=== PATIENT | female | born 1930 | race Caucasian/White ===

== ENCOUNTER → 2016-08-16 | Outpatient (CLI) | payer MEDICARE, OTHER ==
[~2016-08-16] MED LIST: Bupivacaine 0.25% 10 ML SDV INJECT STA; Iopamidol 612 MG/ML 30 ML SDV IARTIC STA; Triamcinolone Acetonide 40 MG/ML 1 ML MDV INJECT STA
--- NOTE | 2016-08-16 10:26 | CR ---
EXAMINATION: Bilateral greater trochanteric bursae steroid injections HISTORY: Pain COMPARISON: None TECHNIQUE: The procedure, risks, and benefits were discussed with the patient. Informed consent was obtained. The lateral areas overlying the hips were sterilely prepped and draped bilaterally, irving pope. 1% lidocaine was administered for local anesthesia. Using fluoroscopic guidance 22-gauge spina l needles were advanced. A small amount of Isovue was injected. A total of 40 mg of Kenalog and 2 mL of Marcaine were injected bilaterally. IMPRESSION: Successful fluoroscopic guided bilateral greater trochanteric bursa injections.
== END ==
LOC: MW.DI 08:20
PROVIDERS: ATTEND Student in an Organized Health Care Education/Training Program
DX: M25.551 Pain in right hip (principal)
CPT/HCPCS: J3301; Q9967

== ENCOUNTER → 2016-08-24 | Outpatient (CLI) | payer MEDICARE, OTHER | LOC: MW.CHNEURO 08:00 | PROVIDERS: ATTEND Psychiatry & Neurology Neuromuscular Medicine | DX: F03.90 Unspecified dementia, unspecified severity, without behavioral disturbance, psychotic disturbance, mood disturbance, and anxiety (principal) | CPT/HCPCS: 99214 ==

== ENCOUNTER 2016-12-05 14:39 | Observation (INO) | payer OTHER, MEDICARE ==
[2016-12-05] MEDS ORDERED: Sodium Chloride 0.9% 1,000 ML IV ONE (15:21)
[2016-12-05] MEDS ORDERED: Famotidine 20 MG/2 ML SDV IVPUSH ONE (15:21)
--- NOTE | 2016-12-05 16:45 | EDM.PDOC ---
ED HPI GENERAL MEDICAL PROBLEM - General Chief Complaint: Gastrointestinal Problem Stated Complaint: BOWL MOVEMENT ISSUES Time Seen by Provider: 12/05/16 16:42 Source of Information: Reports: Patient History Limitations: Reports: No Limitations - History of Present Illness INITIAL COMMENTS - FREE TEXT/NARRATIVE: History of present illness: [86-year-old female presenting with complaints of inability to control bowel movements. Patient has a history of constipation and indicates now that she has loose brown stool that she has no control over and has had several accidents and is concerned.] Review of systems: As per history of present illness and below otherwise all systems reviewed and negative. Past medical history: As per history of present illness and as reviewed below otherwise noncontributory. Surgical history: As per history of present illness and as reviewed below otherwise noncontributory. Social history: No reported history of drug or alcohol abuse. Family history: As per history of present illness and as reviewed below otherwise noncontributory. Physical exam: HEENT: Atraumatic, normocephalic, pupils reactive, negative for conjunctival pallor or scleral icterus, mucous membranes moist, throat clear, neck supple, nontender, trachea midline. Lungs: Clear to auscultation, breath sounds equal bilaterally, chest nontender. Heart: S1S2, regular, negative for clicks, rubs, or JVD. Abdomen: Soft, nondistended, nontender. Negative for masses or hepatosplenomegaly. Negative for costovertebral tenderness. Pelvis: Stable nontender. Genitourinary: Deferred. Rectal: Deferred. Extremities: Atraumatic, negative for cords or calf pain. Neurovascular unremarkable. Neuro: Awake, alert, oriented. Cranial nerves II through XII unremarkable. Cerebellum unremarkable. Motor and sensory unremarkable throughout. Exam nonfocal. Patient's Global assessment is benign save the subjective complaint as noted in history of present illness. Patient's H&H noted to be continuously drifting lower with a stool sample obtained with negative guaiac results. Diagnostics: [CBC, CMP, guaiac of stool] Therapeutics: [] Impression: [Low H&H, loose stools] Plan: [Admit to Dr. Hughes observation] Definitive disposition and diagnosis as appropriate pending reevaluation and review of above. - Related Data Allergies Allergy/AdvReac Type Severity Reaction Status Date / Time Penicillins Allergy Mild Rash Verified 12/05/16 14:54 codeine Allergy Nausea Verified 12/05/16 14:54 Lactose Allergy Vomiting Uncoded 12/05/16 14:54 Home Meds: Home Meds Acetaminophen [Tylenol Extra Strength] 500 mg PO Q4H PRN 02/15/14 [History] Fluticasone Propionate [Flonase] 1 - 2 sprays NASBOTH DAILY 02/15/14 [History] Furosemide [Lasix] 20 mg PO DAILY 02/15/14 [History] Insulin Detemir [Levemir Flexpen] 25 units SQ DAILY 02/15/14 [History] Levothyroxine Sodium [Synthroid] 75 mcg PO DAILY 02/15/14 [History] Lutein/Minerals/Vit A,C & E [Ocuvite] 1 tab PO DAILY 02/15/14 [History] Metoprolol Tartrate 25 mg PO BID 02/15/14 [History] atorvaSTATin Calcium [Atorvastatin Calcium] 10 mg PO DAILY 02/15/14 [History] Calcium Carbonate [Calcium] 600 mg PO BID 12/23/15 [History] Losartan [Cozaar] 25 mg PO TID 12/23/15 [History] Pantoprazole [Protonix] 40 mg PO DAILY 12/23/15 [History] Donepezil [Aricept] 1 tab PO DAILY 05/16/16 [History] Aspirin 81 mg PO DAILY 12/05/16 [History] Meclizine HCl 25 mg PO TID PRN 12/05/16 [History] Past Medical History HEENT History: Reports: Impaired Vision Other HEENT History: WEARS GLASSES Cardiovascular History: Reports: High Cholesterol, Hypertension Gastrointestinal History: Reports: GERD Musculoskeletal History: Reports: Back Pain, Chronic Endocrine/Metabolic History: Reports: Diabetes, Type I - Infectious Disease History Infectious Disease History: Reports: Measles - Past Surgical History Female Surgical History: Reports: Hysterectomy Musculoskeletal Surgical History: Reports: Other (See Below) Other Musculoskeletal Surgeries/Procedures:: ankle sx Oncologic Surgical History: Reports: Lumpectomy Social & Family History - Family History Family Medical History: Noncontributory - Tobacco Use Smoking Status *Q: Never Smoker Second Hand Smoke Exposure: No - Caffeine Use Caffeine Use: Reports: Coffee - Alcohol Use Days Per Week of Alcohol Use: 0 Number of Drinks Per Day: 0 Total Drinks Per Week: 0 - Recreational Drug Use Recreational Drug Use: No Drug Use in Last 12 Months: No ED ROS GENERAL - Review of Systems Review Of Systems: See Below (See history of present illness) ED EXAM, GI/ABD - Physical Exam Exam: See Below (See history of present illness) Course - Vital Signs Last Recorded V/S: Last Vital Signs Temp 36.3 C 12/05/16 14:54 Pulse 64 12/05/16 15:43 Resp 16 12/05/16 15:43 BP 160/64 H 12/05/16 15:43 Pulse Ox 95 12/05/16 15:43 - Orders/Labs/Meds Orders: Active Orders 24 hr Category Date Time Status Cardiac Monitoring [RC] . DIRECTED Care 12/05/16 15:21 Active EKG Documentation Completion [RC] STAT Care 12/05/16 15:21 Active TYPE AND SCREEN [BBK] Stat Lab 12/05/16 17:38 Ordered Labs: Laboratory Tests 12/05/16 12/05/16 12/05/16 Range/Units 15:09 15:09 15:09 WBC 6.89 (4.0-11.0) K/uL RBC 2.98 L (4.30-5.90) M/uL Hgb 9.5 L (12.0-16.0) g/dL Hct 29.0 L (36.0-46.0) % MCV 97.3 (80.0-98.0) fL MCH 31.9 (27.0-32.0) pg MCHC 32.8 (31.0-37.0) g/dL RDW Std Deviation 61.0 (28.0-62.0) fl RDW Coeff of Joelle 17 H (11.0-15.0) % Plt Count 215 (150-400) K/uL MPV 9.10 (7.40-12.00) fL Neut % (Auto) 69.6 (48.0-80.0) % Lymph % (Auto) 21.0 (16.0-40.0) % [place] % (Auto) 4.8 (0.0-15.0) % Eos % (Auto) 4.5 (0.0-7.0) % Baso % (Auto) 0.1 (0.0-1.5) % Neut # (Auto) 4.8 (1.4-5.7) K/uL Lymph # (Auto) 1.5 (0.6-2.4) K/uL [place] # (Auto) 0.3 (0.0-0.8) K/uL Eos # (Auto) 0.3 (0.0-0.7) K/uL Baso # (Auto) 0.0 (0.0-0.1) K/uL Nucleated RBC % 0.0 /100WBC Nucleated RBCs # 0 K/uL Sodium 141 (136-146) mmol/L Potassium 3.7 (3.5-5.1) mmol/L Chloride 107 (98-110) mmol/L Carbon Dioxide 26 (21-31) mmol/L BUN 17 (6.0-23.0) mg/dL Creatinine 1.4 (0.6-1.5) mg/dL Est Cr Clr Drug Dosing 23.42 mL/min Estimated GFR (MDRD) 35.6 ml/min Glucose 90 (60-110) mg/dL Calcium 9.1 (8.8-10.8) mg/dL Total Bilirubin 1.5 (0.1-1.5) mg/dL AST 20 (5-40) IU/L ALT 18 (8-54) IU/L Alkaline Phosphatase 67 (40-150) Troponin I < 0.10 (0.0-0.29) NG/ML Total Protein 6.3 (6.0-8.0) g/dL Albumin 3.6 (3.4-4.8) g/dL Globulin 2.7 (2.0-3.5) g/dL Albumin/Globulin Ratio 1.3 (1.3-2.8) Amylase 71 (10-90) U/L Lipase 37 (7-80) U/L Meds: Medications Discontinued Medications Generic Name Dose Route Start Last Admin Trade Name Freq PRN Reason Stop Dose Admin Famotidine 20 mg 12/05/16 15:21 12/05/16 15:40 Pepcid IVPUSH 12/05/16 15:22 20 mg ONETIME ONE Administration Sodium Chloride 1,000 mls @ 999 mls/hr 12/05/16 15:21 12/05/16 15:40 Normal Saline IV 12/05/16 16:21 999 mls/hr .Bolus ONE Administration Departure - Departure Time of Disposition: 18:00 Disposition: Refer to Observation Condition: Good Clinical Impression: Anemia due to blood loss - Discharge Information Forms: ED Department Discharge - My Orders Last 24 Hours: My Active Orders 12/05/16 15:21 Cardiac Monitoring [RC] . DIRECTED EKG Documentation Completion [RC] STAT 12/05/16 17:38 TYPE AND SCREEN [BBK] Stat - Assessment/Plan Last 24 Hours: My Active Orders 12/05/16 15:21 Cardiac Monitoring [RC] . DIRECTED EKG Documentation Completion [RC] STAT 12/05/16 17:38 TYPE AND SCREEN [BBK] Stat
[2016-12-05] MEDS ORDERED: Acetaminophen 325 MG Tab PO PRN (18:13)
[2016-12-05] MEDS ORDERED: Loperamide 2 MG Cap PO STA (18:13)
[2016-12-05] MEDS ORDERED: Ondansetron 4 MG Tab.DIS PO PRN (18:13)
[2016-12-05] MEDS ORDERED: Pantoprazole 40 MG in Sodium Chloride 0.9% 10 ML IVPUSH ONE (18:13)
[2016-12-05] MEDS ORDERED: Loperamide 2 MG Cap PO PRN (18:13)
--- NOTE | 2016-12-05 18:30 | PCM.HP ---
H&P History of Present Illness - General Date of Service: 12/05/16 Admit Problem/Dx: Admission Diagnosis/Problem Admission Diagnosis/Problem Anemia Source of Information: Patient, Provider History Limitations: Reports: No Limitations - History of Present Illness Initial Comments - Free Text/Narative: 86-year-old female with medical history of hypertension, hypercholesterolemia, GERD, chronic back pain, type 1 diabetes requiring insulin and hypothyroidism and is being admitted secondary to one week duration of loose stools and a low hemoglobin of 9.5. Patient states over the past week she's been experiencing loose stools during the day and is unable to control her bowels and has had multiple accidents over the week. This is very different for the patient as she is usually constipated. She has not been around any sick contacts although she does live in a [facility] home but notes that no other residents have had similar symptoms. She cannot correlate the loose stools with any type of food. She denies any bloody stools or black stools. She's never had symptoms like this before. She denies any recent travel. She has had occasional chills but denies any fever. With the frequent stools over the past week, the patient is feeling dizziness at times and much more weak than usual. She has never required a blood transfusion before. She does use a walker for ambulation. Patient denies any other concerns including vision problems, chest pain, palpitations, shortness of breath, wheezing, cough, abdominal pain, nausea, vomiting, change in appetite, numbness/tingling in the upper and lower extreme venous bilaterally, peripheral edema. ER course: Patient was given IV Pepcid while in the emergency room. Hemoccult was done which was negative. Hemoglobin was 9.5. In reviewing past records her hemoglobin is usually between 9.5-11. Her platelet count is normal. CMP is unremarkable. Initial troponins were negative. Amylase and lipase were unremarkable. - Related Data Allergies/Adverse Reactions: Allergies Allergy/AdvReac Type Severity Reaction Status Date / Time Penicillins Allergy Mild Rash Verified 12/05/16 14:54 codeine Allergy Nausea Verified 12/05/16 14:54 Lactose Allergy Vomiting Uncoded 12/05/16 14:54 Home Medications: Home Meds Acetaminophen [Tylenol Extra Strength] 500 mg PO Q4H PRN 02/15/14 [History] Furosemide [Lasix] 20 mg PO DAILY 02/15/14 [History] Insulin Detemir [Levemir Flexpen] 25 units SQ DAILY 02/15/14 [History] Levothyroxine Sodium [Synthroid] 75 mcg PO DAILY 02/15/14 [History] atorvaSTATin Calcium [Atorvastatin Calcium] 10 mg PO DAILY 02/15/14 [History] Calcium Carbonate [Calcium] 600 mg PO BID 12/23/15 [History] Losartan [Cozaar] 25 mg PO TID 12/23/15 [History] Pantoprazole [Protonix] 40 mg PO DAILY 12/23/15 [History] Donepezil [Aricept] 1 tab PO DAILY 05/16/16 [History] Aspirin 81 mg PO DAILY 12/05/16 [History] Meclizine HCl 25 mg PO TID PRN 12/05/16 [History] Past Medical History HEENT History: Reports: Impaired Vision Other HEENT History: WEARS GLASSES Cardiovascular History: Reports: High Cholesterol, Hypertension Gastrointestinal History: Reports: GERD Musculoskeletal History: Reports: Back Pain, Chronic Endocrine/Metabolic History: Reports: Diabetes, Type I - Infectious Disease History Infectious Disease History: Reports: Measles - Past Surgical History Female Surgical History: Reports: Hysterectomy Musculoskeletal Surgical History: Reports: Other (See Below) Other Musculoskeletal Surgeries/Procedures:: ankle sx Oncologic Surgical History: Reports: Lumpectomy Social & Family History - Family History Family Medical History: Noncontributory - Tobacco Use Smoking Status *Q: Never Smoker Second Hand Smoke Exposure: No - Caffeine Use Caffeine Use: Reports: Coffee - Alcohol Use Days Per Week of Alcohol Use: 0 Number of Drinks Per Day: 0 Total Drinks Per Week: 0 - Recreational Drug Use Recreational Drug Use: No Drug Use in Last 12 Months: No H&P Review of Systems - Review of Systems: Review Of Systems: See Below General: Reports: Weakness HEENT: Reports: No Symptoms Pulmonary: Reports: No Symptoms Cardiovascular: Reports: No Symptoms Gastrointestinal: Reports: Diarrhea, Stool Incontinence Genitourinary: Reports: No Symptoms Musculoskeletal: Reports: No Symptoms Skin: Reports: No Symptoms Psychiatric: Reports: No Symptoms Neurological: Reports: Dizziness, Weakness Hematologic/Lymphatic: Reports: No Symptoms Immunologic: Reports: No Symptoms Exam - Exam Exam: See Below - Vital Signs Vital Signs: Last Vital Signs Temp 97.4 F 12/05/16 14:54 Pulse 64 12/05/16 15:43 Resp 16 12/05/16 15:43 BP 160/64 H 12/05/16 15:43 Pulse Ox 95 12/05/16 15:43 Weight: 155 lb - Exam Quality Assessment: DVT Prophylaxis (SCD's) General: Alert, Oriented, Cooperative HEENT: Conjunctiva Clear, Hearing Intact, Mucosa Moist & [place], Posterior Pharynx Clear Neck: Supple, Trachea Midline, 2 Lungs: Clear to Auscultation, Normal Respiratory Effort Cardiovascular: Regular Rate, Regular Rhythm GI/Abdominal Exam: Normal Bowel Sounds, Soft, Non-Tender, No Organomegaly, No Distention, No Abnormal Bruit, No Mass Rectal (Female) Exam: Heme - Stool Extremities: Normal Inspection, Non-Tender, No Pedal Edema, Normal Capillary Refill Peripheral Pulses: 2+: Radial (L), Radial (R), Posterior Tibial (L), Posterior Tibial (R) Skin: Warm, Dry, Intact Neuro Extensive - Mental Status: Alert, Oriented x3, Normal Mood/Affect, Normal Cognition Psychiatric: Alert, Normal Affect, Normal Mood - Patient Data Lab Results Last 24 hrs: Laboratory Results - last 24 hr 12/05/16 12/05/16 12/05/16 Range/Units 15:09 15:09 15:09 WBC 6.89 (4.0-11.0) K/uL RBC 2.98 L (4.30-5.90) M/uL Hgb 9.5 L (12.0-16.0) g/dL Hct 29.0 L (36.0-46.0) % MCV 97.3 (80.0-98.0) fL MCH 31.9 (27.0-32.0) pg MCHC 32.8 (31.0-37.0) g/dL RDW Std Deviation 61.0 (28.0-62.0) fl RDW Coeff of Joelle 17 H (11.0-15.0) % Plt Count 215 (150-400) K/uL MPV 9.10 (7.40-12.00) fL Neut % (Auto) 69.6 (48.0-80.0) % Lymph % (Auto) 21.0 (16.0-40.0) % [place] % (Auto) 4.8 (0.0-15.0) % Eos % (Auto) 4.5 (0.0-7.0) % Baso % (Auto) 0.1 (0.0-1.5) % Neut # (Auto) 4.8 (1.4-5.7) K/uL Lymph # (Auto) 1.5 (0.6-2.4) K/uL [place] # (Auto) 0.3 (0.0-0.8) K/uL Eos # (Auto) 0.3 (0.0-0.7) K/uL Baso # (Auto) 0.0 (0.0-0.1) K/uL Nucleated RBC % 0.0 /100WBC Nucleated RBCs # 0 K/uL Sodium 141 (136-146) mmol/L Potassium 3.7 (3.5-5.1) mmol/L Chloride 107 (98-110) mmol/L Carbon Dioxide 26 (21-31) mmol/L BUN 17 (6.0-23.0) mg/dL Creatinine 1.4 (0.6-1.5) mg/dL Est Cr Clr Drug Dosing 23.42 mL/min Estimated GFR (MDRD) 35.6 ml/min Glucose 90 (60-110) mg/dL Calcium 9.1 (8.8-10.8) mg/dL Total Bilirubin 1.5 (0.1-1.5) mg/dL AST 20 (5-40) IU/L ALT 18 (8-54) IU/L Alkaline Phosphatase 67 (40-150) Troponin I < 0.10 (0.0-0.29) NG/ML Total Protein 6.3 (6.0-8.0) g/dL Albumin 3.6 (3.4-4.8) g/dL Globulin 2.7 (2.0-3.5) g/dL Albumin/Globulin Ratio 1.3 (1.3-2.8) Amylase 71 (10-90) U/L Lipase 37 (7-80) U/L Result Diagrams: 12/05/16 15:09 12/05/16 15:09 *Q Meaningful Use (ADM) - VTE *Q VTE Criteria *Q: VTE Pharmacological Contraindications *Q: Risk of Bleeding - Stroke *Q Stroke Criteria *Q: - AMI *Q AMI Criteria *Q: - Problem List (1) Anemia SNOMED Code(s): 438888319 ICD Code: D64.9 - ANEMIA, UNSPECIFIED Status: Acute Current Visit: Yes Qualifiers: Anemia type: unspecified type Qualified Code(s): D64.9 - Anemia, unspecified (2) Weakness SNOMED Code(s): 62641800 ICD Code: R53.1 - WEAKNESS Status: Acute Current Visit: Yes Problem List Initiated/Reviewed/Updated: Yes Orders Last 24hrs: Active Orders 24 hr Category Date Time Status Patient Status [ADT] Routine ADT 12/05/16 18:13 Ordered Patient Status [ADT] Stat ADT 12/05/16 18:02 Active Antiembolic Devices [RC] PER UNIT ROUTINE Care 12/05/16 18:14 Ordered Blood Glucose Check, Bedside [RC] TIDMEALS Care 12/05/16 18:13 Ordered Cardiac Monitoring [RC] . DIRECTED Care 12/05/16 15:21 Active EKG Documentation Completion [RC] STAT Care 12/05/16 15:21 Active Fecal Occult Blood Collection [RC] ASDIRECTED Care 12/05/16 18:13 Ordered Height and Weight [RC] DAILY Care 12/05/16 18:13 Ordered Intake and Output [RC] QSHIFT Care 12/05/16 18:14 Ordered Notify Provider Vital Signs [RC] ASDIRECTED Care 12/05/16 18:14 Ordered Oxygen Therapy [RC] PRN Care 12/05/16 18:13 Ordered Pulse Oximetry [RC] PRN Care 12/05/16 18:13 Ordered Up With Assistance [RC] ASDIRECTED Care 12/05/16 18:13 Ordered VTE/DVT Education [RC] PER UNIT ROUTINE Care 12/05/16 18:13 Ordered Vital Signs [RC] Q4H Care 12/05/16 18:13 Ordered [place] [employer] Diet [DIET] Diet 12/05/16 Breakfast Ordered BASIC METABOLIC PANEL,BMP [CHEM] AM Lab 12/06/16 05:11 Ordered BASIC METABOLIC PANEL,BMP [CHEM] AM Lab 12/07/16 05:11 Ordered CBC WITH AUTO DIFF [HEME] AM Lab 12/06/16 05:11 Ordered CBC WITH AUTO DIFF [HEME] AM Lab 12/07/16 05:11 Ordered CDIFF TOX A+B [OP] Stat Lab 12/05/16 18:13 Uncollected CULTURE STOOL + CAMPY+SHIGATOX [RM] Stat Lab 12/05/16 18:13 Uncollected TYPE AND SCREEN [BBK] Stat Lab 12/05/16 17:48 Received UA W/MICROSCOPIC [URIN] Routine Lab 12/05/16 18:13 Uncollected Acetaminophen [Tylenol] Med 12/05/16 18:13 Ordered 650 mg PO Q4H PRN Loperamide [Imodium] Med 12/05/16 18:13 Ordered 2 mg PO ASDIRECTED PRN Ondansetron [Zofran ODT] Med 12/05/16 18:13 Ordered 4 mg PO Q4H PRN Pantoprazole [ProTONIX IV] 40 mg Med 12/05/16 21:00 Ordered Sodium Chloride 0.9% [Normal Saline] 10 ml IVPUSH Q12HR Sodium Chloride 0.9% @ 125 MLS/HR (1000ml) Med 12/05/16 18:15 Ordered Sodium Chloride 0.9% [Normal Saline] 1,000 ml IV ASDIRECTED Sequential Compression Device [OM.PC] Per Unit Routine Oth 12/05/16 18:14 Ordered VTE Pharmacological Contraindications [AST] Per Unit Oth 12/05/16 18:13 Ordered Routine Medication Orders Acetaminophen (Tylenol) 650 mg PO Q4H PRN PRN Reason: Pain (Mild 1-3)/fever Sodium Chloride (Normal Saline) 1,000 mls @ 125 mls/hr IV ASDIRECTED ANAMIKA Pantoprazole Sodium 40 mg/ (Sodium Chloride) 10 mls @ 300 mls/hr IVPUSH Q12HR ANAMIKA Loperamide HCl (Imodium) 2 mg PO ASDIRECTED PRN PRN Reason: Diarrhea Ondansetron HCl (Zofran Odt) 4 mg PO Q4H PRN PRN Reason: nausea, able to take PO Assessment/Plan Comment:: 86-year-old female admitted with Anemia and generalized weakness secondary to frequent loose stools over the past week. #1. Diarrhea with resultant weakness: -There is concern from the ER physician that the patient may have a GI bleed. Her hemoglobin is stable at 9.5 and in reviewing past records her hemoglobin is usually between 9.5-11. her Hemoccult was negative. She has no other signs of bleeding. -Patient will be started on Imodium for her diarrhea. -Patient was started on normal saline at 125 cc/hour -Stool cultures will be sent. #2. Concern for GI bleed: -There is concern from the ER physician that the patient may have a GI bleed. Her hemoglobin is stable at 9.5 and in review of past records her hemoglobin is usually between 9.5-11. Her Hemoccult was negative. She has no other signs of bleeding. -Repeat Hemoccult is pending. -Given this concern the patient will be started on Protonix 40 mg IV every 12 hours. -We will check a CBC in the morning to trend her hemoglobin. Discharge: One to 2 days pending improvement.
[2016-12-05] MEDS: Sodium Chloride 0.9% 1,000 ML IV SCH (19:24)
[2016-12-06] MEDS: Sodium Chloride 0.9% 1,000 ML IV SCH (03:33)
[2016-12-06] MEDS: Pantoprazole 40 MG in Sodium Chloride 0.9% 10 ML IVPUSH SCH ×2 (06:08→17:03)
[2016-12-06] MEDS ORDERED: Pantoprazole 40 MG Tab.CR PO SCH (09:00)
[2016-12-06] MEDS ORDERED: Furosemide 20 MG Tab PO SCH (09:00)
[2016-12-06] MEDS ORDERED: Insulin Detemir 100 Units/ML 3 ML Pen SUBCUT SCH (09:00)
[2016-12-06] MEDS: Insulin Detemir 100 Units/ML 3 ML Pen SUBCUT SCH (09:51)
[2016-12-06] MEDS: Calcium Carbonate 500 MG Tab.Chew PO SCH ×2 (09:52→20:20)
[2016-12-06] MEDS: Cyanocobalamin (Vitamin B12) 500 MCG Tab PO SCH (09:52)
[2016-12-06] MEDS: atorvaSTATin 10 MG Tab PO SCH (09:53)
[2016-12-06] MEDS: Donepezil 10 MG Tab PO SCH (09:53)
[2016-12-06] MEDS: Levothyroxine 75 MCG Tab PO SCH (09:53)
[2016-12-06] MEDS: Fish Oil/Omega-3 Fatty Acids 1 Gm Cap PO SCH (09:53)
[2016-12-06] MEDS: Aspirin 81 MG Tab.Chew PO SCH (09:54)
[2016-12-06] MEDS: Lutein/Minerals/Vit A,C & E 1 TAB PO SCH ×2 (09:58→20:20)
--- NOTE | 2016-12-06 11:52 | PCM.PN ---
- General Info Date of Service: 12/06/16 Admission Dx/Problem (Free Text): Admission Diagnosis/Problem Admission Diagnosis/Problem Anemia Subjective Update: Feeling slightly dizzy today and weak at times. No chest pain or SOB. No further diarrhea overnight. Feels too weak to go home especially since she lives alone. Functional Status: Reports: Pain Controlled, Tolerating Diet, Ambulating, Urinating - Review of Systems General: Reports: No Symptoms. Denies: Fever HEENT: Reports: No Symptoms. Denies: Sore Throat Pulmonary: Reports: No Symptoms. Denies: Shortness of Breath Cardiovascular: Reports: No Symptoms. Denies: Chest Pain Gastrointestinal: Reports: No Symptoms. Denies: Abdominal Pain, Nausea, Vomiting Genitourinary: Reports: No Symptoms, Urgency (baseline). Denies: Dysuria, Frequency, Burning Musculoskeletal: Reports: No Symptoms Skin: Reports: No Symptoms Neurological: Reports: No Symptoms Psychiatric: Reports: No Symptoms - Patient Data Vitals - Most Recent: Last Vital Signs Temp 96.8 F 12/06/16 11:44 Pulse 68 12/06/16 11:44 Resp 16 12/06/16 11:44 BP 146/55 H 12/06/16 08:00 Pulse Ox 100 12/06/16 11:44 Orthostatic Blood Pressure [ 134/60 Standing] Orthostatic Blood Pressure [ 137/55 Sitting] Orthostatic Blood Pressure [ 144/56 Supine] Weight - Most Recent: 71.9 kg I&O - Last 24 Hours: Intake & Output 12/05/16 12/06/16 12/06/16 22:59 06:59 14:59 Intake Total 1345 Output Total 675 Balance 670 Lab Results Last 24 Hours: Laboratory Results - last 24 hr 12/05/16 12/06/16 12/06/16 Range/Units 21:10 05:35 05:35 WBC 5.74 (4.0-11.0) K/uL RBC 2.73 L (4.30-5.90) M/uL Hgb 8.7 L (12.0-16.0) g/dL Hct 26.7 L (36.0-46.0) % MCV 97.8 (80.0-98.0) fL MCH 31.9 (27.0-32.0) pg MCHC 32.6 (31.0-37.0) g/dL RDW Std Deviation 61.0 (28.0-62.0) fl RDW Coeff of Joelle 17 H (11.0-15.0) % Plt Count 179 (150-400) K/uL MPV 9.30 (7.40-12.00) fL Neut % (Auto) 64.8 (48.0-80.0) % Lymph % (Auto) 26.0 (16.0-40.0) % Bailey % (Auto) 4.4 (0.0-15.0) % Eos % (Auto) 4.5 (0.0-7.0) % Baso % (Auto) 0.3 (0.0-1.5) % Neut # (Auto) 3.7 (1.4-5.7) K/uL Lymph # (Auto) 1.5 (0.6-2.4) K/uL Bailey # (Auto) 0.3 (0.0-0.8) K/uL Eos # (Auto) 0.3 (0.0-0.7) K/uL Baso # (Auto) 0.0 (0.0-0.1) K/uL Nucleated RBC % 0.5 /100WBC Nucleated RBCs # 0 K/uL Smear Path Review Absolute Retic (20-80) K/uL Percent Retic (0.5-1.5) % Immature Retic Fraction % Sodium 145 (136-146) mmol/L Potassium 3.5 (3.5-5.1) mmol/L Chloride 112 H (98-110) mmol/L Carbon Dioxide 26 (21-31) mmol/L BUN 12 (6.0-23.0) mg/dL Creatinine 1.1 (0.6-1.5) mg/dL Est Cr Clr Drug Dosing 32.42 mL/min Estimated GFR (MDRD) 47.0 ml/min Glucose 61 (60-110) mg/dL POC Glucose (60-110) mg/dL Calcium 8.4 L (8.8-10.8) mg/dL Iron (50-170) ug/dL TIBC (273-456) ug/dL % Saturation (20-55) % Transferrin (200-400) ug/dL Urine Color YELLOW Urine Appearance CLEAR Urine pH 5.5 (5.0-8.0) Ur Specific Clare 1.010 (1.001-1.035) Urine Protein NEGATIVE (NEGATIVE) mg/dL Urine Glucose (UA) NEGATIVE (NEGATIVE) mg/dL Urine Ketones NEGATIVE (NEGATIVE) mg/dL Urine Occult Blood NEGATIVE (NEGATIVE) Urine Nitrite NEGATIVE (NEGATIVE) Urine Bilirubin NEGATIVE (NEGATIVE) Urine Urobilinogen 0.2 (<2.0) EU/dL Ur Leukocyte Esterase NEGATIVE (NEGATIVE) Urine RBC 0-2 (0-2/HPF) Urine WBC 0-2 (0-5/HPF) Ur Epithelial Cells RARE (NONE-FEW) Urine Bacteria RARE (NEGATIVE) 12/06/16 12/06/16 12/06/16 Range/Units 05:35 05:35 06:11 WBC (4.0-11.0) K/uL RBC 2.68 L (4.30-5.90) M/uL Hgb (12.0-16.0) g/dL Hct (36.0-46.0) % MCV (80.0-98.0) fL MCH (27.0-32.0) pg MCHC (31.0-37.0) g/dL RDW Std Deviation (28.0-62.0) fl RDW Coeff of Joelle (11.0-15.0) % Plt Count (150-400) K/uL MPV (7.40-12.00) fL Neut % (Auto) (48.0-80.0) % Lymph % (Auto) (16.0-40.0) % Bailey % (Auto) (0.0-15.0) % Eos % (Auto) (0.0-7.0) % Baso % (Auto) (0.0-1.5) % Neut # (Auto) (1.4-5.7) K/uL Lymph # (Auto) (0.6-2.4) K/uL Bailey # (Auto) (0.0-0.8) K/uL Eos # (Auto) (0.0-0.7) K/uL Baso # (Auto) (0.0-0.1) K/uL Nucleated RBC % /100WBC Nucleated RBCs # K/uL Smear Path Review SENT TO PATHOLOGY Absolute Retic 45.80 (20-80) K/uL Percent Retic 1.7 H (0.5-1.5) % Immature Retic Fraction 18 % Sodium (136-146) mmol/L Potassium (3.5-5.1) mmol/L Chloride (98-110) mmol/L Carbon Dioxide (21-31) mmol/L BUN (6.0-23.0) mg/dL Creatinine (0.6-1.5) mg/dL Est Cr Clr Drug Dosing mL/min Estimated GFR (MDRD) ml/min Glucose (60-110) mg/dL POC Glucose 70 (60-110) mg/dL Calcium (8.8-10.8) mg/dL Iron (50-170) ug/dL TIBC (273-456) ug/dL % Saturation (20-55) % Transferrin (200-400) ug/dL Urine Color Urine Appearance Urine pH (5.0-8.0) Ur Specific Clare (1.001-1.035) Urine Protein (NEGATIVE) mg/dL Urine Glucose (UA) (NEGATIVE) mg/dL Urine Ketones (NEGATIVE) mg/dL Urine Occult Blood (NEGATIVE) Urine Nitrite (NEGATIVE) Urine Bilirubin (NEGATIVE) Urine Urobilinogen (<2.0) EU/dL Ur Leukocyte Esterase (NEGATIVE) Urine RBC (0-2/HPF) Urine WBC (0-5/HPF) Ur Epithelial Cells (NONE-FEW) Urine Bacteria (NEGATIVE) 12/06/16 12/06/16 Range/Units 11:00 11:35 WBC (4.0-11.0) K/uL RBC (4.30-5.90) M/uL Hgb (12.0-16.0) g/dL Hct (36.0-46.0) % MCV (80.0-98.0) fL MCH (27.0-32.0) pg MCHC (31.0-37.0) g/dL RDW Std Deviation (28.0-62.0) fl RDW Coeff of Joelle (11.0-15.0) % Plt Count (150-400) K/uL MPV (7.40-12.00) fL Neut % (Auto) (48.0-80.0) % Lymph % (Auto) (16.0-40.0) % Bailey % (Auto) (0.0-15.0) % Eos % (Auto) (0.0-7.0) % Baso % (Auto) (0.0-1.5) % Neut # (Auto) (1.4-5.7) K/uL Lymph # (Auto) (0.6-2.4) K/uL Bailey # (Auto) (0.0-0.8) K/uL Eos # (Auto) (0.0-0.7) K/uL Baso # (Auto) (0.0-0.1) K/uL Nucleated RBC % /100WBC Nucleated RBCs # K/uL Smear Path Review Absolute Retic (20-80) K/uL Percent Retic (0.5-1.5) % Immature Retic Fraction % Sodium (136-146) mmol/L Potassium (3.5-5.1) mmol/L Chloride (98-110) mmol/L Carbon Dioxide (21-31) mmol/L BUN (6.0-23.0) mg/dL Creatinine (0.6-1.5) mg/dL Est Cr Clr Drug Dosing mL/min Estimated GFR (MDRD) ml/min Glucose (60-110) mg/dL POC Glucose 92 (60-110) mg/dL Calcium (8.8-10.8) mg/dL Iron 72 (50-170) ug/dL TIBC 269 L (273-456) ug/dL % Saturation 26.77 (20-55) % Transferrin 188 L (200-400) ug/dL Urine Color Urine Appearance Urine pH (5.0-8.0) Ur Specific Clare (1.001-1.035) Urine Protein (NEGATIVE) mg/dL Urine Glucose (UA) (NEGATIVE) mg/dL Urine Ketones (NEGATIVE) mg/dL Urine Occult Blood (NEGATIVE) Urine Nitrite (NEGATIVE) Urine Bilirubin (NEGATIVE) Urine Urobilinogen (<2.0) EU/dL Ur Leukocyte Esterase (NEGATIVE) Urine RBC (0-2/HPF) Urine WBC (0-5/HPF) Ur Epithelial Cells (NONE-FEW) Urine Bacteria (NEGATIVE) Med Orders - Current: Current Medications Acetaminophen (Tylenol) 650 mg PO Q4H PRN PRN Reason: Pain (Mild 1-3)/fever Aspirin (Aspirin) 81 mg PO DAILY [facility] Last Admin: 12/06/16 09:54 Dose: 81 mg Atorvastatin Calcium (Lipitor) 10 mg PO DAILY [facility] Last Admin: 12/06/16 09:53 Dose: 10 mg Calcium Carbonate/Glycine (Tums) 500 mg PO BID [facility] Last Admin: 12/06/16 09:52 Dose: 500 mg Cyanocobalamin (Vitamin B12) 1,000 mcg PO DAILY [facility] Last Admin: 12/06/16 09:52 Dose: 1,000 mcg Donepezil HCl (Aricept) 10 mg PO DAILY [facility] Last Admin: 12/06/16 09:53 Dose: 10 mg Fish Oil (Fish Oil) 1 gm PO DAILY [facility] Last Admin: 12/06/16 09:53 Dose: 1 gm Pantoprazole Sodium 40 mg/ (Sodium Chloride) 10 mls @ 300 mls/hr IVPUSH Q12H [facility] Last Admin: 12/06/16 06:08 Dose: 300 mls/hr Insulin Detemir (Levemir) 25 unit SUBCUT DAILY [facility] Last Admin: 12/06/16 09:51 Dose: Not Given Levothyroxine Sodium (Levothyroxine) 75 mcg PO ACBREAKFAST [facility] Last Admin: 12/06/16 09:53 Dose: 75 mcg Loperamide HCl (Imodium) 2 mg PO ASDIRECTED PRN PRN Reason: Diarrhea Losartan Potassium (Cozaar) 25 mg PO BEDTIME [facility] Ondansetron HCl (Zofran Odt) 4 mg PO Q4H PRN PRN Reason: nausea, able to take PO Pantoprazole Sodium (Protonix) 40 mg PO ACBREAKFAST [facility] Last Admin: 12/06/16 09:53 Dose: 40 mg Lutein/Minerals/Vit (A,C & E 1 Tab) 1 each PO BID [facility] Last Admin: 12/06/16 09:58 Dose: Not Given Discontinued Medications Famotidine (Pepcid) 20 mg IVPUSH ONETIME ONE Stop: 12/05/16 15:22 Last Admin: 12/05/16 15:40 Dose: 20 mg Furosemide (Lasix) 20 mg PO DAILY [facility] Last Admin: 12/06/16 10:32 Dose: Not Given Sodium Chloride (Normal Saline) 1,000 mls @ 999 mls/hr IV .Bolus ONE Stop: 12/05/16 16:21 Last Admin: 12/05/16 15:40 Dose: 999 mls/hr Pantoprazole Sodium 40 mg/ (Sodium Chloride) 10 mls @ 300 mls/hr IVPUSH NOW ONE Stop: 12/05/16 18:14 Last Admin: 12/05/16 18:40 Dose: 300 mls/hr Sodium Chloride (Normal Saline) 1,000 mls @ 125 mls/hr IV ASDIRECTED [facility] Last Admin: 12/06/16 03:33 Dose: 125 mls/hr Insulin Detemir (Levemir) 25 unit SUBCUT DAILY [facility] Last Admin: 12/06/16 09:50 Dose: Not Given Loperamide HCl (Imodium) 2 mg PO NOW STA Stop: 12/05/16 18:14 Last Admin: 12/05/16 18:40 Dose: 2 mg Losartan Potassium (Cozaar) 25 mg PO TID [facility] - Exam General: Alert, Oriented, Cooperative, No Acute Distress Neck: Supple, Other (no nystagmus and no increased dizziness with moving head. mainly intermittent with ambulating) Lungs: Clear to Auscultation, Normal Respiratory Effort Cardiovascular: Regular Rate, Regular Rhythm GI/Abdominal Exam: Normal Bowel Sounds, Soft, Non-Tender, No Organomegaly, No Distention, No Abnormal Bruit, No Mass, Pelvis Stable, Other (hemrrhoids to rectum, no bleeding or pain noted per rectal exam.) Extremities: Normal Inspection, Normal Range of Motion, Non-Tender, No Pedal Edema, Normal Capillary Refill Psy/Mental Status: Alert, Normal Affect, Normal Mood - Problem List & Annotations (1) Anemia SNOMED Code(s): 076113041 Code(s): D64.9 - ANEMIA, UNSPECIFIED Status: Acute Current Visit: Yes Qualifiers: Anemia type: unspecified type Qualified Code(s): D64.9 - Anemia, unspecified (2) Weakness SNOMED Code(s): 23701839 Code(s): R53.1 - WEAKNESS Status: Acute Current Visit: Yes (3) Hx of lower gastrointestinal bleeding SNOMED Code(s): 036193430154186 Code(s): Z87.19 - PERSONAL HISTORY OF OTHER DISEASES OF THE DIGESTIVE SYSTEM Status: Acute Current Visit: Yes (4) Orthostatic hypotension SNOMED Code(s): 87085970 Code(s): I95.1 - ORTHOSTATIC HYPOTENSION Status: Chronic Current Visit: Yes (5) Diabetes mellitus type 2 in obese SNOMED Code(s): 42862228 Code(s): E11.9 - TYPE 2 DIABETES MELLITUS WITHOUT COMPLICATIONS; E66.9 - OBESITY, UNSPECIFIED Status: Chronic Priority: Medium Current Visit: No (6) Dizziness, nonspecific SNOMED Code(s): 837024669, 802064650 Code(s): R42 - DIZZINESS AND GIDDINESS Status: Chronic Current Visit: No - Problem List Review Problem List Initiated/Reviewed/Updated: Yes - My Orders Last 24 Hours: My Active Orders 12/06/16 08:30 Levothyroxine 75 mcg PO ACBREAKFAST 12/06/16 09:00 Aspirin 81 mg PO DAILY Calcium Carbonate [Tums] 500 mg PO BID Cyanocobalamin (Vitamin B12) [Vitamin B12] 1,000 mcg PO DAILY Donepezil [Aricept] 10 mg PO DAILY Fish Oil/[place]-3 Fatty Acids [Fish Oil] 1 gm PO DAILY Insulin Detemir [Levemir] 25 unit SUBCUT DAILY Pantoprazole [ProTONIX] 40 mg PO ACBREAKFAST Patient's Own Medication [Ptom] 1 each PO BID atorvaSTATin [Lipitor] 10 mg PO DAILY 12/06/16 09:50 Communication Order [RC] ROUTINE 12/06/16 10:32 PT Evaluation and Treatment [CONS] Routine 12/06/16 11:00 FERRITIN [REF] Routine FOLIC ACID [CHEM] Routine VITAMIN B12 [CHEM] Routine 12/06/16 11:04 Resuscitation Status Routine 12/06/16 11:45 Hemoccult [OCCULT BLOOD DIAGNOSTIC] [OP] Routine 12/06/16 21:00 Losartan [Cozaar] 25 mg PO BEDTIME - Plan Plan:: 86-year-old female admitted with Anemia and generalized weakness secondary to frequent loose stools over the past week. #1. Diarrhea with resultant weakness: NO further diarrhea overnight. Will monitor. regarding weakness and dizziness, she has followed with Dr. Iyer regarding this intermittently dizziness, which orthostatics at that time were positive. Today Orthostatics WNL. Will order PT to evaluate and treat. #2. 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 Is followed by Dr. Blanc. Last colonscopy with cecal polypectomy 2014 with the tubular adenoma dx at that time. Follow up in 3 years or sooner if concerns was recommended. Hemoccult positive. I spoke with Dr. Blanc who recommend placing her on iron and he will see her as outpatient for colonscopy. Continue Protonix and monitor hgb in am. Discharge: Likely discharge in am.
[2016-12-06] MEDS ORDERED: Losartan 50 MG Tab PO SCH ×2 (14:00→21:00)
[2016-12-07] MEDS: Pantoprazole 40 MG in Sodium Chloride 0.9% 10 ML IVPUSH SCH (06:36)
[2016-12-07] MEDS: Levothyroxine 75 MCG Tab PO SCH (06:36)
--- NOTE | 2016-12-07 09:03 | PCM.DCSUM1 ---
Discharge Summary - Hospital Course Brief History: This 86 year old female with PMH of HTN, hypercholesterolemia, GERD, chronic back pain, type 2 diabetes requiring insulin and hypothyroidism and is being admitted secondary to one week duration of loose stools and a low hemoglobin of 9.5. Patient reported over the past week she's been experiencing loose stools during the day and is unable to control her bowels and has had multiple accidents over the week. This is very different for the patient as she is usually constipated. She has not been around any sick contacts although she does live in a [place] [facility] home but notes that no other residents have had similar symptoms. She cannot correlate the loose stools with any type of food. She denies any bloody stools or black stools. She's never had symptoms like this before. She denies any recent travel. She has had occasional chills but denies any fever. With the frequent stools over the past week, the patient is feeling dizziness at times and much more weak than usual. She has never required a blood transfusion before. She does use a walker for ambulation. Patient denies any other concerns including vision problems, chest pain, palpitations, shortness of breath, wheezing, cough, abdominal pain, nausea, vomiting, change in appetite, numbness/tingling in the upper and lower extreme venous bilaterally, peripheral edema. ER course: Patient was given IV Pepcid while in the emergency room. Hemoccult was done which was negative. Hemoglobin was 9.5. In reviewing past records her hemoglobin is usually between 9.5-11. Her platelet count is normal. CMP is unremarkable. Initial troponins were negative. Amylase and lipase were unremarkable. She was admitted due to dehydration and weakness. - Discharge Data Discharge Date: 12/07/16 Discharge Disposition: Home, [facility] Condition: Good - Discharge Diagnosis/Problem(s) (1) Anemia SNOMED Code(s): 646139520 ICD Code: D64.9 - ANEMIA, UNSPECIFIED Status: Acute Current Visit: Yes Qualifiers: Anemia type: unspecified type Qualified Code(s): D64.9 - Anemia, unspecified (2) Weakness SNOMED Code(s): 91935911 ICD Code: R53.1 - WEAKNESS Status: Acute Current Visit: Yes (3) Hx of lower gastrointestinal bleeding SNOMED Code(s): 755706584026506 ICD Code: Z87.19 - PERSONAL HISTORY OF OTHER DISEASES OF THE DIGESTIVE SYSTEM Status: Acute Current Visit: Yes (4) Orthostatic hypotension SNOMED Code(s): 00660925 ICD Code: I95.1 - ORTHOSTATIC HYPOTENSION Status: Chronic Current Visit: Yes (5) Diabetes mellitus type 2 in obese SNOMED Code(s): 29969806 ICD Code: E11.9 - TYPE 2 DIABETES MELLITUS WITHOUT COMPLICATIONS; E66.9 - OBESITY, UNSPECIFIED Status: Chronic Priority: Medium Current Visit: No (6) Dizziness, nonspecific SNOMED Code(s): 450118557, 365964497 ICD Code: R42 - DIZZINESS AND GIDDINESS Status: Chronic Current Visit: No - Patient Summary/Data Consults: Consultations 12/06/16 10:32 PT Evaluation and Treatment [CONS] Routine - Patient Instructions Diet: Diabetic Diet Activity: As Tolerated Showering/Bathing: May Shower Notify Provider of: Fever, Increased Pain, Swelling and Redness, Drainage, Nausea and/or Vomiting - Discharge Plan Prescriptions/Med Rec: Iron Ag,Ps/C/Fa6/B12/Zn/SA/Sto [Niferex Tablet] 1 tab PO DAILY #30 tablet Home Medications: Home Meds Acetaminophen [Tylenol Extra Strength] 500 mg PO Q4H PRN 02/15/14 [History] Furosemide [Lasix] 20 mg PO DAILY 02/15/14 [History] Insulin Detemir [Levemir Flexpen] 25 units SQ DAILY 02/15/14 [History] Levothyroxine Sodium [Synthroid] 75 mcg PO DAILY 02/15/14 [History] atorvaSTATin Calcium [Atorvastatin Calcium] 10 mg PO DAILY 02/15/14 [History] Calcium Carbonate [Calcium] 600 mg PO BID 12/23/15 [History] Losartan [Cozaar] 25 mg PO TID 12/23/15 [History] Pantoprazole [ProTONIX] 40 mg PO DAILY 12/23/15 [History] Donepezil [Aricept] 1 tab PO DAILY 05/16/16 [History] Aspirin 81 mg PO DAILY 12/05/16 [History] Cyanocobalamin (Vitamin B-12) [B-12] 1,000 mcg PO DAILY 12/05/16 [History] Diclofenac Sodium [Voltaren 1% Gel] 1 applic TOP DAILY 12/05/16 [History] Fish Oil/[place]-3 Fatty Acids [Fish Oil 1,000 MG] 1 gm PO DAILY 12/05/16 [History ] Insulin Detemir [Levemir Flextouch] 25 units DAILY 12/05/16 [History] Lutein/Minerals/Vit A,C & E [Ocuvite] 1 tab PO BID 12/05/16 [History] Meclizine HCl 25 mg PO DAILY PRN 12/05/16 [History] Iron Ag,Ps/C/Fa6/B12/Zn/SA/Sto [Niferex Tablet] 1 tab PO DAILY #30 tablet [Rx] Referrals: Bin Blnac MD [Physician] - 12/13/16 9:30 am Marie Lozano DO [Primary Care Provider] - 12/14/16 12:30 pm - Discharge Summary/Plan Comment DC Time >30 min.: No Discharge Summary/Plan Comment: Discharge Diagnoses: Anemia of chronic disease with suspected acute on chronic GI blood loss Hemoccult positive Dizziness HTN Type 2 DM hypothyroidism Grzegorz was admitted and monitored for 2 nights. Hgb did drop day 1 of admission to 8.5. She was given IVFs for suspected dehydration secondary to diarrhea. Due to this drop hemoccult was repeated and returned positive. Reviewing her medical history, she was admitted approximately 3 years ago with GI bleed. Subsequently she underwent endoscopy. In May 2014 she had a colonoscopy and there a cecal polypectomy was completed and pathology return with tubular adenoma. She followed with Dr. Blanc, over the last 2 years she has had no concerns until now. I spoke with Dr. Blanc who suggested outpatient follow up with likelyhood of colonoscopy to further evaluate. Her hgb has remained stable. Iron studies completed which showed component of anemia of chronic disease with possible acute decrease in hgb seconday to GI loss. I will send her home on Niferex. She complaints of intermittent dizziness, which she has been seen by PCP and cardiology for in the past. This may be medication related , consider Aricept, but she would like to speak with Dr. Lozano prior to discontinuing these. She reportedly decreased her Cozaar to 25 mg daily, instead of the [address] Iyer placed her on, because it made her dizziness worse. BP remained well controlled on this during her hospital stay. No orthostatic hypotension noted. PT was consulted and saw no concerns, but encouraged her to continue using her walker at home for ambulation. I will discharge her home today, she is to resume Home Care, with the addition of some PT to evaluate and treat for dizziness and safety within her home. Dr. Lozano , PCP will overlook care plan. She is to follow up with Dr. Lozano in [address] Blanc in 1-2 weeks. She is to return to ED if concerns should arise. - General Info Date of Service: 12/07/16 Admission Dx/Problem (Free Text: Admission Diagnosis/Problem Admission Diagnosis/Problem Anemia Subjective Update: Sitting up in the chair eating breakfast. Reports feeling good today. Some intermittent dizziness. No chest pain or SOB. No further diarrhea, no stools at all during stay. Functional Status: Reports: Pain Controlled, Tolerating Diet, Ambulating, Urinating - Review of Systems General: Reports: No Symptoms. Denies: Fever Pulmonary: Reports: No Symptoms. Denies: Shortness of Breath Cardiovascular: Reports: No Symptoms. Denies: Chest Pain, Palpitations, Edema Gastrointestinal: Denies: Abdominal Pain, Diarrhea, Nausea, Vomiting Genitourinary: Reports: No Symptoms. Denies: Dysuria, Frequency, Burning Skin: Reports: No Symptoms Psychiatric: Reports: No Symptoms - Patient Data Vitals - Most Recent: Last Vital Signs Temp 98.4 F 12/07/16 03:00 Pulse 68 12/07/16 03:00 Resp 16 12/07/16 03:00 BP 150/66 H 12/07/16 03:00 Pulse Ox 96 12/07/16 03:00 Orthostatic Blood Pressure [ 150/79 Standing] Orthostatic Blood Pressure [ 143/64 Sitting] Orthostatic Blood Pressure [ 154/65 Supine] Weight - Most Recent: 71.8 kg I&O - Last 24 hours: Intake & Output 12/06/16 12/07/16 12/07/16 22:59 06:59 14:59 Intake Total 680 250 Output Total 500 800 Balance 180 -550 Lab Results - Last 24 hrs: Laboratory Results - last 24 hr 12/06/16 12/06/16 12/06/16 Range/Units 05:35 05:35 11:00 WBC (4.0-11.0) K/uL RBC 2.68 L (4.30-5.90) M/uL Hgb (12.0-16.0) g/dL Hct (36.0-46.0) % MCV (80.0-98.0) fL MCH (27.0-32.0) pg MCHC (31.0-37.0) g/dL RDW Std Deviation (28.0-62.0) fl RDW Coeff of Joelle (11.0-15.0) % Plt Count (150-400) K/uL MPV (7.40-12.00) fL Neut % (Auto) (48.0-80.0) % Lymph % (Auto) (16.0-40.0) % Mcintosh % (Auto) (0.0-15.0) % Eos % (Auto) (0.0-7.0) % Baso % (Auto) (0.0-1.5) % Neut # (Auto) (1.4-5.7) K/uL Lymph # (Auto) (0.6-2.4) K/uL Mcintosh # (Auto) (0.0-0.8) K/uL Eos # (Auto) (0.0-0.7) K/uL Baso # (Auto) (0.0-0.1) K/uL Nucleated RBC % /100WBC Nucleated RBCs # K/uL Smear Path Review SENT TO PATHOLOGY Absolute Retic 45.80 (20-80) K/uL Percent Retic 1.7 H (0.5-1.5) % Immature Retic Fraction 18 % Sodium (136-146) mmol/L Potassium (3.5-5.1) mmol/L Chloride (98-110) mmol/L Carbon Dioxide (21-31) mmol/L BUN (6.0-23.0) mg/dL Creatinine (0.6-1.5) mg/dL Est Cr Clr Drug Dosing mL/min Estimated GFR (MDRD) ml/min Glucose (60-110) mg/dL POC Glucose (60-110) mg/dL Calcium (8.8-10.8) mg/dL Iron 72 (50-170) ug/dL TIBC 269 L (273-456) ug/dL % Saturation 26.77 (20-55) % Transferrin 188 L (200-400) ug/dL Ferritin (11-307) ng/mL Vitamin B12 (200-1100) PG/ML Folate (7.2-15.4) ng/mL 12/06/16 12/06/16 12/06/16 Range/Units 11:00 11:00 11:35 WBC (4.0-11.0) K/uL RBC (4.30-5.90) M/uL Hgb (12.0-16.0) g/dL Hct (36.0-46.0) % MCV (80.0-98.0) fL MCH (27.0-32.0) pg MCHC (31.0-37.0) g/dL RDW Std Deviation (28.0-62.0) fl RDW Coeff of Joelle (11.0-15.0) % Plt Count (150-400) K/uL MPV (7.40-12.00) fL Neut % (Auto) (48.0-80.0) % Lymph % (Auto) (16.0-40.0) % Mcintosh % (Auto) (0.0-15.0) % Eos % (Auto) (0.0-7.0) % Baso % (Auto) (0.0-1.5) % Neut # (Auto) (1.4-5.7) K/uL Lymph # (Auto) (0.6-2.4) K/uL Mcintosh # (Auto) (0.0-0.8) K/uL Eos # (Auto) (0.0-0.7) K/uL Baso # (Auto) (0.0-0.1) K/uL Nucleated RBC % /100WBC Nucleated RBCs # K/uL Smear Path Review Absolute Retic (20-80) K/uL Percent Retic (0.5-1.5) % Immature Retic Fraction % Sodium (136-146) mmol/L Potassium (3.5-5.1) mmol/L Chloride (98-110) mmol/L Carbon Dioxide (21-31) mmol/L BUN (6.0-23.0) mg/dL Creatinine (0.6-1.5) mg/dL Est Cr Clr Drug Dosing mL/min Estimated GFR (MDRD) ml/min Glucose (60-110) mg/dL POC Glucose 92 (60-110) mg/dL Calcium (8.8-10.8) mg/dL Iron (50-170) ug/dL TIBC (273-456) ug/dL % Saturation (20-55) % Transferrin (200-400) ug/dL Ferritin 86 (11-307) ng/mL Vitamin B12 1101 H (200-1100) PG/ML Folate 7.3 (7.2-15.4) ng/mL 12/06/16 12/06/16 12/07/16 Range/Units 15:30 16:34 05:28 WBC 5.31 (4.0-11.0) K/uL RBC 2.65 L (4.30-5.90) M/uL Hgb 9.1 L 8.5 L (12.0-16.0) g/dL Hct 27.4 L 25.8 L (36.0-46.0) % MCV 97.4 (80.0-98.0) fL MCH 32.1 H (27.0-32.0) pg MCHC 32.9 (31.0-37.0) g/dL RDW Std Deviation 60.6 (28.0-62.0) fl RDW Coeff of Joelle 17 H (11.0-15.0) % Plt Count 175 (150-400) K/uL MPV 8.70 (7.40-12.00) fL Neut % (Auto) 62.1 (48.0-80.0) % Lymph % (Auto) 28.1 (16.0-40.0) % Mcintosh % (Auto) 4.3 (0.0-15.0) % Eos % (Auto) 5.3 (0.0-7.0) % Baso % (Auto) 0.2 (0.0-1.5) % Neut # (Auto) 3.3 (1.4-5.7) K/uL Lymph # (Auto) 1.5 (0.6-2.4) K/uL Mcintosh # (Auto) 0.2 (0.0-0.8) K/uL Eos # (Auto) 0.3 (0.0-0.7) K/uL Baso # (Auto) 0.0 (0.0-0.1) K/uL Nucleated RBC % 0.3 /100WBC Nucleated RBCs # 0 K/uL Smear Path Review Absolute Retic (20-80) K/uL Percent Retic (0.5-1.5) % Immature Retic Fraction % Sodium (136-146) mmol/L Potassium (3.5-5.1) mmol/L Chloride (98-110) mmol/L Carbon Dioxide (21-31) mmol/L BUN (6.0-23.0) mg/dL Creatinine (0.6-1.5) mg/dL Est Cr Clr Drug Dosing mL/min Estimated GFR (MDRD) ml/min Glucose (60-110) mg/dL POC Glucose 103 (60-110) mg/dL Calcium (8.8-10.8) mg/dL Iron (50-170) ug/dL TIBC (273-456) ug/dL % Saturation (20-55) % Transferrin (200-400) ug/dL Ferritin (11-307) ng/mL Vitamin B12 (200-1100) PG/ML Folate (7.2-15.4) ng/mL 12/07/16 Range/Units 05:28 WBC (4.0-11.0) K/uL RBC (4.30-5.90) M/uL Hgb (12.0-16.0) g/dL Hct (36.0-46.0) % MCV (80.0-98.0) fL MCH (27.0-32.0) pg MCHC (31.0-37.0) g/dL RDW Std Deviation (28.0-62.0) fl RDW Coeff of Joelle (11.0-15.0) % Plt Count (150-400) K/uL MPV (7.40-12.00) fL Neut % (Auto) (48.0-80.0) % Lymph % (Auto) (16.0-40.0) % Mcintosh % (Auto) (0.0-15.0) % Eos % (Auto) (0.0-7.0) % Baso % (Auto) (0.0-1.5) % Neut # (Auto) (1.4-5.7) K/uL Lymph # (Auto) (0.6-2.4) K/uL Mcintosh # (Auto) (0.0-0.8) K/uL Eos # (Auto) (0.0-0.7) K/uL Baso # (Auto) (0.0-0.1) K/uL Nucleated RBC % /100WBC Nucleated RBCs # K/uL Smear Path Review Absolute Retic (20-80) K/uL Percent Retic (0.5-1.5) % Immature Retic Fraction % Sodium 142 (136-146) mmol/L Potassium 3.7 (3.5-5.1) mmol/L Chloride 110 (98-110) mmol/L Carbon Dioxide 25 (21-31) mmol/L BUN 14 (6.0-23.0) mg/dL Creatinine 1.0 (0.6-1.5) mg/dL Est Cr Clr Drug Dosing 35.61 mL/min Estimated GFR (MDRD) 52.4 ml/min Glucose 94 (60-110) mg/dL POC Glucose (60-110) mg/dL Calcium 8.6 L (8.8-10.8) mg/dL Iron (50-170) ug/dL TIBC (273-456) ug/dL % Saturation (20-55) % Transferrin (200-400) ug/dL Ferritin (11-307) ng/mL Vitamin B12 (200-1100) PG/ML Folate (7.2-15.4) ng/mL MITCH Results - Last 24 hrs: Microbiology 12/06/16 11:45 Stool Occult Blood (MITCH) - Final Stool / Feces POSITIVE OCCULT BLOOD Med Orders - Current: Current Medications Acetaminophen (Tylenol) 650 mg PO Q4H PRN PRN Reason: Pain (Mild 1-3)/fever Aspirin (Aspirin) 81 mg PO DAILY [facility] Last Admin: 12/06/16 09:54 Dose: 81 mg Atorvastatin Calcium (Lipitor) 10 mg PO DAILY [facility] Last Admin: 12/06/16 09:53 Dose: 10 mg Calcium Carbonate/Glycine (Tums) 500 mg PO BID [facility] Last Admin: 12/06/16 20:20 Dose: 500 mg Cyanocobalamin (Vitamin B12) 1,000 mcg PO DAILY [facility] Last Admin: 12/06/16 09:52 Dose: 1,000 mcg Donepezil HCl (Aricept) 10 mg PO DAILY [facility] Last Admin: 12/06/16 09:53 Dose: 10 mg Fish Oil (Fish Oil) 1 gm PO DAILY [facility] Last Admin: 12/06/16 09:53 Dose: 1 gm Pantoprazole Sodium 40 mg/ (Sodium Chloride) 10 mls @ 300 mls/hr IVPUSH Q12H [facility] Last Admin: 12/07/16 06:36 Dose: 300 mls/hr Insulin Detemir (Levemir) 25 unit SUBCUT DAILY [facility] Last Admin: 12/06/16 09:51 Dose: Not Given Levothyroxine Sodium (Levothyroxine) 75 mcg PO ACBREAKFAST [facility] Last Admin: 12/07/16 06:36 Dose: 75 mcg Loperamide HCl (Imodium) 2 mg PO ASDIRECTED PRN PRN Reason: Diarrhea Losartan Potassium (Cozaar) 25 mg PO BEDTIME [facility] Last Admin: 12/06/16 20:20 Dose: 25 mg Ondansetron HCl (Zofran Odt) 4 mg PO Q4H PRN PRN Reason: nausea, able to take PO Lutein/Minerals/Vit (A,C & E 1 Tab) 1 each PO BID [facility] Last Admin: 12/06/16 20:20 Dose: Not Given Discontinued Medications Famotidine (Pepcid) 20 mg IVPUSH ONETIME ONE Stop: 12/05/16 15:22 Last Admin: 12/05/16 15:40 Dose: 20 mg Furosemide (Lasix) 20 mg PO DAILY [facility] Last Admin: 12/06/16 10:32 Dose: Not Given Sodium Chloride (Normal Saline) 1,000 mls @ 999 mls/hr IV .Bolus ONE Stop: 12/05/16 16:21 Last Admin: 12/05/16 15:40 Dose: 999 mls/hr Pantoprazole Sodium 40 mg/ (Sodium Chloride) 10 mls @ 300 mls/hr IVPUSH NOW ONE Stop: 12/05/16 18:14 Last Admin: 12/05/16 18:40 Dose: 300 mls/hr Sodium Chloride (Normal Saline) 1,000 mls @ 125 mls/hr IV ASDIRECTED [facility] Last Admin: 12/06/16 03:33 Dose: 125 mls/hr Insulin Detemir (Levemir) 25 unit SUBCUT DAILY [facility] Last Admin: 12/06/16 09:50 Dose: Not Given Loperamide HCl (Imodium) 2 mg PO NOW STA Stop: 12/05/16 18:14 Last Admin: 12/05/16 18:40 Dose: 2 mg Losartan Potassium (Cozaar) 25 mg PO TID [facility] Pantoprazole Sodium (Protonix) 40 mg PO ACBREAKFAST [facility] Last Admin: 12/06/16 09:53 Dose: 40 mg - Exam General: Reports: Alert, Oriented, Cooperative, No Acute Distress Neck: Reports: Supple Lungs: Reports: Clear to Auscultation, Normal Respiratory Effort Cardiovascular: Reports: Regular Rate, Regular Rhythm, Murmurs GI/Abdominal Exam: Normal Bowel Sounds, Soft, Non-Tender, No Organomegaly, No Distention, No Abnormal Bruit, No Mass, Pelvis Stable Extremities: Normal Inspection, Normal Range of Motion, Non-Tender, No Pedal Edema, Normal Capillary Refill Neurological: Reports: No New Focal Deficit Psy/Mental Status: Reports: Alert, Normal Affect, Normal Mood *Q Meaningful Use (DIS) - VTE *Q VTE Criteria *Q: VTE Pharmacological Contraindications *Q: Risk of Bleeding - Stroke *Q Stroke Criteria *Q: - AMI *Q AMI Criteria *Q:
[2016-12-07] MEDS: Insulin Detemir 100 Units/ML 3 ML Pen SUBCUT SCH (09:11)
[2016-12-07] MEDS: Fish Oil/Omega-3 Fatty Acids 1 Gm Cap PO SCH (09:12)
[2016-12-07] MEDS: Cyanocobalamin (Vitamin B12) 500 MCG Tab PO SCH (09:12)
[2016-12-07] MEDS: Calcium Carbonate 500 MG Tab.Chew PO SCH (09:12)
[2016-12-07] MEDS: Aspirin 81 MG Tab.Chew PO SCH (09:13)
[2016-12-07] MEDS: Donepezil 10 MG Tab PO SCH (09:13)
[2016-12-07] MEDS: atorvaSTATin 10 MG Tab PO SCH (09:13)
[2016-12-07] MEDS: Lutein/Minerals/Vit A,C & E 1 TAB PO SCH (09:14)
[2016-12-07 09:26] VITALS: BP 159/70
== END 2016-12-07 10:32 | disposition home health service (06) ==
LOC: MW.ED 14:39 → MW.MS 18:13
PROVIDERS: ADMIT Internal Medicine; ATTEND Internal Medicine
DX: D64.9 Anemia, unspecified (principal); R53.1 Weakness; I95.1 Orthostatic hypotension; E10.9 Type 1 diabetes mellitus without complications; R42 Dizziness and giddiness; R19.5 Other fecal abnormalities; E03.9 Hypothyroidism, unspecified; K21.9 Gastro-esophageal reflux disease without esophagitis; E78.00 Pure hypercholesterolemia, unspecified; I10 Essential (primary) hypertension; M54.9 Dorsalgia, unspecified; G89.29 Other chronic pain; R19.7 Diarrhea, unspecified; Z87.19 Personal history of other diseases of the digestive system; Z79.4 Long term (current) use of insulin; Z79.82 Long term (current) use of aspirin; Z79.899 Other long term (current) drug therapy; Z90.710 Acquired absence of both cervix and uterus; Z98.890 Other specified postprocedural states
CPT/HCPCS: 36415; 80048; 80053; 81001; 82150; 82272; 82607; 82728; 82746; 82962; 83550; 83690; 84484; 85014; 85018; 85025; 85045; 86850; 86900; 86901; 88104; 93005; 96361; 96374; 96375; 96376; 97161; 99285; A9270; C9113; G0378; J1815; J7040

== ENCOUNTER 2017-01-05 07:20 | Day surgery (SDC) | payer MEDICARE, OTHER ==
[~2017-01-05 07:20] MED LIST changes: -Bupivacaine 0.25% 10 ML SDV INJECT STA; -Iopamidol 612 MG/ML 30 ML SDV IARTIC STA; +Lactated Ringers 1,000 ML IV SCH; -Triamcinolone Acetonide 40 MG/ML 1 ML MDV INJECT STA
--- NOTE | 2017-01-05 08:34 | PCM.PREANE ---
Preanesthetic Assessment - Anesthesia/Transfusion/Family Hx Anesthesia History: Prior Anesthesia Without Reaction Other Type of Anesthesia Reaction Comment: Denies any known problem in past Family History of Anesthesia Reaction: No Transfusion History: No Prior Transfusion(s) Intubation History: Unknown - Review of Systems General: No Symptoms Pulmonary: No Symptoms Cardiovascular: No Symptoms Gastrointestinal: Hematochezia, Other (h/o gastric ulcer and colon polyps) Neurological: No Symptoms Other: Reports: None - Physical Assessment O2 Sat by Pulse Oximetry: 97 Respiratory Rate: 16 Vital Signs: Last Vital Signs Temp 36 C 01/05/17 07:30 Pulse 68 01/05/17 07:30 Resp 16 01/05/17 07:30 BP 136/53 L 01/05/17 07:30 Pulse Ox 97 01/05/17 07:30 Height: 1.63 m Weight: 72.121 kg ASA Class: 3 Mental Status: Alert & Oriented x3 Airway Class: Mallampati = 2 Thyro-Mental Finger Breadths: 3 Mouth Opening Finger Breadths: 3 ROM/Head Extension: Limited/Partial Lungs: Clear to Auscultation, Normal Respiratory Effort Cardiovascular: Regular Rate, Regular Rhythm - Lab Values: Laboratory Last Values POC Glucose 107 mg/dL (60-110) 01/05/17 07:49 - Allergies Allergies/Adverse Reactions: Allergies Allergy/AdvReac Type Severity Reaction Status Date / Time Penicillins Allergy Mild Hives Verified 12/29/16 17:57 codeine Allergy Hives Verified 12/29/16 17:57 - Blood Blood Available: No - Anesthesia Plan Pre-Op Medication Ordered: None - Acknowledgements Anesthesia Type Planned: MAC Pt an Appropriate Candidate for the Planned Anesthesia: Yes Alternatives and Risks of Anesthesia Discussed w Pt/Guardian: Yes Pt/Guardian Understands and Agrees with Anesthesia Plan: Yes PreAnesthesia Questionnaire HEENT History: Reports: Allergic Rhinitis, Impaired Vision Other HEENT History: WEARS GLASSES Cardiovascular History: Reports: High Cholesterol, Hypertension Gastrointestinal History: Reports: Chronic Constipation, Colon Polyp, GERD, Irritable Bowel Syndrome, Other (See Below) (h/o gastric ulcer) Genitourinary History: Reports: Urinary Incontinence, Other (See Below) ( worsening renal function) 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: Musculoskeletal History: Reports: Arthritis, Back Pain, Chronic Neurological History: Reports: Migraines, Vertigo Other Neuro History: no migranes since hysterectomy Psychiatric History: Reports: Dementia (mild), Depression Endocrine/Metabolic History: Reports: Diabetes, Type II, Hypothyroidism Hematologic History: Reports: Anemia Immunologic History: Reports: None Oncologic (Cancer) History: Reports: None Dermatologic History: Reports: Eczema - Infectious Disease History Infectious Disease History: Reports: Measles - Past Surgical History Head Surgeries/Procedures: Reports: None HEENT Surgical History: Reports: None Cardiovascular Surgical History: Reports: None GI Surgical History: Reports: Appendectomy, Colonoscopy, EGD Female Surgical History: Reports: Breast Biopsy, Section, Hysterectomy, Oophorectomy Musculoskeletal Surgical History: Reports: Other (See Below) Other Musculoskeletal Surgeries/Procedures:: 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, 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 Oncologic Surgical History: Reports: Lumpectomy - SUBSTANCE USE Smoking Status *Q: Never Smoker Second Hand Smoke Exposure: No Days Per Week of Alcohol Use: 0 Number of Drinks Per Day: 0 Total Drinks Per Week: 0 Recreational Drug Use History: No - HOME MEDS Home Medications: Home Meds Levothyroxine Sodium [Synthroid] 75 mcg PO DAILY 02/15/14 [History] atorvaSTATin Calcium [Atorvastatin Calcium] 10 mg PO DAILY 02/15/14 [History] Losartan [Cozaar] 25 mg PO DAILY 12/23/15 [History] Pantoprazole [ProTONIX] 40 mg PO DAILY 12/23/15 [History] Donepezil [Aricept] 1 tab PO BEDTIME 05/16/16 [History] Aspirin 81 mg PO DAILY 12/05/16 [History] Cyanocobalamin (Vitamin B-12) [B-12] 1,000 mcg PO DAILY 12/05/16 [History] Diclofenac Sodium [Voltaren 1% Gel] 1 applic TOP QID PRN 12/05/16 [History] Fish Oil/[place]-3 Fatty Acids [Fish Oil 1,000 MG] 1 gm PO DAILY 12/05/16 [History ] Insulin Detemir [Levemir Flextouch] 25 units SQ QAM 12/05/16 [History] Lutein/Minerals/Vit A,C & E [Ocuvite] 1 tab PO DAILY 12/05/16 [History] Meclizine HCl 25 mg PO DAILY PRN 12/05/16 [History] Cholecalciferol (Vitamin D3) [Vitamin D3] 1,000 unit PO DAILY 12/29/16 [History] - CURRENT (IN HOUSE) MEDS Current Meds: Current Medications Lactated Ringer's (Ringers, Lactated) 1,000 mls @ 125 mls/hr IV ASDIRECTED [facility] Last Admin: 01/05/17 07:39 Dose: 125 mls/hr
[2017-01-05] MEDS ORDERED: Lidocaine 2% 5 ML SDV ONE (09:39)
[2017-01-05] MEDS ORDERED: Midazolam 1 MG/ML 2 ML SDV ONE (09:39)
[2017-01-05] MEDS ORDERED: Propofol 200 MG/20 ML SDV ONE ×2 (09:39→10:17)
[2017-01-05] MEDS ORDERED: fentaNYL 100 MCG/2 ML SDV ONE (09:39)
--- NOTE | 2017-01-05 10:51 | PCM.OPNOTE ---
- General Post-Op/Procedure Note Date of Surgery/Procedure: 01/05/17 Operative Procedure(s): Esophagogastroduodenoscopy with biopsy. Colonoscopy. Pre Op Diagnosis: Anemia. History of gastric ulcer. Rectal bleeding. Post-Op Diagnosis: Mild chronic gastritis. Sigmoid diverticulosis. Anesthesia Technique: MAC (ASA III) Primary Surgeon: Bin Blanc Motorboat Mechanic Inboard: Michelle Grissom Condition: Good Free Text/Narrative:: Dictation [id number] and [id number] CPT CODE 52685/59000
[2017-01-05] MEDS ORDERED: Lactated Ringers 1,000 ML IV SCH (11:00)
[2017-01-05 11:50] VITALS: BP 128/60
--- NOTE | 2017-01-05 16:34 | OR ---
SURGEON: Bin Blanc M.D. DATE OF PROCEDURE: 01/05/2017 OPERATION PERFORMED: Esophagogastroduodenoscopy with biopsy. ANESTHESIA: MAC. ASA CLASSIFICATION: III. PREOPERATIVE DIAGNOSES: 1. Recurrent anemia. 2. History of peptic ulcer disease. POSTOPERATIVE DIAGNOSIS: Mild gastritis. DESCRIPTION OF PROCEDURE: The patient was taken to the endoscopy room, positioned on the endoscopy table in a supine position. Time-out was called for appropriate identification of patient and procedure. Monitored anesthesia care was provided. The bite block was placed between the patient's teeth. The gastroscope was inserted into the mouth and advanced without difficulty through the esophagus and stomach into the duodenum where examination was carried out in a retrograde fashion. No ulcerations were noted in the duodenum. The stomach shows a mild gastritis. Antral biopsies were obtained to look for the presence of Helicobacter pylori. No acute ulcerations were noted. The gastroscope was retroflexed to visualize the proximal stomach. No tumors or polyps were seen and there were no ulcerations noted proximally. The gastroscope was then straightened and slowly withdrawn carefully visualizing both greater and lesser curvatures. Again, no ulcerations were noted. The GE junction was well defined and shows no acute inflammatory changes. It should be noted that antral biopsies were obtained to look for the presence of Helicobacter pylori. The esophagus demonstrated good contractility. No mid or proximal lesions were identified. The vocal cords were visualized as the scope was removed and noted to move symmetrically. The patient tolerated this portion of the procedure well. Following colonoscopy, she was taken to recovery room in stable condition. HARLAN / AFIA /[id number]
--- NOTE | 2017-01-05 16:46 | OR ---
SURGEON: Bin Blanc M.D. DATE OF PROCEDURE: 01/05/2017 OPERATION PERFORMED: Colonoscopy. ANESTHESIA: MAC. ASA CLASSIFICATION: III. PREOPERATIVE DIAGNOSIS: New-onset rectal bleeding with anemia. POSTOPERATIVE DIAGNOSIS: Sigmoid diverticulosis. DESCRIPTION OF PROCEDURE: With the patient having completed esophagogastroduodenoscopy, she was now positioned in the left lateral decubitus position. The colonoscope was inserted into the rectum and advanced with moderate difficulty to the cecum. Cecum was identified by internal landmarks and external pressure. The colonoscope was retroflexed in the cecum to visualize the ascending colon from below, then straightened and slowly withdrawn. The cecum, ascending colon, hepatic flexure, transverse colon, splenic flexure, and descending colon showed no tumors, polyps, diverticula, or angiodysplastic changes. There was no inflammatory change noted. The colonoscope was withdrawn through the sigmoid colon which demonstrated numerous small to medium-sized diverticula. No stricture, spasm, or bleeding was noted. No polyps were encountered in the sigmoid colon. The colonoscope was withdrawn to the rectum and retroflexed to visualize the anal orifice from above. No tumors or polyps were seen and there were no acute hemorrhoidal changes. The colonoscope was then straightened, the rectum aspirated and the colonoscope removed. The patient tolerated the procedure well and was taken to recovery room in stable condition. HARLAN OREILLY /[id number]
== END 2017-01-05 12:20 | disposition home or self-care (01) ==
LOC: MW.SDS 07:20
PROVIDERS: ATTEND Surgery
DX: K29.70 Gastritis, unspecified, without bleeding (principal); K57.30 Diverticulosis of large intestine without perforation or abscess without bleeding; I10 Essential (primary) hypertension; E78.00 Pure hypercholesterolemia, unspecified; K59.09 Other constipation; K21.9 Gastro-esophageal reflux disease without esophagitis; M19.90 Unspecified osteoarthritis, unspecified site; G43.909 Migraine, unspecified, not intractable, without status migrainosus; F03.90 Unspecified dementia, unspecified severity, without behavioral disturbance, psychotic disturbance, mood disturbance, and anxiety; F32.9 Major depressive disorder, single episode, unspecified; E11.9 Type 2 diabetes mellitus without complications; E03.9 Hypothyroidism, unspecified; Z87.11 Personal history of peptic ulcer disease; Z88.0 Allergy status to penicillin; Z88.5 Allergy status to narcotic agent; Z90.49 Acquired absence of other specified parts of digestive tract; Z90.710 Acquired absence of both cervix and uterus; Z98.890 Other specified postprocedural states; Z79.4 Long term (current) use of insulin; Z79.84 Long term (current) use of oral hypoglycemic drugs; Z79.899 Other long term (current) drug therapy
CPT/HCPCS: 43239; 45378; 82962; J3010; J7120; 00740; 88305; 88312; J2250; J2704

== ENCOUNTER 2017-01-21 12:22 | Inpatient (IN) | payer MEDICARE, OTHER ==
[2017-01-21] MEDS ORDERED: Sodium Chloride 0.9% 10 ML Syringe FLUSH PRN (12:39)
[2017-01-21] MEDS ORDERED: Sodium Chloride 0.9% 2.5 ML Syringe FLUSH PRN (12:39)
[2017-01-21] MEDS ORDERED: Sodium Chloride 0.9% 1,000 ML IV ONE (12:45)
--- NOTE | 2017-01-21 12:45 | EDM.PDOC ---
ED HPI GENERAL MEDICAL PROBLEM - General Chief Complaint: Neurological Problem Stated Complaint: DIZYNESS,PAIN IN BOTH HIBS Time Seen by Provider: 01/21/17 12:30 Source of Information: Reports: Patient History Limitations: Reports: No Limitations - History of Present Illness INITIAL COMMENTS - FREE TEXT/NARRATIVE: HISTORY AND PHYSICAL: History of present illness: [Patient comes to the emergency room complaining of dizziness for the past week. Has a history of chronic dizziness but has noticed an increase in severity for the past 1 week. She feels unsteady on her feet. She has had no falls or trauma. Denies the sensation of the room spinning around her. Sensation is improved significantly with lying down and is not as bad with sitting. Dizziness is the worst when she is standing or trying to walk. Admits to loose stools for the past 7 days. This is very unusual for her as she usually has a bowel movement once a week. She denies any blood in her stools. She has not made any medication changes and had her physical with Dr. Lozano about 2 weeks ago. She denies chest pain, shortness of breath and difficulty breathing. No blurred vision or double vision. Her eyes have been feeling dry recently and she has been applying some [id number] eyedrops. No sore throat or earaches. Appetite has been normal. No abdominal pain, nausea or vomiting. Increased urine production over the past week but she denies burning with urination and urinary frequency. She typically experiences urinary incontinence and wears a pad regularly. Admits to being more forgetful over the past several months, which she attributes to her age.] Review of systems: As per history of present illness and below otherwise all systems reviewed and negative. Past medical history: As per history of present illness and as reviewed below otherwise noncontributory. Surgical history: As per history of present illness and as reviewed below otherwise noncontributory. Social history: No reported history of drug or alcohol abuse. Family history: As per history of present illness and as reviewed below otherwise noncontributory. Physical exam: Gen.: Well-developed well-nourished elderly female in no acute distress. HEENT: Atraumatic, normocephalic. PERRLA. EOMI. TMs are pearly keane and without erythema and effusion. Oral mucous membranes are pink and moist. No tonsillar swelling, erythema or exudate. Neck supple, no lymphadenopathy. Lungs: Clear to auscultation, breath sounds equal bilaterally, chest nontender. Heart: S1S2 grade 4/6 systolic murmur heard best over the mitral valve area. Abdomen: Bowel sounds are normoactive throughout. Soft, nondistended, nontender. Negative for masses guarding or rebound. Pelvis: Stable nontender. Genitourinary: Deferred. Rectal: Deferred. Extremities: Atraumatic, negative for cords or calf pain. Extremities are cool, skin is pink and dry. Neurovascular unremarkable. Neuro: Awake, alert, oriented. Motor and sensory unremarkable throughout. Exam nonfocal. Patient answers questions appropriately with examiner. Diagnostics: [Chest x-ray, EKG, head CT without contrast, CBC, CMP, urinalysis, TSH, lactic acid, troponin, orthostatic vital signs] Therapeutics: [250 mL bolus of normal saline, then 75 mL per hour, Levaquin 750 mg IV] Impression: [Dizziness Pneumonia] Plan: [Labs are overall within normal limits. White count 7.6, hemoglobin 10.7. Lactate 1.1. Troponin is negative. CMP is unremarkable other than a glucose of 203. TSH 5.03. Urinalysis is unremarkable. EKG shows no abnormality. Normal saline bolus then 75 mLs per hour. Started Levaquin 750 mg IV in the ER. Patient 's condition is reviewed with Dr. Vicente Lizama who agrees to accept the patient for admission and inpatient treatment. Definitive disposition and diagnosis as appropriate pending reevaluation and review of above. - Related Data Allergies Allergy/AdvReac Type Severity Reaction Status Date / Time Penicillins Allergy Mild Hives Verified 01/21/17 12:27 codeine Allergy Hives Verified 01/21/17 12:27 Home Meds: Home Meds Levothyroxine Sodium [Synthroid] 75 mcg PO DAILY 02/15/14 [History] atorvaSTATin Calcium [Atorvastatin Calcium] 10 mg PO DAILY 02/15/14 [History] Losartan [Cozaar] 50 mg PO DAILY 12/23/15 [History] Pantoprazole [ProTONIX] 40 mg PO DAILY 12/23/15 [History] Donepezil [Aricept] 5 mg PO BEDTIME 05/16/16 [History] Aspirin 81 mg PO DAILY 12/05/16 [History] Cyanocobalamin (Vitamin B-12) [B-12] 1,000 mcg PO DAILY 12/05/16 [History] Fish Oil/[place]-3 Fatty Acids [Fish Oil 1,000 MG] 1 gm PO DAILY 12/05/16 [History ] Insulin Detemir [Levemir Flextouch] 25 units SQ DAILY 12/05/16 [History] Meclizine HCl 25 mg PO TID PRN 12/05/16 [History] Calcium Carbonate/Vitamin D3 [Calcium 600 + Vit D Tablet] 600 mg PO BID [History] Iron Aspgly&PS/B12/C/Ca/FA/Suc [Niferex-150 Forte] 150 mg PO DAILY 01/21/17 [ History] Lutein/Minerals/Vit A,C & E [Ocuvite] 1 tab PO BID 01/21/17 [History] Polyethylene Glycol 3350 [MiraLAX] 17 gm PO DAILY PRN 01/21/17 [History] Triamcinolone Acetonide [Nasacort] INH DAILY 01/21/17 [History] Past Medical History HEENT History: Reports: Allergic Rhinitis, Impaired Vision Other HEENT History: WEARS GLASSES Cardiovascular History: Reports: High Cholesterol, Hypertension Gastrointestinal History: Reports: Chronic Constipation, Colon Polyp, GERD, Irritable Bowel Syndrome, Other (See Below) Genitourinary History: Reports: Urinary Incontinence, Other (See Below) HEALTHCARE REPRESENTATIVE History: Reports: Musculoskeletal History: Reports: Arthritis, Back Pain, Chronic Neurological History: Reports: Migraines, Vertigo Other Neuro History: no migranes since hysterectomy Psychiatric History: Reports: Dementia, Depression Endocrine/Metabolic History: Reports: Diabetes, Type II, Hypothyroidism Hematologic History: Reports: Anemia Immunologic History: Reports: None Oncologic (Cancer) History: Reports: None Dermatologic History: Reports: Eczema - Infectious Disease History Infectious Disease History: Reports: Measles - Past Surgical History Head Surgeries/Procedures: Reports: None HEENT Surgical History: Reports: None Cardiovascular Surgical History: Reports: None GI Surgical History: Reports: Appendectomy, Colonoscopy, EGD Female Surgical History: Reports: Breast Biopsy, Section, Hysterectomy, Oophorectomy Musculoskeletal Surgical History: Reports: Other (See Below) Other Musculoskeletal Surgeries/Procedures:: 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 ED EXAM, NEURO - Physical Exam Exam: See Below Course - Vital Signs Last Recorded V/S: Last Vital Signs Temp 97.5 F 01/21/17 12:27 Pulse 70 01/21/17 12:27 Resp 16 01/21/17 12:27 BP 145/62 H 01/21/17 12:27 Pulse Ox 98 01/21/17 12:27 Orthostatic Blood Pressure [ 129/57 Standing] Orthostatic Blood Pressure [ 123/53 Sitting] Orthostatic Blood Pressure [ 138/62 Supine] - Orders/Labs/Meds Orders: Active Orders 24 hr Category Date Time Status Orthostatic Vital Signs [RC] ASDIRECTED Care 01/21/17 12:41 Active Chest 2V [CR] Stat Exams 01/21/17 12:40 Taken Head wo Cont [CT] Stat Exams 01/21/17 12:40 Taken Levofloxacin/Dextrose 5%-Water [Levaquin in D5W 750 MG/ Med 01/21/17 15:20 Active 150 ML] 750 mg Premix Bag 1 bag IV ONETIME Sodium Chloride 0.9% [Normal Saline] 1,000 ml Med 01/21/17 12:45 Active IV STAT Sodium Chloride 0.9% [Saline Flush] Med 01/21/17 12:39 Active 10 ml FLUSH ASDIRECTED PRN Sodium Chloride 0.9% [Saline Flush] Med 01/21/17 12:39 Active 2.5 ml FLUSH ASDIRECTED PRN Saline Lock Insert [OM.PC] Stat Oth 01/21/17 12:39 Ordered Medication Orders Sodium Chloride (Normal Saline) 1,000 mls @ 250 mls/hr IV STAT ONE Stop: 01/21/17 16:44 Last Admin: 01/21/17 13:59 Dose: 250 mls/hr Levofloxacin/Dextrose 750 mg/ (Premix) 150 mls @ 100 mls/hr IV ONETIME ONE Stop: 01/21/17 16:49 Sodium Chloride (Saline Flush) 10 ml FLUSH ASDIRECTED PRN PRN Reason: Keep Vein Open Sodium Chloride (Saline Flush) 2.5 ml FLUSH ASDIRECTED PRN PRN Reason: Keep Vein Open Labs: Laboratory Tests 01/21/17 01/21/17 01/21/17 Range/Units 12:26 12:26 12:26 WBC 7.60 (4.0-11.0) K/uL RBC 3.28 L (4.30-5.90) M/uL Hgb 10.7 L (12.0-16.0) g/dL Hct 31.9 L (36.0-46.0) % MCV 97.3 (80.0-98.0) fL MCH 32.6 H (27.0-32.0) pg MCHC 33.5 (31.0-37.0) g/dL RDW Std Deviation 63.4 H (28.0-62.0) fl RDW Coeff of Joelle 18 H (11.0-15.0) % Plt Count 228 (150-400) K/uL MPV 9.60 (7.40-12.00) fL Neut % (Auto) 74.1 (48.0-80.0) % Lymph % (Auto) 18.0 (16.0-40.0) % Traverse % (Auto) 4.5 (0.0-15.0) % Eos % (Auto) 3.0 (0.0-7.0) % Baso % (Auto) 0.4 (0.0-1.5) % Neut # (Auto) 5.6 (1.4-5.7) K/uL Lymph # (Auto) 1.4 (0.6-2.4) K/uL Traverse # (Auto) 0.3 (0.0-0.8) K/uL Eos # (Auto) 0.2 (0.0-0.7) K/uL Baso # (Auto) 0.0 (0.0-0.1) K/uL Nucleated RBC % 0.0 /100WBC Nucleated RBCs # 0 K/uL Lactate 1.1 (0.20-2.00) mmol/L Sodium 140 (136-146) mmol/L Potassium 3.9 (3.5-5.1) mmol/L Chloride 106 (98-110) mmol/L Carbon Dioxide 25 (21-31) mmol/L BUN 20 (6.0-23.0) mg/dL Creatinine 1.4 (0.6-1.5) mg/dL Est Cr Clr Drug Dosing 24.45 mL/min Estimated GFR (MDRD) 35.6 ml/min Glucose 203 H (60-110) mg/dL Calcium 9.5 (8.8-10.8) mg/dL Total Bilirubin 1.8 H (0.1-1.5) mg/dL AST 22 (5-40) IU/L ALT 15 (8-54) IU/L Alkaline Phosphatase 64 (40-150) Troponin I (0.0-0.29) NG/ML Total Protein 6.7 (6.0-8.0) g/dL Albumin 3.8 (3.4-4.8) g/dL Globulin 2.9 (2.0-3.5) g/dL Albumin/Globulin Ratio 1.3 (1.3-2.8) TSH 3rd Generation 5.03 H (0.47-5.0) uIU/mL Urine Color Urine Appearance Urine pH (5.0-8.0) Ur Specific Emerson (1.001-1.035) Urine Protein (NEGATIVE) mg/dL Urine Glucose (UA) (NEGATIVE) mg/dL Urine Ketones (NEGATIVE) mg/dL Urine Occult Blood (NEGATIVE) Urine Nitrite (NEGATIVE) Urine Bilirubin (NEGATIVE) Urine Urobilinogen (<2.0) EU/dL Ur Leukocyte Esterase (NEGATIVE) Urine RBC (0-2/HPF) Urine WBC (0-5/HPF) Ur Epithelial Cells (NONE-FEW) Urine Bacteria (NEGATIVE) Urine Mucus (NONE-MOD) 01/21/17 01/21/17 Range/Units 12:26 14:05 WBC (4.0-11.0) K/uL RBC (4.30-5.90) M/uL Hgb (12.0-16.0) g/dL Hct (36.0-46.0) % MCV (80.0-98.0) fL MCH (27.0-32.0) pg MCHC (31.0-37.0) g/dL RDW Std Deviation (28.0-62.0) fl RDW Coeff of Joelle (11.0-15.0) % Plt Count (150-400) K/uL MPV (7.40-12.00) fL Neut % (Auto) (48.0-80.0) % Lymph % (Auto) (16.0-40.0) % Traverse % (Auto) (0.0-15.0) % Eos % (Auto) (0.0-7.0) % Baso % (Auto) (0.0-1.5) % Neut # (Auto) (1.4-5.7) K/uL Lymph # (Auto) (0.6-2.4) K/uL Traverse # (Auto) (0.0-0.8) K/uL Eos # (Auto) (0.0-0.7) K/uL Baso # (Auto) (0.0-0.1) K/uL Nucleated RBC % /100WBC Nucleated RBCs # K/uL Lactate (0.20-2.00) mmol/L Sodium (136-146) mmol/L Potassium (3.5-5.1) mmol/L Chloride (98-110) mmol/L Carbon Dioxide (21-31) mmol/L BUN (6.0-23.0) mg/dL Creatinine (0.6-1.5) mg/dL Est Cr Clr Drug Dosing mL/min Estimated GFR (MDRD) ml/min Glucose (60-110) mg/dL Calcium (8.8-10.8) mg/dL Total Bilirubin (0.1-1.5) mg/dL AST (5-40) IU/L ALT (8-54) IU/L Alkaline Phosphatase (40-150) Troponin I < 0.10 (0.0-0.29) NG/ML Total Protein (6.0-8.0) g/dL Albumin (3.4-4.8) g/dL Globulin (2.0-3.5) g/dL Albumin/Globulin Ratio (1.3-2.8) TSH 3rd Generation (0.47-5.0) uIU/mL Urine Color YELLOW Urine Appearance CLEAR Urine pH 6.0 (5.0-8.0) Ur Specific Emerson 1.020 (1.001-1.035) Urine Protein NEGATIVE (NEGATIVE) mg/dL Urine Glucose (UA) NEGATIVE (NEGATIVE) mg/dL Urine Ketones TRACE H (NEGATIVE) mg/dL Urine Occult Blood NEGATIVE (NEGATIVE) Urine Nitrite NEGATIVE (NEGATIVE) Urine Bilirubin NEGATIVE (NEGATIVE) Urine Urobilinogen 0.2 (<2.0) EU/dL Ur Leukocyte Esterase NEGATIVE (NEGATIVE) Urine RBC 0-2 (0-2/HPF) Urine WBC 2-4 (0-5/HPF) Ur Epithelial Cells FEW (NONE-FEW) Urine Bacteria FEW (NEGATIVE) Urine Mucus LIGHT (NONE-MOD) Meds: Medications Generic Name Dose Route Start Last Admin Trade Name Freq PRN Reason Stop Dose Admin Sodium Chloride 1,000 mls @ 250 mls/hr 01/21/17 12:45 01/21/17 13:59 Normal Saline IV 01/21/17 16:44 250 mls/hr STAT ONE Administration Levofloxacin/Dextrose 750 mg/ 150 mls @ 100 mls/hr 01/21/17 15:20 Premix IV 01/21/17 16:49 ONETIME ONE Sodium Chloride 10 ml 01/21/17 12:39 Saline Flush FLUSH ASDIRECTED PRN Keep Vein Open Sodium Chloride 2.5 ml 01/21/17 12:39 Saline Flush FLUSH ASDIRECTED PRN Keep Vein Open Discontinued Medications Generic Name Dose Route Start Last Admin Trade Name Freq PRN Reason Stop Dose Admin Meclizine HCl 25 mg 01/21/17 12:55 01/21/17 13:59 Antivert PO 01/21/17 12:56 25 mg ONETIME ONE Administration Departure - Departure Time of Disposition: 15:35 Disposition: Admitted As Inpatient 65 Condition: Fair Clinical Impression: Pneumonia, Dizziness - Discharge Information Referrals: Marie Lozano DO [Primary Care Provider] - Forms: ED Department Discharge - My Orders Last 24 Hours: My Active Orders 01/21/17 12:39 Sodium Chloride 0.9% [Saline Flush] 10 ml FLUSH ASDIRECTED PRN Sodium Chloride 0.9% [Saline Flush] 2.5 ml FLUSH ASDIRECTED PRN Saline Lock Insert [OM.PC] Stat 01/21/17 12:40 Chest 2V [CR] Stat Head wo Cont [CT] Stat 01/21/17 12:41 Orthostatic Vital Signs [RC] ASDIRECTED 01/21/17 12:45 Sodium Chloride 0.9% [Normal Saline] 1,000 ml IV STAT 01/21/17 15:20 Levofloxacin/Dextrose 5%-Water [Levaquin in D5W 750 MG/150 ML] 750 mg Premix Bag 1 bag IV ONETIME - Assessment/Plan Last 24 Hours: My Active Orders 01/21/17 12:39 Sodium Chloride 0.9% [Saline Flush] 10 ml FLUSH ASDIRECTED PRN Sodium Chloride 0.9% [Saline Flush] 2.5 ml FLUSH ASDIRECTED PRN Saline Lock Insert [OM.PC] Stat 01/21/17 12:40 Chest 2V [CR] Stat Head wo Cont [CT] Stat 01/21/17 12:41 Orthostatic Vital Signs [RC] ASDIRECTED 01/21/17 12:45 Sodium Chloride 0.9% [Normal Saline] 1,000 ml IV STAT 01/21/17 15:20 Levofloxacin/Dextrose 5%-Water [Levaquin in D5W 750 MG/150 ML] 750 mg Premix Bag 1 bag IV ONETIME
[2017-01-21] MEDS ORDERED: Meclizine 25 MG Tab PO ONE (12:55)
[2017-01-21] MEDS ORDERED: Levofloxacin/Dextrose 5%-Water 750 MG in Premix Bag 1 BAG IV ONE (15:20)
[2017-01-21] MEDS ORDERED: Temazepam 15 MG Cap PO PRN (18:30)
--- NOTE | 2017-01-21 18:30 | PCM.HP ---
H&P History of Present Illness - General Date of Service: 01/21/17 Admit Problem/Dx: Admission Diagnosis/Problem Admission Diagnosis/Problem Pneumonia Source of Information: Patient, Provider - History of Present Illness Initial Comments - Free Text/Narative: She lives in [facility]. She presented to the ED today with recent onset of dizziness, vertigo and chills. She denies cough or dyspnea. She has had no vomiting. She is unaware of any fever. She was seen in the ED and diagnosed with a bilateral basilar pneumonia and admission was recommended. - Related Data Allergies/Adverse Reactions: Allergies Allergy/AdvReac Type Severity Reaction Status Date / Time Penicillins Allergy Mild Hives Verified 01/21/17 12:27 codeine Allergy Hives Verified 01/21/17 12:27 Home Medications: Home Meds Levothyroxine Sodium [Synthroid] 75 mcg PO DAILY 02/15/14 [History] atorvaSTATin Calcium [Atorvastatin Calcium] 10 mg PO DAILY 02/15/14 [History] Losartan [Cozaar] 50 mg PO DAILY 12/23/15 [History] Pantoprazole [ProTONIX] 40 mg PO DAILY 12/23/15 [History] Donepezil [Aricept] 5 mg PO BEDTIME 05/16/16 [History] Aspirin 81 mg PO DAILY 12/05/16 [History] Cyanocobalamin (Vitamin B-12) [B-12] 1,000 mcg PO DAILY 12/05/16 [History] Fish Oil/[place]-3 Fatty Acids [Fish Oil 1,000 MG] 1 gm PO DAILY 12/05/16 [History ] Insulin Detemir [Levemir Flextouch] 25 units SQ DAILY 12/05/16 [History] Meclizine HCl 25 mg PO TID PRN 12/05/16 [History] Calcium Carbonate/Vitamin D3 [Calcium 600 + Vit D Tablet] 600 mg PO BID [History] Iron Aspgly&PS/B12/C/Ca/FA/Suc [Niferex-150 Forte] 150 mg PO DAILY 01/21/17 [ History] Lutein/Minerals/Vit A,C & E [Ocuvite] 1 tab PO BID 01/21/17 [History] Polyethylene Glycol 3350 [MiraLAX] 17 gm PO DAILY PRN 01/21/17 [History] Triamcinolone Acetonide [Nasacort] INH DAILY 01/21/17 [History] Past Medical History HEENT History: Reports: Allergic Rhinitis, Impaired Vision Other HEENT History: WEARS GLASSES Cardiovascular History: Reports: High Cholesterol, Hypertension Respiratory History: Denies: COPD Gastrointestinal History: Reports: Chronic Constipation, Colon Polyp, GERD, Irritable Bowel Syndrome, Other (See Below) Genitourinary History: Reports: Urinary Incontinence, Other (See Below) RELIEF COOK History: Reports: Musculoskeletal History: Reports: Arthritis, Back Pain, Chronic Neurological History: Reports: Migraines, Vertigo Other Neuro History: no migranes since hysterectomy Psychiatric History: Reports: Dementia, Depression Endocrine/Metabolic History: Reports: Diabetes, Type II, Hypothyroidism Hematologic History: Reports: Anemia Immunologic History: Reports: None Oncologic (Cancer) History: Reports: None Dermatologic History: Reports: Eczema - Infectious Disease History Infectious Disease History: Reports: Measles - Past Surgical History Head Surgeries/Procedures: Reports: None HEENT Surgical History: Reports: None Cardiovascular Surgical History: Reports: None GI Surgical History: Reports: Appendectomy, Colonoscopy, EGD Female Surgical History: Reports: Breast Biopsy, Section, Hysterectomy, Oophorectomy Musculoskeletal Surgical History: Reports: Other (See Below) Other Musculoskeletal Surgeries/Procedures:: 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 Denies: Fever Pulmonary: Denies: Shortness of Breath, Wheezing, Cough, Sputum, Hemoptysis Cardiovascular: Denies: Chest Pain Gastrointestinal: Denies: Abdominal Pain, Anorexia, Black Stool, Bloody Stool, Flatus, Hematemesis, Nausea, Stool Incontinence, Vomiting Genitourinary: Denies: Dysuria, Frequency, Hematuria Neurological: Denies: Confusion Exam - Exam Exam: See Below - Vital Signs Vital Signs: Last Vital Signs Temp 97.4 F 01/21/17 16:37 Pulse 64 01/21/17 16:37 Resp 16 01/21/17 16:37 BP 169/68 H 01/21/17 16:37 Pulse Ox 99 01/21/17 16:37 Weight: 72.12 kg - Exam General: Alert, Oriented, Cooperative HEENT: EOMI Neck: Supple Lungs: Other (bibasilar crackles) Cardiovascular: Regular Rate, Regular Rhythm GI/Abdominal Exam: Non-Tender (Female) Exam: Deferred Rectal (Female) Exam: Deferred Extremities: Other (trace ankle edema) - Patient Data Result Diagrams: 01/21/17 12:26 01/21/17 12:26 *Q Meaningful Use (ADM) - VTE *Q VTE Criteria *Q: - Stroke *Q Stroke Criteria *Q: - AMI *Q AMI Criteria *Q: - Problem List (1) Pneumonia SNOMED Code(s): 922569211 ICD Code: J18.9 - PNEUMONIA, UNSPECIFIED ORGANISM Status: Acute Current Visit: Yes (2) Diabetes mellitus type 2 in obese SNOMED Code(s): 93585059 ICD Code: E11.9 - TYPE 2 DIABETES MELLITUS WITHOUT COMPLICATIONS; E66.9 - OBESITY, UNSPECIFIED Status: Chronic Priority: Medium Current Visit: No Problem List Initiated/Reviewed/Updated: Yes Orders Last 24hrs: Active Orders 24 hr Category Date Time Status ADA Diabetic [[place] [employer] Diet] [DIET Diet 01/21/17 Dinner Active ] Medication Orders Sodium Chloride (Saline Flush) 10 ml FLUSH ASDIRECTED PRN PRN Reason: Keep Vein Open Sodium Chloride (Saline Flush) 2.5 ml FLUSH ASDIRECTED PRN PRN Reason: Keep Vein Open Assessment/Plan Comment:: admit see orders
[2017-01-21] MEDS ORDERED: Polyethylene Glycol 3350 Powder 17 GM Packet PO PRN (18:34)
[2017-01-21] MEDS ORDERED: Meclizine 25 MG Tab PO PRN (18:53)
[2017-01-21] MEDS: Insulin Aspart 100 Units/ML 3 ML Pen SUBCUT SCH (19:04)
[2017-01-21] MEDS: Calcium Carbonate/Vitamin D3 1500 MG-400 Units Tab PO SCH (20:44)
[2017-01-21] MEDS: Beta-Carotene (Vitamin A) w/Vitamin C & E plus Minerals Tab PO SCH (20:44)
[2017-01-21] MEDS: Donepezil 10 MG Tab PO SCH (20:44)
[2017-01-22] MEDS: Levothyroxine 75 MCG Tab PO SCH (07:56)
[2017-01-22] MEDS: Pantoprazole 40 MG Tab.CR PO SCH (07:56)
[2017-01-22] MEDS: Beta-Carotene (Vitamin A) w/Vitamin C & E plus Minerals Tab PO SCH ×2 (08:16→20:27)
[2017-01-22] MEDS: Fish Oil/Omega-3 Fatty Acids 1 Gm Cap PO SCH (08:16)
[2017-01-22] MEDS: Iron Polysaccharides Complex 150 MG Cap PO SCH (08:17)
[2017-01-22] MEDS: atorvaSTATin 10 MG Tab PO SCH (08:17)
[2017-01-22] MEDS: Cyanocobalamin (Vitamin B12) 500 MCG Tab PO SCH (08:18)
[2017-01-22] MEDS: Calcium Carbonate/Vitamin D3 1500 MG-400 Units Tab PO SCH ×2 (08:18→20:27)
[2017-01-22] MEDS: Aspirin 81 MG Tab.Chew PO SCH (08:19)
[2017-01-22] MEDS: Losartan 50 MG Tab PO SCH (08:20)
[2017-01-22] MEDS: Enoxaparin 30 MG/0.3 ML Syringe SUBCUT SCH (08:21)
[2017-01-22] MEDS: Insulin Aspart 100 Units/ML 3 ML Pen SUBCUT SCH ×3 (09:53→18:54)
[2017-01-22] MEDS: Insulin Detemir 100 Units/ML 3 ML Pen SUBCUT SCH (10:12)
--- NOTE | 2017-01-22 16:24 | CR ---
EXAM DATE: 01/21/17 PATIENT'S AGE: 86 Patient: STACEY ZIMMER Facility: [place], [place] Site . Site : 1930 Study: XRay Chest [id number]/17/2017 2:01:07 PM Ordering Physician: Doctor Moseley Final Report: Indication: Dizziness Technique: Chest 2 views Comparison: 12/23/2015. Findings/Impression: Cardiovascular and mediastinum: Stable cardiomediastinal silhouette. An ectatic , unfolded and calcified aorta again seen. Lungs and pleural spaces: An ill-defined left basilar opacity suggestive of an evolving infiltrate/pneumonia. A small right basilar opacity could represent subsegmental atelectasis or a small evolving infiltrate. Correlate clinically and followup. No pleural effusions. Bones and soft tissues: No significant change. Dictated by Daniel Urrutia MD @ 01/21/2017 2:51:02 PM Dictated by: Daniel Urrutia MD @ 01/21/2017 14:51:07 (Electronic Signature) Report Signed by Proxy. [facility] CENT[facility]osalina
--- NOTE | 2017-01-22 16:24 | CT ---
EXAM DATE: 01/21/17 PATIENT'S AGE: 86 Patient: STACEY ZIMMER Facility: [place], [place] Site . Site : 1930 Study: CT Head [id number]/17/2017 2:01:45 PM Ordering Physician: Doctor Moseley Final Report: INDICATION: Dizziness TECHNIQUE: CT head without contrast. COMPARISON: 05/16/2016 FINDINGS: The ventricles and sulci are stable. There is no mass effect or midline shift. White matter hypodensities are again seen, suggestive of chronic small vessel ischemic changes. 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 There is no loss of keane-white differentiation. There is no evidence of an acute intracranial hemorrhage. Apparent mild focal ectasia of the right supraclinoid carotid is again noted on image 18. No acute calvarial fracture is seen. There is mild paranasal sinus mucosal disease. The mastoid air cells are clear. The visualized orbits are stable. IMPRESSION: No evidence of an acute intracranial hemorrhage, mass effect or loss of keane- white differentiation. Chronic ischemic changes again seen. 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 Consider followup evaluation with MRA. Dictated by Daniel Urrutia MD @ 01/21/2017 2:58:39 PM Dictated by: Daniel Urrutia MD @ 01/21/2017 14:58:46 (Electronic Signature) Report Signed by Proxy. [facility]ITALRosalina
--- NOTE | 2017-01-22 17:30 | PCM.PN ---
- General Info Date of Service: 01/22/17 Subjective Update: still a little dizzy but improved. - Patient Data Vitals - Most Recent: Last Vital Signs Temp 97.5 F 01/22/17 16:00 Pulse 69 01/22/17 16:00 Resp 22 H 01/22/17 16:00 BP 161/65 H 01/22/17 16:00 Pulse Ox 94 L 01/22/17 16:00 Weight - Most Recent: 72.12 kg Lab Results Last 24 Hours: Laboratory Results - last 24 hr 01/21/17 01/22/17 01/22/17 Range/Units 18:54 05:30 05:30 WBC 5.55 (4.0-11.0) K/uL RBC 2.90 L (4.30-5.90) M/uL Hgb 9.2 L (12.0-16.0) g/dL Hct 28.3 L (36.0-46.0) % MCV 97.6 (80.0-98.0) fL MCH 31.7 (27.0-32.0) pg MCHC 32.5 (31.0-37.0) g/dL RDW Std Deviation 63.8 H (28.0-62.0) fl RDW Coeff of Joelle 18 H (11.0-15.0) % Plt Count 174 (150-400) K/uL MPV 9.00 (7.40-12.00) fL Neut % (Auto) 65.8 (48.0-80.0) % Lymph % (Auto) 24.7 (16.0-40.0) % [place] % (Auto) 4.7 (0.0-15.0) % Eos % (Auto) 4.3 (0.0-7.0) % Baso % (Auto) 0.5 (0.0-1.5) % Neut # (Auto) 3.7 (1.4-5.7) K/uL Lymph # (Auto) 1.4 (0.6-2.4) K/uL [place] # (Auto) 0.3 (0.0-0.8) K/uL Eos # (Auto) 0.2 (0.0-0.7) K/uL Baso # (Auto) 0.0 (0.0-0.1) K/uL Nucleated RBC % 0.0 /100WBC Nucleated RBCs # 0 K/uL Sodium 143 (136-146) mmol/L Potassium 4.2 (3.5-5.1) mmol/L Chloride 109 (98-110) mmol/L Carbon Dioxide 27 (21-31) mmol/L BUN 16 (6.0-23.0) mg/dL Creatinine 1.3 (0.6-1.5) mg/dL Est Cr Clr Drug Dosing 25.22 mL/min Estimated GFR (MDRD) 38.7 ml/min Glucose 88 (60-110) mg/dL POC Glucose 137 H (60-110) mg/dL Calcium 9.3 (8.8-10.8) mg/dL Magnesium 1.5 (1.5-2.3) mEq/L 01/22/17 01/22/17 01/22/17 Range/Units 09:52 12:54 16:54 WBC (4.0-11.0) K/uL RBC (4.30-5.90) M/uL Hgb (12.0-16.0) g/dL Hct (36.0-46.0) % MCV (80.0-98.0) fL MCH (27.0-32.0) pg MCHC (31.0-37.0) g/dL RDW Std Deviation (28.0-62.0) fl RDW Coeff of Joelle (11.0-15.0) % Plt Count (150-400) K/uL MPV (7.40-12.00) fL Neut % (Auto) (48.0-80.0) % Lymph % (Auto) (16.0-40.0) % [place] % (Auto) (0.0-15.0) % Eos % (Auto) (0.0-7.0) % Baso % (Auto) (0.0-1.5) % Neut # (Auto) (1.4-5.7) K/uL Lymph # (Auto) (0.6-2.4) K/uL [place] # (Auto) (0.0-0.8) K/uL Eos # (Auto) (0.0-0.7) K/uL Baso # (Auto) (0.0-0.1) K/uL Nucleated RBC % /100WBC Nucleated RBCs # K/uL Sodium (136-146) mmol/L Potassium (3.5-5.1) mmol/L Chloride (98-110) mmol/L Carbon Dioxide (21-31) mmol/L BUN (6.0-23.0) mg/dL Creatinine (0.6-1.5) mg/dL Est Cr Clr Drug Dosing mL/min Estimated GFR (MDRD) ml/min Glucose (60-110) mg/dL POC Glucose 117 H 125 H 106 (60-110) mg/dL Calcium (8.8-10.8) mg/dL Magnesium (1.5-2.3) mEq/L Med Orders - Current: Current Medications Aspirin (Aspirin) 81 mg PO DAILY [facility] Last Admin: 01/22/17 08:19 Dose: 81 mg Atorvastatin Calcium (Lipitor) 10 mg PO DAILY [facility] Last Admin: 01/22/17 08:17 Dose: 10 mg Calcium Carbonate (Caltrate 600+D 1500 Mg-400 Units) 1 tab PO BID [facility] Last Admin: 01/22/17 08:18 Dose: 1 tab Cyanocobalamin (Vitamin B12) 1,000 mcg PO DAILY [facility] Last Admin: 01/22/17 08:18 Dose: 1,000 mcg Donepezil HCl (Aricept) 5 mg PO BEDTIME [facility] Last Admin: 01/21/17 20:44 Dose: 5 mg Enoxaparin Sodium (Lovenox) 30 mg SUBCUT DAILY [facility] Last Admin: 01/22/17 08:21 Dose: 30 mg Fish Oil (Fish Oil) 1 gm PO DAILY [facility] Last Admin: 01/22/17 08:16 Dose: 1 gm Levofloxacin/Dextrose 750 mg/ (Premix) 150 mls @ 100 mls/hr IV Q48H ONE Stop: 01/23/17 17:29 Insulin Aspart (Novolog) 0 unit SUBCUT ACBED [facility] PRN Reason: Protocol Last Admin: 01/22/17 12:56 Dose: Not Given Insulin Detemir (Levemir) 25 unit SUBCUT DAILY [facility] Last Admin: 01/22/17 10:12 Dose: 25 units Levothyroxine Sodium (Levothyroxine) 75 mcg PO ACBREAKFAST [facility] Last Admin: 01/22/17 07:56 Dose: 75 mcg Losartan Potassium (Cozaar) 50 mg PO DAILY [facility] Last Admin: 01/22/17 08:20 Dose: 50 mg Meclizine HCl (Antivert) 25 mg PO TID PRN PRN Reason: Dizziness Multivitamins/Minerals (Prosight) 1 tab PO BID [facility] Last Admin: 01/22/17 08:16 Dose: 1 tab Pantoprazole Sodium (Protonix) 40 mg PO ACBREAKFAST [facility] Last Admin: 01/22/17 07:56 Dose: 40 mg Polyethylene Glycol (Miralax) 17 gm PO DAILY PRN PRN Reason: Constipation Polysaccharide Iron Complex (Ferrex 150) 150 mg PO DAILY [facility] Last Admin: 01/22/17 08:17 Dose: 150 mg Sodium Chloride (Saline Flush) 10 ml FLUSH ASDIRECTED PRN PRN Reason: Keep Vein Open Sodium Chloride (Saline Flush) 2.5 ml FLUSH ASDIRECTED PRN PRN Reason: Keep Vein Open Temazepam (Restoril) 15 mg PO BEDTIME PRN PRN Reason: Sleep Discontinued Medications Sodium Chloride (Normal Saline) 1,000 mls @ 250 mls/hr IV STAT ONE Stop: 01/21/17 16:44 Last Admin: 01/21/17 13:59 Dose: 250 mls/hr Levofloxacin/Dextrose 750 mg/ (Premix) 150 mls @ 100 mls/hr IV ONETIME ONE Stop: 01/21/17 16:49 Last Admin: 01/21/17 16:12 Dose: 100 mls/hr Meclizine HCl (Antivert) 25 mg PO ONETIME ONE Stop: 01/21/17 12:56 Last Admin: 01/21/17 13:59 Dose: 25 mg - Exam General: Alert, Oriented, Cooperative Neck: Supple, Trachea Midline Lungs: Clear to Auscultation, Normal Respiratory Effort Cardiovascular: Regular Rate, Regular Rhythm - Problem List & Annotations (1) Pneumonia SNOMED Code(s): 706379889 Code(s): J18.9 - PNEUMONIA, UNSPECIFIED ORGANISM Status: Acute Current Visit: Yes (2) Diabetes mellitus type 2 in obese SNOMED Code(s): 58485172 Code(s): E11.9 - TYPE 2 DIABETES MELLITUS WITHOUT COMPLICATIONS; E66.9 - OBESITY, UNSPECIFIED Status: Chronic Priority: Medium Current Visit: No - Problem List Review Problem List Initiated/Reviewed/Updated: Yes - My Orders Last 24 Hours: My Active Orders 01/21/17 18:30 Oxygen Therapy [RC] PRN VTE/DVT Education [RC] PER UNIT ROUTINE Vital Signs [RC] Q4H Temazepam [Restoril] 15 mg PO BEDTIME PRN Resuscitation Status Routine 01/21/17 18:34 Polyethylene Glycol 3350 [MiraLAX] 17 gm PO DAILY PRN 01/21/17 18:36 Blood Glucose Check, Bedside [RC] QIDACANDBED 01/21/17 18:45 Insulin Aspart [NovoLOG] See Protocol SUBCUT ACBED 01/21/17 18:53 Meclizine [Antivert] 25 mg PO TID PRN 01/21/17 21:00 Beta-Carotene(A) w/C & E/Min [Prosight] 1 tab PO BID Calcium Carbonate/Vitamin D3 [Caltrate 600+D 1500 MG-400 Units] 1 tab PO BID Donepezil [Aricept] 5 mg PO BEDTIME 01/22/17 07:30 Levothyroxine 75 mcg PO ACBREAKFAST Pantoprazole [ProTONIX] 40 mg PO ACBREAKFAST 01/22/17 09:00 Aspirin 81 mg PO DAILY Cyanocobalamin (Vitamin B12) [Vitamin B12] 1,000 mcg PO DAILY Enoxaparin [Lovenox] 30 mg SUBCUT DAILY Fish Oil/[place]-3 Fatty Acids [Fish Oil] 1 gm PO DAILY Insulin Detemir [Levemir] 25 unit SUBCUT DAILY Iron Polysaccharides Complex [Ferrex 150] 150 mg PO DAILY Losartan [Cozaar] 50 mg PO DAILY atorvaSTATin [Lipitor] 10 mg PO DAILY 01/23/17 05:11 BASIC METABOLIC PANEL,BMP [CHEM] AM CBC WITH AUTO DIFF [HEME] AM 01/23/17 16:00 Levofloxacin/Dextrose 5%-Water [Levaquin in D5W 750 MG/150 ML] 750 mg Premix Bag 1 bag IV Q48H - Plan Plan:: admit see orders 01/22/2017 improving anticipated discharge tomorrow. Vicente Lizama MD
[2017-01-22] MEDS: Donepezil 10 MG Tab PO SCH (20:26)
[2017-01-23] MEDS: Insulin Aspart 100 Units/ML 3 ML Pen SUBCUT SCH ×4 (07:32→23:08)
[2017-01-23] MEDS: Pantoprazole 40 MG Tab.CR PO SCH (07:33)
[2017-01-23] MEDS: Levothyroxine 75 MCG Tab PO SCH (07:33)
[2017-01-23] MEDS: Cyanocobalamin (Vitamin B12) 500 MCG Tab PO SCH (08:05)
[2017-01-23] MEDS: Beta-Carotene (Vitamin A) w/Vitamin C & E plus Minerals Tab PO SCH ×2 (08:05→20:55)
[2017-01-23] MEDS: Fish Oil/Omega-3 Fatty Acids 1 Gm Cap PO SCH (08:05)
[2017-01-23] MEDS: Iron Polysaccharides Complex 150 MG Cap PO SCH (08:05)
[2017-01-23] MEDS: Aspirin 81 MG Tab.Chew PO SCH (08:06)
[2017-01-23] MEDS: Calcium Carbonate/Vitamin D3 1500 MG-400 Units Tab PO SCH ×2 (08:06→20:55)
[2017-01-23] MEDS: atorvaSTATin 10 MG Tab PO SCH (08:06)
[2017-01-23] MEDS: Losartan 50 MG Tab PO SCH (08:06)
[2017-01-23] MEDS: Insulin Detemir 100 Units/ML 3 ML Pen SUBCUT SCH (08:15)
[2017-01-23] MEDS: Enoxaparin 30 MG/0.3 ML Syringe SUBCUT SCH (08:18)
--- NOTE | 2017-01-23 10:29 | PCM.PN ---
- General Info Date of Service: 01/23/17 Subjective Update: She feels weak and unsteady when she is trying to ambulate - Review of Systems General: Reports: Weakness. Denies: Fever - Patient Data Vitals - Most Recent: Last Vital Signs Temp 98.5 F 01/23/17 08:00 Pulse 66 01/23/17 08:00 Resp 18 01/23/17 08:00 BP 160/70 H 01/23/17 08:06 Pulse Ox 96 01/23/17 08:00 Weight - Most Recent: 69.717 kg I&O - Last 24 Hours: Intake & Output 01/22/17 01/23/17 01/23/17 22:59 06:59 14:59 Intake Total 420 150 Output Total 200 Balance 420 -50 Lab Results Last 24 Hours: Laboratory Results - last 24 hr 01/22/17 01/22/17 01/22/17 Range/Units 09:52 12:54 16:54 WBC (4.0-11.0) K/uL RBC (4.30-5.90) M/uL Hgb (12.0-16.0) g/dL Hct (36.0-46.0) % MCV (80.0-98.0) fL MCH (27.0-32.0) pg MCHC (31.0-37.0) g/dL RDW Std Deviation (28.0-62.0) fl RDW Coeff of Joelle (11.0-15.0) % Plt Count (150-400) K/uL MPV (7.40-12.00) fL Neut % (Auto) (48.0-80.0) % Lymph % (Auto) (16.0-40.0) % [place] % (Auto) (0.0-15.0) % Eos % (Auto) (0.0-7.0) % Baso % (Auto) (0.0-1.5) % Neut # (Auto) (1.4-5.7) K/uL Lymph # (Auto) (0.6-2.4) K/uL [place] # (Auto) (0.0-0.8) K/uL Eos # (Auto) (0.0-0.7) K/uL Baso # (Auto) (0.0-0.1) K/uL Nucleated RBC % /100WBC Nucleated RBCs # K/uL Sodium (136-146) mmol/L Potassium (3.5-5.1) mmol/L Chloride (98-110) mmol/L Carbon Dioxide (21-31) mmol/L BUN (6.0-23.0) mg/dL Creatinine (0.6-1.5) mg/dL Est Cr Clr Drug Dosing mL/min Estimated GFR (MDRD) ml/min Glucose (60-110) mg/dL POC Glucose 117 H 125 H 106 (60-110) mg/dL Calcium (8.8-10.8) mg/dL 01/22/17 01/23/17 01/23/17 Range/Units 21:31 04:48 04:48 WBC 5.63 (4.0-11.0) K/uL RBC 2.85 L (4.30-5.90) M/uL Hgb 9.0 L (12.0-16.0) g/dL Hct 27.4 L (36.0-46.0) % MCV 96.1 (80.0-98.0) fL MCH 31.6 (27.0-32.0) pg MCHC 32.8 (31.0-37.0) g/dL RDW Std Deviation 62.4 H (28.0-62.0) fl RDW Coeff of Joelle 18 H (11.0-15.0) % Plt Count 183 (150-400) K/uL MPV 9.80 (7.40-12.00) fL Neut % (Auto) 59.4 (48.0-80.0) % Lymph % (Auto) 29.0 (16.0-40.0) % [place] % (Auto) 5.9 (0.0-15.0) % Eos % (Auto) 5.2 (0.0-7.0) % Baso % (Auto) 0.5 (0.0-1.5) % Neut # (Auto) 3.4 (1.4-5.7) K/uL Lymph # (Auto) 1.6 (0.6-2.4) K/uL [place] # (Auto) 0.3 (0.0-0.8) K/uL Eos # (Auto) 0.3 (0.0-0.7) K/uL Baso # (Auto) 0.0 (0.0-0.1) K/uL Nucleated RBC % 0.0 /100WBC Nucleated RBCs # 0 K/uL Sodium 143 (136-146) mmol/L Potassium 3.9 (3.5-5.1) mmol/L Chloride 110 (98-110) mmol/L Carbon Dioxide 25 (21-31) mmol/L BUN 19 (6.0-23.0) mg/dL Creatinine 1.3 (0.6-1.5) mg/dL Est Cr Clr Drug Dosing 25.22 mL/min Estimated GFR (MDRD) 38.7 ml/min Glucose 63 (60-110) mg/dL POC Glucose 81 (60-110) mg/dL Calcium 9.0 (8.8-10.8) mg/dL 01/23/17 01/23/17 Range/Units 06:39 08:15 WBC (4.0-11.0) K/uL RBC (4.30-5.90) M/uL Hgb (12.0-16.0) g/dL Hct (36.0-46.0) % MCV (80.0-98.0) fL MCH (27.0-32.0) pg MCHC (31.0-37.0) g/dL RDW Std Deviation (28.0-62.0) fl RDW Coeff of Joelle (11.0-15.0) % Plt Count (150-400) K/uL MPV (7.40-12.00) fL Neut % (Auto) (48.0-80.0) % Lymph % (Auto) (16.0-40.0) % [place] % (Auto) (0.0-15.0) % Eos % (Auto) (0.0-7.0) % Baso % (Auto) (0.0-1.5) % Neut # (Auto) (1.4-5.7) K/uL Lymph # (Auto) (0.6-2.4) K/uL [place] # (Auto) (0.0-0.8) K/uL Eos # (Auto) (0.0-0.7) K/uL Baso # (Auto) (0.0-0.1) K/uL Nucleated RBC % /100WBC Nucleated RBCs # K/uL Sodium (136-146) mmol/L Potassium (3.5-5.1) mmol/L Chloride (98-110) mmol/L Carbon Dioxide (21-31) mmol/L BUN (6.0-23.0) mg/dL Creatinine (0.6-1.5) mg/dL Est Cr Clr Drug Dosing mL/min Estimated GFR (MDRD) ml/min Glucose (60-110) mg/dL POC Glucose 95 156 H (60-110) mg/dL Calcium (8.8-10.8) mg/dL Med Orders - Current: Current Medications Aspirin (Aspirin) 81 mg PO DAILY [facility] Last Admin: 01/23/17 08:06 Dose: 81 mg Atorvastatin Calcium (Lipitor) 10 mg PO DAILY [facility] Last Admin: 01/23/17 08:06 Dose: 10 mg Calcium Carbonate (Caltrate 600+D 1500 Mg-400 Units) 1 tab PO BID [facility] Last Admin: 01/23/17 08:06 Dose: 1 tab Cyanocobalamin (Vitamin B12) 1,000 mcg PO DAILY [facility] Last Admin: 01/23/17 08:05 Dose: 1,000 mcg Donepezil HCl (Aricept) 5 mg PO BEDTIME [facility] Last Admin: 01/22/17 20:26 Dose: 5 mg Enoxaparin Sodium (Lovenox) 30 mg SUBCUT DAILY [facility] Last Admin: 01/23/17 08:18 Dose: 30 mg Fish Oil (Fish Oil) 1 gm PO DAILY [facility] Last Admin: 01/23/17 08:05 Dose: 1 gm Levofloxacin/Dextrose 750 mg/ (Premix) 150 mls @ 100 mls/hr IV Q48H ONE Stop: 01/23/17 17:29 Insulin Aspart (Novolog) 0 unit SUBCUT ACBED [facility] PRN Reason: Protocol Last Admin: 01/23/17 07:32 Dose: Not Given Insulin Detemir (Levemir) 25 unit SUBCUT DAILY [facility] Last Admin: 01/23/17 08:15 Dose: 25 units Levothyroxine Sodium (Levothyroxine) 75 mcg PO ACBREAKFAST [facility] Last Admin: 01/23/17 07:33 Dose: 75 mcg Losartan Potassium (Cozaar) 50 mg PO DAILY [facility] Last Admin: 01/23/17 08:06 Dose: 50 mg Meclizine HCl (Antivert) 25 mg PO TID PRN PRN Reason: Dizziness Multivitamins/Minerals (Prosight) 1 tab PO BID [facility] Last Admin: 01/23/17 08:05 Dose: 1 tab Pantoprazole Sodium (Protonix) 40 mg PO ACBREAKFAST [facility] Last Admin: 01/23/17 07:33 Dose: 40 mg Polyethylene Glycol (Miralax) 17 gm PO DAILY PRN PRN Reason: Constipation Polysaccharide Iron Complex (Ferrex 150) 150 mg PO DAILY [facility] Last Admin: 01/23/17 08:05 Dose: 150 mg Sodium Chloride (Saline Flush) 10 ml FLUSH ASDIRECTED PRN PRN Reason: Keep Vein Open Sodium Chloride (Saline Flush) 2.5 ml FLUSH ASDIRECTED PRN PRN Reason: Keep Vein Open Temazepam (Restoril) 15 mg PO BEDTIME PRN PRN Reason: Sleep Discontinued Medications Sodium Chloride (Normal Saline) 1,000 mls @ 250 mls/hr IV STAT ONE Stop: 01/21/17 16:44 Last Admin: 01/21/17 13:59 Dose: 250 mls/hr Levofloxacin/Dextrose 750 mg/ (Premix) 150 mls @ 100 mls/hr IV ONETIME ONE Stop: 01/21/17 16:49 Last Admin: 01/21/17 16:12 Dose: 100 mls/hr Meclizine HCl (Antivert) 25 mg PO ONETIME ONE Stop: 01/21/17 12:56 Last Admin: 01/21/17 13:59 Dose: 25 mg - Exam General: Alert, Cooperative, No Acute Distress Neck: Supple, Trachea Midline Lungs: Clear to Auscultation, Normal Respiratory Effort Cardiovascular: Regular Rate, Regular Rhythm - Problem List & Annotations (1) Pneumonia SNOMED Code(s): 830213657 Code(s): J18.9 - PNEUMONIA, UNSPECIFIED ORGANISM Status: Acute Current Visit: Yes (2) Diabetes mellitus type 2 in obese SNOMED Code(s): 39893554 Code(s): E11.9 - TYPE 2 DIABETES MELLITUS WITHOUT COMPLICATIONS; E66.9 - OBESITY, UNSPECIFIED Status: Chronic Priority: Medium Current Visit: No (3) Physical deconditioning SNOMED Code(s): 90491467605456 Code(s): R53.81 - OTHER MALAISE Status: Acute Current Visit: Yes (4) Hypertension SNOMED Code(s): 21489263 Code(s): I10 - ESSENTIAL (PRIMARY) HYPERTENSION Status: Acute Current Visit: Yes (5) Anemia SNOMED Code(s): 491886770 Code(s): D64.9 - ANEMIA, UNSPECIFIED Status: Acute Current Visit: No Qualifiers: Anemia type: unspecified type Qualified Code(s): D64.9 - Anemia, unspecified - Problem List Review Problem List Initiated/Reviewed/Updated: Yes - My Orders Last 24 Hours: My Active Orders 01/23/17 16:00 Levofloxacin/Dextrose 5%-Water [Levaquin in D5W 750 MG/150 ML] 750 mg Premix Bag 1 bag IV Q48H - Plan Plan:: admit see orders 01/22/2017 improving anticipated discharge tomorrow. Vicente Lizama MD 01/23/2017 unable to discharge today as she is less ambulatory. She may have experienced further deconditioning. PT consult for gait assessment and strengthening. Anticipate discharge in 24 to 48 hours I notice her anemia . Will evaluate. See orders Check free T4 as TSH is borderline Vicente Lizama MD
[2017-01-23] MEDS ORDERED: Levofloxacin/Dextrose 5%-Water 750 MG in Premix Bag 1 BAG IV ONE (16:00)
[2017-01-23] MEDS: Donepezil 10 MG Tab PO SCH (20:55)
[2017-01-24] MEDS: Levothyroxine 75 MCG Tab PO SCH (07:15)
[2017-01-24] MEDS: Pantoprazole 40 MG Tab.CR PO SCH (07:15)
[2017-01-24] MEDS: Insulin Aspart 100 Units/ML 3 ML Pen SUBCUT SCH ×2 (07:57→12:14)
[2017-01-24] MEDS: Calcium Carbonate/Vitamin D3 1500 MG-400 Units Tab PO SCH (08:23)
[2017-01-24] MEDS: Fish Oil/Omega-3 Fatty Acids 1 Gm Cap PO SCH (08:23)
[2017-01-24] MEDS: Cyanocobalamin (Vitamin B12) 500 MCG Tab PO SCH (08:24)
[2017-01-24] MEDS: Aspirin 81 MG Tab.Chew PO SCH (08:24)
[2017-01-24] MEDS: Iron Polysaccharides Complex 150 MG Cap PO SCH (08:24)
[2017-01-24] MEDS: atorvaSTATin 10 MG Tab PO SCH (08:24)
[2017-01-24] MEDS: Beta-Carotene (Vitamin A) w/Vitamin C & E plus Minerals Tab PO SCH (08:24)
[2017-01-24] MEDS: Losartan 50 MG Tab PO SCH (08:24)
[2017-01-24] MEDS: Enoxaparin 30 MG/0.3 ML Syringe SUBCUT SCH (08:27)
[2017-01-24] MEDS: Insulin Detemir 100 Units/ML 3 ML Pen SUBCUT SCH (09:14)
--- NOTE | 2017-01-24 11:24 | PCM.SN ---
- Free Text/Narrative Note: she has community acquired pneumonia. Vicente Lizama MD
--- NOTE | 2017-01-24 12:31 | PCM.DCSUM1 ---
Discharge Summary - Hospital Course Brief History: she was admitted with a bibasilar pneumonia on CXR. Symptoms were mainly weakness and "dizziness". - Discharge Data Discharge Date: 01/24/17 Discharge Disposition: Home, Self-Care 01 Condition: Good - Discharge Diagnosis/Problem(s) (1) Pneumonia SNOMED Code(s): 900690722 ICD Code: J18.9 - PNEUMONIA, UNSPECIFIED ORGANISM Status: Acute Current Visit: Yes (2) Diabetes mellitus type 2 in obese SNOMED Code(s): 59042571 ICD Code: E11.9 - TYPE 2 DIABETES MELLITUS WITHOUT COMPLICATIONS; E66.9 - OBESITY, UNSPECIFIED Status: Chronic Priority: Medium Current Visit: No (3) Physical deconditioning SNOMED Code(s): 56438455389284 ICD Code: R53.81 - OTHER MALAISE Status: Acute Current Visit: Yes (4) Hypertension SNOMED Code(s): 68686252 ICD Code: I10 - ESSENTIAL (PRIMARY) HYPERTENSION Status: Acute Current Visit: Yes (5) Anemia SNOMED Code(s): 952955003 ICD Code: D64.9 - ANEMIA, UNSPECIFIED Status: Acute Current Visit: No Qualifiers: Anemia type: unspecified type Qualified Code(s): D64.9 - Anemia, unspecified - Patient Summary/Data Consults: Consultations 01/23/17 14:20 Consult to Home Care [Consult to Home Health] [CONS] Routine Hospital Course: She was treated with levaquin. She gradually improved and is walking well with a walker at discharge. She had an initial Hg of 10.7 . Her Hg dropped to as low as 9.0 and is 9.4 at discharge. Fecal hemocult blood was negative. B12 and folate levels were normal. Her blood sugars were monitored. Impression: bibasilar pneumonia DM discharge to [facility] levaquin 750 mg daily x 4 doses. Vicente Lizama MD - Discharge Plan Home Medications: Home Meds Levothyroxine Sodium [Synthroid] 75 mcg PO DAILY 02/15/14 [History] atorvaSTATin Calcium [Atorvastatin Calcium] 10 mg PO DAILY 02/15/14 [History] Losartan [Cozaar] 50 mg PO DAILY 12/23/15 [History] Pantoprazole [ProTONIX] 40 mg PO DAILY 12/23/15 [History] Donepezil [Aricept] 5 mg PO BEDTIME 05/16/16 [History] Aspirin 81 mg PO DAILY 12/05/16 [History] Cyanocobalamin (Vitamin B-12) [B-12] 1,000 mcg PO DAILY 12/05/16 [History] Fish Oil/[place]-3 Fatty Acids [Fish Oil 1,000 MG] 1 gm PO DAILY 12/05/16 [History ] Insulin Detemir [Levemir Flextouch] 25 units SQ DAILY 12/05/16 [History] Meclizine HCl 25 mg PO TID PRN 12/05/16 [History] Calcium Carbonate/Vitamin D3 [Calcium 600 + Vit D Tablet] 600 mg PO BID [History] Iron Aspgly&PS/B12/C/Ca/FA/Suc [Niferex-150 Forte] 150 mg PO DAILY 01/21/17 [ History] Lutein/Minerals/Vit A,C & E [Ocuvite] 1 tab PO BID 01/21/17 [History] Polyethylene Glycol 3350 [MiraLAX] 17 gm PO DAILY PRN 01/21/17 [History] Triamcinolone Acetonide [Nasacort] INH DAILY 01/21/17 [History] Referrals: Marie Lozano DO [Primary Care Provider] - - Patient Data Vitals - Most Recent: Last Vital Signs Temp 97.8 F 01/24/17 10:00 Pulse 75 01/24/17 08:00 Resp 18 01/24/17 08:00 BP 138/64 01/24/17 08:24 Pulse Ox 95 01/24/17 08:00 Orthostatic Blood Pressure [ 140/68 Standing] Orthostatic Blood Pressure [ 159/72 Sitting] Orthostatic Blood Pressure [ 162/68 Supine] Weight - Most Recent: 69.5 kg I&O - Last 24 hours: Intake & Output 01/23/17 01/24/17 01/24/17 22:59 06:59 14:59 Intake Total 850 420 Output Total 1050 1400 Balance -200 -980 Lab Results - Last 24 hrs: Laboratory Results - last 24 hr 01/23/17 01/23/17 01/23/17 Range/Units 04:42 16:26 20:25 WBC (4.0-11.0) K/uL RBC (4.30-5.90) M/uL Hgb (12.0-16.0) g/dL Hct (36.0-46.0) % MCV (80.0-98.0) fL MCH (27.0-32.0) pg MCHC (31.0-37.0) g/dL RDW Std Deviation (28.0-62.0) fl RDW Coeff of Joelle (11.0-15.0) % Plt Count (150-400) K/uL MPV (7.40-12.00) fL Neut % (Auto) (48.0-80.0) % Lymph % (Auto) (16.0-40.0) % Coffey % (Auto) (0.0-15.0) % Eos % (Auto) (0.0-7.0) % Baso % (Auto) (0.0-1.5) % Neut # (Auto) (1.4-5.7) K/uL Lymph # (Auto) (0.6-2.4) K/uL Coffey # (Auto) (0.0-0.8) K/uL Eos # (Auto) (0.0-0.7) K/uL Baso # (Auto) (0.0-0.1) K/uL Nucleated RBC % /100WBC Nucleated RBCs # K/uL Sodium (136-146) mmol/L Potassium (3.5-5.1) mmol/L Chloride (98-110) mmol/L Carbon Dioxide (21-31) mmol/L BUN (6.0-23.0) mg/dL Creatinine (0.6-1.5) mg/dL Est Cr Clr Drug Dosing mL/min Estimated GFR (MDRD) ml/min Glucose (60-110) mg/dL POC Glucose 133 H 108 (60-110) mg/dL Calcium (8.8-10.8) mg/dL Magnesium (1.5-2.3) mEq/L Ferritin 70 (11-307) ng/mL 01/24/17 01/24/17 01/24/17 Range/Units 04:32 04:32 06:27 WBC 4.88 (4.0-11.0) K/uL RBC 2.94 L (4.30-5.90) M/uL Hgb 9.4 L (12.0-16.0) g/dL Hct 28.3 L (36.0-46.0) % MCV 96.3 (80.0-98.0) fL MCH 32.0 (27.0-32.0) pg MCHC 33.2 (31.0-37.0) g/dL RDW Std Deviation 62.2 H (28.0-62.0) fl RDW Coeff of Joelle 18 H (11.0-15.0) % Plt Count 185 (150-400) K/uL MPV 9.10 (7.40-12.00) fL Neut % (Auto) 59.1 (48.0-80.0) % Lymph % (Auto) 29.9 (16.0-40.0) % Coffey % (Auto) 4.9 (0.0-15.0) % Eos % (Auto) 5.7 (0.0-7.0) % Baso % (Auto) 0.4 (0.0-1.5) % Neut # (Auto) 2.9 (1.4-5.7) K/uL Lymph # (Auto) 1.5 (0.6-2.4) K/uL Coffey # (Auto) 0.2 (0.0-0.8) K/uL Eos # (Auto) 0.3 (0.0-0.7) K/uL Baso # (Auto) 0.0 (0.0-0.1) K/uL Nucleated RBC % 0.0 /100WBC Nucleated RBCs # 0 K/uL Sodium 142 (136-146) mmol/L Potassium 3.8 (3.5-5.1) mmol/L Chloride 108 (98-110) mmol/L Carbon Dioxide 26 (21-31) mmol/L BUN 21 (6.0-23.0) mg/dL Creatinine 1.2 (0.6-1.5) mg/dL Est Cr Clr Drug Dosing 27.32 mL/min Estimated GFR (MDRD) 42.5 ml/min Glucose 77 (60-110) mg/dL POC Glucose 91 (60-110) mg/dL Calcium 8.7 L (8.8-10.8) mg/dL Magnesium 1.5 (1.5-2.3) mEq/L Ferritin (11-307) ng/mL 09/20/17 Range/Units 09:13 WBC (4.0-11.0) K/uL RBC (4.30-5.90) M/uL Hgb (12.0-16.0) g/dL Hct (36.0-46.0) % MCV (80.0-98.0) fL MCH (27.0-32.0) pg MCHC (31.0-37.0) g/dL RDW Std Deviation (28.0-62.0) fl RDW Coeff of Joelle (11.0-15.0) % Plt Count (150-400) K/uL MPV (7.40-12.00) fL Neut % (Auto) (48.0-80.0) % Lymph % (Auto) (16.0-40.0) % Coffey % (Auto) (0.0-15.0) % Eos % (Auto) (0.0-7.0) % Baso % (Auto) (0.0-1.5) % Neut # (Auto) (1.4-5.7) K/uL Lymph # (Auto) (0.6-2.4) K/uL Coffey # (Auto) (0.0-0.8) K/uL Eos # (Auto) (0.0-0.7) K/uL Baso # (Auto) (0.0-0.1) K/uL Nucleated RBC % /100WBC Nucleated RBCs # K/uL Sodium (136-146) mmol/L Potassium (3.5-5.1) mmol/L Chloride (98-110) mmol/L Carbon Dioxide (21-31) mmol/L BUN (6.0-23.0) mg/dL Creatinine (0.6-1.5) mg/dL Est Cr Clr Drug Dosing mL/min Estimated GFR (MDRD) ml/min Glucose (60-110) mg/dL POC Glucose 168 H (60-110) mg/dL Calcium (8.8-10.8) mg/dL Magnesium (1.5-2.3) mEq/L Ferritin (11-307) ng/mL MITCH Results - Last 24 hrs: Microbiology 01/23/17 14:21 Stool Occult Blood (MITCH) - Final Stool / Feces NEGATIVE OCCULT BLOOD Med Orders - Current: Current Medications Aspirin (Aspirin) 81 mg PO DAILY [facility] Last Admin: 01/24/17 08:24 Dose: 81 mg Atorvastatin Calcium (Lipitor) 10 mg PO DAILY [facility] Last Admin: 01/24/17 08:24 Dose: 10 mg Calcium Carbonate (Caltrate 600+D 1500 Mg-400 Units) 1 tab PO BID [facility] Last Admin: 01/24/17 08:23 Dose: 1 tab Cyanocobalamin (Vitamin B12) 1,000 mcg PO DAILY [facility] Last Admin: 01/24/17 08:24 Dose: 1,000 mcg Donepezil HCl (Aricept) 5 mg PO BEDTIME [facility] Last Admin: 01/23/17 20:55 Dose: 5 mg Enoxaparin Sodium (Lovenox) 30 mg SUBCUT DAILY [facility] Last Admin: 01/24/17 08:27 Dose: 30 mg Fish Oil (Fish Oil) 1 gm PO DAILY [facility] Last Admin: 01/24/17 08:23 Dose: 1 gm Insulin Aspart (Novolog) 0 unit SUBCUT ACBED [facility] PRN Reason: Protocol Last Admin: 01/24/17 12:14 Dose: Not Given Insulin Detemir (Levemir) 25 unit SUBCUT DAILY [facility] Last Admin: 01/24/17 09:14 Dose: 25 units Levothyroxine Sodium (Levothyroxine) 75 mcg PO ACBREAKFAST [facility] Last Admin: 01/24/17 07:15 Dose: 75 mcg Losartan Potassium (Cozaar) 50 mg PO DAILY [facility] Last Admin: 01/24/17 08:24 Dose: 50 mg Meclizine HCl (Antivert) 25 mg PO TID PRN PRN Reason: Dizziness Last Admin: 01/24/17 07:53 Dose: 25 mg Multivitamins/Minerals (Prosight) 1 tab PO BID [facility] Last Admin: 01/24/17 08:24 Dose: 1 tab Pantoprazole Sodium (Protonix) 40 mg PO ACBREAKFAST [facility] Last Admin: 01/24/17 07:15 Dose: 40 mg Polyethylene Glycol (Miralax) 17 gm PO DAILY PRN PRN Reason: Constipation Polysaccharide Iron Complex (Ferrex 150) 150 mg PO DAILY [facility] Last Admin: 01/24/17 08:24 Dose: 150 mg Sodium Chloride (Saline Flush) 10 ml FLUSH ASDIRECTED PRN PRN Reason: Keep Vein Open Sodium Chloride (Saline Flush) 2.5 ml FLUSH ASDIRECTED PRN PRN Reason: Keep Vein Open Temazepam (Restoril) 15 mg PO BEDTIME PRN PRN Reason: Sleep Discontinued Medications Sodium Chloride (Normal Saline) 1,000 mls @ 250 mls/hr IV STAT ONE Stop: 01/21/17 16:44 Last Admin: 01/21/17 13:59 Dose: 250 mls/hr Levofloxacin/Dextrose 750 mg/ (Premix) 150 mls @ 100 mls/hr IV ONETIME ONE Stop: 01/21/17 16:49 Last Admin: 01/21/17 16:12 Dose: 100 mls/hr Levofloxacin/Dextrose 750 mg/ (Premix) 150 mls @ 100 mls/hr IV Q48H ONE Stop: 01/23/17 17:29 Last Admin: 01/23/17 15:17 Dose: 100 mls/hr Meclizine HCl (Antivert) 25 mg PO ONETIME ONE Stop: 01/21/17 12:56 Last Admin: 01/21/17 13:59 Dose: 25 mg *Q Meaningful Use (DIS) - VTE *Q VTE Criteria *Q: - Stroke *Q Stroke Criteria *Q: - AMI *Q AMI Criteria *Q:
[2017-01-24 13:06] VITALS: BP 162/72
== END 2017-01-24 14:15 | disposition home or self-care (01) | DRG 195 ==
LOC: MW.ED 12:22 → MW.MS 15:32
PROVIDERS: ADMIT Family Medicine; ATTEND Family Medicine
DX: J18.9 Pneumonia, unspecified organism (principal); R42 Dizziness and giddiness; E11.9 Type 2 diabetes mellitus without complications; R53.81 Other malaise; I10 Essential (primary) hypertension; D64.9 Anemia, unspecified; E78.00 Pure hypercholesterolemia, unspecified; F32.9 Major depressive disorder, single episode, unspecified; F03.90 Unspecified dementia, unspecified severity, without behavioral disturbance, psychotic disturbance, mood disturbance, and anxiety; E03.9 Hypothyroidism, unspecified; Z79.899 Other long term (current) drug therapy; Z88.0 Allergy status to penicillin; Z88.8 Allergy status to other drugs, medicaments and biological substances
CPT/HCPCS: 36415; 70450; 71020; 80053; 81001; 83605; 84443; 84484; 85025; 93005; 96361; 99285; A9270; J7040; 80048; 82272; 82607; 82728; 82746; 82962; 83540; 83735; 84439; 85045; 96360; 96365; 99283; J1650; J1815-GY; J1956

== ENCOUNTER 2017-09-11 20:04 | Observation (INO) | payer MEDICARE, OTHER ==
[2017-09-11] MEDS ORDERED: Sodium Chloride 0.9% 2.5 ML Syringe FLUSH PRN (20:07)
[2017-09-11] MEDS ORDERED: Sodium Chloride 0.9% 10 ML Syringe FLUSH PRN (20:07)
[2017-09-11] MEDS ORDERED: Aspirin 81 MG Tab.Chew PO ONE (20:07)
--- NOTE | 2017-09-11 20:11 | EDM.PDOC ---
ED HPI GENERAL MEDICAL PROBLEM - General Chief Complaint: Chest Pain Stated Complaint: PT HAS CHEST PAINS Time Seen by Provider: 09/11/17 20:05 - History of Present Illness INITIAL COMMENTS - FREE TEXT/NARRATIVE: HISTORY AND PHYSICAL: History of present illness: The patient is an 87-year-old female who has a history of diabetes hypercholesterolemia hypertension hypothyroidism and intermittent dizziness and presents with complaints of left-sided chest pain that started about 5 PM, 3 hours ago. The patient says she had a completely normal day doing normal activities with no strenuous activities or trauma and no upper respiratory symptoms chest pain or shortness of breath. She ate all her meals today and was just doing normal activities around her house when the chest pain started on a gradual basis. She points to her left upper chest wall area as the location and says it does not radiate but is associated with shortness of breath with activity some sweatiness and some nausea. She had no vomiting or abdominal pain no back pain and no extremity complaints. She currently rates the pain as a 6-7/ 10 and took no medication prior to coming here. She says she also felt like her heart was beating irregularly going fast and then slowing down but that was not painful. She has never had chest pain before nor has she had a recent stress test or cardiac evaluation. She denies any pulmonary symptomatology and has had no cough runny nose sore throat fevers or chills. She says that if she gets up and moves around she'll feel more short of breath and does not feel short of breath just laying in the bed. She has no leg pain or swelling. She says that she took a diuretic in the past but that was stopped. She does not know if she has ever had congestive heart failure in the past. The patient follows both at our clinic and at [facility] for her healthcare. She states compliance to her medications. The patient states that she has a long-standing history of intermittent dizziness and has noticed over the last several days but that is not new or different and she has not passed out or blacked out. She currently is not dizzy. Review of systems: As per history of present illness and below otherwise all systems reviewed and negative. Past medical history: As per history of present illness and as reviewed below otherwise noncontributory. Surgical history: As per history of present illness and as reviewed below otherwise noncontributory. Social history: No reported history of drug or alcohol abuse. Family history: As per history of present illness and as reviewed below otherwise noncontributory. Physical exam: General: Well-developed well-nourished female who is nontoxic and vital signs have been reviewed by me. She moves easily in the ED without distress or breathlessness HEENT: Atraumatic, normocephalic, pupils reactive, negative for conjunctival pallor or scleral icterus, mucous membranes moist, throat clear, neck supple, nontender, trachea midline. Lungs: Clear to auscultation on the right side but on the left base there is some crackles appreciated without work of breathing, and there is no breathlessness, chest wall has some mild tenderness on palpation to the left of the sternum in the upper chest wall area without any erythema crepitus defects or deformities area Heart: S1S2, regular, negative for clicks, rubs, or JVD. Abdomen: Soft, nondistended, nontender. Negative for masses or hepatosplenomegaly. Negative for costovertebral tenderness. Pelvis: Stable nontender. Genitourinary: Deferred. Rectal: Deferred. Extremities: Atraumatic, negative for cords or calf pain. Neurovascular unremarkable. No pedal edema or leg asymmetry Neuro: Awake, alert, oriented. Cranial nerves II through XII unremarkable. Cerebellum unremarkable. Motor and sensory unremarkable throughout. Exam nonfocal. Diagnostics: EKG chest x-ray CBC CMP INR troponin lactic acid Therapeutics: IV O2 monitor aspirin nitroglycerin sublingual, nitroglycerin paste Patient states the chest pain is gone after one sublingual nitroglycerin. Nitroglycerin paste will be applied and we'll continue to monitor her workup. Nursing tells me that when she went up with the Nitropaste on the patient says that she was having discomfort again but only when she takes a deep breath. A second nitroglycerin was given and Nitropaste was applied. The patient now states that at rest with normal breathing she has no chest pain but when she takes a deep breath she does feel some discomfort. 2052: Case was discussed with our hospitalist Dr. Lizama who accepts the patient for admission observation. I discussed all testing results with the patient as well and she is agreeable Impression: Chest pain rule out ACS; persistent left lower lobe density with pulmonary fibrosis etiology unclear Definitive disposition and diagnosis as appropriate pending reevaluation and review of above. chest pain Pain Score (Numeric/FACES): 5 - Related Data Allergies Allergy/AdvReac Type Severity Reaction Status Date / Time Penicillins Allergy Mild Hives Verified 09/11/17 20:05 codeine Allergy Hives Verified 09/11/17 20:05 Home Meds: Home Meds Levothyroxine Sodium [Synthroid] 75 mcg PO DAILY 02/15/14 [History] atorvaSTATin Calcium [Atorvastatin Calcium] 10 mg PO DAILY 02/15/14 [History] Losartan [Cozaar] 50 mg PO DAILY 12/23/15 [History] Pantoprazole [ProTONIX] 40 mg PO DAILY 12/23/15 [History] Donepezil [Aricept] 5 mg PO BEDTIME 05/16/16 [History] Aspirin 81 mg PO DAILY 12/05/16 [History] Cyanocobalamin (Vitamin B-12) [B-12] 1,000 mcg PO DAILY 12/05/16 [History] Fish Oil/[place]-3 Fatty Acids [Fish Oil 1,000 MG] 1 gm PO DAILY 12/05/16 [History ] Insulin Detemir [Levemir Flextouch] 25 units SQ DAILY 12/05/16 [History] Meclizine HCl 25 mg PO TID PRN 12/05/16 [History] Calcium Carbonate/Vitamin D3 [Calcium 600 + Vit D Tablet] 600 mg PO BID [History] Iron Aspgly&PS/B12/C/Ca/FA/Suc [Niferex-150 Forte] 150 mg PO DAILY 01/21/17 [ History] Lutein/Minerals/Vit A,C & E [Ocuvite] 1 tab PO BID 01/21/17 [History] Polyethylene Glycol 3350 [MiraLAX] 17 gm PO DAILY PRN 01/21/17 [History] Triamcinolone Acetonide [Nasacort] INH DAILY 01/21/17 [History] Diclofenac Sodium [Voltaren] 1 tab PO DAILY 09/11/17 [History] FLUoxetine HCl [Fluoxetine] 20 mg PO DAILY 09/11/17 [History] Ferrous Sulfate [Iron] 1 tab PO DAILY 09/11/17 [History] Meloxicam [Mobic] 15 mg PO DAILY 09/11/17 [History] Multivit-Min/FA/Lycopene/Lut [Sentry Senior Tablet] 1 each PO DAILY 09/11/17 [ History] Past Medical History HEENT History: Reports: Allergic Rhinitis, Impaired Vision Other HEENT History: WEARS GLASSES Cardiovascular History: Reports: High Cholesterol, Hypertension Gastrointestinal History: Reports: Chronic Constipation, Colon Polyp, GERD, Irritable Bowel Syndrome, Other (See Below) Genitourinary History: Reports: Urinary Incontinence, Other (See Below) 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: Musculoskeletal History: Reports: Arthritis, Back Pain, Chronic Neurological History: Reports: Migraines, Vertigo Other Neuro History: no migranes since hysterectomy Psychiatric History: Reports: Dementia, Depression Endocrine/Metabolic History: Reports: Diabetes, Type II, Hypothyroidism Hematologic History: Reports: Anemia Immunologic History: Reports: None Oncologic (Cancer) History: Reports: None Dermatologic History: Reports: Eczema - Infectious Disease History Infectious Disease History: Reports: Measles - Past Surgical History Head Surgeries/Procedures: Reports: None HEENT Surgical History: Reports: None Cardiovascular Surgical History: Reports: None GI Surgical History: Reports: Appendectomy, Colonoscopy, EGD Female Surgical History: Reports: Breast Biopsy, Section, Hysterectomy, Oophorectomy Musculoskeletal Surgical History: Reports: Other (See Below) Other Musculoskeletal Surgeries/Procedures:: 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 ED EXAM, GENERAL - Physical Exam Exam: See Below (See dictation) Course - Vital Signs Last Recorded V/S: Last Vital Signs Temp 36 C 09/11/17 20:05 Pulse 69 09/11/17 20:49 Resp 15 09/11/17 20:49 BP 141/74 H 09/11/17 20:49 Pulse Ox 99 09/11/17 20:49 - Orders/Labs/Meds Orders: Active Orders 24 hr Category Date Time Status Patient Status [ADT] Stat ADT 09/11/17 20:47 Active Cardiac Monitoring [RC] . DIRECTED Care 09/11/17 20:06 Active EKG Documentation Completion [RC] STAT Care 09/11/17 20:06 Active Oxygen Therapy, ED [RC] ASDIRECTED Care 09/11/17 20:06 Active Pulse Oximetry [RC] ASDIRECTED Care 09/11/17 20:06 Active Chest 1V Frontal [CR] Stat Exams 09/11/17 20:07 Taken Nitroglycerin [Nitrostat] Med 09/11/17 20:07 Active 0.4 mg SL Q5M PRN Sodium Chloride 0.9% [Saline Flush] Med 09/11/17 20:07 Active 10 ml FLUSH ASDIRECTED PRN Sodium Chloride 0.9% [Saline Flush] Med 09/11/17 20:07 Active 2.5 ml FLUSH ASDIRECTED PRN Saline Lock Insert [OM.PC] Stat Oth 09/11/17 20:06 Ordered Medication Orders Nitroglycerin (Nitrostat) 0.4 mg SL Q5M PRN PRN Reason: Chest Pain Last Admin: 09/11/17 20:26 Dose: 0.4 mg Admin: 09/11/17 20:18 Dose: 0.4 mg Sodium Chloride (Saline Flush) 10 ml FLUSH ASDIRECTED PRN PRN Reason: Keep Vein Open Last Admin: 09/11/17 20:15 Dose: 10 ml Sodium Chloride (Saline Flush) 2.5 ml FLUSH ASDIRECTED PRN PRN Reason: Keep Vein Open Last Admin: 09/11/17 20:15 Dose: 2.5 ml Labs: Laboratory Tests 09/11/17 09/11/17 09/11/17 Range/Units 19:54 19:54 19:54 WBC 6.97 (4.0-11.0) K/uL RBC 3.11 L (4.30-5.90) M/uL Hgb 10.1 L (12.0-16.0) g/dL Hct 30.5 L (36.0-46.0) % MCV 98.1 H (80.0-98.0) fL MCH 32.5 H (27.0-32.0) pg MCHC 33.1 (31.0-37.0) g/dL RDW Std Deviation 64.2 H (28.0-62.0) fl RDW Coeff of Joelle 18 H (11.0-15.0) % Plt Count 236 (150-400) K/uL MPV 9.70 (7.40-12.00) fL Neut % (Auto) 61.7 (48.0-80.0) % Lymph % (Auto) 29.6 (16.0-40.0) % [place] % (Auto) 5.0 (0.0-15.0) % Eos % (Auto) 3.3 (0.0-7.0) % Baso % (Auto) 0.4 (0.0-1.5) % Neut # (Auto) 4.3 (1.4-5.7) K/uL Lymph # (Auto) 2.1 (0.6-2.4) K/uL [place] # (Auto) 0.4 (0.0-0.8) K/uL Eos # (Auto) 0.2 (0.0-0.7) K/uL Baso # (Auto) 0.0 (0.0-0.1) K/uL Nucleated RBC % 0.0 /100WBC Nucleated RBCs # 0 K/uL INR 1.06 Lactate (0.20-2.00) mmol/L Sodium 141 (136-145) mmol/L Potassium 4.1 (3.5-5.1) mmol/L Chloride 106 (98-107) mmol/L Carbon Dioxide 27.1 (21.0-32.0) mmol/L BUN 22 H (7.0-18.0) mg/dL Creatinine 1.5 H (0.6-1.0) mg/dL Est Cr Clr Drug Dosing 22.39 mL/min Estimated GFR (MDRD) 32.8 ml/min Glucose 112 H (74-106) mg/dL Calcium 8.9 (8.5-10.1) mg/dL Total Bilirubin 1.3 H (0.2-1.0) mg/dL AST 19 (15-37) IU/L ALT 20 (14-63) IU/L Alkaline Phosphatase 63 (46-116) U/L Troponin I < 0.050 (0.000-0.056) ng/mL Total Protein 6.9 (6.4-8.2) g/dL Albumin 3.8 (3.4-5.0) g/dL Globulin 3.1 (2.0-3.5) g/dL Albumin/Globulin Ratio 1.2 L (1.3-2.8) 09/11/17 Range/Units 19:54 WBC (4.0-11.0) K/uL RBC (4.30-5.90) M/uL Hgb (12.0-16.0) g/dL Hct (36.0-46.0) % MCV (80.0-98.0) fL MCH (27.0-32.0) pg MCHC (31.0-37.0) g/dL RDW Std Deviation (28.0-62.0) fl RDW Coeff of Joelle (11.0-15.0) % Plt Count (150-400) K/uL MPV (7.40-12.00) fL Neut % (Auto) (48.0-80.0) % Lymph % (Auto) (16.0-40.0) % [place] % (Auto) (0.0-15.0) % Eos % (Auto) (0.0-7.0) % Baso % (Auto) (0.0-1.5) % Neut # (Auto) (1.4-5.7) K/uL Lymph # (Auto) (0.6-2.4) K/uL [place] # (Auto) (0.0-0.8) K/uL Eos # (Auto) (0.0-0.7) K/uL Baso # (Auto) (0.0-0.1) K/uL Nucleated RBC % /100WBC Nucleated RBCs # K/uL INR Lactate 0.9 (0.20-2.00) mmol/L Sodium (136-145) mmol/L Potassium (3.5-5.1) mmol/L Chloride (98-107) mmol/L Carbon Dioxide (21.0-32.0) mmol/L BUN (7.0-18.0) mg/dL Creatinine (0.6-1.0) mg/dL Est Cr Clr Drug Dosing mL/min Estimated GFR (MDRD) ml/min Glucose (74-106) mg/dL Calcium (8.5-10.1) mg/dL Total Bilirubin (0.2-1.0) mg/dL AST (15-37) IU/L ALT (14-63) IU/L Alkaline Phosphatase (46-116) U/L Troponin I (0.000-0.056) ng/mL Total Protein (6.4-8.2) g/dL Albumin (3.4-5.0) g/dL Globulin (2.0-3.5) g/dL Albumin/Globulin Ratio (1.3-2.8) Meds: Medications Generic Name Dose Route Start Last Admin Trade Name Freq PRN Reason Stop Dose Admin Nitroglycerin 0.4 mg 09/11/17 20:07 09/11/17 20:26 Nitrostat SL 0.4 mg Q5M PRN Administration Chest Pain Sodium Chloride 10 ml 09/11/17 20:07 09/11/17 20:15 Saline Flush FLUSH 10 ml ASDIRECTED PRN Administration Keep Vein Open Sodium Chloride 2.5 ml 09/11/17 20:07 09/11/17 20:15 Saline Flush FLUSH 2.5 ml ASDIRECTED PRN Administration Keep Vein Open Discontinued Medications Generic Name Dose Route Start Last Admin Trade Name Nareshq PRN Reason Stop Dose Admin Aspirin 324 mg 09/11/17 20:07 09/11/17 20:15 Aspirin PO 09/11/17 20:08 324 mg ONETIME ONE Administration Nitroglycerin 0.5 gm 09/11/17 20:24 09/11/17 20:32 Nitro-Bid 2% TOP 09/11/17 20:25 0.5 gm ONETIME ONE Administration Departure - Departure Time of Disposition: 20:54 Disposition: Refer to Observation Condition: Good Clinical Impression: Chest pain Qualifiers: Chest pain type: unspecified Qualified Code(s): R07.9 - Chest pain, unspecified - Discharge Information Referrals: PCP,None [Primary Care Provider] - Forms: ED Department Discharge - My Orders Last 24 Hours: My Active Orders 09/11/17 20:06 Cardiac Monitoring [RC] . DIRECTED EKG Documentation Completion [RC] STAT Oxygen Therapy, ED [RC] ASDIRECTED Pulse Oximetry [RC] ASDIRECTED Saline Lock Insert [OM.PC] Stat 09/11/17 20:07 Chest 1V Frontal [CR] Stat Nitroglycerin [Nitrostat] 0.4 mg SL Q5M PRN Sodium Chloride 0.9% [Saline Flush] 10 ml FLUSH ASDIRECTED PRN Sodium Chloride 0.9% [Saline Flush] 2.5 ml FLUSH ASDIRECTED PRN 09/11/17 20:47 Patient Status [ADT] Stat - Assessment/Plan Last 24 Hours: My Active Orders 09/11/17 20:06 Cardiac Monitoring [RC] . DIRECTED EKG Documentation Completion [RC] STAT Oxygen Therapy, ED [RC] ASDIRECTED Pulse Oximetry [RC] ASDIRECTED Saline Lock Insert [OM.PC] Stat 09/11/17 20:07 Chest 1V Frontal [CR] Stat Nitroglycerin [Nitrostat] 0.4 mg SL Q5M PRN Sodium Chloride 0.9% [Saline Flush] 10 ml FLUSH ASDIRECTED PRN Sodium Chloride 0.9% [Saline Flush] 2.5 ml FLUSH ASDIRECTED PRN 09/11/17 20:47 Patient Status [ADT] Stat
[2017-09-11] MEDS: Nitroglycerin 0.4 MG Tab.SL SL PRN ×2 (20:18→20:26)
[2017-09-11] MEDS ORDERED: Nitroglycerin 2% Oint 1 GM UD Packet TOP ONE (20:24)
[2017-09-11 20:42] LABS: CHLORIDE,CL 106 mmol/L (98-107); SODIUM,NA 141 mmol/L (136-145)
[2017-09-11] MEDS ORDERED: Acetaminophen 325 MG Tab PO PRN (21:21)
[2017-09-11] MEDS ORDERED: Nitroglycerin 0.4 MG Tab.SL SL PRN (21:27)
[2017-09-11] MEDS ORDERED: Ondansetron 4 MG/2 ML SDV IVPUSH PRN (21:28)
[2017-09-11] MEDS ORDERED: Sodium Chloride 0.9% 1,000 ML IV SCH (21:30)
--- NOTE | 2017-09-12 07:20 | PCM.HP ---
H&P History of Present Illness - General Date of Service: 09/12/17 Admit Problem/Dx: Admission Diagnosis/Problem Admission Diagnosis/Problem Chest pain Source of Information: Patient, Old Records (reviewed [facility] Dr Romano and Dr Alicia 's last notes from Mar 2017.) History Limitations: Reports: No Limitations - History of Present Illness Initial Comments - Free Text/Narative: This 87 year old female with pmh of HTN, DM type 2, dyslipidemia, dizziness, dementia, arthritis and anemia presented to the ED last evening with complaints of left sided chest pain. She reports she was just sitting in her chair and started having L sided sharp shooting chest pain. She reports this pain was sharp and noted with deep breathing only. Taking deep breaths would worsen the pain, and she reported she didn't try anything to lessen the pain. She denies radiation of the pain to jaw or arms. No shortness of breath, nausea or diaphoresis with this pain. She reports she did fall a few days ago landing flat on her abdomen and chest, arms braced the fall slightly. She did not hit her head. She reports her dizziness has been about the same. She denies any recent URI, fever, cough or abdominal pain. No urinary symptoms or black or bloody BMs. Her sister is in the room and they are unsure of who the PCP provider is. They report they stopped seeing Dr Iyer, but had started seeing Dr Alicia for dizziness. After further investigation, Dr Lozano fills all prescriptions as noted by pharmacy med tags in patient's purse. Med list provided by patient does not have all medications listed as what was provided on med tags from [facility]. Nursing is obtaining [employer]'s med list they provide patient. Patient obtains all meds individually wrapped for daily administration due to dementia. She no longer drives. In the ED labwork near baseline for patient. No leukocytosisi. Hgb 10.1, which is baseline. BUN 22, Cr 1.2 Bili 1.3 LFTs normal. Troponin negative. BPs noted to be 140-150s/50s. CXR negative for acute cardiopulmonary process but did note "persistent mild increased interstitial markings suggesting pulmonary fibrosis and persistent density in the lateral lung base. This may reflect some atelectatic lung, scarring or recurrent minimal infiltrate." EKG SR 60s wit hno acute ischemic changes. She was admitted for chest pain rule out ACS. PCP, Dr Lozano chest pain Pain Score (Numeric/FACES): 7 - Related Data Allergies/Adverse Reactions: Allergies Allergy/AdvReac Type Severity Reaction Status Date / Time Penicillins Allergy Mild Hives Verified 09/11/17 20:05 codeine Allergy Hives Verified 09/11/17 20:05 Home Medications: Home Meds Levothyroxine Sodium [Synthroid] 75 mcg PO ACBREAKFAST 02/15/14 [History] atorvaSTATin Calcium [Atorvastatin Calcium] 10 mg PO BEDTIME 02/15/14 [History] Losartan [Cozaar] 50 mg PO DAILY 12/23/15 [History] Pantoprazole [ProTONIX] 40 mg PO DAILY 12/23/15 [History] Aspirin 81 mg PO DAILY 12/05/16 [History] Cyanocobalamin (Vitamin B-12) [B-12] 1,000 mcg PO DAILY 12/05/16 [History] Insulin Detemir [Levemir Flextouch] 25 units SQ DAILY 12/05/16 [History] Meclizine HCl 25 mg PO TID PRN 12/05/16 [History] Lutein/Minerals/Vit A,C & E [Ocuvite] 1 tab PO BID 01/21/17 [History] Diclofenac Sodium [Voltaren] 1 tab PO DAILY 09/11/17 [History] FLUoxetine HCl [Fluoxetine] 20 mg PO DAILY 09/11/17 [History] Ferrous Sulfate [Iron] 1 tab PO DAILY 09/11/17 [History] Meloxicam [Mobic] 15 mg PO DAILY 09/11/17 [History] Multivit-Min/FA/Lycopene/Lut [Sentry Senior Tablet] 1 each PO DAILY 09/11/17 [ History] Ferrous Sulfate [Slow Fe] 140 mg PO DAILY 09/12/17 [History] Past Medical History HEENT History: Reports: Allergic Rhinitis, Impaired Vision Other HEENT History: WEARS GLASSES Cardiovascular History: Reports: High Cholesterol, Hypertension. Denies: Afib, Blood Clots/VTE/DVT, Heart Failure Respiratory History: Reports: Pulmonary Fibrosis Gastrointestinal History: Reports: Chronic Constipation, Colon Polyp, GERD, Irritable Bowel Syndrome, Other (See Below) Genitourinary History: Reports: Urinary Incontinence, Other (See Below) [employer] History: Reports: Musculoskeletal History: Reports: Arthritis, Back Pain, Chronic Neurological History: Reports: Migraines, Vertigo, Other (See Below) (Dementia) Psychiatric History: Reports: Dementia, Depression Endocrine/Metabolic History: Reports: Diabetes, Type II, Hypothyroidism Hematologic History: Reports: Anemia Immunologic History: Reports: None Oncologic (Cancer) History: Reports: None Dermatologic History: Reports: Eczema - Infectious Disease History Infectious Disease History: Reports: Chicken Pox, Measles - Past Surgical History Head Surgeries/Procedures: Reports: None HEENT Surgical History: Reports: None Cardiovascular Surgical History: Reports: None Respiratory Surgical History: Reports: None GI Surgical History: Reports: Appendectomy, Colonoscopy, EGD Female Surgical History: Reports: Breast Biopsy, Section, Hysterectomy, Oophorectomy, Salpingo-Oophorectomy Musculoskeletal Surgical History: Reports: Other (See Below) Other Musculoskeletal Surgeries/Procedures:: 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 Denies: Fever, Chills, Malaise, Weakness, Fatigue HEENT: Reports: Vertigo (baseline, no changes. ). Denies: Headaches, Sinus Congestion, Sore Throat Pulmonary: Reports: No Symptoms. Denies: Shortness of Breath, Wheezing, Cough, Sputum Cardiovascular: Reports: Chest Pain (no longer having, but had yesterday with deep breathing. ). Denies: Edema Gastrointestinal: Reports: No Symptoms. Denies: Abdominal Pain, Black Stool, Bloody Stool, Decreased Appetite, Nausea, Vomiting Genitourinary: Reports: No Symptoms. Denies: Dysuria, Frequency, Burning Musculoskeletal: Reports: No Symptoms Skin: Reports: No Symptoms Psychiatric: Reports: No Symptoms Neurological: Reports: No Symptoms Hematologic/Lymphatic: Reports: No Symptoms Immunologic: Reports: No Symptoms Exam - Exam Exam: See Below - Vital Signs Vital Signs: Last Vital Signs Temp 97.4 F 09/12/17 04:00 Pulse 60 09/12/17 04:00 Resp 16 09/12/17 04:00 BP 157/64 H 09/12/17 04:00 Pulse Ox 96 09/12/17 04:00 Weight: 68.266 kg - Exam Quality Assessment: No: Supplemental Oxygen General: Alert, Oriented, Cooperative HEENT: Conjunctiva Clear, Mucosa Moist & [place], Nares Patent, Posterior Pharynx Clear, Pupils Reactive Neck: Supple, Trachea Midline, 2 Lungs: Clear to Auscultation, Normal Respiratory Effort Cardiovascular: Regular Rate, Regular Rhythm, Systolic Murmur GI/Abdominal Exam: Normal Bowel Sounds, Soft, Non-Tender, No Organomegaly, No Distention, No Abnormal Bruit, No Mass, Pelvis Stable Back Exam: Normal Inspection, Full Range of Motion, NT Extremities: Normal Inspection, Normal Range of Motion, Non-Tender, No Pedal Edema, Normal Capillary Refill Neuro Extensive - Mental Status: Alert, Oriented x3, Normal Mood/Affect, Memory Loss-Remote Events. No: Memory Intact Neuro Extensive - Motor, Sensory, Reflexes: CN II-XII Intact, Normal Gait, Normal Reflexes Psychiatric: Alert, Normal Affect, Normal Mood - Patient Data Lab Results Last 24 hrs: Laboratory Results - last 24 hr 09/11/17 09/11/17 09/11/17 Range/Units 19:54 19:54 19:54 WBC 6.97 (4.0-11.0) K/uL RBC 3.11 L (4.30-5.90) M/uL Hgb 10.1 L (12.0-16.0) g/dL Hct 30.5 L (36.0-46.0) % MCV 98.1 H (80.0-98.0) fL MCH 32.5 H (27.0-32.0) pg MCHC 33.1 (31.0-37.0) g/dL RDW Std Deviation 64.2 H (28.0-62.0) fl RDW Coeff of Joelle 18 H (11.0-15.0) % Plt Count 236 (150-400) K/uL MPV 9.70 (7.40-12.00) fL Neut % (Auto) 61.7 (48.0-80.0) % Lymph % (Auto) 29.6 (16.0-40.0) % [place]ascade % (Auto) 5.0 (0.0-15.0) % Eos % (Auto) 3.3 (0.0-7.0) % Baso % (Auto) 0.4 (0.0-1.5) % Neut # (Auto) 4.3 (1.4-5.7) K/uL Lymph # (Auto) 2.1 (0.6-2.4) K/uL Cascade # (Auto) 0.4 (0.0-0.8) K/uL Eos # (Auto) 0.2 (0.0-0.7) K/uL Baso # (Auto) 0.0 (0.0-0.1) K/uL Nucleated RBC % 0.0 /100WBC Nucleated RBCs # 0 K/uL INR 1.06 Lactate (0.20-2.00) mmol/L Sodium 141 (136-145) mmol/L Potassium 4.1 (3.5-5.1) mmol/L Chloride 106 (98-107) mmol/L Carbon Dioxide 27.1 (21.0-32.0) mmol/L BUN 22 H (7.0-18.0) mg/dL Creatinine 1.5 H (0.6-1.0) mg/dL Est Cr Clr Drug Dosing 22.39 mL/min Estimated GFR (MDRD) 32.8 ml/min Glucose 112 H (74-106) mg/dL POC Glucose (60-110) mg/dL Calcium 8.9 (8.5-10.1) mg/dL Total Bilirubin 1.3 H (0.2-1.0) mg/dL AST 19 (15-37) IU/L ALT 20 (14-63) IU/L Alkaline Phosphatase 63 (46-116) U/L Troponin I < 0.050 (0.000-0.056) ng/mL Total Protein 6.9 (6.4-8.2) g/dL Albumin 3.8 (3.4-5.0) g/dL Globulin 3.1 (2.0-3.5) g/dL Albumin/Globulin Ratio 1.2 L (1.3-2.8) 09/11/17 09/12/17 09/12/17 Range/Units 19:54 02:00 06:52 WBC (4.0-11.0) K/uL RBC (4.30-5.90) M/uL Hgb (12.0-16.0) g/dL Hct (36.0-46.0) % MCV (80.0-98.0) fL MCH (27.0-32.0) pg MCHC (31.0-37.0) g/dL RDW Std Deviation (28.0-62.0) fl RDW Coeff of Joelle (11.0-15.0) % Plt Count (150-400) K/uL MPV (7.40-12.00) fL Neut % (Auto) (48.0-80.0) % Lymph % (Auto) (16.0-40.0) % Cascade % (Auto) (0.0-15.0) % Eos % (Auto) (0.0-7.0) % Baso % (Auto) (0.0-1.5) % Neut # (Auto) (1.4-5.7) K/uL Lymph # (Auto) (0.6-2.4) K/uL Cascade # (Auto) (0.0-0.8) K/uL Eos # (Auto) (0.0-0.7) K/uL Baso # (Auto) (0.0-0.1) K/uL Nucleated RBC % /100WBC Nucleated RBCs # K/uL INR Lactate 0.9 (0.20-2.00) mmol/L Sodium (136-145) mmol/L Potassium (3.5-5.1) mmol/L Chloride (98-107) mmol/L Carbon Dioxide (21.0-32.0) mmol/L BUN (7.0-18.0) mg/dL Creatinine (0.6-1.0) mg/dL Est Cr Clr Drug Dosing mL/min Estimated GFR (MDRD) ml/min Glucose (74-106) mg/dL POC Glucose 85 (60-110) mg/dL Calcium (8.5-10.1) mg/dL Total Bilirubin (0.2-1.0) mg/dL AST (15-37) IU/L ALT (14-63) IU/L Alkaline Phosphatase (46-116) U/L Troponin I < 0.050 (0.000-0.056) ng/mL Total Protein (6.4-8.2) g/dL Albumin (3.4-5.0) g/dL Globulin (2.0-3.5) g/dL Albumin/Globulin Ratio (1.3-2.8) Result Diagrams: 09/11/17 19:54 09/11/17 19:54 EKG INTERPRETATION EKG Date: 09/11/17 Rhythm: NSR Rate (Beats/Min): 63 Arab: Normal QRS: Normal ST-T: Normal QT: Normal *Q Meaningful Use (ADM) - VTE Risk Assess *Q Each Risk Factor Represents 1 Point: None Total Score 1 Point Risk Factors: 0 Each Risk Factor Represents 2 Points: None Total Score 2 Point Risk Factors: 0 Each Risk Factor Represents 3 Points: Age 75 Years or Greater Total Score 3 Point Risk Factors: 3 Each Risk Factor Represents 5 Points: None Total Score 5 Point Risk Factors: 0 Venous Thromboembolism Risk Factor Score *Q: 3 - Problem List (1) Chest pain SNOMED Code(s): 07100384 ICD Code: R07.9 - CHEST PAIN, UNSPECIFIED Status: Acute Current Visit: Yes Qualifiers: Chest pain type: chest pain on breathing Qualified Code(s): R07.1 - Chest pain on breathing; R07.81 - Pleurodynia (2) Dementia SNOMED Code(s): 34221023 ICD Code: F03.90 - UNSPECIFIED DEMENTIA WITHOUT BEHAVIORAL DISTURBANCE Status: Chronic Current Visit: Yes (3) Dyslipidemia SNOMED Code(s): 865706765 ICD Code: E78.5 - HYPERLIPIDEMIA, UNSPECIFIED Status: Chronic Current Visit: Yes (4) Anemia SNOMED Code(s): 085166610 ICD Code: D64.9 - ANEMIA, UNSPECIFIED Status: Chronic Current Visit: No Qualifiers: Anemia type: iron deficiency (5) Hypertension SNOMED Code(s): 05043198 ICD Code: I10 - ESSENTIAL (PRIMARY) HYPERTENSION Status: Chronic Current Visit: No Qualifiers: Hypertension type: essential hypertension Qualified Code(s): I10 - Essential (primary) hypertension (6) Diabetes mellitus type 2 in obese SNOMED Code(s): 55969340 ICD Code: E11.9 - TYPE 2 DIABETES MELLITUS WITHOUT COMPLICATIONS; E66.9 - OBESITY, UNSPECIFIED Status: Chronic Priority: Medium Current Visit: No (7) Dizziness, nonspecific SNOMED Code(s): 282455465, 402927679 ICD Code: R42 - DIZZINESS AND GIDDINESS Status: Chronic Current Visit: No (8) Orthostatic hypotension SNOMED Code(s): 62523388 ICD Code: I95.1 - ORTHOSTATIC HYPOTENSION Status: Chronic Current Visit: No Problem List Initiated/Reviewed/Updated: Yes Orders Last 24hrs: Active Orders 24 hr Category Date Time Status Patient Status [ADT] Stat ADT 09/11/17 20:47 Active Activity as Tolerated [RC] .Routine Care 09/11/17 21:20 Active Blood Glucose Check, Bedside [RC] TIDAC Care 09/12/17 06:00 Active EKG 12 Lead [EKG Documentation Completion] [RC] ROUTINE Care 09/12/17 02:00 Active EKG 12 Lead [EKG Documentation Completion] [RC] ROUTINE Care 09/12/17 08:00 Active EKG Documentation Completion [RC] STAT Care 09/11/17 20:06 Active Intake and Output [RC] Q12H Care 09/11/17 21:28 Active Oxygen Therapy, ED [RC] ASDIRECTED Care 09/11/17 20:06 Active Pulse Oximetry [RC] ASDIRECTED Care 09/11/17 20:06 Active Telemetry Monitoring [Cardiac Monitoring] [RC] Q8H Care 09/11/17 21:25 Active Vital Signs [RC] Q4H Care 09/11/17 21:19 Active Chest 1V Frontal [CR] Stat Exams 09/11/17 20:07 Taken LIPID PANEL [CHEM] Routine Lab 09/12/17 08:00 Ordered TROPONIN I [CHEM] Routine Lab 09/12/17 08:00 Ordered Acetaminophen [Tylenol] Med 09/11/17 21:21 Active 650 mg PO Q4H PRN Aspirin Med 09/12/17 09:00 Active 325 mg PO DAILY Nitroglycerin [Nitrostat] Med 09/11/17 20:07 Active 0.4 mg SL Q5M PRN Nitroglycerin [Nitrostat] Med 09/11/17 21:27 Active 0.4 mg SL Q5M PRN Ondansetron [Zofran] Med 09/11/17 21:28 Active 4 mg IVPUSH Q4H PRN Sodium Chloride 0.9% [Normal Saline] 1,000 ml Med 09/11/17 21:30 Active IV ASDIRECTED Sodium Chloride 0.9% [Saline Flush] Med 09/11/17 20:07 Active 10 ml FLUSH ASDIRECTED PRN Sodium Chloride 0.9% [Saline Flush] Med 09/11/17 20:07 Active 2.5 ml FLUSH ASDIRECTED PRN Saline Lock Insert [OM.PC] Stat Oth 09/11/17 20:06 Ordered Medication Orders Acetaminophen (Tylenol) 650 mg PO Q4H PRN PRN Reason: Pain Last Admin: 09/11/17 22:20 Dose: 650 mg Aspirin (Aspirin) 325 mg PO DAILY ANAMIKA Sodium Chloride (Normal Saline) 1,000 mls @ 75 mls/hr IV ASDIRECTED ANAMIKA Last Admin: 09/11/17 22:39 Dose: 75 mls/hr Nitroglycerin (Nitrostat) 0.4 mg SL Q5M PRN PRN Reason: Chest Pain Last Admin: 09/11/17 20:26 Dose: 0.4 mg Admin: 09/11/17 20:18 Dose: 0.4 mg Nitroglycerin (Nitrostat) 0.4 mg SL Q5M PRN PRN Reason: Chest Pain Ondansetron HCl (Zofran) 4 mg IVPUSH Q4H PRN PRN Reason: Nausea/Vomiting Sodium Chloride (Saline Flush) 10 ml FLUSH ASDIRECTED PRN PRN Reason: Keep Vein Open Last Admin: 09/11/17 20:15 Dose: 10 ml Sodium Chloride (Saline Flush) 2.5 ml FLUSH ASDIRECTED PRN PRN Reason: Keep Vein Open Last Admin: 09/11/17 20:15 Dose: 2.5 ml Assessment/Plan Comment:: This 87 jayne old female admitted with chest pain rule out ACS 1. Chest pain: Troponins so far have been negative x 2. Telemetry and EKGs x3 remain SR with no acute ischemic changes. Lipid panel pending. Pain is no longer there, maybe some slight tenderness to palpation and reproducible to L upper anterior chest wall. Deep breathing caused worsening of the pain yesterday. 2. HTN: BP 140-150/50s, will continue Losartan 50 mg PO daily 3. DM Type 2: Stable, Will continue Levemir 25 units subcut daily 4. Dyslipidemia: Lipid panel pending, Continue Atorvastatin 10 mg daily VTE prophylaxis: SCDs due to likely discharging home this afternoon. Dispo: later today if last troponin negative. Discharge Plan: Discharge Diagnoses: Chest pain- likely musculoskeletal, arthritic pain. HTN Dyslipidemia DM type 2 Dementia Dizziness Arthritis Grzegorz was admitted and monitored overnight. No further chest pain was noted. She does have reproducible musculoskeletal pain to her L anterior upper chest wall, which is better today and the pain she felt yesterday. Troponins negative and EKG remains SR with no ischemic changes. No medication changes to be made. She was encouraged to return to ED or PCP clinic if concerns should arise. She has appointment scheduled with PCP in 1 week.
[2017-09-12 08:23] VITALS: BP 177/67
[2017-09-12] MEDS ORDERED: Insulin Detemir 100 Units/ML 3 ML Pen SUBCUT SCH (09:00)
[2017-09-12] MEDS ORDERED: Losartan 50 MG Tab PO SCH (09:00)
[2017-09-12] MEDS ORDERED: Aspirin 325 MG Tab PO SCH (09:00)
[2017-09-12] MEDS ORDERED: Meclizine 25 MG Tab PO PRN (11:19)
[2017-09-12] MEDS ORDERED: FLUoxetine 20 MG Cap PO SCH (11:30)
[2017-09-12] MEDS ORDERED: Diclofenac Sodium 50 MG Tab.EC PO SCH (11:30)
[2017-09-12] MEDS ORDERED: Aspirin 81 MG Tab.Chew PO SCH (11:30)
--- NOTE | 2017-09-12 15:56 | CR ---
EXAM DATE: 09/11/17 PATIENT'S AGE: 87 Patient: STACEY ZIMMER Facility: [place], [place] Site . Site : 1930 Study: XRay Chest [id number]/8/2018 8:30:32 PM Ordering Physician: Doctor Moseley Final Report: HISTORY: Chest pain. FINDINGS: AP portable chest radiograph is compared with 21 January 2017. EKG leads overlie the thorax. The cardiac silhouette is acceptable size. No cephalization. There is increased interstitial markings. There is persistent density in the left lateral base. No pleural effusion. IMPRESSION: 1. Persistent mild increase interstitial markings suggesting pulmonary fibrosis. 2. Persistent density in the lateral lung base. This may reflect some atelectatic lung, scarring or recurrent minimal infiltrate. Dictated by Rema Bethea MD @ 09/11/2017 8:33:42 PM Dictated by: Rema Bethea MD @ 09/11/2017 20:33:52 (Electronic Signature) MTDD
[2017-09-12] MEDS ORDERED: atorvaSTATin 10 MG Tab PO SCH (21:00)
[2017-09-13] MEDS ORDERED: Levothyroxine 75 MCG Tab PO SCH (07:30)
[2017-09-13] MEDS ORDERED: Pantoprazole 40 MG Tab.CR PO SCH (09:00)
[2017-09-13] MEDS ORDERED: Ferrous Sulfate 140 MG Tab PO SCH (09:00)
[2017-09-13] MEDS ORDERED: Ferrous Sulfate 325 MG Tab PO SCH (09:00)
[2017-09-13] MEDS ORDERED: Cyanocobalamin (Vitamin B12) 500 MCG Tab PO SCH (09:00)
== END 2017-09-12 12:50 | disposition home health service (06) ==
LOC: MW.ED 20:04 → MW.MS 20:47
PROVIDERS: ADMIT Family Medicine; ATTEND Family Medicine
DX: R07.1 Chest pain on breathing (principal); I10 Essential (primary) hypertension; D50.9 Iron deficiency anemia, unspecified; I95.1 Orthostatic hypotension; R42 Dizziness and giddiness; E11.9 Type 2 diabetes mellitus without complications; E78.5 Hyperlipidemia, unspecified; F03.90 Unspecified dementia, unspecified severity, without behavioral disturbance, psychotic disturbance, mood disturbance, and anxiety; M19.90 Unspecified osteoarthritis, unspecified site; J30.9 Allergic rhinitis, unspecified; E78.00 Pure hypercholesterolemia, unspecified; G43.909 Migraine, unspecified, not intractable, without status migrainosus; F32.9 Major depressive disorder, single episode, unspecified; E03.9 Hypothyroidism, unspecified; Z90.49 Acquired absence of other specified parts of digestive tract; Z88.0 Allergy status to penicillin; Z88.5 Allergy status to narcotic agent; Z79.899 Other long term (current) drug therapy; Z79.82 Long term (current) use of aspirin; Z79.4 Long term (current) use of insulin
CPT/HCPCS: 36415; 71045; 80053; 80061; 82962; 83605; 84484; 85025; 85610; 93005; 96360; 96361; 99285; A9270; G0378; J1815; J7040; 99284

== ENCOUNTER 2017-10-12 17:18 | Observation (INO) | payer MEDICARE, OTHER ==
[2017-10-12] MEDS ORDERED: Sodium Chloride 0.9% 10 ML Syringe FLUSH PRN (17:42)
[2017-10-12] MEDS ORDERED: Sodium Chloride 0.9% 2.5 ML Syringe FLUSH PRN (17:42)
[2017-10-12] MEDS ORDERED: Sodium Chloride 0.9% 1,000 ML IV SCH (17:45)
--- NOTE | 2017-10-12 17:49 | EDM.PDOC ---
ED HPI GENERAL MEDICAL PROBLEM - General Chief Complaint: General Stated Complaint: AMB Time Seen by Provider: 10/12/17 17:34 - History of Present Illness INITIAL COMMENTS - FREE TEXT/NARRATIVE: HISTORY AND PHYSICAL: History of present illness: Patient is an 87-year-old white female who presents with recent frequent falls who presents at the request of private medical doctor with concerns of confusion with these falls for further evaluation. Patient denies chest pain shortness of breath her main complaint relates to generalized body aches and bilateral hip pain. Review of systems: As per history of present illness and below otherwise all systems reviewed and negative. Past medical history: As per history of present illness and as reviewed below otherwise noncontributory. Surgical history: As per history of present illness and as reviewed below otherwise noncontributory. Social history: No reported history of drug or alcohol abuse. Family history: As per history of present illness and as reviewed below otherwise noncontributory. Physical exam: HEENT: Atraumatic, normocephalic, pupils reactive, negative for conjunctival pallor or scleral icterus, mucous membranes moist, throat clear, neck supple, nontender, trachea midline. Lungs: Clear to auscultation, breath sounds equal bilaterally, chest nontender. Heart: S1S2, regular, negative for clicks, rubs, or JVD. Abdomen: Soft, nondistended, nontender. Negative for masses or hepatosplenomegaly. Negative for costovertebral tenderness. Pelvis: Stable nontender. Genitourinary: Deferred. Rectal: Deferred. Extremities: Atraumatic, negative for cords or calf pain. Neurovascular unremarkable. Neuro: Awake, alert, cooperative polite follows commands and moves all extremities limited but grossly nonfocal exam Diagnostics: CBC CMP PT/INR troponin ammonia UA urine culture chest x-ray EKG CT brain Therapeutics: IV O2 monitor Impression: #1 frequent falls etiology to be determined #2 altered mental status Definitive disposition and diagnosis as appropriate pending reevaluation and review of above. Bilateral Hip Pain Score (Numeric/FACES): 8 - Related Data Allergies Allergy/AdvReac Type Severity Reaction Status Date / Time Penicillins Allergy Mild Hives Verified 09/11/17 20:05 codeine Allergy Hives Verified 09/11/17 20:05 Home Meds: Home Meds Levothyroxine Sodium [Synthroid] 75 mcg PO ACBREAKFAST 02/15/14 [History] atorvaSTATin Calcium [Atorvastatin Calcium] 10 mg PO BEDTIME 02/15/14 [History] Losartan [Cozaar] 50 mg PO DAILY 12/23/15 [History] Pantoprazole [ProTONIX] 40 mg PO DAILY 12/23/15 [History] Aspirin 81 mg PO DAILY 12/05/16 [History] Cyanocobalamin (Vitamin B-12) [B-12] 1,000 mcg PO DAILY 12/05/16 [History] Insulin Detemir [Levemir Flextouch] 25 units SQ DAILY 12/05/16 [History] Meclizine HCl 25 mg PO TID PRN 12/05/16 [History] Lutein/Minerals/Vit A,C & E [Ocuvite] 1 tab PO BID 01/21/17 [History] Diclofenac Sodium [Voltaren] 1 tab PO DAILY 09/11/17 [History] FLUoxetine HCl [Fluoxetine] 20 mg PO DAILY 09/11/17 [History] Ferrous Sulfate [Iron] 1 tab PO DAILY 09/11/17 [History] Meloxicam [Mobic] 15 mg PO DAILY 09/11/17 [History] Multivit-Min/FA/Lycopene/Lut [Sentry Senior Tablet] 1 each PO DAILY 09/11/17 [ History] Ferrous Sulfate [Slow Fe] 140 mg PO DAILY 09/12/17 [History] Past Medical History HEENT History: Reports: Allergic Rhinitis, Impaired Vision Other HEENT History: WEARS GLASSES Cardiovascular History: Reports: High Cholesterol, Hypertension. 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: Musculoskeletal History: Reports: Arthritis, Back Pain, Chronic Neurological History: Reports: Migraines, Vertigo, Other (See Below) (Dementia) Other Neuro History: no migranes since hysterectomy Psychiatric History: Reports: Dementia, Depression Endocrine/Metabolic History: Reports: Diabetes, Type II, Hypothyroidism Hematologic History: Reports: Anemia Immunologic History: Reports: None Oncologic (Cancer) History: Reports: None Dermatologic History: Reports: Eczema - Infectious Disease History Infectious Disease History: Reports: Chicken Pox, Measles - Past Surgical History Head Surgeries/Procedures: Reports: None HEENT Surgical History: Reports: None Cardiovascular Surgical History: Reports: None Respiratory Surgical History: Reports: None GI Surgical History: Reports: Appendectomy, Colonoscopy, EGD Female Surgical History: Reports: Breast Biopsy, Section, Hysterectomy, Oophorectomy, Salpingo-Oophorectomy Musculoskeletal Surgical History: Reports: Other (See Below) Other Musculoskeletal Surgeries/Procedures:: 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 ED EXAM, GENERAL - Physical Exam Exam: See Below (See dictation) Course - Vital Signs Last Recorded V/S: Last Vital Signs Temp 37.2 C 10/12/17 17:29 Pulse 94 10/12/17 17:29 Resp 18 10/12/17 17:29 BP 171/75 H 10/12/17 17:29 Pulse Ox - Orders/Labs/Meds Orders: Active Orders 24 hr Category Date Time Status EKG Documentation Completion [RC] STAT Care 10/12/17 17:37 Active Chest 1V Frontal [CR] Stat Exams 10/12/17 17:41 Taken Head wo Cont [CT] Stat Exams 10/12/17 17:40 Taken Pelvis 1V or 2V [CR] Stat Exams 10/12/17 17:42 Taken CULTURE URINE [RM] Stat Lab 10/12/17 18:46 Received UA W/MICROSCOPIC [URIN] Stat Lab 10/12/17 18:46 Received Sodium Chloride 0.9% [Normal Saline] 1,000 ml Med 10/12/17 17:45 Active IV STAT Sodium Chloride 0.9% [Saline Flush] Med 10/12/17 17:42 Active 10 ml FLUSH ASDIRECTED PRN Sodium Chloride 0.9% [Saline Flush] Med 10/12/17 17:42 Active 2.5 ml FLUSH ASDIRECTED PRN Saline Lock Insert [OM.PC] Stat Oth 10/12/17 17:37 Ordered Medication Orders Sodium Chloride (Normal Saline) 1,000 mls @ 125 mls/hr IV STAT ANAMIKA Last Admin: 10/12/17 18:42 Dose: 125 mls/hr Sodium Chloride (Saline Flush) 10 ml FLUSH ASDIRECTED PRN PRN Reason: Keep Vein Open Sodium Chloride (Saline Flush) 2.5 ml FLUSH ASDIRECTED PRN PRN Reason: Keep Vein Open Labs: Laboratory Tests 10/12/17 10/12/17 10/12/17 Range/Units 17:59 17:59 17:59 WBC 7.01 (4.0-11.0) K/uL RBC 2.90 L (4.30-5.90) M/uL Hgb 9.5 L (12.0-16.0) g/dL Hct 28.3 L (36.0-46.0) % MCV 97.6 (80.0-98.0) fL MCH 32.8 H (27.0-32.0) pg MCHC 33.6 (31.0-37.0) g/dL RDW Std Deviation 64.4 H (28.0-62.0) fl RDW Coeff of Joelle 18 H (11.0-15.0) % Plt Count 202 (150-400) K/uL MPV 9.80 (7.40-12.00) fL Neut % (Auto) 66.3 (48.0-80.0) % Lymph % (Auto) 25.8 (16.0-40.0) % [place] % (Auto) 4.1 (0.0-15.0) % Eos % (Auto) 3.4 (0.0-7.0) % Baso % (Auto) 0.4 (0.0-1.5) % Neut # (Auto) 4.6 (1.4-5.7) K/uL Lymph # (Auto) 1.8 (0.6-2.4) K/uL [place] # (Auto) 0.3 (0.0-0.8) K/uL Eos # (Auto) 0.2 (0.0-0.7) K/uL Baso # (Auto) 0.0 (0.0-0.1) K/uL Nucleated RBC % 0.0 /100WBC Nucleated RBCs # 0 K/uL INR 1.07 Sodium 139 (136-145) mmol/L Potassium 4.3 (3.5-5.1) mmol/L Chloride 104 (98-107) mmol/L Carbon Dioxide 25.6 (21.0-32.0) mmol/L BUN 33 H (7.0-18.0) mg/dL Creatinine 1.5 H (0.6-1.0) mg/dL Est Cr Clr Drug Dosing 23.33 mL/min Estimated GFR (MDRD) 32.8 ml/min Glucose 83 (74-106) mg/dL Calcium 9.1 (8.5-10.1) mg/dL Total Bilirubin 1.1 H (0.2-1.0) mg/dL AST 17 (15-37) IU/L ALT 15 (14-63) IU/L Alkaline Phosphatase 56 (46-116) U/L Ammonia (19-54) ug/dL Troponin I < 0.050 (0.000-0.056) ng/mL Total Protein 6.7 (6.4-8.2) g/dL Albumin 3.2 L (3.4-5.0) g/dL Globulin 3.5 (2.0-3.5) g/dL Albumin/Globulin Ratio 0.9 L (1.3-2.8) 10/12/17 Range/Units 17:59 WBC (4.0-11.0) K/uL RBC (4.30-5.90) M/uL Hgb (12.0-16.0) g/dL Hct (36.0-46.0) % MCV (80.0-98.0) fL MCH (27.0-32.0) pg MCHC (31.0-37.0) g/dL RDW Std Deviation (28.0-62.0) fl RDW Coeff of Joelle (11.0-15.0) % Plt Count (150-400) K/uL MPV (7.40-12.00) fL Neut % (Auto) (48.0-80.0) % Lymph % (Auto) (16.0-40.0) % [place] % (Auto) (0.0-15.0) % Eos % (Auto) (0.0-7.0) % Baso % (Auto) (0.0-1.5) % Neut # (Auto) (1.4-5.7) K/uL Lymph # (Auto) (0.6-2.4) K/uL [place] # (Auto) (0.0-0.8) K/uL Eos # (Auto) (0.0-0.7) K/uL Baso # (Auto) (0.0-0.1) K/uL Nucleated RBC % /100WBC Nucleated RBCs # K/uL INR Sodium (136-145) mmol/L Potassium (3.5-5.1) mmol/L Chloride (98-107) mmol/L Carbon Dioxide (21.0-32.0) mmol/L BUN (7.0-18.0) mg/dL Creatinine (0.6-1.0) mg/dL Est Cr Clr Drug Dosing mL/min Estimated GFR (MDRD) ml/min Glucose (74-106) mg/dL Calcium (8.5-10.1) mg/dL Total Bilirubin (0.2-1.0) mg/dL AST (15-37) IU/L ALT (14-63) IU/L Alkaline Phosphatase (46-116) U/L Ammonia 12 L (19-54) ug/dL Troponin I (0.000-0.056) ng/mL Total Protein (6.4-8.2) g/dL Albumin (3.4-5.0) g/dL Globulin (2.0-3.5) g/dL Albumin/Globulin Ratio (1.3-2.8) Meds: Medications Generic Name Dose Route Start Last Admin Trade Name Freq PRN Reason Stop Dose Admin Sodium Chloride 1,000 mls @ 125 mls/hr 10/12/17 17:45 10/12/17 18:42 Normal Saline IV 125 mls/hr STAT ANAMIKA Administration Sodium Chloride 10 ml 10/12/17 17:42 Saline Flush FLUSH ASDIRECTED PRN Keep Vein Open Sodium Chloride 2.5 ml 10/12/17 17:42 Saline Flush FLUSH ASDIRECTED PRN Keep Vein Open Departure - Departure Time of Disposition: 18:57 Disposition: Refer to Observation Condition: Good Clinical Impression: Falls, Altered mental status - Discharge Information Forms: ED Department Discharge - My Orders Last 24 Hours: My Active Orders 10/12/17 17:37 EKG Documentation Completion [RC] STAT Saline Lock Insert [OM.PC] Stat 10/12/17 17:40 Head wo Cont [CT] Stat 10/12/17 17:41 Chest 1V Frontal [CR] Stat 10/12/17 17:42 Pelvis 1V or 2V [CR] Stat Sodium Chloride 0.9% [Saline Flush] 10 ml FLUSH ASDIRECTED PRN Sodium Chloride 0.9% [Saline Flush] 2.5 ml FLUSH ASDIRECTED PRN 10/12/17 17:45 Sodium Chloride 0.9% [Normal Saline] 1,000 ml IV STAT 10/12/17 18:46 CULTURE URINE [RM] Stat UA W/MICROSCOPIC [URIN] Stat - Assessment/Plan Last 24 Hours: My Active Orders 10/12/17 17:37 EKG Documentation Completion [RC] STAT Saline Lock Insert [OM.PC] Stat 10/12/17 17:40 Head wo Cont [CT] Stat 10/12/17 17:41 Chest 1V Frontal [CR] Stat 10/12/17 17:42 Pelvis 1V or 2V [CR] Stat Sodium Chloride 0.9% [Saline Flush] 10 ml FLUSH ASDIRECTED PRN Sodium Chloride 0.9% [Saline Flush] 2.5 ml FLUSH ASDIRECTED PRN 10/12/17 17:45 Sodium Chloride 0.9% [Normal Saline] 1,000 ml IV STAT 10/12/17 18:46 CULTURE URINE [RM] Stat UA W/MICROSCOPIC [URIN] Stat
[2017-10-12 18:46] LABS: CHLORIDE,CL 104 mmol/L (98-107); SODIUM,NA 139 mmol/L (136-145)
--- NOTE | 2017-10-12 20:26 | PCM.HP ---
H&P History of Present Illness - General Admit Problem/Dx: Admission Diagnosis/Problem Admission Diagnosis/Problem Falls - History of Present Illness Initial Comments - Free Text/Narative: 87 yo female who presents with complaints of multiple falls at home and problems with her memory. She reports falling at home as she will get dizzy and feel likely the room is spinning. When this happens she will sit down but sometimes she falls. She does get up from her fall. She also reports difficulty remembering thins such as paying bills. Bilateral Hip Pain Score (Numeric/FACES): 8 Lower Back Pain Score (Numeric/FACES): 10 - Related Data Allergies/Adverse Reactions: Allergies Allergy/AdvReac Type Severity Reaction Status Date / Time Penicillins Allergy Mild Hives Verified 09/11/17 20:05 codeine Allergy Hives Verified 09/11/17 20:05 Home Medications: Home Meds Levothyroxine Sodium [Synthroid] 75 mcg PO ACBREAKFAST 02/15/14 [History] atorvaSTATin Calcium [Atorvastatin Calcium] 10 mg PO BEDTIME 02/15/14 [History] Losartan [Cozaar] 50 mg PO DAILY 12/23/15 [History] Pantoprazole [ProTONIX] 40 mg PO DAILY 12/23/15 [History] Aspirin 81 mg PO DAILY 12/05/16 [History] Cyanocobalamin (Vitamin B-12) [B-12] 1,000 mcg PO DAILY 12/05/16 [History] Insulin Detemir [Levemir Flextouch] 25 units SQ DAILY 12/05/16 [History] Meclizine HCl 25 mg PO TID PRN 12/05/16 [History] Lutein/Minerals/Vit A,C & E [Ocuvite] 1 tab PO BID 01/21/17 [History] Diclofenac Sodium [Voltaren] 1 tab PO DAILY 09/11/17 [History] FLUoxetine HCl [Fluoxetine] 20 mg PO DAILY 09/11/17 [History] Ferrous Sulfate [Iron] 1 tab PO DAILY 09/11/17 [History] Meloxicam [Mobic] 15 mg PO DAILY 09/11/17 [History] Multivit-Min/FA/Lycopene/Lut [Sentry Senior Tablet] 1 each PO DAILY 09/11/17 [ History] Ferrous Sulfate [Slow Fe] 140 mg PO DAILY 09/12/17 [History] Calcium Carbonate/Vitamin D3 [Calcium 600 + Vit D 200] 1 tab PO BID 10/12/17 [ History] Donepezil HCl 5 mg PO 10/12/17 [History] Meloxicam [Mobic] 15 mg PO DAILY 10/12/17 [History] Past Medical History HEENT History: Reports: Allergic Rhinitis, Impaired Vision Other HEENT History: WEARS GLASSES Cardiovascular History: Reports: High Cholesterol, Hypertension. 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: Musculoskeletal History: Reports: Arthritis, Back Pain, Chronic Neurological History: Reports: Migraines, Vertigo, Other (See Below) (Dementia) Other Neuro History: no migranes since hysterectomy Psychiatric History: Reports: Dementia, Depression Endocrine/Metabolic History: Reports: Diabetes, Type II, Hypothyroidism Hematologic History: Reports: Anemia Immunologic History: Reports: None Oncologic (Cancer) History: Reports: None Dermatologic History: Reports: Eczema - Infectious Disease History Infectious Disease History: Reports: Chicken Pox, Measles - Past Surgical History Head Surgeries/Procedures: Reports: None HEENT Surgical History: Reports: None Cardiovascular Surgical History: Reports: None Respiratory Surgical History: Reports: None GI Surgical History: Reports: Appendectomy, Colonoscopy, EGD Female Surgical History: Reports: Breast Biopsy, Section, Hysterectomy, Oophorectomy, Salpingo-Oophorectomy Musculoskeletal Surgical History: Reports: Other (See Below) Other Musculoskeletal Surgeries/Procedures:: 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 Exam - Exam Exam: See Below - Vital Signs Vital Signs: Last Vital Signs Temp 36.7 C 10/12/17 19:36 Pulse 68 10/12/17 19:36 Resp 18 10/12/17 19:36 BP 179/76 H 10/12/17 19:36 Pulse Ox 97 10/12/17 19:36 Weight: 79.379 kg - Exam General: Alert, Cooperative HEENT: Mucosa Moist & [place] Lungs: Clear to Auscultation, Normal Respiratory Effort Cardiovascular: Regular Rate, Regular Rhythm GI/Abdominal Exam: Soft, Non-Tender Extremities: Non-Tender, No Pedal Edema Skin: Warm, Dry, Intact Neurological: Cranial Nerves Intact, Strength Equal Bilateral, Normal Speech, Normal Tone, Sensation Intact, Abnormal Gait (unsteady gate) - Patient Data Lab Results Last 24 hrs: Laboratory Results - last 24 hr 10/12/17 10/12/17 10/12/17 Range/Units 17:59 17:59 17:59 WBC 7.01 (4.0-11.0) K/uL RBC 2.90 L (4.30-5.90) M/uL Hgb 9.5 L (12.0-16.0) g/dL Hct 28.3 L (36.0-46.0) % MCV 97.6 (80.0-98.0) fL MCH 32.8 H (27.0-32.0) pg MCHC 33.6 (31.0-37.0) g/dL RDW Std Deviation 64.4 H (28.0-62.0) fl RDW Coeff of [place] 18 H (11.0-15.0) % Plt Count 202 (150-400) K/uL MPV 9.80 (7.40-12.00) fL Neut % (Auto) 66.3 (48.0-80.0) % Lymph % (Auto) 25.8 (16.0-40.0) % [place] % (Auto) 4.1 (0.0-15.0) % Eos % (Auto) 3.4 (0.0-7.0) % Baso % (Auto) 0.4 (0.0-1.5) % Neut # (Auto) 4.6 (1.4-5.7) K/uL Lymph # (Auto) 1.8 (0.6-2.4) K/uL [place] # (Auto) 0.3 (0.0-0.8) K/uL Eos # (Auto) 0.2 (0.0-0.7) K/uL Baso # (Auto) 0.0 (0.0-0.1) K/uL Nucleated RBC % 0.0 /100WBC Nucleated RBCs # 0 K/uL INR 1.07 Sodium 139 (136-145) mmol/L Potassium 4.3 (3.5-5.1) mmol/L Chloride 104 (98-107) mmol/L Carbon Dioxide 25.6 (21.0-32.0) mmol/L BUN 33 H (7.0-18.0) mg/dL Creatinine 1.5 H (0.6-1.0) mg/dL Est Cr Clr Drug Dosing 23.33 mL/min Estimated GFR (MDRD) 32.8 ml/min Glucose 83 (74-106) mg/dL Calcium 9.1 (8.5-10.1) mg/dL Total Bilirubin 1.1 H (0.2-1.0) mg/dL AST 17 (15-37) IU/L ALT 15 (14-63) IU/L Alkaline Phosphatase 56 (46-116) U/L Ammonia (19-54) ug/dL Troponin I < 0.050 (0.000-0.056) ng/mL Total Protein 6.7 (6.4-8.2) g/dL Albumin 3.2 L (3.4-5.0) g/dL Globulin 3.5 (2.0-3.5) g/dL Albumin/Globulin Ratio 0.9 L (1.3-2.8) Urine Color Urine Appearance Urine pH (5.0-8.0) Ur Specific [place] (1.001-1.035) Urine Protein (NEGATIVE) mg/dL Urine Glucose (UA) (NEGATIVE) mg/dL Urine Ketones (NEGATIVE) mg/dL Urine Occult Blood (NEGATIVE) Urine Nitrite (NEGATIVE) Urine Bilirubin (NEGATIVE) Urine Urobilinogen (<2.0) EU/dL Ur Leukocyte Esterase (NEGATIVE) Urine RBC (0-2/HPF) Urine WBC (0-5/HPF) Ur Epithelial Cells (NONE-FEW) Urine Bacteria (NEGATIVE) 10/12/17 10/12/17 Range/Units 17:59 18:46 WBC (4.0-11.0) K/uL RBC (4.30-5.90) M/uL Hgb (12.0-16.0) g/dL Hct (36.0-46.0) % MCV (80.0-98.0) fL MCH (27.0-32.0) pg MCHC (31.0-37.0) g/dL RDW Std Deviation (28.0-62.0) fl RDW Coeff of Joelle (11.0-15.0) % Plt Count (150-400) K/uL MPV (7.40-12.00) fL Neut % (Auto) (48.0-80.0) % Lymph % (Auto) (16.0-40.0) % [place] % (Auto) (0.0-15.0) % Eos % (Auto) (0.0-7.0) % Baso % (Auto) (0.0-1.5) % Neut # (Auto) (1.4-5.7) K/uL Lymph # (Auto) (0.6-2.4) K/uL [place] # (Auto) (0.0-0.8) K/uL Eos # (Auto) (0.0-0.7) K/uL Baso # (Auto) (0.0-0.1) K/uL Nucleated RBC % /100WBC Nucleated RBCs # K/uL INR Sodium (136-145) mmol/L Potassium (3.5-5.1) mmol/L Chloride (98-107) mmol/L Carbon Dioxide (21.0-32.0) mmol/L BUN (7.0-18.0) mg/dL Creatinine (0.6-1.0) mg/dL Est Cr Clr Drug Dosing mL/min Estimated GFR (MDRD) ml/min Glucose (74-106) mg/dL Calcium (8.5-10.1) mg/dL Total Bilirubin (0.2-1.0) mg/dL AST (15-37) IU/L ALT (14-63) IU/L Alkaline Phosphatase (46-116) U/L Ammonia 12 L (19-54) ug/dL Troponin I (0.000-0.056) ng/mL Total Protein (6.4-8.2) g/dL Albumin (3.4-5.0) g/dL Globulin (2.0-3.5) g/dL Albumin/Globulin Ratio (1.3-2.8) Urine Color YELLOW Urine Appearance CLEAR Urine pH 5.5 (5.0-8.0) Ur Specific [place] 1.015 (1.001-1.035) Urine Protein NEGATIVE (NEGATIVE) mg/dL Urine Glucose (UA) NEGATIVE (NEGATIVE) mg/dL Urine Ketones NEGATIVE (NEGATIVE) mg/dL Urine Occult Blood NEGATIVE (NEGATIVE) Urine Nitrite NEGATIVE (NEGATIVE) Urine Bilirubin NEGATIVE (NEGATIVE) Urine Urobilinogen 1.0 (<2.0) EU/dL Ur Leukocyte Esterase NEGATIVE (NEGATIVE) Urine RBC 0-1 (0-2/HPF) Urine WBC 0-1 (0-5/HPF) Ur Epithelial Cells FEW (NONE-FEW) Urine Bacteria FEW (NEGATIVE) Result Diagrams: 10/13/17 05:49 10/13/17 05:49 Problem List Initiated/Reviewed/Updated: Yes Orders Last 24hrs: Active Orders 24 hr Category Date Time Status Patient Status [ADT] Stat ADT 10/12/17 18:59 Active EKG Documentation Completion [RC] STAT Care 10/12/17 17:37 Active Oxygen Therapy [RC] PRN Care 10/12/17 20:20 Ordered VTE/DVT Education [RC] PER UNIT ROUTINE Care 10/12/17 20:20 Ordered Vital Signs [RC] Q4H Care 10/12/17 20:20 Ordered PT Evaluation and Treatment [CONS] Routine Cons 10/12/17 20:23 Ordered Regular Diet [DIET] Diet 10/12/17 Breakfast Ordered Chest 1V Frontal [CR] Stat Exams 10/12/17 17:41 Taken Head wo Cont [CT] Stat Exams 10/12/17 17:40 Taken Pelvis 1V or 2V [CR] Stat Exams 10/12/17 17:42 Taken BASIC METABOLIC PANEL,BMP [CHEM] AM Lab 10/13/17 05:11 Ordered CBC W/O DIFF,HEMOGRAM [HEME] AM Lab 10/13/17 05:11 Ordered CULTURE URINE [RM] Stat Lab 10/12/17 18:46 Received UA W/MICROSCOPIC [URIN] Stat Lab 10/12/17 18:46 Ordered Sodium Chloride 0.9% [Normal Saline] 1,000 ml Med 10/12/17 17:45 Active IV STAT Sodium Chloride 0.9% [Saline Flush] Med 10/12/17 17:42 Active 10 ml FLUSH ASDIRECTED PRN Sodium Chloride 0.9% [Saline Flush] Med 10/12/17 17:42 Active 2.5 ml FLUSH ASDIRECTED PRN Saline Lock Insert [OM.PC] Stat Oth 10/12/17 17:37 Ordered Sequential Compression Device [OM.PC] Per Unit Routine Oth 10/12/17 20:23 Ordered Resuscitation Status Routine Resus Stat 10/12/17 20:19 Ordered Medication Orders Sodium Chloride (Normal Saline) 1,000 mls @ 125 mls/hr IV STAT ANAMIKA Last Admin: 10/12/17 18:42 Dose: 125 mls/hr Sodium Chloride (Saline Flush) 10 ml FLUSH ASDIRECTED PRN PRN Reason: Keep Vein Open Sodium Chloride (Saline Flush) 2.5 ml FLUSH ASDIRECTED PRN PRN Reason: Keep Vein Open Assessment/Plan Comment:: 87 yo female presenting with dizziness and problems with memory. She was monitored overnight on telemetry with no events. This morning her dizziness has improved. Physical therapy was consulted and already know the patient and felt her gait and balance have been the same since February. She is living at [facility] where they prepare two meals a day for her. Patient was offered [facility] placement but refused. Patient was discharged home with her sister to have follow up with [facility].
[2017-10-13] MEDS: Insulin Aspart 100 Units/ML 3 ML Pen SUBCUT SCH ×2 (06:32→11:08)
[2017-10-13 08:27] VITALS: BP 137/65
[2017-10-13] MEDS ORDERED: Insulin Detemir 100 Units/ML 3 ML Pen SUBCUT SCH ×2 (09:00)
--- NOTE | 2017-10-15 10:48 | CT ---
EXAM DATE: 10/12/17 PATIENT'S AGE: 87 Patient: STACEY ZIMMER Facility: [place], [place] Site . Site : 1930 Study: CT Head [id number] 6:40:31 PM Ordering Physician: Ashley Contreras Final Report: INDICATION: Head pain. 87-year-old female. TECHNIQUE: CT Head without i.v. contrast. COMPARISON: None FINDINGS: CSF spaces: Within normal limits for age. Brain parenchyma: Mild diffuse cortical atrophy is noted. There are low attenuation white matter changes, likely due to chronic microvascular disease. The brain parenchyma is normal in appearance with preservation of the keane- white matter junction. No sign of mass, hemorrhage, or midline shift seen. Skull base and calvarium: The visualized paranasal sinuses are well aerated. The mastoid air cells are clear. The visualized orbits are grossly unremarkable. No skull fractures are seen. Extensive calcified plaque involving the distal vertebral arteries and intracranial internal carotid arteries. No dense MCA sign. IMPRESSION: 1. Mild degree of age-related atrophy and chronic microvascular disease. No acute intracranial hemorrhage or mass effect. Dictated by Vicente Alas MD @ 10/12/2017 6:59:45 PM Please note that all CT scans at this facility use dose modulation, iterative reconstruction, and/or weight-based dosing when appropriate to reduce radiation dose to as low as reasonably achievable. Dictated by: Vicente Alas MD @ 10/12/2017 18:59:53 (Electronic Signature) Report Signed by Proxy. [facility]
--- NOTE | 2017-10-15 10:49 | CR ---
EXAM DATE: 10/12/17 PATIENT'S AGE: 87 Patient: STACEY ZIMMER Facility: [place], [place] Site . Site : [id number] Study: XRay Chest [id number]/8/2018 6:49:05 PM Ordering Physician: Ashley Contreras Final Report: INDICATION: Pain, shortness of breath TECHNIQUE: Chest 1 view. COMPARISON: 09/11/2017 FINDINGS: Cardiovascular and mediastinum: Heart size and vasculature are normal in caliber and appearance. Mediastinum is within normal limits. Lungs and pleural space: Stable bilateral interstitial fibrosis. No sign of infiltrate or mass. No sign of pleural effusion. No pneumothorax. Bones and soft tissues: No significant findings. IMPRESSION: No acute pulmonary or cardiac abnormalities. Stable bilateral interstitial fibrosis. Dictated by Deshawn Cash MD @ 10/12/2017 7:02:31 PM Dictated by: Deshawn Cash MD @ 10/12/2017 19:02:37 (Electronic Signature) Report Signed by Proxy. BARB
--- NOTE | 2017-10-15 10:50 | CR ---
EXAM DATE: 10/12/17 PATIENT'S AGE: 87 Patient: STACEY ZIMMER Facility: [place], [place] Site . Site : 1930 Study: XRay Pelvis [id number] 6:49:40 PM Ordering Physician: Ashley Contreras Final Report: INDICATION: Pain hips and tailbone, no history trauma TECHNIQUE: AP pelvis COMPARISON: None FINDINGS: Bones: Alignment is normal. No fractures or bone lesions. Joint spaces: Of degenerative changes involving both hip joints. Soft tissues: Unremarkable. IMPRESSION: Mild degenerative changes involving both hip joints. Dictated by Deshawn Cash MD @ 10/12/2017 7:01:06 PM Dictated by: Deshawn Cash MD @ 10/12/2017 19:01:11 (Electronic Signature) Report Signed by Proxy. [email or web address]
== END 2017-10-13 12:30 | disposition home or self-care (01) ==
LOC: MW.ED 17:18 → MW.MS 18:59 → UNDODISOB 10-13 12:30
PROVIDERS: ADMIT Internal Medicine; ATTEND Internal Medicine
DX: M16.0 Bilateral primary osteoarthritis of hip (principal); E78.00 Pure hypercholesterolemia, unspecified; I10 Essential (primary) hypertension; J30.9 Allergic rhinitis, unspecified; K59.00 Constipation, unspecified; K58.9 Irritable bowel syndrome, unspecified; K21.9 Gastro-esophageal reflux disease without esophagitis; M19.90 Unspecified osteoarthritis, unspecified site; G89.29 Other chronic pain; M54.9 Dorsalgia, unspecified; E11.9 Type 2 diabetes mellitus without complications; E03.9 Hypothyroidism, unspecified; F32.9 Major depressive disorder, single episode, unspecified; F03.90 Unspecified dementia, unspecified severity, without behavioral disturbance, psychotic disturbance, mood disturbance, and anxiety; D64.9 Anemia, unspecified; Z79.1 Long term (current) use of non-steroidal anti-inflammatories (NSAID); Z79.82 Long term (current) use of aspirin; Z79.899 Other long term (current) drug therapy; Z91.81 History of falling; Z88.0 Allergy status to penicillin; Z88.5 Allergy status to narcotic agent
CPT/HCPCS: 36415; 70450; 71045; 72170; 80048; 80053; 81001; 82140; 82962; 84484; 85025; 85027; 85610; 87086; 93005; 96360; 96361; 97162; 99285; G0378; J1815; J7040; 99283

== ENCOUNTER 2018-06-03 11:13 | Emergency (ER) | payer MEDICARE, OTHER ==
--- NOTE | 2018-06-03 11:19 | EDM.PDOC ---
ED HPI GENERAL MEDICAL PROBLEM - General Stated Complaint: FELL AND HIT HEAD Time Seen by Provider: 06/03/18 11:19 Source of Information: Reports: Patient - History of Present Illness INITIAL COMMENTS - FREE TEXT/NARRATIVE: HISTORY AND PHYSICAL: History of present illness: [Patient presents from [facility] Apparently she had fallen earlier and struck her head, she has dementia baseline therefore of [facility] and noted some increased confusion from baseline No fever nausea vomiting chills sweats ] Review of systems: As per history of present illness and below otherwise all systems reviewed and negative. Past medical history: As per history of present illness and as reviewed below otherwise noncontributory. Surgical history: As per history of present illness and as reviewed below otherwise noncontributory. Social history: No reported history of drug or alcohol abuse. Family history: As per history of present illness and as reviewed below otherwise noncontributory. Physical exam: HEENT: Atraumatic, normocephalic, pupils reactive, negative for conjunctival pallor or scleral icterus, mucous membranes moist, throat clear, neck supple, nontender, trachea midline. Lungs: Clear to auscultation, breath sounds equal bilaterally, chest nontender. Heart: S1S2, regular, negative for clicks, rubs, or JVD. Abdomen: Soft, nondistended, nontender. Negative for masses or hepatosplenomegaly. Negative for costovertebral tenderness. Pelvis: Stable nontender. Genitourinary: Deferred. Rectal: Deferred. Extremities: Atraumatic, negative for cords or calf pain. Neurovascular unremarkable. Neuro: Awake, alert, oriented. Cranial nerves II through XII unremarkable. Cerebellum unremarkable. Motor and sensory unremarkable throughout. Exam nonfocal. Diagnostics: [CBC CMP UA EKG chest [address] no contrast ] Therapeutics: []On Impression: [] medical screening exam Definitive disposition and diagnosis as appropriate pending reevaluation and review of above. posterior head. Pain Score (Numeric/FACES): 5 - Related Data Allergies Allergy/AdvReac Type Severity Reaction Status Date / Time Penicillins Allergy Mild Hives Verified 12/03/17 17:22 codeine Allergy Hives Verified 12/03/17 17:22 Home Meds: Home Meds Levothyroxine Sodium [Synthroid] 75 mcg PO ACBREAKFAST 10/12/14 [History] Losartan [Cozaar] 25 mg PO DAILY 12/23/15 [History] Aspirin 81 mg PO DAILY 12/05/16 [History] Cyanocobalamin (Vitamin B-12) [B-12] 1,000 mcg PO DAILY 12/05/16 [History] Insulin Detemir [Levemir Flextouch] 21 units SQ DAILY 12/05/16 [History] Meclizine HCl 25 mg PO BID PRN 12/05/16 [History] Lutein/Minerals/Vit A,C & E [Ocuvite] 1 tab PO BID 01/21/17 [History] Multivit-Min/FA/Lycopene/Lut [Sentry Senior Tablet] 1 each PO DAILY 09/11/17 [ History] Calcium Carbonate [Calcium] 600 mg PO DAILY 12/03/17 [History] Cholecalciferol (Vitamin D3) [D-2000] 2,000 unit PO DAILY 12/03/17 [History] Diclofenac Sodium 1 appful TP Q6H PRN 12/03/17 [History] Fish Oil/[place]-3 Fatty Acids [Fish Oil 1,000 MG] 1 gm PO DAILY 12/03/17 [History ] Ibuprofen [Advil] 400 mg PO Q6H PRN 12/03/17 [History] Polyethylene Glycol 3350 [MiraLAX] 17 gm PO DAILY PRN 12/03/17 [History] Dextromethorphan HBr [Delsym 30 MG/5 ML Susp] 60 mg PO Q12H PRN 06/03/18 [ History] Famotidine 40 mg PO BEDTIME 06/03/18 [History] Past Medical History HEENT History: Reports: Allergic Rhinitis, Impaired Vision Other HEENT History: WEARS GLASSES Cardiovascular History: Reports: High Cholesterol, Hypertension. Denies: Afib, Blood Clots/VTE/DVT, Heart Failure Respiratory History: Reports: Pulmonary Fibrosis Gastrointestinal History: Reports: Chronic Constipation, Colon Polyp, GERD, Irritable Bowel Syndrome, Other (See Below) Genitourinary History: Reports: Urinary Incontinence, Other (See Below) [employer] History: Reports: Musculoskeletal History: Reports: Arthritis, Back Pain, Chronic Neurological History: Reports: Migraines, Vertigo, Other (See Below) (Dementia) Other Neuro History: no migranes since hysterectomy Psychiatric History: Reports: Dementia, Depression Endocrine/Metabolic History: Reports: Diabetes, Type II, Hypothyroidism Hematologic History: Reports: Anemia Immunologic History: Reports: None Oncologic (Cancer) History: Reports: None Dermatologic History: Reports: Eczema - Infectious Disease History Infectious Disease History: Reports: Chicken Pox, Measles - Past Surgical History Head Surgeries/Procedures: Reports: None HEENT Surgical History: Reports: None Cardiovascular Surgical History: Reports: None Respiratory Surgical History: Reports: None GI Surgical History: Reports: Appendectomy, Colonoscopy, EGD Female Surgical History: Reports: Breast Biopsy, Section, Hysterectomy, Oophorectomy, Salpingo-Oophorectomy Musculoskeletal Surgical History: Reports: Other (See Below) Other Musculoskeletal Surgeries/Procedures:: 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, 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 Oncologic Surgical History: Reports: Lumpectomy Social & Family History - Family History Family Medical History: Noncontributory - Caffeine Use Caffeine Use: Reports: Coffee - Living Situation & Occupation Living situation: Reports: Alone, Other (Sister is nearby in town) Occupation: Retired ED ROS GENERAL - Review of Systems Review Of Systems: See Below ED EXAM, GENERAL - Physical Exam Exam: See Below Course - Vital Signs Last Recorded V/S: Last Vital Signs Temp 97.8 F 06/03/18 11:15 Pulse 73 06/03/18 11:15 Resp 18 06/03/18 11:15 BP 181/85 H 06/03/18 11:15 Pulse Ox 93 L 06/03/18 11:15 - Orders/Labs/Meds Orders: Active Orders 24 hr Category Date Time Status EKG Documentation Completion [RC] STAT Care 06/03/18 11:18 Active Labs: Laboratory Tests 06/03/18 06/03/18 06/03/18 Range/Units 12:03 12:03 12:03 WBC 5.40 (4.0-11.0) K/uL RBC 3.05 L (4.30-5.90) M/uL Hgb 9.4 L (12.0-16.0) g/dL Hct 29.1 L (36.0-46.0) % MCV 95.4 (80.0-98.0) fL MCH 30.8 (27.0-32.0) pg MCHC 32.3 (31.0-37.0) g/dL RDW Std Deviation 60.7 (28.0-62.0) fl RDW Coeff of Joelle 18 H (11.0-15.0) % Plt Count 199 (150-400) K/uL MPV 9.20 (7.40-12.00) fL Neut % (Auto) 73.9 (48.0-80.0) % Lymph % (Auto) 20.7 (16.0-40.0) % Andrews % (Auto) 1.1 (0.0-15.0) % Eos % (Auto) 4.1 (0.0-7.0) % Baso % (Auto) 0.2 (0.0-1.5) % Neut # (Auto) 4.0 (1.4-5.7) K/uL Lymph # (Auto) 1.1 (0.6-2.4) K/uL Andrews # (Auto) 0.1 (0.0-0.8) K/uL Eos # (Auto) 0.2 (0.0-0.7) K/uL Baso # (Auto) 0.0 (0.0-0.1) K/uL Nucleated RBC % 0.0 /100WBC Nucleated RBCs # 0 K/uL INR 1.08 Sodium 143 (136-145) mmol/L Potassium 4.2 (3.5-5.1) mmol/L Chloride 107 (98-107) mmol/L Carbon Dioxide 29.4 (21.0-32.0) mmol/L BUN 32 H (7.0-18.0) mg/dL Creatinine 1.2 H (0.6-1.0) mg/dL Est Cr Clr Drug Dosing TNP Estimated GFR (MDRD) 42.4 ml/min Glucose 73 L (74-106) mg/dL Calcium 9.6 (8.5-10.1) mg/dL Total Bilirubin 0.6 (0.2-1.0) mg/dL AST 15 (15-37) IU/L ALT 13 L (14-63) IU/L Alkaline Phosphatase 65 (46-116) U/L Total Protein 6.6 (6.4-8.2) g/dL Albumin 2.7 L (3.4-5.0) g/dL Globulin 3.9 (2.6-4.0) g/dL Albumin/Globulin Ratio 0.7 L (0.9-1.6) Urine Color Urine Appearance Urine pH (5.0-8.0) Ur Specific [place] (1.001-1.035) Urine Protein (NEGATIVE) mg/dL Urine Glucose (UA) (NEGATIVE) mg/dL Urine Ketones (NEGATIVE) mg/dL Urine Occult Blood (NEGATIVE) Urine Nitrite (NEGATIVE) Urine Bilirubin (NEGATIVE) Urine Urobilinogen (<2.0) EU/dL Ur Leukocyte Esterase (NEGATIVE) 06/03/18 Range/Units 12:23 WBC (4.0-11.0) K/uL RBC (4.30-5.90) M/uL Hgb (12.0-16.0) g/dL Hct (36.0-46.0) % MCV (80.0-98.0) fL MCH (27.0-32.0) pg MCHC (31.0-37.0) g/dL RDW Std Deviation (28.0-62.0) fl RDW Coeff of Joelle (11.0-15.0) % Plt Count (150-400) K/uL MPV (7.40-12.00) fL Neut % (Auto) (48.0-80.0) % Lymph % (Auto) (16.0-40.0) % Andrews % (Auto) (0.0-15.0) % Eos % (Auto) (0.0-7.0) % Baso % (Auto) (0.0-1.5) % Neut # (Auto) (1.4-5.7) K/uL Lymph # (Auto) (0.6-2.4) K/uL Andrews # (Auto) (0.0-0.8) K/uL Eos # (Auto) (0.0-0.7) K/uL Baso # (Auto) (0.0-0.1) K/uL Nucleated RBC % /100WBC Nucleated RBCs # K/uL INR Sodium (136-145) mmol/L Potassium (3.5-5.1) mmol/L Chloride (98-107) mmol/L Carbon Dioxide (21.0-32.0) mmol/L BUN (7.0-18.0) mg/dL Creatinine (0.6-1.0) mg/dL Est Cr Clr Drug Dosing Estimated GFR (MDRD) ml/min Glucose (74-106) mg/dL Calcium (8.5-10.1) mg/dL Total Bilirubin (0.2-1.0) mg/dL AST (15-37) IU/L ALT (14-63) IU/L Alkaline Phosphatase (46-116) U/L Total Protein (6.4-8.2) g/dL Albumin (3.4-5.0) g/dL Globulin (2.6-4.0) g/dL Albumin/Globulin Ratio (0.9-1.6) Urine Color YELLOW Urine Appearance CLEAR Urine pH 7.0 (5.0-8.0) Ur Specific [place] 1.010 (1.001-1.035) Urine Protein NEGATIVE (NEGATIVE) mg/dL Urine Glucose (UA) NEGATIVE (NEGATIVE) mg/dL Urine Ketones NEGATIVE (NEGATIVE) mg/dL Urine Occult Blood NEGATIVE (NEGATIVE) Urine Nitrite NEGATIVE (NEGATIVE) Urine Bilirubin NEGATIVE (NEGATIVE) Urine Urobilinogen 1.0 (<2.0) EU/dL Ur Leukocyte Esterase NEGATIVE (NEGATIVE) Departure - Departure Time of Disposition: 13:11 Disposition: Home, Self-Care 01 Condition: Good Clinical Impression: Encounter for medical screening examination - Discharge Information Additional Instructions: The following information is given to patients seen in the emergency department who are being discharged to home. This information is to outline your options for follow-up care. We provide all patients seen in our emergency department with a follow-up referral. The need for follow-up, as well as the timing and circumstances, are variable depending upon the specifics of your emergency department visit. If you don't have a primary care physician on staff, we will provide you with a referral. We always advise you to contact your personal physician following an emergency department visit to inform them of the circumstance of the visit and for follow-up with them and/or the need for any referrals to a consulting specialist. The emergency department will also refer you to a specialist when appropriate. This referral assures that you have the opportunity for follow-up care with a specialist. All of these measure are taken in an effort to provide you with optimal care, which includes your follow-up. Under all circumstances we always encourage you to contact your private physician who remains a resource for coordinating your care. When calling for follow-up care, please make the office aware that this follow-up is from your recent emergency room visit. If for any reason you are refused follow-up, please contact the [facility] emergency department at and asked to speak to the emergency department charge nurse. - My Orders Last 24 Hours: My Active Orders 06/03/18 11:18 EKG Documentation Completion [RC] STAT - Assessment/Plan Last 24 Hours: My Active Orders 06/03/18 11:18 EKG Documentation Completion [RC] STAT
[2018-06-03 11:36] VITALS: BP 181/85
--- NOTE | 2018-06-03 12:03 | CR ---
EXAMINATION: Portable chest radiograph. HISTORY: Pain. Comparison: 12/03/2017. FINDINGS: The trachea is midline. The cardiomediastinal silhouette is within normal limits. Chronic increased interstitial prominence again noted most prominent within the left lung base. No definite new consolidation, pleural effusion, or pneumothorax. Aortic calcifications noted. Osseous structures appear unremarkable. IMPRESSION: Chronic interstitial prominence and likely scarring without definite acute cardiopulmonary finding.
--- NOTE | 2018-06-03 12:05 | CT ---
EXAMINATION: Non contrast CT head. Coronal and sagittal reformats. HISTORY: Pain FINDINGS: No evidence of intra or extra axial hemorrhage, mass, midline shift, hydrocephalus or edema. Moderate periventricular and subcortical white matter hypodensities are noted. No hypoattenuation changes in the major vascular territories to suggest acute infarct. No abnormal intracranial calcifications are detected. Mild vascular calcifications. Minimal mucosal thickening noted within the maxillary sinuses and ethmoid air cells. Mastoid air cells and middle ears are clear. Pituitary fossa appears unremarkable. Calvarium is intact. No evidence of skull fracture. IMPRESSION: 1. No acute intracranial findings. 2. Moderate small vessel ischemic changes.
--- NOTE | 2018-06-03 12:16 | CT ---
EXAMINATION: CT cervical spine HISTORY: Pain COMPARISON: None TECHNIQUE: Axial CT imaging obtained through the cervical spine without contrast. Coronal and sagittal reconstructions obtained. FINDINGS: There is minimal anterolisthesis of C4 on C5 and of C7 on T1. There is no fracture or acute osseous abnormality. Bone mineralization is normal. Marginal osteophytes are noted. Disc space narrowing noted C5-C6 and C6-C7. Interstitial prominence noted within the lung apices. Paravertebral soft tissues otherwise appear normal. Moderate coronary artery calcifications. IMPRESSION: 1. Degenerative changes without acute findings.
[2018-06-03 12:44] LABS: CHLORIDE,CL 107 mmol/L (98-107); SODIUM,NA 143 mmol/L (136-145)
== END 2018-06-03 13:31 | disposition home or self-care (01) ==
LOC: MW.ED 11:13
DX: R51 Headache (principal); Z13.9 Encounter for screening, unspecified; M79.602 Pain in left arm; M79.601 Pain in right arm; M54.5 Low back pain; I10 Essential (primary) hypertension; E78.00 Pure hypercholesterolemia, unspecified; K21.9 Gastro-esophageal reflux disease without esophagitis; E11.9 Type 2 diabetes mellitus without complications; E03.9 Hypothyroidism, unspecified; Z79.4 Long term (current) use of insulin; Z88.0 Allergy status to penicillin; Z88.5 Allergy status to narcotic agent; Z79.82 Long term (current) use of aspirin; Z79.899 Other long term (current) drug therapy; W19.XXXA Unspecified fall, initial encounter; W22.8XXA Striking against or struck by other objects, initial encounter
CPT/HCPCS: 36415; 70450; 70450-26; 71045; 71045-26; 72125; 72125-26; 80053; 81003; 85025; 85610; 93005; 99283; 99285-25

== ENCOUNTER 2018-09-23 08:44 | Inpatient (IN) | payer MEDICARE, OTHER, MEDICAID ==
--- NOTE | 2018-09-23 09:04 | EDM.PDOC ---
ED HPI GENERAL MEDICAL PROBLEM - General Chief Complaint: General Stated Complaint: BETHAL PT. Time Seen by Provider: 09/23/18 09:00 - History of Present Illness INITIAL COMMENTS - FREE TEXT/NARRATIVE: HISTORY AND PHYSICAL: History of present illness: Patient is an 88-year-old female presents from group home with an extensive past medical history who presents status post fall last night in which she struck her head is reported to have altered mental status compared to baseline today there was no other reported injury or concern with the exception of the superficial laceration in abrasion/contusion to her right forehead patient denies headache or neck pain on arrival here denies chest pain shortness of breath abdominal pain or other concern. Review of systems: As per history of present illness and below otherwise all systems reviewed and negative. Past medical history: As per history of present illness and as reviewed below otherwise noncontributory. Surgical history: As per history of present illness and as reviewed below otherwise noncontributory. Social history: No reported history of drug or alcohol abuse. Family history: As per history of present illness and as reviewed below otherwise noncontributory. Physical exam: HEENT: Abrasion contusion with superficial laceration noted it has been Steri- Stripped to her right forehead no step-off no depression, normocephalic, pupils reactive, negative for conjunctival pallor or scleral icterus, mucous membranes moist, throat clear, neck supple, nontender, trachea midline. Lungs: Clear to auscultation, breath sounds equal bilaterally, chest nontender. Heart: S1S2, regular, negative for clicks, rubs, or JVD. Abdomen: Soft, nondistended, nontender. Negative for masses or hepatosplenomegaly. Negative for costovertebral tenderness. Pelvis: Stable nontender. Genitourinary: Deferred. Rectal: Deferred. Extremities: Atraumatic, negative for cords or calf pain. Neurovascular unremarkable. Neuro: Awake, oriented to person moves all extremities follows commands limited but grossly nonfocal exam Diagnostics: CBC CMP troponin PT/INR chest x-ray UA CT brain Therapeutics: IV O2 monitor Impression: #1 observation 24-hour status post fall #2 head injury #3 altered mental status Definitive disposition and diagnosis as appropriate pending reevaluation and review of above. - Related Data Allergies Allergy/AdvReac Type Severity Reaction Status Date / Time Penicillins Allergy Mild Hives Verified 12/03/17 17:22 codeine Allergy Hives Verified 12/03/17 17:22 Home Meds: Home Meds Levothyroxine Sodium [Synthroid] 75 mcg PO ACBREAKFAST 02/15/14 [History] Losartan [Cozaar] 25 mg PO DAILY 12/23/15 [History] Aspirin 81 mg PO DAILY 12/05/16 [History] Cyanocobalamin (Vitamin B-12) [B-12] 1,000 mcg PO DAILY 12/05/16 [History] Insulin Detemir [Levemir Flextouch] 21 units SQ DAILY 12/05/16 [History] Meclizine HCl 25 mg PO BID PRN 12/05/16 [History] Lutein/Minerals/Vit A,C & E [Ocuvite] 1 tab PO BID 01/21/17 [History] Multivit-Min/FA/Lycopene/Lut [Sentry Senior Tablet] 1 each PO DAILY 09/11/17 [ History] Calcium Carbonate [Calcium] 600 mg PO DAILY 12/03/17 [History] Cholecalciferol (Vitamin D3) [D-2000] 2,000 unit PO DAILY 12/03/17 [History] Diclofenac Sodium 1 appful TP Q6H PRN 12/03/17 [History] Fish Oil/[place]-3 Fatty Acids [Fish Oil 1,000 MG] 1 gm PO DAILY 12/03/17 [History ] Ibuprofen [Advil] 400 mg PO Q6H PRN 12/03/17 [History] Polyethylene Glycol 3350 [MiraLAX] 17 gm PO DAILY PRN 12/03/17 [History] Dextromethorphan HBr [Delsym 30 MG/5 ML Susp] 60 mg PO Q12H PRN 06/03/18 [ History] Famotidine 40 mg PO BEDTIME 06/03/18 [History] Past Medical History HEENT History: Reports: Allergic Rhinitis, Impaired Vision Other HEENT History: WEARS GLASSES Cardiovascular History: Reports: High Cholesterol, Hypertension. Denies: Afib, Blood Clots/VTE/DVT, Heart Failure Respiratory History: Reports: Pulmonary Fibrosis Gastrointestinal History: Reports: Chronic Constipation, Colon Polyp, GERD, Irritable Bowel Syndrome, Other (See Below) Genitourinary History: Reports: Urinary Incontinence, Other (See Below) [employer]IAN [employer]PER History: Reports: Musculoskeletal History: Reports: Arthritis, Back Pain, Chronic Neurological History: Reports: Migraines, Vertigo, Other (See Below) (Dementia) Other Neuro History: no migranes since hysterectomy Psychiatric History: Reports: Dementia, Depression Endocrine/Metabolic History: Reports: Diabetes, Type II, Hypothyroidism Hematologic History: Reports: Anemia Immunologic History: Reports: None Oncologic (Cancer) History: Reports: None Dermatologic History: Reports: Eczema - Infectious Disease History Infectious Disease History: Reports: Chicken Pox, Measles - Past Surgical History Head Surgeries/Procedures: Reports: None HEENT Surgical History: Reports: None Cardiovascular Surgical History: Reports: None Respiratory Surgical History: Reports: None GI Surgical History: Reports: Appendectomy, Colonoscopy, EGD Female Surgical History: Reports: Breast Biopsy, Section, Hysterectomy, Oophorectomy, Salpingo-Oophorectomy Musculoskeletal Surgical History: Reports: Other (See Below) Other Musculoskeletal Surgeries/Procedures:: 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 ED EXAM, GENERAL - Physical Exam Exam: See Below (See dictation) Course - Vital Signs Last Recorded V/S: Last Vital Signs Temp 36.0 C 09/23/18 08:54 Pulse 84 09/23/18 09:48 Resp 18 09/23/18 09:48 BP 155/65 H 09/23/18 09:48 Pulse Ox 98 09/23/18 09:48 - Orders/Labs/Meds Orders: Active Orders 24 hr Category Date Time Status EKG Documentation Completion [RC] STAT Care 09/23/18 08:54 Active Head wo Cont [CT] Stat Exams 09/23/18 08:54 Taken CULTURE BLOOD [BC] Stat Lab 09/23/18 09:17 Results CULTURE BLOOD [BC] Stat Lab 09/23/18 09:23 Results UA RFX MITCH AND CULT IF INDIC [URIN] Stat Lab 09/23/18 10:23 Received Sodium Chloride 0.9% [Normal Saline] 1,000 ml Med 09/23/18 09:15 Active IV STAT Blood Culture x2 Reflex Set [OM.PC] Stat Oth 09/23/18 09:04 Ordered Medication Orders Sodium Chloride (Normal Saline) 1,000 mls @ 125 mls/hr IV STAT ANAMIKA Last Admin: 09/23/18 09:47 Dose: 125 mls/hr Labs: Laboratory Tests 09/23/18 09/23/18 09/23/18 Range/Units 09:06 09:06 09:06 WBC 15.45 H (4.0-11.0) K/uL RBC 2.81 L (4.30-5.90) M/uL Hgb 8.8 L (12.0-16.0) g/dL Hct 26.7 L (36.0-46.0) % MCV 95.0 (80.0-98.0) fL MCH 31.3 (27.0-32.0) pg MCHC 33.0 (31.0-37.0) g/dL RDW Std Deviation 62.9 H (28.0-62.0) fl RDW Coeff of Joelle 18 H (11.0-15.0) % Plt Count 165 (150-400) K/uL MPV 9.60 (7.40-12.00) fL Add Manual Diff YES Neutrophils % (Manual) 84 H (48.0-80.0) % Band Neutrophils % 6 % Lymphocytes % (Manual) 8 L (16.0-40.0) % Monocytes % (Manual) 1 (0.0-15.0) % Eosinophils % (Manual) 1 (0.0-7.0) % Nucleated RBC % 0.0 /100WBC Absolute Seg Neuts 13.0 H (1.4-5.7) Band Neutrophils # 0.9 Lymphocytes # (Manual) 1.2 (0.6-2.4) Monocytes # (Manual) 0.2 (0.0-0.8) Eosinophils # (Manual) 0.2 (0.0-0.7) Nucleated RBCs # 0 K/uL INR 1.17 Lactate (0.20-2.00) mmol/L Sodium 139 (136-145) mmol/L Potassium 3.7 (3.5-5.1) mmol/L Chloride 105 (98-107) mmol/L Carbon Dioxide 25.2 (21.0-32.0) mmol/L BUN 35 H (7.0-18.0) mg/dL Creatinine 1.3 H (0.6-1.0) mg/dL Est Cr Clr Drug Dosing TNP Estimated GFR (MDRD) 38.6 ml/min Glucose 102 (74-106) mg/dL Calcium 8.7 (8.5-10.1) mg/dL Total Bilirubin 1.1 H (0.2-1.0) mg/dL AST 16 (15-37) IU/L ALT 12 L (14-63) IU/L Alkaline Phosphatase 57 (46-116) U/L Ammonia (19-54) ug/dL Troponin I < 0.050 (0.000-0.056) ng/mL Total Protein 6.2 L (6.4-8.2) g/dL Albumin 2.6 L (3.4-5.0) g/dL Globulin 3.6 (2.6-4.0) g/dL Albumin/Globulin Ratio 0.7 L (0.9-1.6) 09/23/18 09/23/18 Range/Units 09:06 09:06 WBC (4.0-11.0) K/uL RBC (4.30-5.90) M/uL Hgb (12.0-16.0) g/dL Hct (36.0-46.0) % MCV (80.0-98.0) fL MCH (27.0-32.0) pg MCHC (31.0-37.0) g/dL RDW Std Deviation (28.0-62.0) fl RDW Coeff of Joelle (11.0-15.0) % Plt Count (150-400) K/uL MPV (7.40-12.00) fL Add Manual Diff Neutrophils % (Manual) (48.0-80.0) % Band Neutrophils % % Lymphocytes % (Manual) (16.0-40.0) % Monocytes % (Manual) (0.0-15.0) % Eosinophils % (Manual) (0.0-7.0) % Nucleated RBC % /100WBC Absolute Seg Neuts (1.4-5.7) Band Neutrophils # Lymphocytes # (Manual) (0.6-2.4) Monocytes # (Manual) (0.0-0.8) Eosinophils # (Manual) (0.0-0.7) Nucleated RBCs # K/uL INR Lactate 0.6 (0.20-2.00) mmol/L Sodium (136-145) mmol/L Potassium (3.5-5.1) mmol/L Chloride (98-107) mmol/L Carbon Dioxide (21.0-32.0) mmol/L BUN (7.0-18.0) mg/dL Creatinine (0.6-1.0) mg/dL Est Cr Clr Drug Dosing Estimated GFR (MDRD) ml/min Glucose (74-106) mg/dL Calcium (8.5-10.1) mg/dL Total Bilirubin (0.2-1.0) mg/dL AST (15-37) IU/L ALT (14-63) IU/L Alkaline Phosphatase (46-116) U/L Ammonia <17 L (19-54) ug/dL Troponin I (0.000-0.056) ng/mL Total Protein (6.4-8.2) g/dL Albumin (3.4-5.0) g/dL Globulin (2.6-4.0) g/dL Albumin/Globulin Ratio (0.9-1.6) Meds: Medications Generic Name Dose Route Start Last Admin Trade Name Freq PRN Reason Stop Dose Admin Sodium Chloride 1,000 mls @ 125 mls/hr 09/23/18 09:15 09/23/18 09:47 Normal Saline IV 125 mls/hr STAT ANAMIKA Administration Departure - Departure Time of Disposition: 10:29 Disposition: Refer to Observation Condition: Good Clinical Impression: Fall, Head injury, Chronic anemia, History of decubitus ulcer, Altered mental status - Discharge Information Referrals: PCP,Unknown [Primary Care Provider] - Forms: ED Department Discharge - My Orders Last 24 Hours: My Active Orders 09/23/18 08:54 EKG Documentation Completion [RC] STAT Head wo Cont [CT] Stat 09/23/18 09:04 Blood Culture x2 Reflex Set [OM.PC] Stat 09/23/18 09:15 Sodium Chloride 0.9% [Normal Saline] 1,000 ml IV STAT 09/23/18 09:17 CULTURE BLOOD [BC] Stat 09/23/18 09:23 CULTURE BLOOD [BC] Stat 09/23/18 10:23 UA RFX MITCH AND CULT IF INDIC [URIN] Stat - Assessment/Plan Last 24 Hours: My Active Orders 09/23/18 08:54 EKG Documentation Completion [RC] STAT Head wo Cont [CT] Stat 09/23/18 09:04 Blood Culture x2 Reflex Set [OM.PC] Stat 09/23/18 09:15 Sodium Chloride 0.9% [Normal Saline] 1,000 ml IV STAT 09/23/18 09:17 CULTURE BLOOD [BC] Stat 09/23/18 09:23 CULTURE BLOOD [BC] Stat 09/23/18 10:23 UA RFX MITCH AND CULT IF INDIC [URIN] Stat
[2018-09-23] MEDS ORDERED: Sodium Chloride 0.9% 1,000 ML IV SCH (09:15)
[2018-09-23 09:40] LABS: CHLORIDE,CL 105 mmol/L (98-107); SODIUM,NA 139 mmol/L (136-145)
--- NOTE | 2018-09-23 10:03 | CR ---
EXAMINATION: Portable chest radiograph. HISTORY: Shortness of breath. Comparison: 05/26/2018. FINDINGS: The trachea is midline. The cardiomediastinal silhouette is within normal limits. Chronic interstitial prominence. No pleural effusion or pneumothorax. Osseous structures appear unremarkable. IMPRESSION: Chronic interstitial prominence and scarring without a definite acute cardiopulmonary finding.
--- NOTE | 2018-09-23 10:31 | CT ---
EXAMINATION: Non contrast CT head. Coronal and sagittal reformats. HISTORY: Fall FINDINGS: No evidence of intra or extra axial hemorrhage, mass, midline shift, hydrocephalus or edema. Mild to moderate generalized atrophy and moderate periventricular and subcortical white matter hypodensities. No hypoattenuation changes in the major vascular territories to suggest acute infarct. No abnormal intracranial calcifications are detected. No evidence of substantial vascular calcifications. Mild mucosal thickening within the maxillary sinuses and ethmoid air cells. Mastoid air cells and middle ears are clear. Pituitary fossa appears unremarkable. Calvarium is intact. No evidence of skull fracture. IMPRESSION: 1. No acute intracranial findings. 2. Generalized atrophy and small vessel ischemic changes.
--- NOTE | 2018-09-23 11:38 | PCM.HP ---
<Gwendolyn Whitfield M - Last Filed: 09/23/18 16:23> H&P History of Present Illness - General Date of Service: 09/23/18 Admit Problem/Dx: Admission Diagnosis/Problem Admission Diagnosis/Problem Fall and altered mental status Source of Information: Jail Records, Old Records History Limitations: Reports: Altered Mental Status - History of Present Illness Initial Comments - Free Text/Narative: This 88 year old female with pmh of HTN, DM Type 2, dyslipidemia, chronic dizziness, dementia and anemia presented to the ED from [facility] today after a fall last evening where she hit her head and has since had AMS. Dr Cochran requested she be evaluated this morning. Grzegorz is unable to provide answers as to what happened. She has bruising her to R forehead and small laceration, with bruising and swelling to R eye lid. She denies any pain currently, but reports pain with palpation of her sacral wound. No family at bedside currently. In the ED Leukocytosis noted at 15,450, hgb 8.8, baseline mid 9s, BUN 35, Cr 1.3 , bilirubin 1.1, which is near baseline. Troponin negative. CXR was negative. Head CT negative as well. UA revealed pyuria, 3-5, positive leukocyte esterase, negative nitrite, and rare bacteria. EKG SR with no ST changes. All VS stable in ED. - Related Data Allergies/Adverse Reactions: Allergies Allergy/AdvReac Type Severity Reaction Status Date / Time Penicillins Allergy Mild Hives Verified 12/03/17 17:22 codeine Allergy Hives Verified 12/03/17 17:22 Home Medications: Home Meds Levothyroxine Sodium [Synthroid] 75 mcg PO ACBREAKFAST 02/15/14 [History] Losartan [Cozaar] 25 mg PO DAILY 12/23/15 [History] Aspirin 81 mg PO DAILY 12/05/16 [History] Cyanocobalamin (Vitamin B-12) [B-12] 1,000 mcg PO DAILY 12/05/16 [History] Insulin Detemir [Levemir Flextouch] 21 units SQ DAILY 12/05/16 [History] Meclizine HCl 25 mg PO BID 12/05/16 [History] Lutein/Minerals/Vit A,C & E [Ocuvite] 1 tab PO BID 01/21/17 [History] Multivit-Min/FA/Lycopene/Lut [Sentry Senior Tablet] 1 each PO DAILY 09/11/17 [ History] Calcium Carbonate [Calcium] 600 mg PO DAILY 12/03/17 [History] Cholecalciferol (Vitamin D3) [D-2000] 2,000 unit PO DAILY 12/03/17 [History] Diclofenac Sodium 1 appful TP .EVERY SHIFT 12/03/17 [History] Ibuprofen [Advil] 400 mg PO BID 12/03/17 [History] Polyethylene Glycol 3350 [MiraLAX] 17 gm PO BID 12/03/17 [History] Famotidine 40 mg PO BEDTIME 06/03/18 [History] Bisacodyl 10 mg RC DAILY PRN 09/23/18 [History] Docusate Sodium 100 mg PO BID 09/23/18 [History] Ibuprofen [Advil] 400 mg PO Q6H PRN 09/23/18 [History] Magnesium Hydroxide [Milk of Magnesia] 30 ml PO Q24H PRN 09/23/18 [History] Nystatin 1 applic TOP Q8H 09/23/18 [History] Past Medical History HEENT History: Reports: Allergic Rhinitis, Impaired Vision Other HEENT History: WEARS GLASSES Cardiovascular History: Reports: High Cholesterol, Hypertension. Denies: Afib, Blood Clots/VTE/DVT, Heart Failure Respiratory History: Reports: Pulmonary Fibrosis Gastrointestinal History: Reports: Chronic Constipation, Colon Polyp, GERD, Irritable Bowel Syndrome, Other (See Below) Genitourinary History: Reports: Urinary Incontinence, Other (See Below) [employer] ASSISTANT History: Reports: Musculoskeletal History: Reports: Arthritis, Back Pain, Chronic Neurological History: Reports: Migraines, Vertigo, Other (See Below) (Dementia) Other Neuro History: no migranes since hysterectomy Psychiatric History: Reports: Dementia, Depression Endocrine/Metabolic History: Reports: Diabetes, Type II, Hypothyroidism Hematologic History: Reports: Anemia Immunologic History: Reports: None Oncologic (Cancer) History: Reports: None Dermatologic History: Reports: Eczema - Infectious Disease History Infectious Disease History: Reports: Chicken Pox, Measles - Past Surgical History Head Surgeries/Procedures: Reports: None HEENT Surgical History: Reports: None Cardiovascular Surgical History: Reports: None Respiratory Surgical History: Reports: None GI Surgical History: Reports: Appendectomy, Colonoscopy, EGD Female Surgical History: Reports: Breast Biopsy, Section, Hysterectomy, Oophorectomy, Salpingo-Oophorectomy Musculoskeletal Surgical History: Reports: Other (See Below) Other Musculoskeletal Surgeries/Procedures:: 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, 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 Oncologic Surgical History: Reports: Lumpectomy Social & Family History - Family History Family Medical History: Noncontributory - Tobacco Use Smoking Status *Q: Never Smoker - Caffeine Use Caffeine Use: Reports: Coffee - Recreational Drug Use Recreational Drug Use: No - Living Situation & Occupation Living situation: Reports: Extended Care Facility, Other (Sister is nearby in town) Occupation: Retired H&P Review of Systems - Review of Systems: Review Of Systems: Unable To Obtain Exam - Exam Exam: See Below - Vital Signs Vital Signs: Last Vital Signs Temp 96.8 F 09/23/18 08:54 Pulse 84 09/23/18 11:20 Resp 18 09/23/18 11:20 BP 147/48 H 09/23/18 11:20 Pulse Ox 98 09/23/18 11:20 - Exam Quality Assessment: No: Supplemental Oxygen General: Alert, Cooperative. No: Oriented HEENT: Conjunctiva Clear, Mucosa Moist & [place], Posterior Pharynx Clear Neck: Supple Lungs: Clear to Auscultation, Normal Respiratory Effort Cardiovascular: Regular Rate, Regular Rhythm, Normal S1, Normal S2. No: Systolic Murmur GI/Abdominal Exam: Normal Bowel Sounds, Soft, Non-Tender, No Distention (Female) Exam: Other (R labia majora swollen, no erythema, no lesions, soft and non tender.) Back Exam: Normal Inspection, Full Range of Motion Extremities: Normal Inspection, Normal Range of Motion, Non-Tender, No Pedal Edema Skin: Ecchymosis (bruising to bilatearl knees. Bruising to R forehead with small laceration ans one steri strip in place, bruising to R eye lid.), Decubitis (stage 2 ulcer to sacrum, small purulence noted on palpation along with pain. Erythema surrounding this region as well.) Neuro Extensive - Mental Status: Normal Mood/Affect. No: Alert, Disorientation to Place, Disorientation to Time Neuro Extensive - Motor, Sensory, Reflexes: No: CN II-XII Intact (will not follow commangs appropriately.) Psychiatric: Alert - Patient Data Lab Results Last 24 hrs: Laboratory Results - last 24 hr 09/23/18 09/23/18 09/23/18 Range/Units 09:06 09:06 09:06 WBC 15.45 H (4.0-11.0) K/uL RBC 2.81 L (4.30-5.90) M/uL Hgb 8.8 L (12.0-16.0) g/dL Hct 26.7 L (36.0-46.0) % MCV 95.0 (80.0-98.0) fL MCH 31.3 (27.0-32.0) pg MCHC 33.0 (31.0-37.0) g/dL RDW Std Deviation 62.9 H (28.0-62.0) fl RDW Coeff of Joelle 18 H (11.0-15.0) % Plt Count 165 (150-400) K/uL MPV 9.60 (7.40-12.00) fL Add Manual Diff YES Neutrophils % (Manual) 84 H (48.0-80.0) % Band Neutrophils % 6 % Lymphocytes % (Manual) 8 L (16.0-40.0) % Monocytes % (Manual) 1 (0.0-15.0) % Eosinophils % (Manual) 1 (0.0-7.0) % Nucleated RBC % 0.0 /100WBC Absolute Seg Neuts 13.0 H (1.4-5.7) Band Neutrophils # 0.9 Lymphocytes # (Manual) 1.2 (0.6-2.4) Monocytes # (Manual) 0.2 (0.0-0.8) Eosinophils # (Manual) 0.2 (0.0-0.7) Nucleated RBCs # 0 K/uL INR 1.17 Lactate (0.20-2.00) mmol/L Sodium 139 (136-145) mmol/L Potassium 3.7 (3.5-5.1) mmol/L Chloride 105 (98-107) mmol/L Carbon Dioxide 25.2 (21.0-32.0) mmol/L BUN 35 H (7.0-18.0) mg/dL Creatinine 1.3 H (0.6-1.0) mg/dL Est Cr Clr Drug Dosing TNP Estimated GFR (MDRD) 38.6 ml/min Glucose 102 (74-106) mg/dL Calcium 8.7 (8.5-10.1) mg/dL Total Bilirubin 1.1 H (0.2-1.0) mg/dL AST 16 (15-37) IU/L ALT 12 L (14-63) IU/L Alkaline Phosphatase 57 (46-116) U/L Ammonia (19-54) ug/dL Troponin I < 0.050 (0.000-0.056) ng/mL Total Protein 6.2 L (6.4-8.2) g/dL Albumin 2.6 L (3.4-5.0) g/dL Globulin 3.6 (2.6-4.0) g/dL Albumin/Globulin Ratio 0.7 L (0.9-1.6) Urine Color Urine Appearance Urine pH (5.0-8.0) Ur Specific [place] (1.001-1.035) Urine Protein (NEGATIVE) mg/dL Urine Glucose (UA) (NEGATIVE) mg/dL Urine Ketones (NEGATIVE) mg/dL Urine Occult Blood (NEGATIVE) Urine Nitrite (NEGATIVE) Urine Bilirubin (NEGATIVE) Urine Urobilinogen (<2.0) EU/dL Ur Leukocyte Esterase (NEGATIVE) Urine RBC (0-2/HPF) Urine WBC (0-5/HPF) Ur Epithelial Cells (NONE-FEW) Urine Bacteria (NEGATIVE) 09/23/18 09/23/18 09/23/18 Range/Units 09:06 09:06 10:23 WBC (4.0-11.0) K/uL RBC (4.30-5.90) M/uL Hgb (12.0-16.0) g/dL Hct (36.0-46.0) % MCV (80.0-98.0) fL MCH (27.0-32.0) pg MCHC (31.0-37.0) g/dL RDW Std Deviation (28.0-62.0) fl RDW Coeff of Joelle (11.0-15.0) % Plt Count (150-400) K/uL MPV (7.40-12.00) fL Add Manual Diff Neutrophils % (Manual) (48.0-80.0) % Band Neutrophils % % Lymphocytes % (Manual) (16.0-40.0) % Monocytes % (Manual) (0.0-15.0) % Eosinophils % (Manual) (0.0-7.0) % Nucleated RBC % /100WBC Absolute Seg Neuts (1.4-5.7) Band Neutrophils # Lymphocytes # (Manual) (0.6-2.4) Monocytes # (Manual) (0.0-0.8) Eosinophils # (Manual) (0.0-0.7) Nucleated RBCs # K/uL INR Lactate 0.6 (0.20-2.00) mmol/L Sodium (136-145) mmol/L Potassium (3.5-5.1) mmol/L Chloride (98-107) mmol/L Carbon Dioxide (21.0-32.0) mmol/L BUN (7.0-18.0) mg/dL Creatinine (0.6-1.0) mg/dL Est Cr Clr Drug Dosing Estimated GFR (MDRD) ml/min Glucose (74-106) mg/dL Calcium (8.5-10.1) mg/dL Total Bilirubin (0.2-1.0) mg/dL AST (15-37) IU/L ALT (14-63) IU/L Alkaline Phosphatase (46-116) U/L Ammonia <17 L (19-54) ug/dL Troponin I (0.000-0.056) ng/mL Total Protein (6.4-8.2) g/dL Albumin (3.4-5.0) g/dL Globulin (2.6-4.0) g/dL Albumin/Globulin Ratio (0.9-1.6) Urine Color YELLOW Urine Appearance SLT CLOUDY Urine pH 6.0 (5.0-8.0) Ur Specific [place] 1.020 (1.001-1.035) Urine Protein NEGATIVE (NEGATIVE) mg/dL Urine Glucose (UA) NEGATIVE (NEGATIVE) mg/dL Urine Ketones NEGATIVE (NEGATIVE) mg/dL Urine Occult Blood NEGATIVE (NEGATIVE) Urine Nitrite NEGATIVE (NEGATIVE) Urine Bilirubin NEGATIVE (NEGATIVE) Urine Urobilinogen 0.2 (<2.0) EU/dL Ur Leukocyte Esterase TRACE H (NEGATIVE) Urine RBC NONE SEEN (0-2/HPF) Urine WBC 2-5 (0-5/HPF) Ur Epithelial Cells OCCASIONAL (NONE-FEW) Urine Bacteria RARE (NEGATIVE) Result Diagrams: 09/23/18 09:06 09/23/18 09:06 [place]ton Results Last 24 hrs: Microbiology 09/23/18 09:23 Anaerobic Blood Culture - Final Blood - Venous - Lab Draw 09/23/18 09:17 Anaerobic Blood Culture - Final Blood - Venous EKG INTERPRETATION EKG Date: 09/23/18 Rhythm: NSR Rate (Beats/Min): 80 [place]: Normal QRS: Normal ST-T: Normal QT: Normal - Problem List (1) Altered mental status SNOMED Code(s): 555422411 ICD Code: R41.82 - ALTERED MENTAL STATUS, UNSPECIFIED Status: Acute Current Visit: Yes (2) Cellulitis SNOMED Code(s): 635880875 ICD Code: L03.90 - CELLULITIS, UNSPECIFIED Status: Acute Current Visit: Yes (3) UTI (urinary tract infection) SNOMED Code(s): 16097113 ICD Code: N39.0 - URINARY TRACT INFECTION, SITE NOT SPECIFIED Status: Acute Current Visit: Yes Qualifiers: Urinary tract infection type: acute cystitis (4) Head injury SNOMED Code(s): 87725983 ICD Code: S09.90XA - UNSPECIFIED INJURY OF HEAD, INITIAL ENCOUNTER Status: Acute Current Visit: Yes (5) Falls SNOMED Code(s): 4667183, 318111291 ICD Code: W19.XXXA - UNSPECIFIED FALL, INITIAL ENCOUNTER Status: Acute Current Visit: Yes Qualifiers: Encounter type: initial encounter Qualified Code(s): W19.XXXA - Unspecified fall, initial encounter (6) Decubital ulcer SNOMED Code(s): 981257003 ICD Code: L89.90 - PRESSURE ULCER OF UNSPECIFIED SITE, UNSPECIFIED STAGE Status: Chronic Current Visit: Yes Qualifiers: Pressure injury location: sacral region Pressure injury stage: stage 2 Qualified Code(s): L89.152 - Pressure ulcer of sacral region, stage 2 (7) Chronic anemia SNOMED Code(s): 790385062 ICD Code: D64.9 - ANEMIA, UNSPECIFIED Status: Chronic Current Visit: Yes (8) Dementia SNOMED Code(s): 90709202 ICD Code: F03.90 - UNSPECIFIED DEMENTIA WITHOUT BEHAVIORAL DISTURBANCE Status: Chronic Current Visit: No (9) Diabetes mellitus type 2 in obese SNOMED Code(s): 22952381 ICD Code: E11.9 - TYPE 2 DIABETES MELLITUS WITHOUT COMPLICATIONS; E66.9 - OBESITY, UNSPECIFIED Status: Chronic Priority: Medium Current Visit: No (10) Dizziness, nonspecific SNOMED Code(s): 046896452, 142357159 ICD Code: R42 - DIZZINESS AND GIDDINESS Status: Chronic Current Visit: No (11) Dyslipidemia SNOMED Code(s): 239770633 ICD Code: E78.5 - HYPERLIPIDEMIA, UNSPECIFIED Status: Chronic Current Visit: No (12) Hypertension SNOMED Code(s): 75575043 ICD Code: I10 - ESSENTIAL (PRIMARY) HYPERTENSION Status: Chronic Current Visit: No Qualifiers: Hypertension type: essential hypertension Qualified Code(s): I10 - Essential (primary) hypertension Problem List Initiated/Reviewed/Updated: Yes Orders Last 24hrs: Active Orders 24 hr Category Date Time Status Patient Status [ADT] Stat ADT 09/23/18 10:30 Active EKG Documentation Completion [RC] STAT Care 09/23/18 08:54 Active CULTURE BLOOD [BC] Stat Lab 09/23/18 09:17 Results CULTURE BLOOD [BC] Stat Lab 09/23/18 09:23 Results CULTURE URINE [RM] Stat Lab 09/23/18 10:23 Received Sodium Chloride 0.9% [Normal Saline] 1,000 ml Med 09/23/18 09:15 Active IV STAT Blood Culture x2 Reflex Set [OM.PC] Stat Oth 09/23/18 09:04 Ordered Medication Orders Sodium Chloride (Normal Saline) 1,000 mls @ 125 mls/hr IV STAT [facility] Last Admin: 09/23/18 09:47 Dose: 125 mls/hr Assessment/Plan Comment:: This 88 year old female admitted with AMS s/p fall at [place] along with cellulitis of sacral region and mild UTI 1. AMS: leukocytosis noted, may be due to acute illness. Head CT negative. Will monitor closely. Avoid narcotics and benzodiazepines. 2. Cellulitis to sacrum: Has stage 2 ulcer, with scant purulent drainage on old dressing and increased pain to this region. Start Vancomycin, pharmacy to dose. Consult wound care. obtain wound culture. BC pending 3. UTI: Mild, UC pending. Start Rocephin. Monitor. 4. DM Type 2: Stable.Continue SSI and Levemir at bedtime, but half dose. TID AC BS checks. 5. HTN: Stable. Continue Losartan. BUN/Cr at baseline. will monitor. VTE prophylaxis: Heparin Dispo: 1-3 days pending improvement <Holden Sena - Last Filed: 09/23/18 17:49> H&P History of Present Illness - General Admit Problem/Dx: Admission Diagnosis/Problem Admission Diagnosis/Problem Head injury consultation I have seen and examined to patient independently of Gwendolyn Whitfield CNP. I have discussed the case for care of this patient with her. I have reviewed and approve of the plan of care as outlined by CUT OFF WORKER. Please see orders. Exam - Vital Signs Vital Signs: Last Vital Signs Temp 37.2 C 09/23/18 16:00 Pulse 118 H 09/23/18 16:00 Resp 18 09/23/18 16:00 BP 165/92 H 09/23/18 16:00 Pulse Ox 95 09/23/18 16:00 - Patient Data Lab Results Last 24 hrs: Laboratory Results - last 24 hr 09/23/18 09/23/18 09/23/18 Range/Units 09:06 09:06 09:06 WBC 15.45 H (4.0-11.0) K/uL RBC 2.81 L (4.30-5.90) M/uL Hgb 8.8 L (12.0-16.0) g/dL Hct 26.7 L (36.0-46.0) % MCV 95.0 (80.0-98.0) fL MCH 31.3 (27.0-32.0) pg MCHC 33.0 (31.0-37.0) g/dL RDW Std Deviation 62.9 H (28.0-62.0) fl RDW Coeff of Joelle 18 H (11.0-15.0) % Plt Count 165 (150-400) K/uL MPV 9.60 (7.40-12.00) fL Add Manual Diff YES Neutrophils % (Manual) 84 H (48.0-80.0) % Band Neutrophils % 6 % Lymphocytes % (Manual) 8 L (16.0-40.0) % Monocytes % (Manual) 1 (0.0-15.0) % Eosinophils % (Manual) 1 (0.0-7.0) % Nucleated RBC % 0.0 /100WBC Absolute Seg Neuts 13.0 H (1.4-5.7) Band Neutrophils # 0.9 Lymphocytes # (Manual) 1.2 (0.6-2.4) Monocytes # (Manual) 0.2 (0.0-0.8) Eosinophils # (Manual) 0.2 (0.0-0.7) Nucleated RBCs # 0 K/uL INR 1.17 Lactate (0.20-2.00) mmol/L Sodium 139 (136-145) mmol/L Potassium 3.7 (3.5-5.1) mmol/L Chloride 105 (98-107) mmol/L Carbon Dioxide 25.2 (21.0-32.0) mmol/L BUN 35 H (7.0-18.0) mg/dL Creatinine 1.3 H (0.6-1.0) mg/dL Est Cr Clr Drug Dosing TNP Estimated GFR (MDRD) 38.6 ml/min Glucose 102 (74-106) mg/dL Calcium 8.7 (8.5-10.1) mg/dL Total Bilirubin 1.1 H (0.2-1.0) mg/dL AST 16 (15-37) IU/L ALT 12 L (14-63) IU/L Alkaline Phosphatase 57 (46-116) U/L Ammonia (19-54) ug/dL Troponin I < 0.050 (0.000-0.056) ng/mL Total Protein 6.2 L (6.4-8.2) g/dL Albumin 2.6 L (3.4-5.0) g/dL Globulin 3.6 (2.6-4.0) g/dL Albumin/Globulin Ratio 0.7 L (0.9-1.6) Urine Color Urine Appearance Urine pH (5.0-8.0) Ur Specific [place] (1.001-1.035) Urine Protein (NEGATIVE) mg/dL Urine Glucose (UA) (NEGATIVE) mg/dL Urine Ketones (NEGATIVE) mg/dL Urine Occult Blood (NEGATIVE) Urine Nitrite (NEGATIVE) Urine Bilirubin (NEGATIVE) Urine Urobilinogen (<2.0) EU/dL Ur Leukocyte Esterase (NEGATIVE) Urine RBC (0-2/HPF) Urine WBC (0-5/HPF) Ur Epithelial Cells (NONE-FEW) Urine Bacteria (NEGATIVE) 09/23/18 09/23/18 09/23/18 Range/Units 09:06 09:06 10:23 WBC (4.0-11.0) K/uL RBC (4.30-5.90) M/uL Hgb (12.0-16.0) g/dL Hct (36.0-46.0) % MCV (80.0-98.0) fL MCH (27.0-32.0) pg MCHC (31.0-37.0) g/dL RDW Std Deviation (28.0-62.0) fl RDW Coeff of Joelle (11.0-15.0) % Plt Count (150-400) K/uL MPV (7.40-12.00) fL Add Manual Diff Neutrophils % (Manual) (48.0-80.0) % Band Neutrophils % % Lymphocytes % (Manual) (16.0-40.0) % Monocytes % (Manual) (0.0-15.0) % Eosinophils % (Manual) (0.0-7.0) % Nucleated RBC % /100WBC Absolute Seg Neuts (1.4-5.7) Band Neutrophils # Lymphocytes # (Manual) (0.6-2.4) Monocytes # (Manual) (0.0-0.8) Eosinophils # (Manual) (0.0-0.7) Nucleated RBCs # K/uL INR Lactate 0.6 (0.20-2.00) mmol/L Sodium (136-145) mmol/L Potassium (3.5-5.1) mmol/L Chloride (98-107) mmol/L Carbon Dioxide (21.0-32.0) mmol/L BUN (7.0-18.0) mg/dL Creatinine (0.6-1.0) mg/dL Est Cr Clr Drug Dosing Estimated GFR (MDRD) ml/min Glucose (74-106) mg/dL Calcium (8.5-10.1) mg/dL Total Bilirubin (0.2-1.0) mg/dL AST (15-37) IU/L ALT (14-63) IU/L Alkaline Phosphatase (46-116) U/L Ammonia <17 L (19-54) ug/dL Troponin I (0.000-0.056) ng/mL Total Protein (6.4-8.2) g/dL Albumin (3.4-5.0) g/dL Globulin (2.6-4.0) g/dL Albumin/Globulin Ratio (0.9-1.6) Urine Color YELLOW Urine Appearance SLT CLOUDY Urine pH 6.0 (5.0-8.0) Ur Specific [place] 1.020 (1.001-1.035) Urine Protein NEGATIVE (NEGATIVE) mg/dL Urine Glucose (UA) NEGATIVE (NEGATIVE) mg/dL Urine Ketones NEGATIVE (NEGATIVE) mg/dL Urine Occult Blood NEGATIVE (NEGATIVE) Urine Nitrite NEGATIVE (NEGATIVE) Urine Bilirubin NEGATIVE (NEGATIVE) Urine Urobilinogen 0.2 (<2.0) EU/dL Ur Leukocyte Esterase TRACE H (NEGATIVE) Urine RBC NONE SEEN (0-2/HPF) Urine WBC 2-5 (0-5/HPF) Ur Epithelial Cells OCCASIONAL (NONE-FEW) Urine Bacteria RARE (NEGATIVE) Result Diagrams: 09/23/18 09:06 09/23/18 09:06 [place] Results Last 24 hrs: Microbiology 09/23/18 09:23 Anaerobic Blood Culture - Final Blood - Venous - Lab Draw 09/23/18 09:17 Anaerobic Blood Culture - Final Blood - Venous Orders Last 24hrs: Active Orders 24 hr Category Date Time Status Patient Status [ADT] Stat ADT 09/23/18 10:30 Active Blood Glucose Check, Bedside [RC] TIDAC Care 09/23/18 12:39 Active EKG Documentation Completion [RC] STAT Care 09/23/18 08:54 Active Intake and Output [RC] Q12H Care 09/23/18 11:43 Active Oxygen Therapy [RC] PRN Care 09/23/18 11:43 Active Telemetry Monitoring [Cardiac Monitoring] [RC] . Care 09/23/18 12:21 Active DIRECTED Up With Assistance [RC] ASDIRECTED Care 09/23/18 11:43 Active VTE/DVT Education [RC] PER UNIT ROUTINE Care 09/23/18 11:43 Active Vital Signs [RC] Q4H Care 09/23/18 11:43 Active Consult to Physical Therapy [PT Evaluation and Cons 09/23/18 12:37 Active Treatment] [CONS] Stat Consult to Wound Care Services [CONS] Routine Cons 09/23/18 12:51 Active PT Evaluation and Treatment [CONS] Routine Cons 09/23/18 11:43 Active Citizen Of [place] [employer]abetic [employer] Diet [DIET] Diet 09/23/18 Lunch Active BASIC METABOLIC PANEL,BMP [CHEM] AM Lab 09/24/18 05:11 Ordered CBC WITH AUTO DIFF [HEME] AM Lab 09/24/18 05:11 Ordered CULTURE BLOOD [BC] Stat Lab 09/23/18 09:17 Results CULTURE BLOOD [BC] Stat Lab 09/23/18 09:23 Results CULTURE URINE [RM] Stat Lab 09/23/18 10:23 Received CULTURE WOUND [RM] Routine Lab 09/23/18 17:10 Received VANCOMYCIN TROUGH [CHEM] Routine Lab 09/26/18 11:30 Ordered Acetaminophen [Tylenol] Med 09/23/18 11:43 Active 650 mg PO Q4H PRN Aspirin Med 09/24/18 09:00 Active 81 mg PO DAILY Bisacodyl [Dulcolax] Med 09/23/18 15:57 Active 10 mg RECTAL DAILY PRN Docusate Sodium [Colace] Med 09/23/18 21:00 Active 100 mg PO BID Famotidine [Pepcid] Med 09/23/18 21:00 Active 40 mg PO BEDTIME Heparin Sodium Med 09/23/18 16:30 Active 5,000 units SUBCUT Q8H Insulin Aspart [NovoLOG] Med 09/23/18 17:00 Active See Protocol SUBCUT TIDAC Insulin Detemir [Levemir] Med 09/23/18 21:00 Active 10 unit SUBCUT BEDTIME Levothyroxine Med 09/24/18 07:30 Active 75 mcg PO ACBREAKFAST Losartan [Cozaar] Med 09/24/18 09:00 Active 25 mg PO DAILY Meclizine [Antivert] Med 09/23/18 21:00 Active 25 mg PO BID Nystatin [Nystop] Med 09/23/18 16:00 Active 15 gm TOP Q8H Ondansetron [Zofran] Med 09/23/18 11:43 Active 4 mg IVPUSH Q4H PRN Patient's Own Medication [Ptom] Med 09/23/18 19:00 Active 1 each TOP 0700,1900 Pharmacy to Dose - Vancomycin Med 09/23/18 12:30 Active 1 dose .XX ASDIRECTED Polyethylene Glycol 3350 [MiraLAX] Med 09/23/18 21:00 Active 17 gm PO BID Sodium Chloride 0.9% [Normal Saline] 1,000 ml Med 09/23/18 12:30 Active IV ASDIRECTED Vancomycin [Vancocin] 1 gm Med 09/23/18 12:30 Active Sodium Chloride 0.9% [Normal Saline] 250 ml IV Q24H cefTRIAXone [Rocephin in Dextrose,Iso-Osm 1 GM/50 ML] 1 Med 09/23/18 11:45 Active gm Premix Bag 1 bag IV Q24H Blood Culture x2 Reflex Set [OM.PC] Stat Oth 09/23/18 09:04 Ordered Resuscitation Status Routine Resus Stat 09/23/18 12:37 Ordered Medication Orders Acetaminophen (Tylenol) 650 mg PO Q4H PRN PRN Reason: Pain (mild 1-3) Aspirin (Aspirin) 81 mg PO DAILY [facility] Bisacodyl (Dulcolax) 10 mg RECTAL DAILY PRN PRN Reason: Constipation Docusate Sodium (Colace) 100 mg PO BID [facility] Famotidine (Pepcid) 40 mg PO BEDTIME [facility] Heparin Sodium (Porcine) (Heparin Sodium) 5,000 units SUBCUT Q8H [facility] Last Admin: 09/23/18 16:54 Dose: 5,000 units Ceftriaxone Sodium/Dextrose 1 (gm/ Premix) 50 mls @ 100 mls/hr IV Q24H [facility] Last Admin: 09/23/18 12:30 Dose: 100 mls/hr Sodium Chloride (Normal Saline) 1,000 mls @ 75 mls/hr IV ASDIRECTED ANAMIKA Vancomycin HCl 1 gm/ Sodium (Chloride) 250 mls @ 166.667 mls/hr IV Q24H [facility] Last Admin: 09/23/18 13:14 Dose: 166.667 mls/hr Insulin Aspart (Novolog) 0 unit SUBCUT TIDAC [facility]; Protocol Last Admin: 09/23/18 16:50 Dose: Not Given Insulin Detemir (Levemir) 10 unit SUBCUT BEDTIME [facility] Levothyroxine Sodium (Levothyroxine) 75 mcg PO ACBREAKFAST [facility] Losartan Potassium (Cozaar) 25 mg PO DAILY [facility] Meclizine HCl (Antivert) 25 mg PO BID [facility] Nystatin (Nystop) 15 gm TOP Q8H [facility] Last Admin: 09/23/18 16:57 Dose: 15 gm Ondansetron HCl (Zofran) 4 mg IVPUSH Q4H PRN PRN Reason: Nausea [Diclofenac Sodium] (1 Appful) 1 each TOP 0700,1900 [facility] Polyethylene Glycol (Miralax) 17 gm PO BID [facility] Vancomycin HCl (Pharmacy To Dose - Vancomycin) 1 dose .XX ASDIRECTED ANAMIKA
[2018-09-23] MEDS ORDERED: Ondansetron 4 MG/2 ML SDV IVPUSH PRN (11:43)
[2018-09-23] MEDS ORDERED: cefTRIAXone 1 GM in Premix Bag 1 BAG IV SCH (11:45)
[2018-09-23] MEDS ORDERED: Bisacodyl 10 MG Supp RECTAL PRN (15:57)
[2018-09-23] MEDS: Insulin Aspart 100 Units/ML 3 ML Pen SUBCUT SCH (16:50)
[2018-09-23] MEDS: Heparin Sodium 5,000 Units/ML Vial SUBCUT SCH (16:54)
[2018-09-23] MEDS: Nystatin Topical Powder 15 GM Bottle TOP SCH ×2 (16:57→23:00)
[2018-09-23] MEDS: Acetaminophen 325 MG Tab PO PRN (18:27)
[2018-09-23] MEDS: [UNRECOGNIZED DRUG - OTHER] TOP SCH (20:00)
[2018-09-23] MEDS: Docusate Sodium 100 MG Cap PO SCH (20:56)
[2018-09-23] MEDS: Meclizine 25 MG Tab PO SCH (20:56)
[2018-09-23] MEDS: Polyethylene Glycol 3350 Powder 17 GM Packet PO SCH (20:56)
[2018-09-23] MEDS: Famotidine 20 MG Tab PO SCH (20:56)
[2018-09-23] MEDS: Insulin Detemir 100 Units/ML 3 ML Pen SUBCUT SCH (21:30)
[2018-09-23] MEDS: Sodium Chloride 0.9% 1,000 ML IV SCH (22:58)
[2018-09-24] MEDS: Heparin Sodium 5,000 Units/ML Vial SUBCUT SCH ×2 (01:29→09:07)
[2018-09-24] MEDS: [UNRECOGNIZED DRUG - OTHER] TOP SCH ×2 (06:09→20:14)
[2018-09-24 06:20] LABS: CHLORIDE,CL 107 mmol/L (98-107); SODIUM,NA 141 mmol/L (136-145)
[2018-09-24] MEDS: Insulin Aspart 100 Units/ML 3 ML Pen SUBCUT SCH ×3 (06:46→16:59)
[2018-09-24] MEDS: Levothyroxine 75 MCG Tab PO SCH (06:46)
--- NOTE | 2018-09-24 08:02 | PCM.PN ---
<Gwendolyn Whitfield M - Last Filed: 09/24/18 09:24> - General Info Date of Service: 09/24/18 Admission Dx/Problem (Free Text): Admission Diagnosis/Problem Admission Diagnosis/Problem Cellulitis of sacral pressure ulcer, AMS Subjective Update: Continues to be confused this morning. Very sleepy. Was up earlier eating breakfast and went to CT. Denies pain, but when moved to assess sacrum, she reports pain to her bottom. No chest pain or SOB. Functional Status: Reports: Pain Controlled, Tolerating Diet, Ambulating, Urinating - Review of Systems General: Reports: Weakness (generalized), Fatigue. Denies: Fever Pulmonary: Reports: No Symptoms. Denies: Shortness of Breath Cardiovascular: Reports: No Symptoms. Denies: Chest Pain Gastrointestinal: Reports: No Symptoms. Denies: Abdominal Pain, Nausea, Vomiting Genitourinary: Reports: No Symptoms. Denies: Dysuria, Frequency, Burning Musculoskeletal: Reports: Other (sacral pain) Skin: Reports: No Symptoms Neurological: Reports: No Symptoms Psychiatric: Reports: No Symptoms - Patient Data Vitals - Most Recent: Last Vital Signs Temp 98.5 F 09/24/18 03:56 Pulse 92 09/24/18 03:56 Resp 16 09/24/18 03:56 BP 138/72 09/24/18 03:56 Pulse Ox 97 09/24/18 03:56 Weight - Most Recent: 67 kg I&O - Last 24 Hours: Intake & Output 09/23/18 09/24/18 09/24/18 22:59 06:59 14:59 Intake Total 277 1400 Output Total 0 Balance 277 1400 Lab Results Last 24 Hours: Laboratory Results - last 24 hr 09/23/18 09/23/18 09/23/18 Range/Units 09:06 09:06 09:06 WBC 15.45 H (4.0-11.0) K/uL RBC 2.81 L (4.30-5.90) M/uL Hgb 8.8 L (12.0-16.0) g/dL Hct 26.7 L (36.0-46.0) % MCV 95.0 (80.0-98.0) fL MCH 31.3 (27.0-32.0) pg MCHC 33.0 (31.0-37.0) g/dL RDW Std Deviation 62.9 H (28.0-62.0) fl RDW Coeff of Joelle 18 H (11.0-15.0) % Plt Count 165 (150-400) K/uL MPV 9.60 (7.40-12.00) fL Neut % (Auto) (48.0-80.0) % Lymph % (Auto) (16.0-40.0) % [place] % (Auto) (0.0-15.0) % Eos % (Auto) (0.0-7.0) % Baso % (Auto) (0.0-1.5) % Neut # (Auto) (1.4-5.7) K/uL Lymph # (Auto) (0.6-2.4) K/uL [place] # (Auto) (0.0-0.8) K/uL Eos # (Auto) (0.0-0.7) K/uL Baso # (Auto) (0.0-0.1) K/uL Add Manual Diff YES Neutrophils % (Manual) 84 H (48.0-80.0) % Band Neutrophils % 6 % Lymphocytes % (Manual) 8 L (16.0-40.0) % Monocytes % (Manual) 1 (0.0-15.0) % Eosinophils % (Manual) 1 (0.0-7.0) % Nucleated RBC % 0.0 /100WBC Absolute Seg Neuts 13.0 H (1.4-5.7) Band Neutrophils # 0.9 Lymphocytes # (Manual) 1.2 (0.6-2.4) Monocytes # (Manual) 0.2 (0.0-0.8) Eosinophils # (Manual) 0.2 (0.0-0.7) Nucleated RBCs # 0 K/uL INR 1.17 Lactate (0.20-2.00) mmol/L Sodium 139 (136-145) mmol/L Potassium 3.7 (3.5-5.1) mmol/L Chloride 105 (98-107) mmol/L Carbon Dioxide 25.2 (21.0-32.0) mmol/L BUN 35 H (7.0-18.0) mg/dL Creatinine 1.3 H (0.6-1.0) mg/dL Est Cr Clr Drug Dosing TNP Estimated GFR (MDRD) 38.6 ml/min Glucose 102 (74-106) mg/dL POC Glucose (60-110) mg/dL Calcium 8.7 (8.5-10.1) mg/dL Total Bilirubin 1.1 H (0.2-1.0) mg/dL AST 16 (15-37) IU/L ALT 12 L (14-63) IU/L Alkaline Phosphatase 57 (46-116) U/L Ammonia (19-54) ug/dL Troponin I < 0.050 (0.000-0.056) ng/mL Total Protein 6.2 L (6.4-8.2) g/dL Albumin 2.6 L (3.4-5.0) g/dL Globulin 3.6 (2.6-4.0) g/dL Albumin/Globulin Ratio 0.7 L (0.9-1.6) Urine Color Urine Appearance Urine pH (5.0-8.0) Ur Specific [place] (1.001-1.035) Urine Protein (NEGATIVE) mg/dL Urine Glucose (UA) (NEGATIVE) mg/dL Urine Ketones (NEGATIVE) mg/dL Urine Occult Blood (NEGATIVE) Urine Nitrite (NEGATIVE) Urine Bilirubin (NEGATIVE) Urine Urobilinogen (<2.0) EU/dL Ur Leukocyte Esterase (NEGATIVE) Urine RBC (0-2/HPF) Urine WBC (0-5/HPF) Ur Epithelial Cells (NONE-FEW) Urine Bacteria (NEGATIVE) 09/23/18 09/23/18 09/23/18 Range/Units 09:06 09:06 10:23 WBC (4.0-11.0) K/uL RBC (4.30-5.90) M/uL Hgb (12.0-16.0) g/dL Hct (36.0-46.0) % MCV (80.0-98.0) fL MCH (27.0-32.0) pg MCHC (31.0-37.0) g/dL RDW Std Deviation (28.0-62.0) fl RDW Coeff of Joelle (11.0-15.0) % Plt Count (150-400) K/uL MPV (7.40-12.00) fL Neut % (Auto) (48.0-80.0) % Lymph % (Auto) (16.0-40.0) % [place] % (Auto) (0.0-15.0) % Eos % (Auto) (0.0-7.0) % Baso % (Auto) (0.0-1.5) % Neut # (Auto) (1.4-5.7) K/uL Lymph # (Auto) (0.6-2.4) K/uL [place] # (Auto) (0.0-0.8) K/uL Eos # (Auto) (0.0-0.7) K/uL Baso # (Auto) (0.0-0.1) K/uL Add Manual Diff Neutrophils % (Manual) (48.0-80.0) % Band Neutrophils % % Lymphocytes % (Manual) (16.0-40.0) % Monocytes % (Manual) (0.0-15.0) % Eosinophils % (Manual) (0.0-7.0) % Nucleated RBC % /100WBC Absolute Seg Neuts (1.4-5.7) Band Neutrophils # Lymphocytes # (Manual) (0.6-2.4) Monocytes # (Manual) (0.0-0.8) Eosinophils # (Manual) (0.0-0.7) Nucleated RBCs # K/uL INR Lactate 0.6 (0.20-2.00) mmol/L Sodium (136-145) mmol/L Potassium (3.5-5.1) mmol/L Chloride (98-107) mmol/L Carbon Dioxide (21.0-32.0) mmol/L BUN (7.0-18.0) mg/dL Creatinine (0.6-1.0) mg/dL Est Cr Clr Drug Dosing Estimated GFR (MDRD) ml/min Glucose (74-106) mg/dL POC Glucose (60-110) mg/dL Calcium (8.5-10.1) mg/dL Total Bilirubin (0.2-1.0) mg/dL AST (15-37) IU/L ALT (14-63) IU/L Alkaline Phosphatase (46-116) U/L Ammonia <17 L (19-54) ug/dL Troponin I (0.000-0.056) ng/mL Total Protein (6.4-8.2) g/dL Albumin (3.4-5.0) g/dL Globulin (2.6-4.0) g/dL Albumin/Globulin Ratio (0.9-1.6) Urine Color YELLOW Urine Appearance SLT CLOUDY Urine pH 6.0 (5.0-8.0) Ur Specific [place] 1.020 (1.001-1.035) Urine Protein NEGATIVE (NEGATIVE) mg/dL Urine Glucose (UA) NEGATIVE (NEGATIVE) mg/dL Urine Ketones NEGATIVE (NEGATIVE) mg/dL Urine Occult Blood NEGATIVE (NEGATIVE) Urine Nitrite NEGATIVE (NEGATIVE) Urine Bilirubin NEGATIVE (NEGATIVE) Urine Urobilinogen 0.2 (<2.0) EU/dL Ur Leukocyte Esterase TRACE H (NEGATIVE) Urine RBC NONE SEEN (0-2/HPF) Urine WBC 2-5 (0-5/HPF) Ur Epithelial Cells OCCASIONAL (NONE-FEW) Urine Bacteria RARE (NEGATIVE) 09/23/18 09/23/18 09/24/18 Range/Units 16:49 21:05 05:20 WBC 18.64 H (4.0-11.0) K/uL RBC 2.46 L (4.30-5.90) M/uL Hgb 7.6 L (12.0-16.0) g/dL Hct 23.1 L (36.0-46.0) % MCV 93.9 (80.0-98.0) fL MCH 30.9 (27.0-32.0) pg MCHC 32.9 (31.0-37.0) g/dL RDW Std Deviation 63.6 H (28.0-62.0) fl RDW Coeff of Joelle 18 H (11.0-15.0) % Plt Count 160 (150-400) K/uL MPV 9.30 (7.40-12.00) fL Neut % (Auto) 94.2 H (48.0-80.0) % Lymph % (Auto) 3.4 L (16.0-40.0) % [place] % (Auto) 2.2 (0.0-15.0) % Eos % (Auto) 0.1 (0.0-7.0) % Baso % (Auto) 0.1 (0.0-1.5) % Neut # (Auto) 17.6 H (1.4-5.7) K/uL Lymph # (Auto) 0.6 (0.6-2.4) K/uL [place] # (Auto) 0.4 (0.0-0.8) K/uL Eos # (Auto) 0.0 (0.0-0.7) K/uL Baso # (Auto) 0.0 (0.0-0.1) K/uL Add Manual Diff Neutrophils % (Manual) (48.0-80.0) % Band Neutrophils % % Lymphocytes % (Manual) (16.0-40.0) % Monocytes % (Manual) (0.0-15.0) % Eosinophils % (Manual) (0.0-7.0) % Nucleated RBC % 0.0 /100WBC Absolute Seg Neuts (1.4-5.7) Band Neutrophils # Lymphocytes # (Manual) (0.6-2.4) Monocytes # (Manual) (0.0-0.8) Eosinophils # (Manual) (0.0-0.7) Nucleated RBCs # 0 K/uL INR Lactate (0.20-2.00) mmol/L Sodium (136-145) mmol/L Potassium (3.5-5.1) mmol/L Chloride (98-107) mmol/L Carbon Dioxide (21.0-32.0) mmol/L BUN (7.0-18.0) mg/dL Creatinine (0.6-1.0) mg/dL Est Cr Clr Drug Dosing Estimated GFR (MDRD) ml/min Glucose (74-106) mg/dL POC Glucose 106 199 H (60-110) mg/dL Calcium (8.5-10.1) mg/dL Total Bilirubin (0.2-1.0) mg/dL AST (15-37) IU/L ALT (14-63) IU/L Alkaline Phosphatase (46-116) U/L Ammonia (19-54) ug/dL Troponin I (0.000-0.056) ng/mL Total Protein (6.4-8.2) g/dL Albumin (3.4-5.0) g/dL Globulin (2.6-4.0) g/dL Albumin/Globulin Ratio (0.9-1.6) Urine Color Urine Appearance Urine pH (5.0-8.0) Ur Specific [place] (1.001-1.035) Urine Protein (NEGATIVE) mg/dL Urine Glucose (UA) (NEGATIVE) mg/dL Urine Ketones (NEGATIVE) mg/dL Urine Occult Blood (NEGATIVE) Urine Nitrite (NEGATIVE) Urine Bilirubin (NEGATIVE) Urine Urobilinogen (<2.0) EU/dL Ur Leukocyte Esterase (NEGATIVE) Urine RBC (0-2/HPF) Urine WBC (0-5/HPF) Ur Epithelial Cells (NONE-FEW) Urine Bacteria (NEGATIVE) 09/24/18 09/24/18 Range/Units 05:20 06:27 WBC (4.0-11.0) K/uL RBC (4.30-5.90) M/uL Hgb (12.0-16.0) g/dL Hct (36.0-46.0) % MCV (80.0-98.0) fL MCH (27.0-32.0) pg MCHC (31.0-37.0) g/dL RDW Std Deviation (28.0-62.0) fl RDW Coeff of Joelle (11.0-15.0) % Plt Count (150-400) K/uL MPV (7.40-12.00) fL Neut % (Auto) (48.0-80.0) % Lymph % (Auto) (16.0-40.0) % [place] % (Auto) (0.0-15.0) % Eos % (Auto) (0.0-7.0) % Baso % (Auto) (0.0-1.5) % Neut # (Auto) (1.4-5.7) K/uL Lymph # (Auto) (0.6-2.4) K/uL [place] # (Auto) (0.0-0.8) K/uL Eos # (Auto) (0.0-0.7) K/uL Baso # (Auto) (0.0-0.1) K/uL Add Manual Diff Neutrophils % (Manual) (48.0-80.0) % Band Neutrophils % % Lymphocytes % (Manual) (16.0-40.0) % Monocytes % (Manual) (0.0-15.0) % Eosinophils % (Manual) (0.0-7.0) % Nucleated RBC % /100WBC Absolute Seg Neuts (1.4-5.7) Band Neutrophils # Lymphocytes # (Manual) (0.6-2.4) Monocytes # (Manual) (0.0-0.8) Eosinophils # (Manual) (0.0-0.7) Nucleated RBCs # K/uL INR Lactate (0.20-2.00) mmol/L Sodium 141 (136-145) mmol/L Potassium 3.5 (3.5-5.1) mmol/L Chloride 107 (98-107) mmol/L Carbon Dioxide 22.9 (21.0-32.0) mmol/L BUN 39 H (7.0-18.0) mg/dL Creatinine 1.7 H (0.6-1.0) mg/dL Est Cr Clr Drug Dosing TNP Estimated GFR (MDRD) 28.3 ml/min Glucose 113 H (74-106) mg/dL POC Glucose 117 H (60-110) mg/dL Calcium 8.2 L (8.5-10.1) mg/dL Total Bilirubin (0.2-1.0) mg/dL AST (15-37) IU/L ALT (14-63) IU/L Alkaline Phosphatase (46-116) U/L Ammonia (19-54) ug/dL Troponin I (0.000-0.056) ng/mL Total Protein (6.4-8.2) g/dL Albumin (3.4-5.0) g/dL Globulin (2.6-4.0) g/dL Albumin/Globulin Ratio (0.9-1.6) Urine Color Urine Appearance Urine pH (5.0-8.0) Ur Specific [place] (1.001-1.035) Urine Protein (NEGATIVE) mg/dL Urine Glucose (UA) (NEGATIVE) mg/dL Urine Ketones (NEGATIVE) mg/dL Urine Occult Blood (NEGATIVE) Urine Nitrite (NEGATIVE) Urine Bilirubin (NEGATIVE) Urine Urobilinogen (<2.0) EU/dL Ur Leukocyte Esterase (NEGATIVE) Urine RBC (0-2/HPF) Urine WBC (0-5/HPF) Ur Epithelial Cells (NONE-FEW) Urine Bacteria (NEGATIVE) [place] Results Last 24 Hours: Microbiology 09/23/18 09:23 Anaerobic Blood Culture - Final Blood - Venous - Lab Draw 09/23/18 09:17 Anaerobic Blood Culture - Final Blood - Venous Med Orders - Current: Current Medications Acetaminophen (Tylenol) 650 mg PO Q4H PRN PRN Reason: Pain (mild 1-3) Last Admin: 09/23/18 18:27 Dose: 650 mg Aspirin (Aspirin) 81 mg PO DAILY [facility] Bisacodyl (Dulcolax) 10 mg RECTAL DAILY PRN PRN Reason: Constipation Docusate Sodium (Colace) 100 mg PO BID [facility] Last Admin: 09/23/18 20:56 Dose: 100 mg Famotidine (Pepcid) 40 mg PO BEDTIME [facility] Last Admin: 09/23/18 20:56 Dose: 40 mg Heparin Sodium (Porcine) (Heparin Sodium) 5,000 units SUBCUT Q8H [facility] Last Admin: 09/24/18 01:29 Dose: 5,000 units Ceftriaxone Sodium/Dextrose 1 (gm/ Premix) 50 mls @ 100 mls/hr IV Q24H [facility] Last Admin: 09/23/18 12:30 Dose: 100 mls/hr Sodium Chloride (Normal Saline) 1,000 mls @ 75 mls/hr IV ASDIRECTED [facility] Last Admin: 09/23/18 22:58 Dose: 75 mls/hr Vancomycin HCl 1 gm/ Sodium (Chloride) 250 mls @ 166.667 mls/hr IV Q24H [facility] Last Admin: 09/23/18 13:14 Dose: 166.667 mls/hr Insulin Aspart (Novolog) 0 unit SUBCUT TIDAC [facility]; Protocol Last Admin: 09/24/18 06:46 Dose: Not Given Insulin Detemir (Levemir) 10 unit SUBCUT BEDTIME [facility] Last Admin: 09/23/18 21:30 Dose: 10 units Levothyroxine Sodium (Levothyroxine) 75 mcg PO ACBREAKFAST [facility] Last Admin: 09/24/18 06:46 Dose: 75 mcg Meclizine HCl (Antivert) 25 mg PO BID [facility] Last Admin: 09/23/18 20:56 Dose: 25 mg Nystatin (Nystop) 15 gm TOP Q8H [facility] Last Admin: 09/23/18 23:00 Dose: 15 gm Ondansetron HCl (Zofran) 4 mg IVPUSH Q4H PRN PRN Reason: Nausea [Diclofenac Sodium] (1 Appful) 1 each TOP 0700,1900 [facility] Last Admin: 09/24/18 06:09 Dose: Not Given Polyethylene Glycol (Miralax) 17 gm PO BID [facility] Last Admin: 09/23/18 20:56 Dose: 17 gm Vancomycin HCl (Pharmacy To Dose - Vancomycin) 1 dose .XX ASDIRECTED [facility] Discontinued Medications Sodium Chloride (Normal Saline) 1,000 mls @ 125 mls/hr IV STAT [facility] Last Admin: 09/23/18 09:47 Dose: 125 mls/hr Losartan Potassium (Cozaar) 25 mg PO DAILY [facility] - Exam General: Alert, Cooperative, No Acute Distress, Other (pallor). No: Oriented Neck: Supple Lungs: Clear to Auscultation, Normal Respiratory Effort Cardiovascular: Regular Rate, Regular Rhythm, No Murmurs GI/Abdominal Exam: Normal Bowel Sounds, Soft, Non-Tender Extremities: Normal Inspection, Normal Range of Motion, Non-Tender, No Pedal Edema Wound/Incisions: Decubitis (sacral, unable to assess, dressing displaced and wound covered in stool.) Neurological: No New Focal Deficit Psy/Mental Status: Alert, Normal Affect, Normal Mood - Problem List & Annotations (1) Altered mental status SNOMED Code(s): 025452963 Code(s): R41.82 - ALTERED MENTAL STATUS, UNSPECIFIED Status: Acute Current Visit: Yes (2) Cellulitis SNOMED Code(s): 305577526 Code(s): L03.90 - CELLULITIS, UNSPECIFIED Status: Acute Current Visit: Yes (3) UTI (urinary tract infection) SNOMED Code(s): 46448902 Code(s): N39.0 - URINARY TRACT INFECTION, SITE NOT SPECIFIED Status: Acute Current Visit: Yes Qualifiers: Urinary tract infection type: acute cystitis (4) Head injury SNOMED Code(s): 32243570 Code(s): S09.90XA - UNSPECIFIED INJURY OF HEAD, INITIAL ENCOUNTER Status: Acute Current Visit: Yes (5) Falls SNOMED Code(s): 1750001, 040373245 Code(s): W19.XXXA - UNSPECIFIED FALL, INITIAL ENCOUNTER Status: Acute Current Visit: Yes Qualifiers: Encounter type: initial encounter Qualified Code(s): W19.XXXA - Unspecified fall, initial encounter (6) Decubital ulcer SNOMED Code(s): 644468616 Code(s): L89.90 - PRESSURE ULCER OF UNSPECIFIED SITE, UNSPECIFIED STAGE Status: Chronic Current Visit: Yes Qualifiers: Pressure injury location: sacral region Pressure injury stage: stage 2 Qualified Code(s): L89.152 - Pressure ulcer of sacral region, stage 2 (7) Chronic anemia SNOMED Code(s): 181855031 Code(s): D64.9 - ANEMIA, UNSPECIFIED Status: Chronic Current Visit: Yes (8) Dementia SNOMED Code(s): 73083201 Code(s): F03.90 - UNSPECIFIED DEMENTIA WITHOUT BEHAVIORAL DISTURBANCE Status: Chronic Current Visit: No (9) Diabetes mellitus type 2 in obese SNOMED Code(s): 69811241 Code(s): E11.9 - TYPE 2 DIABETES MELLITUS WITHOUT COMPLICATIONS; E66.9 - OBESITY, UNSPECIFIED Status: Chronic Priority: Medium Current Visit: No (10) Dizziness, nonspecific SNOMED Code(s): 528040529, 921592054 Code(s): R42 - DIZZINESS AND GIDDINESS Status: Chronic Current Visit: No (11) Dyslipidemia SNOMED Code(s): 129250971 Code(s): E78.5 - HYPERLIPIDEMIA, UNSPECIFIED Status: Chronic Current Visit: No (12) Hypertension SNOMED Code(s): 93367590 Code(s): I10 - ESSENTIAL (PRIMARY) HYPERTENSION Status: Chronic Current Visit: No Qualifiers: Hypertension type: essential hypertension Qualified Code(s): I10 - Essential (primary) hypertension - Problem List Review Problem List Initiated/Reviewed/Updated: Yes - My Orders Last 24 Hours: My Active Orders 09/23/18 11:43 Intake and Output [RC] Q12H Oxygen Therapy [RC] PRN Up With Assistance [RC] ASDIRECTED VTE/DVT Education [RC] PER UNIT ROUTINE Vital Signs [RC] Q4H PT Evaluation and Treatment [CONS] Routine Acetaminophen [Tylenol] 650 mg PO Q4H PRN Ondansetron [Zofran] 4 mg IVPUSH Q4H PRN 09/23/18 11:45 cefTRIAXone [Rocephin in Dextrose,Iso-Osm 1 GM/50 ML] 1 gm Premix Bag 1 bag IV Q24H 09/23/18 12:21 Telemetry Monitoring [Cardiac Monitoring] [RC] Q8H 09/23/18 12:30 Pharmacy to Dose - Vancomycin 1 dose .XX ASDIRECTED Sodium Chloride 0.9% [Normal Saline] 1,000 ml IV ASDIRECTED Vancomycin [Vancocin] 1 gm Sodium Chloride 0.9% [Normal Saline] 250 ml IV Q24H 09/23/18 12:37 Consult to Physical Therapy [PT Evaluation and Treatment] [CONS] Stat Resuscitation Status Routine 09/23/18 12:39 Blood Glucose Check, Bedside [RC] TIDAC 09/23/18 12:51 Consult to Wound Care Services [CONS] Routine 09/23/18 15:57 Bisacodyl [Dulcolax] 10 mg RECTAL DAILY PRN 09/23/18 16:00 Nystatin [Nystop] 15 gm TOP Q8H 09/23/18 16:30 Heparin Sodium 5,000 units SUBCUT Q8H 09/23/18 17:00 Insulin Aspart [NovoLOG] See Protocol SUBCUT TIDAC 09/23/18 17:10 CULTURE WOUND [RM] Routine 09/23/18 19:00 Patient's Own Medication [Ptom] 1 each TOP 0700,1900 09/23/18 21:00 Docusate Sodium [Colace] 100 mg PO BID Famotidine [Pepcid] 40 mg PO BEDTIME Insulin Detemir [Levemir] 10 unit SUBCUT BEDTIME Meclizine [Antivert] 25 mg PO BID Polyethylene Glycol 3350 [MiraLAX] 17 gm PO BID 09/23/18 Lunch [employer] Diet [DIET] 09/24/18 07:30 Levothyroxine 75 mcg PO ACBREAKFAST 09/24/18 07:58 Pelvis wo Cont [CT] Urgent 09/24/18 08:00 Patient Status [ADT] Stat 09/24/18 09:00 Aspirin 81 mg PO DAILY 09/26/18 11:30 VANCOMYCIN TROUGH [CHEM] Routine - Plan Plan:: This 88 year old female admitted with AMS s/p fall at [facility] along with cellulitis of sacral region and mild UTI 1. AMS: Continues this morning. Head CT negative. Will monitor closely. Avoid narcotics and benzodiazepines. Neuro checks WNL, besides confusion. 2. Cellulitis to sacrum: stable. Has stage 2 ulcer, wound culture obtained yesterday. Continue Vancomycin. Consult wound care. BC negative x 1 day. Will order Pelvis CT today to evaluate ulcer further. 3. UTI: UC no growth after 1 day. Monitor. 4. Symptomatic Anemia: Hgb decreased today, 7.6, very pale and fatigued. Will transfuse 1 unit this morning and consider another pending improvement in hgb after one. 5. DM Type 2: Stable.Continue SSI and Levemir at bedtime, but half dose. TID AC BS checks. 6. HTN: Stable. Hold Losartan due to increase in BUN/Cr Will monitor. VTE prophylaxis: Discontinue Heparin due to anemia. Hemoccult ordered. SCDs. Dispo: 2-3 days, will make inpatient today due to continue confusion and need for further investigation into leukocytosis and sacral ulcer. Called daughter, Cintia Escobedo, . She lives in [place]. She was updated on condition and treatment plan for today. She is agreeable to administration Blood today. <Holden Sena - Last Filed: 09/24/18 10:47> - General Info Admission Dx/Problem (Free Text): I have seen and examined to patient independently of Gwendolyn Whitfield CNP. I have discussed the case for care of this patient with her. I have reviewed and approve of the plan of care as outlined by [facility] [employer] TECHNICIAN. Please see orders. - Patient Data Vitals - Most Recent: Last Vital Signs Temp 36.9 C 09/24/18 08:00 Pulse 88 09/24/18 08:00 Resp 16 09/24/18 08:00 BP 135/63 09/24/18 08:00 Pulse Ox 94 L 09/24/18 08:00 I&O - Last 24 Hours: Intake & Output 09/23/18 09/24/18 09/24/18 22:59 06:59 14:59 Intake Total 277 1400 Output Total 0 Balance 277 1400 Lab Results Last 24 Hours: Laboratory Results - last 24 hr 09/23/18 09/23/18 09/23/18 Range/Units 10:23 16:49 21:05 WBC (4.0-11.0) K/uL RBC (4.30-5.90) M/uL Hgb (12.0-16.0) g/dL Hct (36.0-46.0) % MCV (80.0-98.0) fL MCH (27.0-32.0) pg MCHC (31.0-37.0) g/dL RDW Std Deviation (28.0-62.0) fl RDW Coeff of Joelle (11.0-15.0) % Plt Count (150-400) K/uL MPV (7.40-12.00) fL Neut % (Auto) (48.0-80.0) % Lymph % (Auto) (16.0-40.0) % [place] % (Auto) (0.0-15.0) % Eos % (Auto) (0.0-7.0) % Baso % (Auto) (0.0-1.5) % Neut # (Auto) (1.4-5.7) K/uL Lymph # (Auto) (0.6-2.4) K/uL [place] # (Auto) (0.0-0.8) K/uL Eos # (Auto) (0.0-0.7) K/uL Baso # (Auto) (0.0-0.1) K/uL Nucleated RBC % /100WBC Nucleated RBCs # K/uL Sodium (136-145) mmol/L Potassium (3.5-5.1) mmol/L Chloride (98-107) mmol/L Carbon Dioxide (21.0-32.0) mmol/L BUN (7.0-18.0) mg/dL Creatinine (0.6-1.0) mg/dL Est Cr Clr Drug Dosing Estimated GFR (MDRD) ml/min Glucose (74-106) mg/dL POC Glucose 106 199 H (60-110) mg/dL Calcium (8.5-10.1) mg/dL Urine RBC NONE SEEN (0-2/HPF) Urine WBC 2-5 (0-5/HPF) Ur Epithelial Cells OCCASIONAL (NONE-FEW) Urine Bacteria RARE (NEGATIVE) 09/24/18 09/24/18 09/24/18 Range/Units 05:20 05:20 06:27 WBC 18.64 H (4.0-11.0) K/uL RBC 2.46 L (4.30-5.90) M/uL Hgb 7.6 L (12.0-16.0) g/dL Hct 23.1 L (36.0-46.0) % MCV 93.9 (80.0-98.0) fL MCH 30.9 (27.0-32.0) pg MCHC 32.9 (31.0-37.0) g/dL RDW Std Deviation 63.6 H (28.0-62.0) fl RDW Coeff of Joelle 18 H (11.0-15.0) % Plt Count 160 (150-400) K/uL MPV 9.30 (7.40-12.00) fL Neut % (Auto) 94.2 H (48.0-80.0) % Lymph % (Auto) 3.4 L (16.0-40.0) % [place] % (Auto) 2.2 (0.0-15.0) % Eos % (Auto) 0.1 (0.0-7.0) % Baso % (Auto) 0.1 (0.0-1.5) % Neut # (Auto) 17.6 H (1.4-5.7) K/uL Lymph # (Auto) 0.6 (0.6-2.4) K/uL [place] # (Auto) 0.4 (0.0-0.8) K/uL Eos # (Auto) 0.0 (0.0-0.7) K/uL Baso # (Auto) 0.0 (0.0-0.1) K/uL Nucleated RBC % 0.0 /100WBC Nucleated RBCs # 0 K/uL Sodium 141 (136-145) mmol/L Potassium 3.5 (3.5-5.1) mmol/L Chloride 107 (98-107) mmol/L Carbon Dioxide 22.9 (21.0-32.0) mmol/L BUN 39 H (7.0-18.0) mg/dL Creatinine 1.7 H (0.6-1.0) mg/dL Est Cr Clr Drug Dosing TNP Estimated GFR (MDRD) 28.3 ml/min Glucose 113 H (74-106) mg/dL POC Glucose 117 H (60-110) mg/dL Calcium 8.2 L (8.5-10.1) mg/dL Urine RBC (0-2/HPF) Urine WBC (0-5/HPF) Ur Epithelial Cells (NONE-FEW) Urine Bacteria (NEGATIVE) [place] Results Last 24 Hours: Microbiology 09/24/18 09:06 Stool Occult Blood ([facility]) - Final Stool / Feces NEGATIVE OCCULT BLOOD REFERENCE RANGE: NEGATIVE 09/23/18 09:23 Aerobic Blood Culture - Preliminary Blood - Venous - Lab Draw NO GROWTH AFTER 1 DAY Anaerobic Blood Culture - Final 09/23/18 09:17 Aerobic Blood Culture - Preliminary Blood - Venous NO GROWTH AFTER 1 DAY Anaerobic Blood Culture - Final 09/23/18 10:23 Urine Culture - Preliminary Urine, Quick Cath (In-Out) NO GROWTH AFTER 1 DAY Med Orders - Current: Current Medications Acetaminophen (Tylenol) 650 mg PO Q4H PRN PRN Reason: Pain (mild 1-3) Last Admin: 09/23/18 18:27 Dose: 650 mg Aspirin (Aspirin) 81 mg PO DAILY [facility] Last Admin: 09/24/18 09:06 Dose: 81 mg Bisacodyl (Dulcolax) 10 mg RECTAL DAILY PRN PRN Reason: Constipation Docusate Sodium (Colace) 100 mg PO BID [facility] Last Admin: 09/24/18 09:06 Dose: 100 mg Famotidine (Pepcid) 40 mg PO BEDTIME [facility] Last Admin: 09/23/18 20:56 Dose: 40 mg Ceftriaxone Sodium/Dextrose 1 (gm/ Premix) 50 mls @ 100 mls/hr IV Q24H [facility] Last Admin: 09/23/18 12:30 Dose: 100 mls/hr Sodium Chloride (Normal Saline) 1,000 mls @ 75 mls/hr IV ASDIRECTED [facility] Last Admin: 09/23/18 22:58 Dose: 75 mls/hr Vancomycin HCl 1 gm/ Sodium (Chloride) 250 mls @ 166.667 mls/hr IV Q24H [facility] Last Admin: 09/23/18 13:14 Dose: 166.667 mls/hr Insulin Aspart (Novolog) 0 unit SUBCUT TIDAC [facility]; Protocol Last Admin: 09/24/18 06:46 Dose: Not Given Insulin Detemir (Levemir) 10 unit SUBCUT BEDTIME [facility] Last Admin: 09/23/18 21:30 Dose: 10 units Levothyroxine Sodium (Levothyroxine) 75 mcg PO ACBREAKFAST [facility] Last Admin: 09/24/18 06:46 Dose: 75 mcg Meclizine HCl (Antivert) 25 mg PO BID [facility] Last Admin: 09/24/18 09:06 Dose: 25 mg Nystatin (Nystop) 15 gm TOP Q8H [facility] Last Admin: 09/24/18 09:07 Dose: 1 applic Ondansetron HCl (Zofran) 4 mg IVPUSH Q4H PRN PRN Reason: Nausea [Diclofenac Sodium] (1 Appful) 1 each TOP 0700,1900 [facility] Last Admin: 09/24/18 06:09 Dose: Not Given Polyethylene Glycol (Miralax) 17 gm PO BID [facility] Last Admin: 09/24/18 09:06 Dose: 17 gm Vancomycin HCl (Pharmacy To Dose - Vancomycin) 1 dose .XX ASDIRECTED [facility] Discontinued Medications Heparin Sodium (Porcine) (Heparin Sodium) 5,000 units SUBCUT Q8H [facility] Last Admin: 09/24/18 09:07 Dose: Not Given Sodium Chloride (Normal Saline) 1,000 mls @ 125 mls/hr IV STAT [facility] Last Admin: 09/23/18 09:47 Dose: 125 mls/hr Losartan Potassium (Cozaar) 25 mg PO DAILY [facility]
[2018-09-24] MEDS ORDERED: Losartan 50 MG Tab PO SCH (09:00)
[2018-09-24] MEDS: Meclizine 25 MG Tab PO SCH ×2 (09:06→21:01)
[2018-09-24] MEDS: Aspirin 81 MG Tab.Chew PO SCH (09:06)
[2018-09-24] MEDS: Docusate Sodium 100 MG Cap PO SCH ×2 (09:06→21:01)
[2018-09-24] MEDS: Polyethylene Glycol 3350 Powder 17 GM Packet PO SCH ×2 (09:06→21:02)
[2018-09-24] MEDS: Nystatin Topical Powder 15 GM Bottle TOP SCH ×3 (09:07→23:59)
--- NOTE | 2018-09-24 09:24 | CT ---
EXAMINATION: CT pelvis without contrast HISTORY: Sacral ulcer COMPARISON: None TECHNIQUE: Axial CT imaging obtained through the pelvis without contrast. Coronal and sagittal reconstructions obtained. FINDINGS: There is cutaneous thickening and underlying edema overlying the coccyx. Soft tissue induration extends to the tip of the coccyx without a definitive underlying fluid collection. No bony erosion are definitive evidence of osteomyelitis. The urinary bladder appears normal. Visualized large and small bowel are normal in caliber without evidence of obstruction. Moderate vascular calcifications. No pelvic lymphadenopathy. No free pelvic fluid. Degenerative changes noted within the lower lumbar spine. IMPRESSION: 1. Soft tissue thickening and induration within the sacral and coccygeal soft tissues extending to near the osseous structures without definitive evidence of osteomyelitis.
[2018-09-24] MEDS: Meropenem 1 GM in Sodium Chloride 0.9% 100 ML IV SCH ×2 (12:37→23:57)
--- NOTE | 2018-09-24 18:33 | PCM.SN ---
- Free Text/Narrative Note: I was asked to consult on this 88-year-old female for a wound check. She presented with an elevated white count of 18,000 and increased confusion with a fall at her fpc. CT the pelvis was performed which showed soft tissue thickening and induration along the sacral and coccygeal soft tissues extending towards the bone. She has a stage II ulcer overlying this area. There is no area of fluctuance or drainage. The wound does appear slightly macerated. I recommend wet-to-dry dressing changes twice a day to try and debride the wound superficially. I do not feel she would tolerate a surgical debridement at this time. Continue broad-spectrum antibiotics per the medicine team. I will reassess the wound tomorrow and determine if any further treatment is needed.
[2018-09-24] MEDS: Famotidine 20 MG Tab PO SCH (21:01)
[2018-09-24] MEDS: Insulin Detemir 100 Units/ML 3 ML Pen SUBCUT SCH (21:09)
[2018-09-24] MEDS: Acetaminophen 325 MG Tab PO PRN (21:24)
[2018-09-25] MEDS: Sodium Chloride 0.9% 1,000 ML IV SCH (04:58)
[2018-09-25 06:13] LABS: CHLORIDE,CL 111 mmol/L (98-107); SODIUM,NA 143 mmol/L (136-145)
[2018-09-25] MEDS: [UNRECOGNIZED DRUG - OTHER] TOP SCH ×2 (06:31→21:52)
[2018-09-25] MEDS: Insulin Aspart 100 Units/ML 3 ML Pen SUBCUT SCH ×3 (06:31→18:21)
[2018-09-25] MEDS: Levothyroxine 75 MCG Tab PO SCH (06:33)
[2018-09-25] MEDS: Acetaminophen 325 MG Tab PO PRN (06:44)
[2018-09-25] MEDS ORDERED: Potassium Chloride 20 MEQ Tab.ER PO ONE (08:04)
--- NOTE | 2018-09-25 08:06 | PCM.PN ---
<Gwendolyn Whitfield M - Last Filed: 09/25/18 08:57> - General Info Date of Service: 09/25/18 Admission Dx/Problem (Free Text): Cellulitis to Sacral decubitus, AMS Subjective Update: More alert today, still confused and disoriented x 2, knows self. Reports significant bottom pain when lying or sitting and gets sharp pain intermittently. No chest pain or abdominal pain. No shortness of breath. Functional Status: Reports: Pain Controlled, Tolerating Diet, Ambulating, Urinating - Review of Systems General: Reports: Weakness, Malaise. Denies: Fever HEENT: Reports: No Symptoms. Denies: Headaches, Sore Throat Pulmonary: Reports: No Symptoms. Denies: Shortness of Breath Cardiovascular: Reports: No Symptoms. Denies: Chest Pain Gastrointestinal: Reports: No Symptoms. Denies: Abdominal Pain, Nausea, Vomiting Genitourinary: Reports: No Symptoms. Denies: Dysuria, Frequency, Burning Musculoskeletal: Reports: Other (sacral pain) Skin: Reports: Other (wound to bottom hurts) Neurological: Reports: No Symptoms Psychiatric: Reports: No Symptoms - Patient Data Vitals - Most Recent: Last Vital Signs Temp 97.6 F 09/25/18 07:56 Pulse 79 09/25/18 07:56 Resp 18 09/25/18 07:56 BP 128/58 L 09/25/18 07:56 Pulse Ox 93 L 09/25/18 07:56 Weight - Most Recent: 67 kg I&O - Last 24 Hours: Intake & Output 09/24/18 09/25/18 09/25/18 22:59 06:59 14:59 Intake Total 1438 1499 Balance 1438 1499 Lab Results Last 24 Hours: Laboratory Results - last 24 hr 09/24/18 09/24/18 09/24/18 Range/Units 09:40 11:49 15:20 WBC (4.0-11.0) K/uL RBC (4.30-5.90) M/uL Hgb 9.3 L (12.0-16.0) g/dL Hct 27.8 L (36.0-46.0) % MCV (80.0-98.0) fL MCH (27.0-32.0) pg MCHC (31.0-37.0) g/dL RDW Std Deviation (28.0-62.0) fl RDW Coeff of Joelle (11.0-15.0) % Plt Count (150-400) K/uL MPV (7.40-12.00) fL Neut % (Auto) (48.0-80.0) % Lymph % (Auto) (16.0-40.0) % Mayes % (Auto) (0.0-15.0) % Eos % (Auto) (0.0-7.0) % Baso % (Auto) (0.0-1.5) % Neut # (Auto) (1.4-5.7) K/uL Lymph # (Auto) (0.6-2.4) K/uL Mayes # (Auto) (0.0-0.8) K/uL Eos # (Auto) (0.0-0.7) K/uL Baso # (Auto) (0.0-0.1) K/uL Nucleated RBC % /100WBC Nucleated RBCs # K/uL Sodium (136-145) mmol/L Potassium (3.5-5.1) mmol/L Chloride (98-107) mmol/L Carbon Dioxide (21.0-32.0) mmol/L BUN (7.0-18.0) mg/dL Creatinine (0.6-1.0) mg/dL Est Cr Clr Drug Dosing Estimated GFR (MDRD) ml/min Glucose (74-106) mg/dL POC Glucose 129 H (60-110) mg/dL Calcium (8.5-10.1) mg/dL Blood Type A NEGATIVE Antibody Screen NEGATIVE Crossmatch See Detail 09/24/18 09/24/18 09/25/18 Range/Units 16:29 21:07 05:20 WBC 16.35 H (4.0-11.0) K/uL RBC 2.72 L (4.30-5.90) M/uL Hgb 8.4 L (12.0-16.0) g/dL Hct 25.1 L (36.0-46.0) % MCV 92.3 (80.0-98.0) fL MCH 30.9 (27.0-32.0) pg MCHC 33.5 (31.0-37.0) g/dL RDW Std Deviation 62.3 H (28.0-62.0) fl RDW Coeff of Joelle 19 H (11.0-15.0) % Plt Count 198 (150-400) K/uL MPV 9.60 (7.40-12.00) fL Neut % (Auto) 92.6 H (48.0-80.0) % Lymph % (Auto) 5.8 L (16.0-40.0) % Mayes % (Auto) 1.3 (0.0-15.0) % Eos % (Auto) 0.2 (0.0-7.0) % Baso % (Auto) 0.1 (0.0-1.5) % Neut # (Auto) 15.2 H (1.4-5.7) K/uL Lymph # (Auto) 1.0 (0.6-2.4) K/uL Mayes # (Auto) 0.2 (0.0-0.8) K/uL Eos # (Auto) 0.0 (0.0-0.7) K/uL Baso # (Auto) 0.0 (0.0-0.1) K/uL Nucleated RBC % 0.0 /100WBC Nucleated RBCs # 0 K/uL Sodium (136-145) mmol/L Potassium (3.5-5.1) mmol/L Chloride (98-107) mmol/L Carbon Dioxide (21.0-32.0) mmol/L BUN (7.0-18.0) mg/dL Creatinine (0.6-1.0) mg/dL Est Cr Clr Drug Dosing Estimated GFR (MDRD) ml/min Glucose (74-106) mg/dL POC Glucose 200 H 146 H (60-110) mg/dL Calcium (8.5-10.1) mg/dL Blood Type Antibody Screen Crossmatch 09/25/18 09/25/18 09/25/18 Range/Units 05:20 06:08 06:25 WBC (4.0-11.0) K/uL RBC (4.30-5.90) M/uL Hgb (12.0-16.0) g/dL Hct (36.0-46.0) % MCV (80.0-98.0) fL MCH (27.0-32.0) pg MCHC (31.0-37.0) g/dL RDW Std Deviation (28.0-62.0) fl RDW Coeff of Joelle (11.0-15.0) % Plt Count (150-400) K/uL MPV (7.40-12.00) fL Neut % (Auto) (48.0-80.0) % Lymph % (Auto) (16.0-40.0) % Mayes % (Auto) (0.0-15.0) % Eos % (Auto) (0.0-7.0) % Baso % (Auto) (0.0-1.5) % Neut # (Auto) (1.4-5.7) K/uL Lymph # (Auto) (0.6-2.4) K/uL Mayes # (Auto) (0.0-0.8) K/uL Eos # (Auto) (0.0-0.7) K/uL Baso # (Auto) (0.0-0.1) K/uL Nucleated RBC % /100WBC Nucleated RBCs # K/uL Sodium 143 (136-145) mmol/L Potassium 3.1 L (3.5-5.1) mmol/L Chloride 111 H (98-107) mmol/L Carbon Dioxide 20.9 L (21.0-32.0) mmol/L BUN 44 H (7.0-18.0) mg/dL Creatinine 1.5 H (0.6-1.0) mg/dL Est Cr Clr Drug Dosing TNP Estimated GFR (MDRD) 32.7 ml/min Glucose 50 L (74-106) mg/dL POC Glucose 49 L 65 (60-110) mg/dL Calcium 8.2 L (8.5-10.1) mg/dL Blood Type Antibody Screen Crossmatch 09/25/18 Range/Units 06:51 WBC (4.0-11.0) K/uL RBC (4.30-5.90) M/uL Hgb (12.0-16.0) g/dL Hct (36.0-46.0) % MCV (80.0-98.0) fL MCH (27.0-32.0) pg MCHC (31.0-37.0) g/dL RDW Std Deviation (28.0-62.0) fl RDW Coeff of Joelle (11.0-15.0) % Plt Count (150-400) K/uL MPV (7.40-12.00) fL Neut % (Auto) (48.0-80.0) % Lymph % (Auto) (16.0-40.0) % Mayes % (Auto) (0.0-15.0) % Eos % (Auto) (0.0-7.0) % Baso % (Auto) (0.0-1.5) % Neut # (Auto) (1.4-5.7) K/uL Lymph # (Auto) (0.6-2.4) K/uL Mayes # (Auto) (0.0-0.8) K/uL Eos # (Auto) (0.0-0.7) K/uL Baso # (Auto) (0.0-0.1) K/uL Nucleated RBC % /100WBC Nucleated RBCs # K/uL Sodium (136-145) mmol/L Potassium (3.5-5.1) mmol/L Chloride (98-107) mmol/L Carbon Dioxide (21.0-32.0) mmol/L BUN (7.0-18.0) mg/dL Creatinine (0.6-1.0) mg/dL Est Cr Clr Drug Dosing Estimated GFR (MDRD) ml/min Glucose (74-106) mg/dL POC Glucose 87 (60-110) mg/dL Calcium (8.5-10.1) mg/dL Blood Type Antibody Screen Crossmatch [place] Results Last 24 Hours: Microbiology 09/24/18 09:06 Stool Occult Blood ([facility]) - Final Stool / Feces NEGATIVE OCCULT BLOOD REFERENCE RANGE: NEGATIVE 09/23/18 09:23 Aerobic Blood Culture - Preliminary Blood - Venous - Lab Draw NO GROWTH AFTER 1 DAY Anaerobic Blood Culture - Final 09/23/18 09:17 Aerobic Blood Culture - Preliminary Blood - Venous NO GROWTH AFTER 1 DAY Anaerobic Blood Culture - Final 09/23/18 10:23 Urine Culture - Preliminary Urine, Quick Cath (In-Out) NO GROWTH AFTER 1 DAY Med Orders - Current: Current Medications Acetaminophen (Tylenol) 650 mg PO Q4H PRN PRN Reason: Pain (mild 1-3) Last Admin: 05/22/19 06:44 Dose: 650 mg Aspirin (Aspirin) 81 mg PO DAILY [facility] Last Admin: 09/24/18 09:06 Dose: 81 mg Bisacodyl (Dulcolax) 10 mg RECTAL DAILY PRN PRN Reason: Constipation Docusate Sodium (Colace) 100 mg PO BID [facility] Last Admin: 09/24/18 21:01 Dose: 100 mg Famotidine (Pepcid) 40 mg PO BEDTIME [facility] Last Admin: 09/24/18 21:01 Dose: 40 mg Vancomycin HCl 1 gm/ Sodium (Chloride) 250 mls @ 166.667 mls/hr IV Q24H [facility] Last Admin: 09/24/18 13:54 Dose: 166.667 mls/hr Meropenem 1 gm/ Sodium (Chloride) 100 mls @ 200 mls/hr IV Q12H [facility] Last Admin: 09/24/18 23:57 Dose: 200 mls/hr Insulin Aspart (Novolog) 0 unit SUBCUT TIDAC [facility]; Protocol Last Admin: 09/25/18 06:31 Dose: Not Given Levothyroxine Sodium (Levothyroxine) 75 mcg PO ACBREAKFAST [facility] Last Admin: 09/25/18 06:33 Dose: 75 mcg Meclizine HCl (Antivert) 25 mg PO BID [facility] Last Admin: 09/24/18 21:01 Dose: 25 mg Nystatin (Nystop) 15 gm TOP Q8H [facility] Last Admin: 09/24/18 23:59 Dose: 15 applic Ondansetron HCl (Zofran) 4 mg IVPUSH Q4H PRN PRN Reason: Nausea [Diclofenac Sodium] (1 Appful) 1 each TOP 0700,1900 [facility] Last Admin: 09/25/18 06:31 Dose: Not Given Polyethylene Glycol (Miralax) 17 gm PO BID [facility] Last Admin: 09/24/18 21:02 Dose: 17 gm Potassium Chloride (Klor-Con 10) 40 meq PO ONETIME ONE Stop: 09/25/18 08:05 Vancomycin HCl (Pharmacy To Dose - Vancomycin) 1 dose .XX ASDIRECTED [facility] Discontinued Medications Heparin Sodium (Porcine) (Heparin Sodium) 5,000 units SUBCUT Q8H [facility] Last Admin: 09/24/18 09:07 Dose: Not Given Sodium Chloride (Normal Saline) 1,000 mls @ 125 mls/hr IV STAT [facility] Last Admin: 09/23/18 09:47 Dose: 125 mls/hr Ceftriaxone Sodium/Dextrose 1 (gm/ Premix) 50 mls @ 100 mls/hr IV Q24H [facility] Last Admin: 09/23/18 12:30 Dose: 100 mls/hr Sodium Chloride (Normal Saline) 1,000 mls @ 75 mls/hr IV ASDIRECTED [facility] Last Admin: 09/25/18 04:58 Dose: 75 mls/hr Insulin Detemir (Levemir) 10 unit SUBCUT BEDTIME [facility] Last Admin: 09/24/18 21:09 Dose: 10 units Losartan Potassium (Cozaar) 25 mg PO DAILY [facility] - Exam General: Alert, Cooperative, No Acute Distress. No: Oriented Neck: Thyromegaly Lungs: Normal Respiratory Effort, Crackles (fine crackles to R base). No: Decreased Breath Sounds, Wheezing Cardiovascular: Regular Rate, Regular Rhythm GI/Abdominal Exam: Normal Bowel Sounds, Soft, Non-Tender Back Exam: Normal Inspection, Full Range of Motion Extremities: Normal Inspection, Normal Range of Motion, Non-Tender, No Pedal Edema, Normal Capillary Refill Neurological: No New Focal Deficit Psy/Mental Status: Alert - Problem List & Annotations (1) Altered mental status SNOMED Code(s): 513949275 Code(s): R41.82 - ALTERED MENTAL STATUS, UNSPECIFIED Status: Acute Current Visit: Yes (2) Cellulitis SNOMED Code(s): 813976246 Code(s): L03.90 - CELLULITIS, UNSPECIFIED Status: Acute Current Visit: Yes (3) UTI (urinary tract infection) SNOMED Code(s): 85161512 Code(s): N39.0 - URINARY TRACT INFECTION, SITE NOT SPECIFIED Status: Acute Current Visit: Yes Qualifiers: Urinary tract infection type: acute cystitis (4) Head injury SNOMED Code(s): 34835415 Code(s): S09.90XA - UNSPECIFIED INJURY OF HEAD, INITIAL ENCOUNTER Status: Acute Current Visit: Yes (5) Falls SNOMED Code(s): 2308591, 616922508 Code(s): W19.XXXA - UNSPECIFIED FALL, INITIAL ENCOUNTER Status: Acute Current Visit: Yes Qualifiers: Encounter type: initial encounter Qualified Code(s): W19.XXXA - Unspecified fall, initial encounter (6) Decubital ulcer SNOMED Code(s): 577714259 Code(s): L89.90 - PRESSURE ULCER OF UNSPECIFIED SITE, UNSPECIFIED STAGE Status: Chronic Current Visit: Yes Qualifiers: Pressure injury location: sacral region Pressure injury stage: stage 2 Qualified Code(s): L89.152 - Pressure ulcer of sacral region, stage 2 (7) Chronic anemia SNOMED Code(s): 635849354 Code(s): D64.9 - ANEMIA, UNSPECIFIED Status: Chronic Current Visit: Yes (8) Dementia SNOMED Code(s): 00179652 Code(s): F03.90 - UNSPECIFIED DEMENTIA WITHOUT BEHAVIORAL DISTURBANCE Status: Chronic Current Visit: No (9) Diabetes mellitus type 2 in obese SNOMED Code(s): 29853063 Code(s): E11.9 - TYPE 2 DIABETES MELLITUS WITHOUT COMPLICATIONS; E66.9 - OBESITY, UNSPECIFIED Status: Chronic Priority: Medium Current Visit: No (10) Dizziness, nonspecific SNOMED Code(s): 518348939, 812314913 Code(s): R42 - DIZZINESS AND GIDDINESS Status: Chronic Current Visit: No (11) Dyslipidemia SNOMED Code(s): 799200041 Code(s): E78.5 - HYPERLIPIDEMIA, UNSPECIFIED Status: Chronic Current Visit: No (12) Hypertension SNOMED Code(s): 03420229 Code(s): I10 - ESSENTIAL (PRIMARY) HYPERTENSION Status: Chronic Current Visit: No Qualifiers: Hypertension type: essential hypertension Qualified Code(s): I10 - Essential (primary) hypertension - Problem List Review Problem List Initiated/Reviewed/Updated: Yes - My Orders Last 24 Hours: My Active Orders 09/24/18 07:30 Levothyroxine 75 mcg PO ACBREAKFAST 09/24/18 08:00 Patient Status [ADT] Stat 09/24/18 09:00 Aspirin 81 mg PO DAILY 09/24/18 09:22 Verify Patient Consent Obtain [RC] ASDIRECTED Transfuse Red Blood Cells [COMM] Routine 09/24/18 09:33 Positioning, Patient [RC] ASDIRECTED 09/24/18 09:34 Neuro Check [RC] Q4HR 09/24/18 09:40 RED BLOOD CELLS LP [BBK] Routine TYPE AND SCREEN [BBK] Routine 09/24/18 10:29 Consult to Physician [CONS] Routine 09/24/18 10:30 Notify Provider Consults [RC] ASDIRECTED 09/24/18 11:30 Meropenem [Merrem] 1 gm Sodium Chloride 0.9% [Normal Saline] 100 ml IV Q12H 09/24/18 11:35 Dressing Change [Wound Care] [RC] Q12H 09/25/18 08:04 MAGNESIUM [CHEM] Routine Potassium Chloride [Klor-Con 10] 40 meq PO ONETIME ONE 09/26/18 05:11 BMP [BASIC METABOLIC PANEL,BMP] [CHEM] AM CBC WITH AUTO DIFF [HEME] AM 09/26/18 11:30 VANCOMYCIN TROUGH [CHEM] Routine 09/27/18 05:11 BMP [BASIC METABOLIC PANEL,BMP] [CHEM] AM CBC WITH AUTO DIFF [HEME] AM - Plan Plan:: This 88 year old female admitted with AMS s/p fall at [place] along with cellulitis of sacral region and mild UTI 1. AMS: Slow improvement. Head CT negative. Will monitor closely. Avoid narcotics and benzodiazepines. Neuro checks Q4h 2. Cellulitis to sacrum:. Has stage 2 ulcer, wound culture reveals MSSA. Continue Vancomycin and Meropenem for now, leukocytosis continues at 16,000. Pelvis CT revealed soft tissue thickening and induration within the sacral and coccygeal soft tissues extending to near the osseous structures without definitive evidence of ostemyelitis. Dr Looney was consulted to evaluate for possible surgical debridement, recommended wet to dry dressing BID and will re- evaluate today. Nursing staff to reposition every 2 hours and frequently check briefs for soiling to keep semaj region clean and dry as much as possible. 3. Chronic Anemia: Hgb 8.4, likely somewhat dilutional. More alert and awake today. Recheck hgb this afternoon. No signs of active bleeding. Discontinue IVFs. 4. DM Type 2: Stable.Continue SSI. BS 50 this morning, will DC Levemir and monitor. TID AC BS checks. 5. HTN: Stable. Hold Losartan due to increase in BUN/Cr Will monitor. VTE prophylaxis: Discontinue Heparin due to anemia. Hemoccult ordered. SCDs. Dispo: 2-3 days, will make inpatient today due to continue confusion and need for further investigation into leukocytosis and sacral ulcer. Cintia Escobedo, daughter [phone] <Holden Sena - Last Filed: 09/25/18 09:34> - General Info Admission Dx/Problem (Free Text): I have seen and examined to patient independently of Gwendolyn Whitfield CNP. I have discussed the case for care of this patient with her. I have reviewed and approve of the plan of care as outlined by DIRECT SUPPORT SPECIALIST. Please see orders. - Patient Data Vitals - Most Recent: Last Vital Signs Temp 36.4 C 09/25/18 07:56 Pulse 79 09/25/18 07:56 Resp 18 09/25/18 07:56 BP 128/58 L 09/25/18 07:56 Pulse Ox 93 L 09/25/18 07:56 I&O - Last 24 Hours: Intake & Output 09/24/18 09/25/18 09/25/18 22:59 06:59 14:59 Intake Total 1438 1499 Balance 1438 1499 Lab Results Last 24 Hours: Laboratory Results - last 24 hr 09/24/18 09/24/18 09/24/18 Range/Units 09:40 11:49 15:20 WBC (4.0-11.0) K/uL RBC (4.30-5.90) M/uL Hgb 9.3 L (12.0-16.0) g/dL Hct 27.8 L (36.0-46.0) % MCV (80.0-98.0) fL MCH (27.0-32.0) pg MCHC (31.0-37.0) g/dL RDW Std Deviation (28.0-62.0) fl RDW Coeff of Joelle (11.0-15.0) % Plt Count (150-400) K/uL MPV (7.40-12.00) fL Neut % (Auto) (48.0-80.0) % Lymph % (Auto) (16.0-40.0) % Mayes % (Auto) (0.0-15.0) % Eos % (Auto) (0.0-7.0) % Baso % (Auto) (0.0-1.5) % Neut # (Auto) (1.4-5.7) K/uL Lymph # (Auto) (0.6-2.4) K/uL Mayes # (Auto) (0.0-0.8) K/uL Eos # (Auto) (0.0-0.7) K/uL Baso # (Auto) (0.0-0.1) K/uL Nucleated RBC % /100WBC Nucleated RBCs # K/uL Sodium (136-145) mmol/L Potassium (3.5-5.1) mmol/L Chloride (98-107) mmol/L Carbon Dioxide (21.0-32.0) mmol/L BUN (7.0-18.0) mg/dL Creatinine (0.6-1.0) mg/dL Est Cr Clr Drug Dosing Estimated GFR (MDRD) ml/min Glucose (74-106) mg/dL POC Glucose 129 H (60-110) mg/dL Calcium (8.5-10.1) mg/dL Magnesium (1.8-2.4) mg/dL Blood Type A NEGATIVE Antibody Screen NEGATIVE Crossmatch See Detail 09/24/18 09/24/18 09/25/18 Range/Units 16:29 21:07 05:20 WBC 16.35 H (4.0-11.0) K/uL RBC 2.72 L (4.30-5.90) M/uL Hgb 8.4 L (12.0-16.0) g/dL Hct 25.1 L (36.0-46.0) % MCV 92.3 (80.0-98.0) fL MCH 30.9 (27.0-32.0) pg MCHC 33.5 (31.0-37.0) g/dL RDW Std Deviation 62.3 H (28.0-62.0) fl RDW Coeff of Joelle 19 H (11.0-15.0) % Plt Count 198 (150-400) K/uL MPV 9.60 (7.40-12.00) fL Neut % (Auto) 92.6 H (48.0-80.0) % Lymph % (Auto) 5.8 L (16.0-40.0) % Mayes % (Auto) 1.3 (0.0-15.0) % Eos % (Auto) 0.2 (0.0-7.0) % Baso % (Auto) 0.1 (0.0-1.5) % Neut # (Auto) 15.2 H (1.4-5.7) K/uL Lymph # (Auto) 1.0 (0.6-2.4) K/uL Mayes # (Auto) 0.2 (0.0-0.8) K/uL Eos # (Auto) 0.0 (0.0-0.7) K/uL Baso # (Auto) 0.0 (0.0-0.1) K/uL Nucleated RBC % 0.0 /100WBC Nucleated RBCs # 0 K/uL Sodium (136-145) mmol/L Potassium (3.5-5.1) mmol/L Chloride (98-107) mmol/L Carbon Dioxide (21.0-32.0) mmol/L BUN (7.0-18.0) mg/dL Creatinine (0.6-1.0) mg/dL Est Cr Clr Drug Dosing Estimated GFR (MDRD) ml/min Glucose (74-106) mg/dL POC Glucose 200 H 146 H (60-110) mg/dL Calcium (8.5-10.1) mg/dL Magnesium (1.8-2.4) mg/dL Blood Type Antibody Screen Crossmatch 09/25/18 09/25/18 09/25/18 Range/Units 05:20 05:20 06:08 WBC (4.0-11.0) K/uL RBC (4.30-5.90) M/uL Hgb (12.0-16.0) g/dL Hct (36.0-46.0) % MCV (80.0-98.0) fL MCH (27.0-32.0) pg MCHC (31.0-37.0) g/dL RDW Std Deviation (28.0-62.0) fl RDW Coeff of Joelle (11.0-15.0) % Plt Count (150-400) K/uL MPV (7.40-12.00) fL Neut % (Auto) (48.0-80.0) % Lymph % (Auto) (16.0-40.0) % Mayes % (Auto) (0.0-15.0) % Eos % (Auto) (0.0-7.0) % Baso % (Auto) (0.0-1.5) % Neut # (Auto) (1.4-5.7) K/uL Lymph # (Auto) (0.6-2.4) K/uL Mayes # (Auto) (0.0-0.8) K/uL Eos # (Auto) (0.0-0.7) K/uL Baso # (Auto) (0.0-0.1) K/uL Nucleated RBC % /100WBC Nucleated RBCs # K/uL Sodium 143 (136-145) mmol/L Potassium 3.1 L (3.5-5.1) mmol/L Chloride 111 H (98-107) mmol/L Carbon Dioxide 20.9 L (21.0-32.0) mmol/L BUN 44 H (7.0-18.0) mg/dL Creatinine 1.5 H (0.6-1.0) mg/dL Est Cr Clr Drug Dosing TNP Estimated GFR (MDRD) 32.7 ml/min Glucose 50 L (74-106) mg/dL POC Glucose 49 L (60-110) mg/dL Calcium 8.2 L (8.5-10.1) mg/dL Magnesium 2.0 (1.8-2.4) mg/dL Blood Type Antibody Screen Crossmatch 09/25/18 09/25/18 Range/Units 06:25 06:51 WBC (4.0-11.0) K/uL RBC (4.30-5.90) M/uL Hgb (12.0-16.0) g/dL Hct (36.0-46.0) % MCV (80.0-98.0) fL MCH (27.0-32.0) pg MCHC (31.0-37.0) g/dL RDW Std Deviation (28.0-62.0) fl RDW Coeff of Joelle (11.0-15.0) % Plt Count (150-400) K/uL MPV (7.40-12.00) fL Neut % (Auto) (48.0-80.0) % Lymph % (Auto) (16.0-40.0) % Mayes % (Auto) (0.0-15.0) % Eos % (Auto) (0.0-7.0) % Baso % (Auto) (0.0-1.5) % Neut # (Auto) (1.4-5.7) K/uL Lymph # (Auto) (0.6-2.4) K/uL Mayes # (Auto) (0.0-0.8) K/uL Eos # (Auto) (0.0-0.7) K/uL Baso # (Auto) (0.0-0.1) K/uL Nucleated RBC % /100WBC Nucleated RBCs # K/uL Sodium (136-145) mmol/L Potassium (3.5-5.1) mmol/L Chloride (98-107) mmol/L Carbon Dioxide (21.0-32.0) mmol/L BUN (7.0-18.0) mg/dL Creatinine (0.6-1.0) mg/dL Est Cr Clr Drug Dosing Estimated GFR (MDRD) ml/min Glucose (74-106) mg/dL POC Glucose 65 87 (60-110) mg/dL Calcium (8.5-10.1) mg/dL Magnesium (1.8-2.4) mg/dL Blood Type Antibody Screen Crossmatch [place] Results Last 24 Hours: Microbiology 09/23/18 09:23 Aerobic Blood Culture - Preliminary Blood - Venous - Lab Draw NO GROWTH AFTER 2 DAYS Anaerobic Blood Culture - Final 09/23/18 09:17 Aerobic Blood Culture - Preliminary Blood - Venous NO GROWTH AFTER 2 DAYS Anaerobic Blood Culture - Final 09/23/18 17:10 Wound Culture - Preliminary Sacrum Staphylococcus Aureus 09/24/18 09:06 Stool Occult Blood ([facility]) - Final Stool / Feces NEGATIVE OCCULT BLOOD REFERENCE RANGE: NEGATIVE 09/23/18 10:23 Urine Culture - Preliminary Urine, Quick Cath (In-Out) NO GROWTH AFTER 1 DAY Med Orders - Current: Current Medications Acetaminophen (Tylenol) 650 mg PO Q4H PRN PRN Reason: Pain (mild 1-3) Last Admin: 09/25/18 06:44 Dose: 650 mg Aspirin (Aspirin) 81 mg PO DAILY [facility] Last Admin: 09/25/18 08:28 Dose: 81 mg Bisacodyl (Dulcolax) 10 mg RECTAL DAILY PRN PRN Reason: Constipation Docusate Sodium (Colace) 100 mg PO BID [facility] Last Admin: 09/25/18 08:28 Dose: 100 mg Famotidine (Pepcid) 40 mg PO BEDTIME [facility] Last Admin: 09/24/18 21:01 Dose: 40 mg Vancomycin HCl 1 gm/ Sodium (Chloride) 250 mls @ 166.667 mls/hr IV Q24H [facility] Last Admin: 09/24/18 13:54 Dose: 166.667 mls/hr Meropenem 1 gm/ Sodium (Chloride) 100 mls @ 200 mls/hr IV Q12H [facility] Last Admin: 09/24/18 23:57 Dose: 200 mls/hr Insulin Aspart (Novolog) 0 unit SUBCUT TIDAC [facility]; Protocol Last Admin: 09/25/18 06:31 Dose: Not Given Levothyroxine Sodium (Levothyroxine) 75 mcg PO ACBREAKFAST [facility] Last Admin: 09/25/18 06:33 Dose: 75 mcg Meclizine HCl (Antivert) 25 mg PO BID [facility] Last Admin: 09/25/18 08:28 Dose: 25 mg Nystatin (Nystop) 15 gm TOP Q8H [facility] Last Admin: 09/25/18 08:29 Dose: 1 applic Ondansetron HCl (Zofran) 4 mg IVPUSH Q4H PRN PRN Reason: Nausea [Diclofenac Sodium] (1 Appful) 1 each TOP 0700,1900 [facility] Last Admin: 09/25/18 06:31 Dose: Not Given Polyethylene Glycol (Miralax) 17 gm PO BID [facility] Last Admin: 09/25/18 08:28 Dose: 17 gm Vancomycin HCl (Pharmacy To Dose - Vancomycin) 1 dose .XX ASDIRECTED [facility] Discontinued Medications Heparin Sodium (Porcine) (Heparin Sodium) 5,000 units SUBCUT Q8H [facility] Last Admin: 09/24/18 09:07 Dose: Not Given Sodium Chloride (Normal Saline) 1,000 mls @ 125 mls/hr IV STAT [facility] Last Admin: 09/23/18 09:47 Dose: 125 mls/hr Ceftriaxone Sodium/Dextrose 1 (gm/ Premix) 50 mls @ 100 mls/hr IV Q24H [facility] Last Admin: 09/23/18 12:30 Dose: 100 mls/hr Sodium Chloride (Normal Saline) 1,000 mls @ 75 mls/hr IV ASDIRECTED [facility] Last Admin: 09/25/18 04:58 Dose: 75 mls/hr Insulin Detemir (Levemir) 10 unit SUBCUT BEDTIME [facility] Last Admin: 09/24/18 21:09 Dose: 10 units Losartan Potassium (Cozaar) 25 mg PO DAILY [facility] Potassium Chloride (Klor-Con M20) 40 meq PO ONETIME ONE Stop: 09/25/18 08:05 Last Admin: 09/25/18 08:28 Dose: 40 meq
[2018-09-25] MEDS: Polyethylene Glycol 3350 Powder 17 GM Packet PO SCH ×2 (08:28→21:47)
[2018-09-25] MEDS: Meclizine 25 MG Tab PO SCH ×2 (08:28→21:45)
[2018-09-25] MEDS: Aspirin 81 MG Tab.Chew PO SCH (08:28)
[2018-09-25] MEDS: Docusate Sodium 100 MG Cap PO SCH ×2 (08:28→21:41)
[2018-09-25] MEDS: Nystatin Topical Powder 15 GM Bottle TOP SCH ×2 (08:29→16:25)
[2018-09-25] MEDS: Meropenem 1 GM in Sodium Chloride 0.9% 100 ML IV SCH (11:12)
--- NOTE | 2018-09-25 15:11 | PCM.SN ---
- Free Text/Narrative Note: Patient is an 88-year-old female with a sacral ulcer and surrounding cellulitis. She was placed on IV vancomycin. Her wound cultures came back as Staphylococcus aureus. Her vital signs are stable. Her white blood cell count is 16,000 today. Her nurses have been performing wet-to-dry dressing changes to the wound. On physical exam she still has a thickened area of brown tissue at the top of the ulcer. The surrounding tissues appear less erythematous and indurated. At this point in time I would continue with dressing changes twice a day. We'll continue to follow patient while she is in-house. If the wound does not appear improved or WBC not decreasing I may perform a superficial bedside debridement tomorrow.
[2018-09-25] MEDS: Famotidine 20 MG Tab PO SCH (21:45)
[2018-09-26] MEDS: Meropenem 1 GM in Sodium Chloride 0.9% 100 ML IV SCH ×3 (00:33→23:09)
[2018-09-26] MEDS: Nystatin Topical Powder 15 GM Bottle TOP SCH ×4 (00:38→23:11)
[2018-09-26] MEDS: Insulin Aspart 100 Units/ML 3 ML Pen SUBCUT SCH ×3 (06:54→17:44)
[2018-09-26] MEDS: [UNRECOGNIZED DRUG - OTHER] TOP SCH ×2 (06:54→21:06)
[2018-09-26] MEDS: Levothyroxine 75 MCG Tab PO SCH (06:54)
[2018-09-26 07:02] LABS: CHLORIDE,CL 111 mmol/L (98-107); SODIUM,NA 142 mmol/L (136-145)
--- NOTE | 2018-09-26 09:01 | PCM.PN ---
<Gwendolyn Whitfield M - Last Filed: 09/26/18 09:51> - General Info Date of Service: 09/26/18 Admission Dx/Problem (Free Text): Sacral decubitis cellulitis Subjective Update: No chest pain, reports some wheezing this morning. Reports bottom continues to hurt, but small improvement. No other concerns Functional Status: Reports: Pain Controlled, Tolerating Diet, Ambulating, Urinating - Review of Systems General: Reports: Weakness, Fatigue, Malaise, Chills. Denies: Fever HEENT: Reports: No Symptoms. Denies: Headaches, Sore Throat, Visual Changes Pulmonary: Reports: Shortness of Breath, Wheezing Cardiovascular: Denies: Chest Pain, Palpitations, Edema Gastrointestinal: Reports: No Symptoms. Denies: Abdominal Pain, Nausea, Vomiting Genitourinary: Reports: No Symptoms. Denies: Dysuria, Frequency, Burning Musculoskeletal: Reports: No Symptoms Skin: Reports: No Symptoms Neurological: Reports: No Symptoms Psychiatric: Reports: No Symptoms - Patient Data Vitals - Most Recent: Last Vital Signs Temp 97.2 F 09/26/18 07:46 Pulse 80 09/26/18 07:46 Resp 20 09/26/18 07:46 BP 144/68 H 09/26/18 07:46 Pulse Ox 97 09/26/18 07:46 Weight - Most Recent: 67 kg I&O - Last 24 Hours: Intake & Output 09/25/18 09/26/18 09/26/18 22:59 06:59 14:59 Intake Total 710 445 Balance 710 445 Lab Results Last 24 Hours: Laboratory Results - last 24 hr 09/25/18 09/25/18 09/25/18 Range/Units 12:25 17:23 21:28 WBC (4.0-11.0) K/uL RBC (4.30-5.90) M/uL Hgb (12.0-16.0) g/dL Hct (36.0-46.0) % MCV (80.0-98.0) fL MCH (27.0-32.0) pg MCHC (31.0-37.0) g/dL RDW Std Deviation (28.0-62.0) fl RDW Coeff of Joelle (11.0-15.0) % Plt Count (150-400) K/uL MPV (7.40-12.00) fL Neut % (Auto) (48.0-80.0) % Lymph % (Auto) (16.0-40.0) % Ellsworth % (Auto) (0.0-15.0) % Eos % (Auto) (0.0-7.0) % Baso % (Auto) (0.0-1.5) % Neut # (Auto) (1.4-5.7) K/uL Lymph # (Auto) (0.6-2.4) K/uL Ellsworth # (Auto) (0.0-0.8) K/uL Eos # (Auto) (0.0-0.7) K/uL Baso # (Auto) (0.0-0.1) K/uL Nucleated RBC % /100WBC Nucleated RBCs # K/uL Sodium (136-145) mmol/L Potassium (3.5-5.1) mmol/L Chloride (98-107) mmol/L Carbon Dioxide (21.0-32.0) mmol/L BUN (7.0-18.0) mg/dL Creatinine (0.6-1.0) mg/dL Est Cr Clr Drug Dosing Estimated GFR (MDRD) ml/min Glucose (74-106) mg/dL POC Glucose 82 80 104 (60-110) mg/dL Calcium (8.5-10.1) mg/dL 09/26/18 09/26/18 09/26/18 Range/Units 06:10 06:10 06:25 WBC 11.44 H (4.0-11.0) K/uL RBC 3.13 L (4.30-5.90) M/uL Hgb 9.6 L (12.0-16.0) g/dL Hct 29.0 L (36.0-46.0) % MCV 92.7 (80.0-98.0) fL MCH 30.7 (27.0-32.0) pg MCHC 33.1 (31.0-37.0) g/dL RDW Std Deviation 63.4 H (28.0-62.0) fl RDW Coeff of Joelle 19 H (11.0-15.0) % Plt Count 191 (150-400) K/uL MPV 9.40 (7.40-12.00) fL Neut % (Auto) 87.0 H (48.0-80.0) % Lymph % (Auto) 8.7 L (16.0-40.0) % Ellsworth % (Auto) 2.3 (0.0-15.0) % Eos % (Auto) 1.8 (0.0-7.0) % Baso % (Auto) 0.2 (0.0-1.5) % Neut # (Auto) 10.0 H (1.4-5.7) K/uL Lymph # (Auto) 1.0 (0.6-2.4) K/uL Ellsworth # (Auto) 0.3 (0.0-0.8) K/uL Eos # (Auto) 0.2 (0.0-0.7) K/uL Baso # (Auto) 0.0 (0.0-0.1) K/uL Nucleated RBC % 0.0 /100WBC Nucleated RBCs # 0 K/uL Sodium 142 (136-145) mmol/L Potassium 3.7 (3.5-5.1) mmol/L Chloride 111 H (98-107) mmol/L Carbon Dioxide 20.6 L (21.0-32.0) mmol/L BUN 41 H (7.0-18.0) mg/dL Creatinine 1.3 H (0.6-1.0) mg/dL Est Cr Clr Drug Dosing TNP Estimated GFR (MDRD) 38.6 ml/min Glucose 96 (74-106) mg/dL POC Glucose 99 (60-110) mg/dL Calcium 8.3 L (8.5-10.1) mg/dL Elton Results Last 24 Hours: Microbiology 09/23/18 17:10 Wound Culture - Final Sacrum Staphylococcus Aureus Proteus Mirabilis Skin Laura 09/23/18 10:23 Urine Culture - Final Urine, Quick Cath (In-Out) No Growth 09/23/18 09:23 Aerobic Blood Culture - Preliminary Blood - Venous - Lab Draw NO GROWTH AFTER 2 DAYS Anaerobic Blood Culture - Final 09/23/18 09:17 Aerobic Blood Culture - Preliminary Blood - Venous NO GROWTH AFTER 2 DAYS Anaerobic Blood Culture - Final Med Orders - Current: Current Medications Acetaminophen (Tylenol) 650 mg PO Q4H PRN PRN Reason: Pain (mild 1-3) Last Admin: 09/25/18 06:44 Dose: 650 mg Albuterol/Ipratropium (Duoneb 3.0-0.5 Mg/3 Ml) 3 ml NEB Q4HRRT [facility] Aspirin (Aspirin) 81 mg PO DAILY [facility] Last Admin: 09/25/18 08:28 Dose: 81 mg Bisacodyl (Dulcolax) 10 mg RECTAL DAILY PRN PRN Reason: Constipation Docusate Sodium (Colace) 100 mg PO BID [facility] Last Admin: 09/25/18 21:41 Dose: 100 mg Famotidine (Pepcid) 40 mg PO BEDTIME [facility] Last Admin: 09/25/18 21:45 Dose: 40 mg Vancomycin HCl 1 gm/ Sodium (Chloride) 250 mls @ 166.667 mls/hr IV Q24H [facility] Last Admin: 09/25/18 12:22 Dose: 166.667 mls/hr Meropenem 1 gm/ Sodium (Chloride) 100 mls @ 200 mls/hr IV Q12H [facility] Last Admin: 09/26/18 00:33 Dose: 200 mls/hr Insulin Aspart (Novolog) 0 unit SUBCUT TIDAC [facility]; Protocol Last Admin: 09/26/18 06:54 Dose: Not Given Levothyroxine Sodium (Levothyroxine) 75 mcg PO ACBREAKFAST [facility] Last Admin: 09/26/18 06:54 Dose: 75 mcg Meclizine HCl (Antivert) 25 mg PO BID [facility] Last Admin: 09/25/18 21:45 Dose: 25 mg Nystatin (Nystop) 15 gm TOP Q8H [facility] Last Admin: 09/26/18 00:38 Dose: 1 applic Ondansetron HCl (Zofran) 4 mg IVPUSH Q4H PRN PRN Reason: Nausea [Diclofenac Sodium] (1 Appful) 1 each TOP 0700,1900 [facility] Last Admin: 09/26/18 06:54 Dose: Not Given Polyethylene Glycol (Miralax) 17 gm PO BID [facility] Last Admin: 09/25/18 21:47 Dose: 17 gm Vancomycin HCl (Pharmacy To Dose - Vancomycin) 1 dose .XX ASDIRECTED [facility] Discontinued Medications Heparin Sodium (Porcine) (Heparin Sodium) 5,000 units SUBCUT Q8H [facility] Last Admin: 09/24/18 09:07 Dose: Not Given Sodium Chloride (Normal Saline) 1,000 mls @ 125 mls/hr IV STAT [facility] Last Admin: 09/23/18 09:47 Dose: 125 mls/hr Ceftriaxone Sodium/Dextrose 1 (gm/ Premix) 50 mls @ 100 mls/hr IV Q24H [facility] Last Admin: 09/23/18 12:30 Dose: 100 mls/hr Sodium Chloride (Normal Saline) 1,000 mls @ 75 mls/hr IV ASDIRECTED [facility] Last Admin: 09/25/18 04:58 Dose: 75 mls/hr Insulin Detemir (Levemir) 10 unit SUBCUT BEDTIME [facility] Last Admin: 09/24/18 21:09 Dose: 10 units Losartan Potassium (Cozaar) 25 mg PO DAILY [facility] Potassium Chloride (Klor-Con M20) 40 meq PO ONETIME ONE Stop: 09/25/18 08:05 Last Admin: 09/25/18 08:28 Dose: 40 meq - Exam General: Alert, Oriented, Cooperative Lungs: Crackles, Wheezing Cardiovascular: Regular Rate, Regular Rhythm, No Murmurs GI/Abdominal Exam: Normal Bowel Sounds, Soft, Non-Tender, No Organomegaly Extremities: Normal Inspection, Normal Range of Motion, Non-Tender, No Pedal Edema Wound/Incisions: Erythema Improving, Decubitis (sacrum, dressing intact, swelling improving along with induration) Neurological: No New Focal Deficit Psy/Mental Status: Alert, Normal Affect, Normal Mood - Problem List & Annotations (1) Altered mental status SNOMED Code(s): 352054330 Code(s): R41.82 - ALTERED MENTAL STATUS, UNSPECIFIED Status: Resolved Current Visit: Yes (2) Cellulitis SNOMED Code(s): 832056801 Code(s): L03.90 - CELLULITIS, UNSPECIFIED Status: Acute Current Visit: Yes (3) UTI (urinary tract infection) SNOMED Code(s): 84079338 Code(s): N39.0 - URINARY TRACT INFECTION, SITE NOT SPECIFIED Status: Acute Current Visit: Yes Qualifiers: Urinary tract infection type: acute cystitis (4) Head injury SNOMED Code(s): 81418152 Code(s): S09.90XA - UNSPECIFIED INJURY OF HEAD, INITIAL ENCOUNTER Status: Acute Current Visit: Yes (5) Falls SNOMED Code(s): 4192689, 235137525 Code(s): W19.XXXA - UNSPECIFIED FALL, INITIAL ENCOUNTER Status: Acute Current Visit: Yes Qualifiers: Encounter type: initial encounter Qualified Code(s): W19.XXXA - Unspecified fall, initial encounter (6) Decubital ulcer SNOMED Code(s): 935853440 Code(s): L89.90 - PRESSURE ULCER OF UNSPECIFIED SITE, UNSPECIFIED STAGE Status: Chronic Current Visit: Yes Qualifiers: Pressure injury location: sacral region Pressure injury stage: stage 2 Qualified Code(s): L89.152 - Pressure ulcer of sacral region, stage 2 (7) Chronic anemia SNOMED Code(s): 197699790 Code(s): D64.9 - ANEMIA, UNSPECIFIED Status: Chronic Current Visit: Yes (8) Dementia SNOMED Code(s): 38869930 Code(s): F03.90 - UNSPECIFIED DEMENTIA WITHOUT BEHAVIORAL DISTURBANCE Status: Chronic Current Visit: No (9) Diabetes mellitus type 2 in obese SNOMED Code(s): 28470368 Code(s): E11.9 - TYPE 2 DIABETES MELLITUS WITHOUT COMPLICATIONS; E66.9 - OBESITY, UNSPECIFIED Status: Chronic Priority: Medium Current Visit: No (10) Dizziness, nonspecific SNOMED Code(s): 491372571, 887655405 Code(s): R42 - DIZZINESS AND GIDDINESS Status: Chronic Current Visit: No (11) Dyslipidemia SNOMED Code(s): 729932085 Code(s): E78.5 - HYPERLIPIDEMIA, UNSPECIFIED Status: Chronic Current Visit: No (12) Hypertension SNOMED Code(s): 02713721 Code(s): I10 - ESSENTIAL (PRIMARY) HYPERTENSION Status: Chronic Current Visit: No Qualifiers: Hypertension type: essential hypertension Qualified Code(s): I10 - Essential (primary) hypertension - Problem List Review Problem List Initiated/Reviewed/Updated: Yes - My Orders Last 24 Hours: My Active Orders 09/26/18 08:22 RT Aerosol Therapy [RC] ASDIRECTED 09/26/18 10:00 Albuterol/Ipratropium [DuoNeb 3.0-0.5 MG/3 ML] 3 ml NEB Q4HRRT 09/26/18 11:30 VANCOMYCIN TROUGH [CHEM] Routine 09/27/18 05:11 BMP [BASIC METABOLIC PANEL,BMP] [CHEM] AM CBC WITH AUTO DIFF [HEME] AM - Plan Plan:: This 88 year old female admitted with AMS s/p fall at [place] along with cellulitis of sacral region and mild UTI 1. AMS: Nearly back to baseline, spoke with sister and niece yesterday, reports she is close to baseline. Head CT negative. 2. Cellulitis to sacrum: Has stage 2 ulcer, wound culture reveals MSSA. Continue Vancomycin and Meropenem for now, leukocytosis improving 11,[address] Looney consulted, recommended continued wet to dry dressing BID. Nursing staff to reposition every 2 hours and frequently check briefs for soiling to keep semaj region clean and dry as much as possible. 3. Chronic Anemia: Hgb 9.6, back to baseline. More alert and awake today. No signs of active bleeding. 4. DM Type 2: Stable. Continue SSI. TID AC BS checks. 5. HTN: Stable. Hold Losartan due to increase in BUN/Cr Will monitor. VTE prophylaxis: Discontinue Heparin due to anemia. Hemoccult ordered. SCDs. Dispo: 1-2 days, possible DC back to [place] tomorrow. Cintia Escobedo, daughter [phone] <Holden Sena - Last Filed: 09/26/18 11:38> - General Info Admission Dx/Problem (Free Text): I have seen and examined to patient independently of Gwendolyn Whitfield CNP. I have discussed the case for care of this patient with her. I have reviewed and approve of the plan of care as outlined by ELBA. Please see orders. - Patient Data Vitals - Most Recent: Last Vital Signs Temp 36.2 C 09/26/18 07:46 Pulse 80 09/26/18 07:46 Resp 20 09/26/18 07:46 BP 144/68 H 09/26/18 07:46 Pulse Ox 97 09/26/18 07:46 I&O - Last 24 Hours: Intake & Output 09/25/18 09/26/18 09/26/18 22:59 06:59 14:59 Intake Total 710 445 Balance 710 445 Lab Results Last 24 Hours: Laboratory Results - last 24 hr 09/25/18 09/25/18 09/25/18 Range/Units 12:25 17:23 21:28 WBC (4.0-11.0) K/uL RBC (4.30-5.90) M/uL Hgb (12.0-16.0) g/dL Hct (36.0-46.0) % MCV (80.0-98.0) fL MCH (27.0-32.0) pg MCHC (31.0-37.0) g/dL RDW Std Deviation (28.0-62.0) fl RDW Coeff of Joelle (11.0-15.0) % Plt Count (150-400) K/uL MPV (7.40-12.00) fL Neut % (Auto) (48.0-80.0) % Lymph % (Auto) (16.0-40.0) % Ellsworth % (Auto) (0.0-15.0) % Eos % (Auto) (0.0-7.0) % Baso % (Auto) (0.0-1.5) % Neut # (Auto) (1.4-5.7) K/uL Lymph # (Auto) (0.6-2.4) K/uL Ellsworth # (Auto) (0.0-0.8) K/uL Eos # (Auto) (0.0-0.7) K/uL Baso # (Auto) (0.0-0.1) K/uL Nucleated RBC % /100WBC Nucleated RBCs # K/uL Sodium (136-145) mmol/L Potassium (3.5-5.1) mmol/L Chloride (98-107) mmol/L Carbon Dioxide (21.0-32.0) mmol/L BUN (7.0-18.0) mg/dL Creatinine (0.6-1.0) mg/dL Est Cr Clr Drug Dosing Estimated GFR (MDRD) ml/min Glucose (74-106) mg/dL POC Glucose 82 80 104 (60-110) mg/dL Calcium (8.5-10.1) mg/dL 09/26/18 09/26/18 09/26/18 Range/Units 06:10 06:10 06:25 WBC 11.44 H (4.0-11.0) K/uL RBC 3.13 L (4.30-5.90) M/uL Hgb 9.6 L (12.0-16.0) g/dL Hct 29.0 L (36.0-46.0) % MCV 92.7 (80.0-98.0) fL MCH 30.7 (27.0-32.0) pg MCHC 33.1 (31.0-37.0) g/dL RDW Std Deviation 63.4 H (28.0-62.0) fl RDW Coeff of Joelle 19 H (11.0-15.0) % Plt Count 191 (150-400) K/uL MPV 9.40 (7.40-12.00) fL Neut % (Auto) 87.0 H (48.0-80.0) % Lymph % (Auto) 8.7 L (16.0-40.0) % Ellsworth % (Auto) 2.3 (0.0-15.0) % Eos % (Auto) 1.8 (0.0-7.0) % Baso % (Auto) 0.2 (0.0-1.5) % Neut # (Auto) 10.0 H (1.4-5.7) K/uL Lymph # (Auto) 1.0 (0.6-2.4) K/uL Ellsworth # (Auto) 0.3 (0.0-0.8) K/uL Eos # (Auto) 0.2 (0.0-0.7) K/uL Baso # (Auto) 0.0 (0.0-0.1) K/uL Nucleated RBC % 0.0 /100WBC Nucleated RBCs # 0 K/uL Sodium 142 (136-145) mmol/L Potassium 3.7 (3.5-5.1) mmol/L Chloride 111 H (98-107) mmol/L Carbon Dioxide 20.6 L (21.0-32.0) mmol/L BUN 41 H (7.0-18.0) mg/dL Creatinine 1.3 H (0.6-1.0) mg/dL Est Cr Clr Drug Dosing TNP Estimated GFR (MDRD) 38.6 ml/min Glucose 96 (74-106) mg/dL POC Glucose 99 (60-110) mg/dL Calcium 8.3 L (8.5-10.1) mg/dL [place] Results Last 24 Hours: Microbiology 09/23/18 09:23 Aerobic Blood Culture - Preliminary Blood - Venous - Lab Draw NO GROWTH AFTER 3 DAYS Anaerobic Blood Culture - Final 09/23/18 09:17 Aerobic Blood Culture - Preliminary Blood - Venous NO GROWTH AFTER 3 DAYS Anaerobic Blood Culture - Final 09/23/18 17:10 Wound Culture - Final Sacrum Staphylococcus Aureus Proteus Mirabilis Skin Lauar 09/23/18 10:23 Urine Culture - Final Urine, Quick Cath (In-Out) No Growth Med Orders - Current: Current Medications Acetaminophen (Tylenol) 650 mg PO Q4H PRN PRN Reason: Pain (mild 1-3) Last Admin: 09/25/18 06:44 Dose: 650 mg Albuterol/Ipratropium (Duoneb 3.0-0.5 Mg/3 Ml) 3 ml NEB Q4HRRT [facility] Last Admin: 09/26/18 09:28 Dose: 3 ml Aspirin (Aspirin) 81 mg PO DAILY [facility] Last Admin: 09/26/18 09:53 Dose: 81 mg Bisacodyl (Dulcolax) 10 mg RECTAL DAILY PRN PRN Reason: Constipation Docusate Sodium (Colace) 100 mg PO BID [facility] Last Admin: 09/26/18 09:53 Dose: 100 mg Famotidine (Pepcid) 40 mg PO BEDTIME [facility] Last Admin: 09/25/18 21:45 Dose: 40 mg Vancomycin HCl 1 gm/ Sodium (Chloride) 250 mls @ 166.667 mls/hr IV Q24H [facility] Last Admin: 09/25/18 12:22 Dose: 166.667 mls/hr Meropenem 1 gm/ Sodium (Chloride) 100 mls @ 200 mls/hr IV Q12H [facility] Last Admin: 09/26/18 11:17 Dose: 200 mls/hr Insulin Aspart (Novolog) 0 unit SUBCUT TIDAC [facility]; Protocol Last Admin: 09/26/18 06:54 Dose: Not Given Levothyroxine Sodium (Levothyroxine) 75 mcg PO ACBREAKFAST [facility] Last Admin: 09/26/18 06:54 Dose: 75 mcg Meclizine HCl (Antivert) 25 mg PO BID [facility] Last Admin: 09/26/18 09:53 Dose: 25 mg Nystatin (Nystop) 15 gm TOP Q8H [facility] Last Admin: 09/26/18 09:54 Dose: 1 applic Ondansetron HCl (Zofran) 4 mg IVPUSH Q4H PRN PRN Reason: Nausea [Diclofenac Sodium] (1 Appful) 1 each TOP 0700,1900 [facility] Last Admin: 09/26/18 06:54 Dose: Not Given Polyethylene Glycol (Miralax) 17 gm PO BID [facility] Last Admin: 09/26/18 09:53 Dose: 17 gm Vancomycin HCl (Pharmacy To Dose - Vancomycin) 1 dose .XX ASDIRECTED [facility] Discontinued Medications Heparin Sodium (Porcine) (Heparin Sodium) 5,000 units SUBCUT Q8H [facility] Last Admin: 09/24/18 09:07 Dose: Not Given Sodium Chloride (Normal Saline) 1,000 mls @ 125 mls/hr IV STAT [facility] Last Admin: 09/23/18 09:47 Dose: 125 mls/hr Ceftriaxone Sodium/Dextrose 1 (gm/ Premix) 50 mls @ 100 mls/hr IV Q24H [facility] Last Admin: 09/23/18 12:30 Dose: 100 mls/hr Sodium Chloride (Normal Saline) 1,000 mls @ 75 mls/hr IV ASDIRECTED [facility] Last Admin: 09/25/18 04:58 Dose: 75 mls/hr Insulin Detemir (Levemir) 10 unit SUBCUT BEDTIME [facility] Last Admin: 09/24/18 21:09 Dose: 10 units Losartan Potassium (Cozaar) 25 mg PO DAILY [facility] Potassium Chloride (Klor-Con M20) 40 meq PO ONETIME ONE Stop: 09/25/18 08:05 Last Admin: 09/25/18 08:28 Dose: 40 meq
[2018-09-26] MEDS: Albuterol/Ipratropium 3.0-0.5 MG/3 ML Neb Soln NEB SCH ×4 (09:28→21:29)
[2018-09-26] MEDS: Aspirin 81 MG Tab.Chew PO SCH (09:53)
[2018-09-26] MEDS: Docusate Sodium 100 MG Cap PO SCH ×2 (09:53→21:01)
[2018-09-26] MEDS: Polyethylene Glycol 3350 Powder 17 GM Packet PO SCH ×2 (09:53→21:06)
[2018-09-26] MEDS: Meclizine 25 MG Tab PO SCH ×2 (09:53→21:01)
[2018-09-26] MEDS: Famotidine 20 MG Tab PO SCH (21:00)
[2018-09-27] MEDS: Albuterol/Ipratropium 3.0-0.5 MG/3 ML Neb Soln NEB SCH ×3 (02:30→09:57)
[2018-09-27 05:53] LABS: CHLORIDE,CL 111 mmol/L (98-107); SODIUM,NA 143 mmol/L (136-145)
[2018-09-27] MEDS: [UNRECOGNIZED DRUG - OTHER] TOP SCH (06:07)
[2018-09-27] MEDS: Levothyroxine 75 MCG Tab PO SCH (07:21)
[2018-09-27 07:42] VITALS: BP 139/86
[2018-09-27] MEDS: Insulin Aspart 100 Units/ML 3 ML Pen SUBCUT SCH ×2 (07:46→12:32)
[2018-09-27] MEDS: Docusate Sodium 100 MG Cap PO SCH (08:13)
[2018-09-27] MEDS: Aspirin 81 MG Tab.Chew PO SCH (08:13)
[2018-09-27] MEDS: Meclizine 25 MG Tab PO SCH (08:13)
[2018-09-27] MEDS: Nystatin Topical Powder 15 GM Bottle TOP SCH (08:14)
[2018-09-27] MEDS: Polyethylene Glycol 3350 Powder 17 GM Packet PO SCH (08:14)
--- NOTE | 2018-09-27 10:55 | PCM.DCSUM1 ---
Discharge Summary - Hospital Course Brief History: This 88 year old female with pmh of HTN, DM Type 2, dyslipidemia , chronic dizziness, dementia and anemia presented to the ED from [facility] today after a fall last evening where she hit her head and has since had AMS. Dr Cochran requested she be evaluated this morning. Grzegorz is unable to provide answers as to what happened. She has bruising her to R forehead and small laceration, with bruising and swelling to R eye lid. She denies any pain currently, but reports pain with palpation of her sacral wound. No family at bedside currently. In the ED Leukocytosis noted at 15,450, hgb 8.8, baseline mid 9s, BUN 35, Cr 1.3, bilirubin 1.1, which is near baseline. Troponin negative. CXR was negative. Head CT negative as well. UA revealed pyuria, 3-5, positive leukocyte esterase, negative nitrite, and rare bacteria. EKG SR with no ST changes. All VS stable in ED. Modified Lupis Scale: No Symptoms at All Modified Repton Scale Score: 0 - Discharge Data Discharge Date: 09/27/18 Discharge Disposition: DC/Tfer to [facility] 03 Condition: Stable - Discharge Diagnosis/Problem(s) (1) Altered mental status SNOMED Code(s): 929888452 ICD Code: R41.82 - ALTERED MENTAL STATUS, UNSPECIFIED Status: Resolved Current Visit: Yes (2) Cellulitis SNOMED Code(s): 166151143 ICD Code: L03.90 - CELLULITIS, UNSPECIFIED Status: Acute Current Visit: Yes (3) UTI (urinary tract infection) SNOMED Code(s): 31887180 ICD Code: N39.0 - URINARY TRACT INFECTION, SITE NOT SPECIFIED Status: Acute Current Visit: Yes Qualifiers: Urinary tract infection type: acute cystitis (4) Head injury SNOMED Code(s): 60936887 ICD Code: S09.90XA - UNSPECIFIED INJURY OF HEAD, INITIAL ENCOUNTER Status: Acute Current Visit: Yes (5) Falls SNOMED Code(s): 9801743, 356220873 ICD Code: W19.XXXA - UNSPECIFIED FALL, INITIAL ENCOUNTER Status: Acute Current Visit: Yes Qualifiers: Encounter type: initial encounter Qualified Code(s): W19.XXXA - Unspecified fall, initial encounter (6) Decubital ulcer SNOMED Code(s): 665551810 ICD Code: L89.90 - PRESSURE ULCER OF UNSPECIFIED SITE, UNSPECIFIED STAGE Status: Chronic Current Visit: Yes Qualifiers: Pressure injury location: sacral region Pressure injury stage: stage 2 Qualified Code(s): L89.152 - Pressure ulcer of sacral region, stage 2 (7) Chronic anemia SNOMED Code(s): 361345139 ICD Code: D64.9 - ANEMIA, UNSPECIFIED Status: Chronic Current Visit: Yes (8) Dementia SNOMED Code(s): 41987446 ICD Code: F03.90 - UNSPECIFIED DEMENTIA WITHOUT BEHAVIORAL DISTURBANCE Status: Chronic Current Visit: No (9) Diabetes mellitus type 2 in obese SNOMED Code(s): 45608425 ICD Code: E11.9 - TYPE 2 DIABETES MELLITUS WITHOUT COMPLICATIONS; E66.9 - OBESITY, UNSPECIFIED Status: Chronic Priority: Medium Current Visit: No (10) Dizziness, nonspecific SNOMED Code(s): 400948598, 577784144 ICD Code: R42 - DIZZINESS AND GIDDINESS Status: Chronic Current Visit: No (11) Dyslipidemia SNOMED Code(s): 978669119 ICD Code: E78.5 - HYPERLIPIDEMIA, UNSPECIFIED Status: Chronic Current Visit: No (12) Hypertension SNOMED Code(s): 35228056 ICD Code: I10 - ESSENTIAL (PRIMARY) HYPERTENSION Status: Chronic Current Visit: No Qualifiers: Hypertension type: essential hypertension Qualified Code(s): I10 - Essential (primary) hypertension - Patient Summary/Data Consults: Consultations 09/23/18 11:43 PT Evaluation and Treatment [CONS] Routine 09/23/18 12:37 Consult to Physical Therapy [PT Evaluation and Treatment] [CONS] Stat 09/23/18 12:51 Consult to Wound Care Services [CONS] Routine 09/24/18 10:29 Consult to Physician [CONS] Routine - Patient Instructions Diet: Diabetic Diet (regular texture) Activity: As Tolerated, Cough & Deep Breathe Showering/Bathing: May Shower Notify Provider of: Fever, Increased Pain, Swelling and Redness, Drainage, Nausea and/or Vomiting Other/Special Instructions: PT/OT/ST to evaluate and treat. Wound care nurse consult. Dr. Looney recommends wet to dry dressings BID to help debride sacral ulcer for now. Reposition every 2 hours. Check brief every 2 hours as well and change for any soiling. Good semaj cares. Place on donut pillow to relieve pressure to sacrum when sitting in chairs. - Discharge Plan *PRESCRIPTION DRUG MONITORING PROGRAM REVIEWED*: Not Applicable *COPY OF PRESCRIPTION DRUG MONITORING REPORT IN PATIENT PASTOR: Not Applicable Prescriptions/Med Rec: Acetaminophen [Tylenol] 650 mg PO Q4H PRN #30 tablet PRN Reason: Pain Sulfamethoxazole/Trimethoprim [Bactrim 400-80 MG] 1 each PO BID #14 tablet Home Medications: Home Meds Levothyroxine Sodium [Synthroid] 75 mcg PO ACBREAKFAST 02/15/14 [History] Losartan [Cozaar] 25 mg PO DAILY 12/23/15 [History] Aspirin 81 mg PO DAILY 12/05/16 [History] Cyanocobalamin (Vitamin B-12) [B-12] 1,000 mcg PO DAILY 12/05/16 [History] Meclizine HCl 25 mg PO BID 12/05/16 [History] Lutein/Minerals/Vit A,C & E [Ocuvite] 1 tab PO BID 01/21/17 [History] Multivit-Min/FA/Lycopene/Lut [Sentry Senior Tablet] 1 each PO DAILY 09/11/17 [ History] Calcium Carbonate [Calcium] 600 mg PO DAILY 12/03/17 [History] Cholecalciferol (Vitamin D3) [D3-2000] 2,000 unit PO DAILY 12/03/17 [History] Diclofenac Sodium 1 appful TP .EVERY SHIFT 12/03/17 [History] Polyethylene Glycol 3350 [MiraLAX] 17 gm PO BID 12/03/17 [History] Famotidine 40 mg PO BEDTIME 06/03/18 [History] Bisacodyl 10 mg RC DAILY PRN 09/23/18 [History] Docusate Sodium 100 mg PO BID 09/23/18 [History] Ibuprofen [Advil] 400 mg PO Q6H PRN 09/23/18 [History] Magnesium Hydroxide [Milk of Magnesia] 30 ml PO Q24H PRN 09/23/18 [History] Nystatin 1 applic TOP Q8H 09/23/18 [History] Acetaminophen [Tylenol] 650 mg PO Q4H PRN #30 tablet 09/27/18 [Rx] Insulin Detemir [Levemir Flextouch] 10 units SQ DAILY #0 09/27/18 [Rx] Sulfamethoxazole/Trimethoprim [Bactrim 400-80 MG] 1 each PO BID #14 tablet 09/27 [Rx] Oxygen Therapy Mode: Room Air Referrals: Abelino Fernandez MD [Physician] - 10/03/18 - Discharge Summary/Plan Comment DC Time >30 min.: No Discharge Summary/Plan Comment: Admitting diagnoses: AMS Cellulitis to sacral ulcer Anemia Discharge Diagnoses: Cellulitis to sacral ulcer Deconditioning from acute illness Other PMH Dm Type 2 Dementia HTM Chronic anemia Grzegorz was admitted with AMS with unknown etiology. Head CT was negative for acute intracranial findings. AMS likely secondary to acute illness, leukocytosis was noted, no pneumonia or UA. Cellulitis was noted to sacral decubitus, Dr Looney was consulted regarding surgical debridement, she felt doing wet to dry dressings for now to help debride would be best. I have kept daughter, Cintia, updated on status during her stay. She was treated with Meropenem and Vancomycin. Leukocytosis has improved today. She continues to have some pain to her bottom. She has been up to chair for meals, with a donut pillow to relieve pressure to sacral ulcer. She has also been turned and repositioned every 2 hours while in bed. She has not been up ambulating much, depending on alertness during the day she is assist of 2 people for transfer to chair and back to bed. Today she is alert. She will be transferred back to [facility] today. She will continue Bactrim for 7 more days for ulcer. She is to follow up with PCP in [address] Looney in 1-2 weeks regarding further treatment for sacral ulcer. Losartan was held on arrival due to MICHAEL on CKD as well as hypotension. She may restart this on discharge. She is to return to ED or clinic if concerns should arise. I attempted to contact Dr Fernandez regarding return to [place], message left. Will insure DC summary is faxed to his office. - General Info Date of Service: 09/27/18 Admission Dx/Problem (Free Text: Cellulitis of sacral decubitus Subjective Update: Alert this morning, still has some inappropriate answers to questions. Doing well otherwise. No pain besides to bottom when she is sitting on it. Functional Status: Reports: Pain Controlled, Tolerating Diet, Ambulating, Urinating - Review of Systems General: Reports: No Symptoms. Denies: Fever, Weakness, Fatigue Pulmonary: Reports: No Symptoms. Denies: Shortness of Breath Cardiovascular: Reports: No Symptoms. Denies: Chest Pain Gastrointestinal: Reports: No Symptoms. Denies: Abdominal Pain, Nausea, Vomiting Genitourinary: Reports: No Symptoms Musculoskeletal: Reports: Other (sacral pain) Neurological: Reports: No Symptoms Psychiatric: Reports: No Symptoms - Patient Data Vitals - Most Recent: Last Vital Signs Temp 97.5 F 09/27/18 08:00 Pulse 90 09/27/18 08:00 Resp 16 09/27/18 08:00 BP 139/86 09/27/18 08:00 Pulse Ox 96 09/27/18 08:00 Weight - Most Recent: 67 kg I&O - Last 24 hours: Intake & Output 09/26/18 09/27/18 09/27/18 22:59 06:59 14:59 Intake Total 1140 520 Balance 1140 520 Lab Results - Last 24 hrs: Laboratory Results - last 24 hr 09/26/18 09/26/18 09/27/18 Range/Units 12:09 17:43 04:55 WBC 9.46 (4.0-11.0) K/uL RBC 3.09 L (4.30-5.90) M/uL Hgb 9.5 L (12.0-16.0) g/dL Hct 28.7 L (36.0-46.0) % MCV 92.9 (80.0-98.0) fL MCH 30.7 (27.0-32.0) pg MCHC 33.1 (31.0-37.0) g/dL RDW Std Deviation 63.0 H (28.0-62.0) fl RDW Coeff of Joelle 18 H (11.0-15.0) % Plt Count 212 (150-400) K/uL MPV 10.00 (7.40-12.00) fL Neut % (Auto) 84.2 H (48.0-80.0) % Lymph % (Auto) 10.3 L (16.0-40.0) % [place] % (Auto) 3.9 (0.0-15.0) % Eos % (Auto) 1.5 (0.0-7.0) % Baso % (Auto) 0.1 (0.0-1.5) % Neut # (Auto) 8.0 H (1.4-5.7) K/uL Lymph # (Auto) 1.0 (0.6-2.4) K/uL [place] # (Auto) 0.4 (0.0-0.8) K/uL Eos # (Auto) 0.1 (0.0-0.7) K/uL Baso # (Auto) 0.0 (0.0-0.1) K/uL Nucleated RBC % 0.0 /100WBC Nucleated RBCs # 0 K/uL Sodium (136-145) mmol/L Potassium (3.5-5.1) mmol/L Chloride (98-107) mmol/L Carbon Dioxide (21.0-32.0) mmol/L BUN (7.0-18.0) mg/dL Creatinine (0.6-1.0) mg/dL Est Cr Clr Drug Dosing Estimated GFR (MDRD) ml/min Glucose (74-106) mg/dL POC Glucose 112 H 140 H (60-110) mg/dL Calcium (8.5-10.1) mg/dL 09/27/18 09/27/18 Range/Units 04:55 05:49 WBC (4.0-11.0) K/uL RBC (4.30-5.90) M/uL Hgb (12.0-16.0) g/dL Hct (36.0-46.0) % MCV (80.0-98.0) fL MCH (27.0-32.0) pg MCHC (31.0-37.0) g/dL RDW Std Deviation (28.0-62.0) fl RDW Coeff of Joelle (11.0-15.0) % Plt Count (150-400) K/uL MPV (7.40-12.00) fL Neut % (Auto) (48.0-80.0) % Lymph % (Auto) (16.0-40.0) % [place] % (Auto) (0.0-15.0) % Eos % (Auto) (0.0-7.0) % Baso % (Auto) (0.0-1.5) % Neut # (Auto) (1.4-5.7) K/uL Lymph # (Auto) (0.6-2.4) K/uL [place] # (Auto) (0.0-0.8) K/uL Eos # (Auto) (0.0-0.7) K/uL Baso # (Auto) (0.0-0.1) K/uL Nucleated RBC % /100WBC Nucleated RBCs # K/uL Sodium 143 (136-145) mmol/L Potassium 3.6 (3.5-5.1) mmol/L Chloride 111 H (98-107) mmol/L Carbon Dioxide 20.6 L (21.0-32.0) mmol/L BUN 38 H (7.0-18.0) mg/dL Creatinine 1.2 H (0.6-1.0) mg/dL Est Cr Clr Drug Dosing TNP Estimated GFR (MDRD) 42.3 ml/min Glucose 154 H (74-106) mg/dL POC Glucose 133 H (60-110) mg/dL Calcium 8.3 L (8.5-10.1) mg/dL MITCH Results - Last 24 hrs: Microbiology 09/23/18 09:23 Aerobic Blood Culture - Preliminary Blood - Venous - Lab Draw NO GROWTH AFTER 4 DAYS Anaerobic Blood Culture - Final 09/23/18 09:17 Aerobic Blood Culture - Preliminary Blood - Venous NO GROWTH AFTER 4 DAYS Anaerobic Blood Culture - Final 09/23/18 17:10 Wound Culture - Final Sacrum Staphylococcus Aureus Proteus Mirabilis Skin Laura Med Orders - Current: Current Medications Acetaminophen (Tylenol) 650 mg PO Q4H PRN PRN Reason: Pain (mild 1-3) Last Admin: 09/25/18 06:44 Dose: 650 mg Albuterol/Ipratropium (Duoneb 3.0-0.5 Mg/3 Ml) 3 ml NEB Q4HRRT [facility] Last Admin: 09/27/18 09:57 Dose: 3 ml Aspirin (Aspirin) 81 mg PO DAILY [facility] Last Admin: 09/27/18 08:13 Dose: 81 mg Bisacodyl (Dulcolax) 10 mg RECTAL DAILY PRN PRN Reason: Constipation Docusate Sodium (Colace) 100 mg PO BID [facility] Last Admin: 09/27/18 08:13 Dose: 100 mg Famotidine (Pepcid) 40 mg PO BEDTIME [facility] Last Admin: 09/26/18 21:00 Dose: 40 mg Vancomycin HCl 1 gm/ Sodium (Chloride) 250 mls @ 166.667 mls/hr IV Q24H [facility] Last Admin: 09/26/18 13:13 Dose: 166.667 mls/hr Meropenem 1 gm/ Sodium (Chloride) 100 mls @ 200 mls/hr IV Q12H [facility] Last Admin: 09/26/18 23:09 Dose: 200 mls/hr Insulin Aspart (Novolog) 0 unit SUBCUT TIDAC [facility]; Protocol Last Admin: 09/27/18 07:46 Dose: Not Given Levothyroxine Sodium (Levothyroxine) 75 mcg PO ACBREAKFAST [facility] Last Admin: 09/27/18 07:21 Dose: 75 mcg Meclizine HCl (Antivert) 25 mg PO BID [facility] Last Admin: 09/27/18 08:13 Dose: 25 mg Nystatin (Nystop) 15 gm TOP Q8H [facility] Last Admin: 09/27/18 08:14 Dose: 1 applic Ondansetron HCl (Zofran) 4 mg IVPUSH Q4H PRN PRN Reason: Nausea [Diclofenac Sodium] (1 Appful) 1 each TOP 0700,1900 [facility] Last Admin: 09/27/18 06:07 Dose: Not Given Polyethylene Glycol (Miralax) 17 gm PO BID [facility] Last Admin: 09/27/18 08:14 Dose: 17 gm Vancomycin HCl (Pharmacy To Dose - Vancomycin) 1 dose .XX ASDIRECTED [facility] Discontinued Medications Heparin Sodium (Porcine) (Heparin Sodium) 5,000 units SUBCUT Q8H [facility] Last Admin: 09/24/18 09:07 Dose: Not Given Sodium Chloride (Normal Saline) 1,000 mls @ 125 mls/hr IV STAT [facility] Last Admin: 09/23/18 09:47 Dose: 125 mls/hr Ceftriaxone Sodium/Dextrose 1 (gm/ Premix) 50 mls @ 100 mls/hr IV Q24H [facility] Last Admin: 09/23/18 12:30 Dose: 100 mls/hr Sodium Chloride (Normal Saline) 1,000 mls @ 75 mls/hr IV ASDIRECTED [facility] Last Admin: 09/25/18 04:58 Dose: 75 mls/hr Insulin Detemir (Levemir) 10 unit SUBCUT BEDTIME [facility] Last Admin: 09/24/18 21:09 Dose: 10 units Losartan Potassium (Cozaar) 25 mg PO DAILY [facility] Potassium Chloride (Klor-Con M20) 40 meq PO ONETIME ONE Stop: 09/25/18 08:05 Last Admin: 09/25/18 08:28 Dose: 40 meq - Exam General: Reports: Alert, Oriented, Cooperative, No Acute Distress Neck: Reports: Supple Lungs: Reports: Clear to Auscultation, Normal Respiratory Effort Cardiovascular: Reports: Regular Rate, Regular Rhythm GI/Abdominal Exam: Normal Bowel Sounds, Soft, Non-Tender Back Exam: Reports: Normal Inspection, Full Range of Motion Skin: Reports: Warm, Dry Wound/Incisions: Reports: Healing Well, Dressing Dry and Intact, No Drainage, Erythema Improving, Decubitis (stage 2 to sacrum, erythema and induration improving. Conitnue wet to dry dressing to help debride) Neurological: Reports: No New Focal Deficit Psy/Mental Status: Reports: Alert, Normal Affect, Normal Mood
[2018-09-27] MEDS: Meropenem 1 GM in Sodium Chloride 0.9% 100 ML IV SCH (11:48)
== END 2018-09-27 13:00 | DRG 948 ==
LOC: MW.ED 08:44 → MW.MS 10:48 → OBSVTOIN 09-24 08:13
PROVIDERS: ADMIT Internal Medicine; ATTEND Internal Medicine
PROC: 30233N1 Transfusion of Nonautologous Red Blood Cells into Peripheral Vein, Percutaneous Approach (ICD-10-PCS; principal; 2018-09-24)
DX: R41.82 Altered mental status, unspecified (principal); N39.0 Urinary tract infection, site not specified; S09.90XA Unspecified injury of head, initial encounter; W19.XXXA Unspecified fall, initial encounter; I10 Essential (primary) hypertension; E78.5 Hyperlipidemia, unspecified; K21.9 Gastro-esophageal reflux disease without esophagitis; J84.10 Pulmonary fibrosis, unspecified; K58.9 Irritable bowel syndrome, unspecified; M19.90 Unspecified osteoarthritis, unspecified site; A49.01 Methicillin susceptible Staphylococcus aureus infection, unspecified site; G89.29 Other chronic pain; M54.5 Low back pain; F03.90 Unspecified dementia, unspecified severity, without behavioral disturbance, psychotic disturbance, mood disturbance, and anxiety; R42 Dizziness and giddiness; D64.9 Anemia, unspecified; F32.9 Major depressive disorder, single episode, unspecified; E03.9 Hypothyroidism, unspecified; L89.152 Pressure ulcer of sacral region, stage 2; E11.622 Type 2 diabetes mellitus with other skin ulcer; Z79.4 Long term (current) use of insulin; H54.7 Unspecified visual loss; Z88.5 Allergy status to narcotic agent; Z88.0 Allergy status to penicillin; Z79.82 Long term (current) use of aspirin; Z79.890 Hormone replacement therapy; Z79.899 Other long term (current) drug therapy
CPT/HCPCS: 36415 ×2; 70450; 71045; 80048; 80053; 81001; 82140; 82962 ×3; 83605; 84484; 85025 ×2; 85610; 87040 ×2; 87070; 87077 ×2; 87086; 87186 ×2; 93005; 96360; 96361; 99285; A4217; A9270 ×7; J0696; J1644 ×2; J1815 ×2; J3370; J7040 ×2; J7050; 36430; 72192; 72192-26; 82272; 83735; 85014; 85018; 86850; 86900; 86901; 86920; 86921; 86922; 94640; 96365; 96372; 96375; 99284; G0378; J2185; J7030; J7620-GY; P9016

== ENCOUNTER 2018-11-28 17:59 | Emergency (ER) | payer MEDICARE, OTHER, MEDICAID ==
[2018-11-28] MEDS ORDERED: Sodium Chloride 0.9% 10 ML Syringe FLUSH PRN (18:10)
[2018-11-28] MEDS ORDERED: Sodium Chloride 0.9% 2.5 ML Syringe FLUSH PRN (18:10)
--- NOTE | 2018-11-28 18:11 | EDM.PDOC ---
ED HPI GENERAL MEDICAL PROBLEM - General Chief Complaint: Skin Complaint Stated Complaint: BOIL Time Seen by Provider: 11/28/18 18:11 Source of Information: Reports: Patient History Limitations: Reports: No Limitations - History of Present Illness INITIAL COMMENTS - FREE TEXT/NARRATIVE: HISTORY AND PHYSICAL: History of present illness: Patient is an 88-year-old female presents to the ED from [place] for a fever and boil of her labia. Patient is demented at baseline and offers no history. Per custodial records, patient had a fever of 101F and a boil on her labia that was just noticed today. She received Tylenol prior to arrival to the ED, she is afebrile here. Past medical history significant for diabetes, hypertension. Review of systems: As per history of present illness and below otherwise all systems reviewed and negative. Past medical history: As per history of present illness and as reviewed below otherwise noncontributory. Surgical history: As per history of present illness and as reviewed below otherwise noncontributory. Social history: No reported history of drug or alcohol abuse. Family history: As per history of present illness and as reviewed below otherwise noncontributory. Physical exam: General: Patient sitting comfortably in no acute distress and nontoxic appearing HEENT: Atraumatic, normocephalic, pupils reactive, negative for conjunctival pallor or scleral icterus, mucous membranes moist, throat clear, neck supple, nontender, trachea midline. No meningeal signs. Lungs: Clear to auscultation, breath sounds equal bilaterally, chest nontender. Heart: S1S2, regular, negative for clicks, rubs, or overt murmur. Abdomen: Soft, nondistended, nontender. Negative for masses or hepatosplenomegaly. Negative for costovertebral tenderness. No rigidity, rebound , guarding. Pelvis: Stable nontender. Genitourinary: There is a 4cm area of induration to the left labia majora with overlying scab. No fluctuance or drainage Rectal: Deferred. Extremities: Atraumatic, negative for cords or calf pain. Neurovascular unremarkable. Neuro: Awake, alert, oriented. Cranial nerves II through XII unremarkable. Cerebellum unremarkable. Motor and sensory unremarkable throughout. Exam nonfocal. Notes: Diagnostics: CBC, CMP, lactic acid, blood culture x 2, UA, CXR Therapeutics: 1g Rocephin IV Prescriptions: Bactrim DS Impression: abscess Plan: Take antibiotic as instructed Follow up with primary care provider Return to ED as needed as discussed Definitive disposition and diagnosis as appropriate pending reevaluation and review of above. - Related Data Allergies Allergy/AdvReac Type Severity Reaction Status Date / Time Penicillins Allergy Mild Hives Verified 11/28/18 18:13 codeine Allergy Hives Verified 11/28/18 18:13 Home Meds: Home Meds Levothyroxine Sodium [Synthroid] 75 mcg PO ACBREAKFAST 02/15/14 [History] Losartan [Cozaar] 25 mg PO DAILY 12/23/15 [History] Aspirin 81 mg PO DAILY 12/05/16 [History] Cyanocobalamin (Vitamin B-12) [B-12] 1,000 mcg PO DAILY 12/05/16 [History] Meclizine HCl 25 mg PO BID 12/05/16 [History] Lutein/Minerals/Vit A,C & E [Ocuvite] 1 tab PO BID 01/21/17 [History] Multivit-Min/FA/Lycopene/Lut [Sentry Senior Tablet] 1 each PO DAILY 09/11/17 [ History] Calcium Carbonate [Calcium] 600 mg PO DAILY 12/03/17 [History] Diclofenac Sodium 1 appful TP .EVERY SHIFT 12/03/17 [History] Polyethylene Glycol 3350 [MiraLAX] 17 gm PO BID 12/03/17 [History] Famotidine 40 mg PO BEDTIME 06/03/18 [History] Bisacodyl 10 mg RC DAILY PRN 09/23/18 [History] Docusate Sodium 100 mg PO BID 09/23/18 [History] Ibuprofen [Advil] 400 mg PO Q6H PRN 09/23/18 [History] Magnesium Hydroxide [Milk of Magnesia] 30 ml PO Q24H PRN 09/23/18 [History] Nystatin 1 applic TOP Q8H 09/23/18 [History] Acetaminophen [Tylenol] 650 mg PO Q4H PRN #30 tablet 09/27/18 [Rx] Insulin Detemir [Levemir Flextouch] 10 units SQ DAILY #0 09/27/18 [Rx] Past Medical History HEENT History: Reports: Allergic Rhinitis, Impaired Vision Other HEENT History: WEARS GLASSES Cardiovascular History: Reports: High Cholesterol, Hypertension. 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: Musculoskeletal History: Reports: Arthritis, Back Pain, Chronic Neurological History: Reports: Migraines, Vertigo, Other (See Below) (Dementia) Other Neuro History: no migranes since hysterectomy Psychiatric History: Reports: Dementia, Depression Endocrine/Metabolic History: Reports: Diabetes, Type II, Hypothyroidism Hematologic History: Reports: Anemia Immunologic History: Reports: None Oncologic (Cancer) History: Reports: None Dermatologic History: Reports: Eczema - Infectious Disease History Infectious Disease History: Reports: Chicken Pox, Measles - Past Surgical History Head Surgeries/Procedures: Reports: None HEENT Surgical History: Reports: None Cardiovascular Surgical History: Reports: None Respiratory Surgical History: Reports: None GI Surgical History: Reports: Appendectomy, Colonoscopy, EGD Female Surgical History: Reports: Breast Biopsy, Section, Hysterectomy, Oophorectomy, Salpingo-Oophorectomy Musculoskeletal Surgical History: Reports: Other (See Below) Other Musculoskeletal Surgeries/Procedures:: 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 ED EXAM, SKIN/RASH Exam: See Below (see dictation) ED SKIN PROCEDURES - I&D Site: left labia majora Skin Prep: Isopropyl Alcohol (Alcohol) Area Incised With: 11 Blade Drainage: Purulent, Bloody, Small Amount Packed With: None Course - Vital Signs Last Recorded V/S: Last Vital Signs Temp 98.0 F 11/28/18 18:10 Pulse 102 H 11/28/18 18:10 Resp 16 11/28/18 18:10 BP 163/83 H 11/28/18 18:10 Pulse Ox 94 L 11/28/18 18:10 - Orders/Labs/Meds Orders: Active Orders 24 hr Category Date Time Status CULTURE BLOOD [BC] Stat Lab 11/28/18 18:21 Received CULTURE BLOOD [BC] Stat Lab 11/28/18 18:31 Results Sodium Chloride 0.9% [Saline Flush] Med 11/28/18 18:10 Active 10 ml FLUSH ASDIRECTED PRN Sodium Chloride 0.9% [Saline Flush] Med 11/28/18 18:10 Active 2.5 ml FLUSH ASDIRECTED PRN cefTRIAXone [Rocephin in Dextrose,Iso-Osm 1 GM/50 ML] 1 Med 11/28/18 19:45 Active gm Premix Bag 1 bag IV Q24H Blood Culture x2 Reflex Set [OM.PC] Stat Oth 11/28/18 18:11 Ordered Saline Lock Insert [OM.PC] Stat Ot 11/28/18 18:10 Ordered Medication Orders Ceftriaxone Sodium/Dextrose 1 (gm/ Premix) 50 mls @ 100 mls/hr IV Q24H ANAMIKA Last Admin: 11/28/18 19:41 Dose: 100 mls/hr Sodium Chloride (Saline Flush) 10 ml FLUSH ASDIRECTED PRN PRN Reason: Keep Vein Open Sodium Chloride (Saline Flush) 2.5 ml FLUSH ASDIRECTED PRN PRN Reason: Keep Vein Open Labs: Laboratory Tests 11/28/18 11/28/18 11/28/18 Range/Units 18:21 18:21 18:21 WBC 13.06 H (4.0-11.0) K/uL RBC 3.36 L (4.30-5.90) M/uL Hgb 10.8 L (12.0-16.0) g/dL Hct 32.3 L (36.0-46.0) % MCV 96.1 (80.0-98.0) fL MCH 32.1 H (27.0-32.0) pg MCHC 33.4 (31.0-37.0) g/dL RDW Std Deviation 66.4 H (28.0-62.0) fl RDW Coeff of Joelle 19 H (11.0-15.0) % Plt Count 265 (150-400) K/uL MPV 10.20 (7.40-12.00) fL Neut % (Auto) 91.2 H (48.0-80.0) % Lymph % (Auto) 6.0 L (16.0-40.0) % Sanborn % (Auto) 2.1 (0.0-15.0) % Eos % (Auto) 0.5 (0.0-7.0) % Baso % (Auto) 0.2 (0.0-1.5) % Neut # (Auto) 11.9 H (1.4-5.7) K/uL Lymph # (Auto) 0.8 (0.6-2.4) K/uL Sanborn # (Auto) 0.3 (0.0-0.8) K/uL Eos # (Auto) 0.1 (0.0-0.7) K/uL Baso # (Auto) 0.0 (0.0-0.1) K/uL Nucleated RBC % 0.0 /100WBC Nucleated RBCs # 0 K/uL Lactate 1.3 (0.20-2.00) mmol/L Sodium 137 (136-145) mmol/L Potassium 4.3 (3.5-5.1) mmol/L Chloride 103 (98-107) mmol/L Carbon Dioxide 26.0 (21.0-32.0) mmol/L BUN 25 H (7.0-18.0) mg/dL Creatinine 1.1 H (0.6-1.0) mg/dL Est Cr Clr Drug Dosing TNP Estimated GFR (MDRD) 46.8 ml/min Glucose 111 H (74-106) mg/dL Calcium 8.8 (8.5-10.1) mg/dL Total Bilirubin 0.8 (0.2-1.0) mg/dL AST 20 (15-37) IU/L ALT 20 (14-63) IU/L Alkaline Phosphatase 76 (46-116) U/L Total Protein 6.9 (6.4-8.2) g/dL Albumin 3.1 L (3.4-5.0) g/dL Globulin 3.8 (2.6-4.0) g/dL Albumin/Globulin Ratio 0.8 L (0.9-1.6) Urine Color Urine Appearance Urine pH (5.0-8.0) Ur Specific Branch (1.001-1.035) Urine Protein (NEGATIVE) mg/dL Urine Glucose (UA) (NEGATIVE) mg/dL Urine Ketones (NEGATIVE) mg/dL Urine Occult Blood (NEGATIVE) Urine Nitrite (NEGATIVE) Urine Bilirubin (NEGATIVE) Urine Urobilinogen (<2.0) EU/dL Ur Leukocyte Esterase (NEGATIVE) 11/28/18 Range/Units 18:45 WBC (4.0-11.0) K/uL RBC (4.30-5.90) M/uL Hgb (12.0-16.0) g/dL Hct (36.0-46.0) % MCV (80.0-98.0) fL MCH (27.0-32.0) pg MCHC (31.0-37.0) g/dL RDW Std Deviation (28.0-62.0) fl RDW Coeff of Joelle (11.0-15.0) % Plt Count (150-400) K/uL MPV (7.40-12.00) fL Neut % (Auto) (48.0-80.0) % Lymph % (Auto) (16.0-40.0) % Sanborn % (Auto) (0.0-15.0) % Eos % (Auto) (0.0-7.0) % Baso % (Auto) (0.0-1.5) % Neut # (Auto) (1.4-5.7) K/uL Lymph # (Auto) (0.6-2.4) K/uL Sanborn # (Auto) (0.0-0.8) K/uL Eos # (Auto) (0.0-0.7) K/uL Baso # (Auto) (0.0-0.1) K/uL Nucleated RBC % /100WBC Nucleated RBCs # K/uL Lactate (0.20-2.00) mmol/L Sodium (136-145) mmol/L Potassium (3.5-5.1) mmol/L Chloride (98-107) mmol/L Carbon Dioxide (21.0-32.0) mmol/L BUN (7.0-18.0) mg/dL Creatinine (0.6-1.0) mg/dL Est Cr Clr Drug Dosing Estimated GFR (MDRD) ml/min Glucose (74-106) mg/dL Calcium (8.5-10.1) mg/dL Total Bilirubin (0.2-1.0) mg/dL AST (15-37) IU/L ALT (14-63) IU/L Alkaline Phosphatase (46-116) U/L Total Protein (6.4-8.2) g/dL Albumin (3.4-5.0) g/dL Globulin (2.6-4.0) g/dL Albumin/Globulin Ratio (0.9-1.6) Urine Color YELLOW Urine Appearance CLEAR Urine pH 6.5 (5.0-8.0) Ur Specific Branch 1.020 (1.001-1.035) Urine Protein NEGATIVE (NEGATIVE) mg/dL Urine Glucose (UA) NEGATIVE (NEGATIVE) mg/dL Urine Ketones NEGATIVE (NEGATIVE) mg/dL Urine Occult Blood NEGATIVE (NEGATIVE) Urine Nitrite NEGATIVE (NEGATIVE) Urine Bilirubin NEGATIVE (NEGATIVE) Urine Urobilinogen 1.0 (<2.0) EU/dL Ur Leukocyte Esterase NEGATIVE (NEGATIVE) Meds: Medications Generic Name Dose Route Start Last Admin Trade Name Freq PRN Reason Stop Dose Admin Ceftriaxone Sodium/Dextrose 1 50 mls @ 100 mls/hr 11/28/18 19:45 11/28/18 19: 41 gm/ Premix IV 100 mls/hr Q24H ANAMIKA Administration Sodium Chloride 10 ml 11/28/18 18:10 Saline Flush FLUSH ASDIRECTED PRN Keep Vein Open Sodium Chloride 2.5 ml 11/28/18 18:10 Saline Flush FLUSH ASDIRECTED PRN Keep Vein Open Departure - Departure Time of Disposition: 19:41 Disposition: Home, Self-Care 01 Condition: Good Clinical Impression: Abscess - Discharge Information Referrals: Abelino Fernandez MD [Primary Care Provider] - Forms: ED Department Discharge Additional Instructions: The following information is given to patients seen in the emergency department who are being discharged to home. This information is to outline your options for follow-up care. We provide all patients seen in our emergency department with a follow-up referral. The need for follow-up, as well as the timing and circumstances, are variable depending upon the specifics of your emergency department visit. If you don't have a primary care physician on staff, we will provide you with a referral. We always advise you to contact your personal physician following an emergency department visit to inform them of the circumstance of the visit and for follow-up with them and/or the need for any referrals to a consulting specialist. The emergency department will also refer you to a specialist when appropriate. This referral assures that you have the opportunity for follow-up care with a specialist. All of these measure are taken in an effort to provide you with optimal care, which includes your follow-up. Under all circumstances we always encourage you to contact your private physician who remains a resource for coordinating your care. When calling for follow-up care, please make the office aware that this follow-up is from your recent emergency room visit. If for any reason you are refused follow-up, please contact the [facility] Emergency Department at and asked to speak to the emergency department charge nurse. [facility] [address] [place] [id number] [id number] Take antibiotic as instructed Follow up with primary care provider Return to ED as needed as discussed - My Orders Last 24 Hours: My Active Orders 11/28/18 18:10 Sodium Chloride 0.9% [Saline Flush] 10 ml FLUSH ASDIRECTED PRN Sodium Chloride 0.9% [Saline Flush] 2.5 ml FLUSH ASDIRECTED PRN Saline Lock Insert [OM.PC] Stat 11/28/18 18:11 Blood Culture x2 Reflex Set [OM.PC] Stat 11/28/18 18:21 CULTURE BLOOD [BC] Stat 11/28/18 18:31 CULTURE BLOOD [BC] Stat 11/28/18 19:45 cefTRIAXone [Rocephin in Dextrose,Iso-Osm 1 GM/50 ML] 1 gm Premix Bag 1 bag IV Q24H - Assessment/Plan Last 24 Hours: My Active Orders 11/28/18 18:10 Sodium Chloride 0.9% [Saline Flush] 10 ml FLUSH ASDIRECTED PRN Sodium Chloride 0.9% [Saline Flush] 2.5 ml FLUSH ASDIRECTED PRN Saline Lock Insert [OM.PC] Stat 07/25/19 18:11 Blood Culture x2 Reflex Set [OM.PC] Stat 11/28/18 18:21 CULTURE BLOOD [BC] Stat 11/28/18 18:31 CULTURE BLOOD [BC] Stat 11/28/18 19:45 cefTRIAXone [Rocephin in Dextrose,Iso-Osm 1 GM/50 ML] 1 gm Premix Bag 1 bag IV Q24H
[2018-11-28 18:52] LABS: CHLORIDE,CL 103 mmol/L (98-107); SODIUM,NA 137 mmol/L (136-145)
--- NOTE | 2018-11-28 19:33 | CR ---
INDICATION: Cough. FINDINGS: A single portable chest x-ray shows a normal cardiac silhouette. Atherosclerotic aorta. The lungs show mild bibasilar atelectasis. Sharp pleural margins. No pneumothorax. IMPRESSION: Mild bibasilar atelectasis. No other focal pulmonary opacities. Dictated by Maxi Morgan MD @ 11/28/2018 7:31:09 PM Dictated by: Maxi Morgan MD @ 11/28/2018 19:31:20 (Electronically Signed)
[2018-11-28] MEDS ORDERED: cefTRIAXone 1 GM in Premix Bag 1 BAG IV SCH (19:45)
[2018-11-28 21:39] VITALS: BP 162/64
== END 2018-11-28 20:51 | disposition home or self-care (01) ==
LOC: MW.ED 17:59
DX: N76.4 Abscess of vulva (principal); I11.0 Hypertensive heart disease with heart failure; I50.9 Heart failure, unspecified; E78.00 Pure hypercholesterolemia, unspecified; I48.91 Unspecified atrial fibrillation; K21.9 Gastro-esophageal reflux disease without esophagitis; E03.9 Hypothyroidism, unspecified; F32.9 Major depressive disorder, single episode, unspecified; E11.9 Type 2 diabetes mellitus without complications; Z88.0 Allergy status to penicillin; Z88.5 Allergy status to narcotic agent; Z79.82 Long term (current) use of aspirin; Z79.899 Other long term (current) drug therapy; Z79.4 Long term (current) use of insulin
CPT/HCPCS: 36415; 56405; 71045; 80053; 81003; 83605; 85025; 87040; 96365; 99284; J0696

== ENCOUNTER 2018-12-19 09:55 | Emergency (ER) | payer MEDICARE, OTHER, MEDICAID ==
[2018-12-19] MEDS ORDERED: Sodium Chloride 0.9% 1,000 ML IV ONE (10:35)
--- NOTE | 2018-12-19 10:40 | EDM.PDOC ---
ED HPI GENERAL MEDICAL PROBLEM - General Chief Complaint: Lower Extremity Injury/Pain Stated Complaint: ABCESS Time Seen by Provider: 12/19/18 10:08 Source of Information: Reports: Family History Limitations: Reports: Altered Mental Status - History of Present Illness INITIAL COMMENTS - FREE TEXT/NARRATIVE: HISTORY AND PHYSICAL: History of present illness: HPI limited due to altered mental status; dementia. Patient is an 88-year-old female who presents to the ED today from [facility] for concern of inner right ankle infection. I did call and speak with the nurse at [facility] about patient's history of present illness. The nurse states that yesterday, they noticed the patient's ankle was swollen with purple discoloration on the medial malleolus of the ankle. Nurse states that late last night this area had opened and started draining. Patient was then put on rounds this morning to be seen by Dr. Cochran who came and and looked at her ankle. The nurse states that this morning she did have a documented temperature at 100.9 and was given Tylenol. The drainage became worse and the swelling of the ankle became worse this morning according to the nurse. Dr. Cochran did indicate that patient should be seen for the infection by the ER. The nurse states patient was on antibiotics approximately 3 weeks ago for a labial abscess , which resolved, and was given by Dr. Cochran but has not been on antibiotics for 3 weeks now (Bactrim). The nurse states that the patient's typical mentation is usually confused with short yes or no answers but does know her name at her usual baseline. History of T2DM on insulin, dementia. Patient denies fever, chills, chest pain, shortness of breath, or cough. Denies headache, neck stiff ness, change in vision, syncope, or near syncope. Denies nausea, vomiting, abdominal pain, diarrhea, constipation, or dysuria. Has not noted any blood in urine or stool. Patient has been eating and drinking appropriately. Review of systems: As per history of present illness and below otherwise all systems reviewed and negative. Past medical history: As per history of present illness and as reviewed below otherwise noncontributory. Surgical history: As per history of present illness and as reviewed below otherwise noncontributory. Social history: See social history for further information Family history: As per history of present illness and as reviewed below otherwise noncontributory. Physical exam: General: Patient is alert, oriented, and in no acute distress. Patient sitting comfortably on exam table. HEENT: Atraumatic, normocephalic, pupils equal and reactive bilaterally, negative for conjunctival pallor or scleral icterus, mucous membranes moist, TMs normal bilaterally, throat clear, neck supple, nontender, trachea midline. No drooling or trismus noted. No meningeal signs. No hot potato voice noted. Lungs: Clear to auscultation, breath sounds equal bilaterally, chest nontender. Heart: S1S2, regular rate and rhythm without overt murmur Abdomen: Soft, nondistended, nontender. Negative for masses or hepatosplenomegaly. Negative for costovertebral tenderness. Pelvis: Stable nontender. Genitourinary: Deferred. Rectal: Deferred. Skin: Intact, warm, dry. No lesions or rashes noted. Extremities: Atraumatic, negative for cords or calf pain. Neurovascular unremarkable. Neuro: Awake, alert, oriented. Cranial nerves II through XII unremarkable. Cerebellum unremarkable. Motor and sensory unremarkable throughout. Exam nonfocal. Notes: Dr. Rod directly involved in patient care. Dr. Sena consult on patient and will admit to inpatient. Voices understanding and is agreeable to plan of care. Denies any further questions or concerns at this time. Diagnostics: CBC, CMP, UA, EKG, bedside glucose, lactic acid, blood cultures 2, ankle x-ray Therapeutics: Saline, Vancomycin Impression: Osteomyelitis Medial Talus Lung fibrosis, stable Elevated renal function tests Anemia, unspecified Plan: 1. Admit to inpatient to Dr. Sena. Definitive disposition and diagnosis as appropriate pending reevaluation and review of above. - Related Data Allergies Allergy/AdvReac Type Severity Reaction Status Date / Time Penicillins Allergy Mild Hives Verified 11/28/18 18:13 codeine Allergy Hives Verified 11/28/18 18:13 Home Meds: Home Meds Levothyroxine Sodium [Synthroid] 75 mcg PO ACBREAKFAST 02/15/14 [History] Losartan [Cozaar] 25 mg PO DAILY 12/23/15 [History] Aspirin 81 mg PO DAILY 12/05/16 [History] Cyanocobalamin (Vitamin B-12) [B-12] 1,000 mcg PO DAILY 12/05/16 [History] Meclizine HCl 25 mg PO BID 12/05/16 [History] Lutein/Minerals/Vit A,C & E [Ocuvite] 1 tab PO BID 01/21/17 [History] Multivit-Min/FA/Lycopene/Lut [Sentry Senior Tablet] 1 each PO DAILY 09/11/17 [ History] Calcium Carbonate [Calcium] 600 mg PO DAILY 12/03/17 [History] Diclofenac Sodium 1 appful TP .EVERY SHIFT 12/03/17 [History] Polyethylene Glycol 3350 [MiraLAX] 17 gm PO BID 12/03/17 [History] Famotidine 40 mg PO BEDTIME 06/03/18 [History] Bisacodyl 10 mg RC DAILY PRN 09/23/18 [History] Docusate Sodium 100 mg PO BID 09/23/18 [History] Ibuprofen [Advil] 400 mg PO Q6H PRN 09/23/18 [History] Magnesium Hydroxide [Milk of Magnesia] 30 ml PO Q24H PRN 09/23/18 [History] Nystatin 1 applic TOP Q8H PRN 09/23/18 [History] Acetaminophen [Tylenol] 650 mg PO Q4H PRN #30 tablet 09/27/18 [Rx] Insulin Detemir [Levemir Flextouch] 10 units SQ DAILY #0 09/27/18 [Rx] Past Medical History HEENT History: Reports: Allergic Rhinitis, Impaired Vision Other HEENT History: WEARS GLASSES Cardiovascular History: Reports: High Cholesterol, Hypertension Other Cardiovascular History: orthostatic hypotension Respiratory History: Reports: Pulmonary Fibrosis Gastrointestinal History: Reports: Chronic Constipation, Colon Polyp, GERD, Irritable Bowel Syndrome, Other (See Below) Genitourinary History: Reports: Urinary Incontinence, Other (See Below) [employer] History: Reports: Musculoskeletal History: Reports: Arthritis, Back Pain, Chronic Neurological History: Reports: Migraines, Vertigo, Other (See Below) Other Neuro History: no migranes since hysterectomy Psychiatric History: Reports: Dementia, Depression Endocrine/Metabolic History: Reports: Diabetes, Type II, Hypothyroidism Hematologic History: Reports: Anemia Immunologic History: Reports: None Oncologic (Cancer) History: Reports: None Dermatologic History: Reports: Eczema - Infectious Disease History Infectious Disease History: Reports: Measles - Past Surgical History Head Surgeries/Procedures: Reports: None HEENT Surgical History: Reports: None Cardiovascular Surgical History: Reports: None Respiratory Surgical History: Reports: None GI Surgical History: Reports: Appendectomy, Colonoscopy, EGD Female Surgical History: Reports: Breast Biopsy, Section, Hysterectomy, Oophorectomy, Salpingo-Oophorectomy Musculoskeletal Surgical History: Reports: Other (See Below) Other Musculoskeletal Surgeries/Procedures:: 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 ED EXAM, GENERAL - Physical Exam Exam: See Below (see dictation) Course - Vital Signs Last Recorded V/S: Last Vital Signs Temp 36.3 C 12/19/18 11:17 Pulse 77 12/19/18 13:12 Resp 18 12/19/18 11:17 BP 125/59 L 12/19/18 13:12 Pulse Ox 96 12/19/18 13:12 - Orders/Labs/Meds Orders: Active Orders 24 hr Category Date Time Status Admission Status [Patient Status] [ADT] Stat ADT 12/19/18 13:20 Ordered EKG Documentation Completion [RC] STAT Care 12/19/18 10:35 Active CULTURE BLOOD [BC] Stat Lab 12/19/18 10:53 Results CULTURE BLOOD [BC] Stat Lab 12/19/18 11:03 Results Sodium Chloride 0.9% [Normal Saline] 1,000 ml Med 12/19/18 10:35 Active IV BOLUS Blood Culture x2 Reflex Set [OM.PC] Stat Oth 12/19/18 10:36 Ordered Medication Orders Sodium Chloride (Normal Saline) 1,000 mls @ 100 mls/hr IV BOLUS ONE Stop: 12/19/18 20:34 Last Admin: 12/19/18 11:17 Dose: 100 mls/hr Labs: Laboratory Tests 12/19/18 12/19/18 12/19/18 Range/Units 10:38 11:03 11:03 WBC 9.66 (4.0-11.0) K/uL RBC 2.81 L (4.30-5.90) M/uL Hgb 9.1 L (12.0-16.0) g/dL Hct 27.1 L (36.0-46.0) % MCV 96.4 (80.0-98.0) fL MCH 32.4 H (27.0-32.0) pg MCHC 33.6 (31.0-37.0) g/dL RDW Std Deviation 66.5 H (28.0-62.0) fl RDW Coeff of Joelle 19 H (11.0-15.0) % Plt Count 223 (150-400) K/uL MPV 9.40 (7.40-12.00) fL Neut % (Auto) 79.1 (48.0-80.0) % Lymph % (Auto) 15.7 L (16.0-40.0) % [place] % (Auto) 4.7 (0.0-15.0) % Eos % (Auto) 0.4 (0.0-7.0) % Baso % (Auto) 0.1 (0.0-1.5) % Neut # (Auto) 7.6 H (1.4-5.7) K/uL Lymph # (Auto) 1.5 (0.6-2.4) K/uL [place] # (Auto) 0.5 (0.0-0.8) K/uL Eos # (Auto) 0.0 (0.0-0.7) K/uL Baso # (Auto) 0.0 (0.0-0.1) K/uL Nucleated RBC % 0.0 /100WBC Nucleated RBCs # 0 K/uL Lactate (0.20-2.00) mmol/L Sodium 139 (136-145) mmol/L Potassium 3.9 (3.5-5.1) mmol/L Chloride 105 (98-107) mmol/L Carbon Dioxide 25.7 (21.0-32.0) mmol/L BUN 24 H (7.0-18.0) mg/dL Creatinine 1.2 H (0.6-1.0) mg/dL Est Cr Clr Drug Dosing TNP Estimated GFR (MDRD) 42.3 ml/min Glucose 126 H (74-106) mg/dL POC Glucose 151 H (60-110) mg/dL Calcium 9.1 (8.5-10.1) mg/dL Total Bilirubin 1.2 H (0.2-1.0) mg/dL AST 16 (15-37) IU/L ALT 10 L (14-63) IU/L Alkaline Phosphatase 60 (46-116) U/L Total Protein 6.2 L (6.4-8.2) g/dL Albumin 2.6 L (3.4-5.0) g/dL Globulin 3.6 (2.6-4.0) g/dL Albumin/Globulin Ratio 0.7 L (0.9-1.6) Urine Color Urine Appearance Urine pH (5.0-8.0) Ur Specific [place] (1.001-1.035) Urine Protein (NEGATIVE) mg/dL Urine Glucose (UA) (NEGATIVE) mg/dL Urine Ketones (NEGATIVE) mg/dL Urine Occult Blood (NEGATIVE) Urine Nitrite (NEGATIVE) Urine Bilirubin (NEGATIVE) Urine Ictotest Urine Urobilinogen (<2.0) EU/dL Ur Leukocyte Esterase (NEGATIVE) Blood Type Antibody Screen 12/19/18 12/19/18 12/19/18 Range/Units 11:03 11:03 13:00 WBC (4.0-11.0) K/uL RBC (4.30-5.90) M/uL Hgb (12.0-16.0) g/dL Hct (36.0-46.0) % MCV (80.0-98.0) fL MCH (27.0-32.0) pg MCHC (31.0-37.0) g/dL RDW Std Deviation (28.0-62.0) fl RDW Coeff of Joelle (11.0-15.0) % Plt Count (150-400) K/uL MPV (7.40-12.00) fL Neut % (Auto) (48.0-80.0) % Lymph % (Auto) (16.0-40.0) % [place] % (Auto) (0.0-15.0) % Eos % (Auto) (0.0-7.0) % Baso % (Auto) (0.0-1.5) % Neut # (Auto) (1.4-5.7) K/uL Lymph # (Auto) (0.6-2.4) K/uL [place] # (Auto) (0.0-0.8) K/uL Eos # (Auto) (0.0-0.7) K/uL Baso # (Auto) (0.0-0.1) K/uL Nucleated RBC % /100WBC Nucleated RBCs # K/uL Lactate 1.1 (0.20-2.00) mmol/L Sodium (136-145) mmol/L Potassium (3.5-5.1) mmol/L Chloride (98-107) mmol/L Carbon Dioxide (21.0-32.0) mmol/L BUN (7.0-18.0) mg/dL Creatinine (0.6-1.0) mg/dL Est Cr Clr Drug Dosing Estimated GFR (MDRD) ml/min Glucose (74-106) mg/dL POC Glucose (60-110) mg/dL Calcium (8.5-10.1) mg/dL Total Bilirubin (0.2-1.0) mg/dL AST (15-37) IU/L ALT (14-63) IU/L Alkaline Phosphatase (46-116) U/L Total Protein (6.4-8.2) g/dL Albumin (3.4-5.0) g/dL Globulin (2.6-4.0) g/dL Albumin/Globulin Ratio (0.9-1.6) Urine Color DARK YELLOW Urine Appearance CLEAR Urine pH 6.0 (5.0-8.0) Ur Specific [place] 1.025 (1.001-1.035) Urine Protein NEGATIVE (NEGATIVE) mg/dL Urine Glucose (UA) NEGATIVE (NEGATIVE) mg/dL Urine Ketones NEGATIVE (NEGATIVE) mg/dL Urine Occult Blood NEGATIVE (NEGATIVE) Urine Nitrite NEGATIVE (NEGATIVE) Urine Bilirubin SMALL H (NEGATIVE) Urine Ictotest NEGATIVE Urine Urobilinogen 1.0 (<2.0) EU/dL Ur Leukocyte Esterase NEGATIVE (NEGATIVE) Blood Type A NEGATIVE Antibody Screen NEGATIVE Meds: Medications Generic Name Dose Route Start Last Admin Trade Name Freq PRN Reason Stop Dose Admin Sodium Chloride 1,000 mls @ 100 mls/hr 12/19/18 10:35 12/19/18 11:17 Normal Saline IV 12/19/18 20:34 100 mls/hr BOLUS ONE Administration Discontinued Medications Generic Name Dose Route Start Last Admin Trade Name Darryl PRN Reason Stop Dose Admin Vancomycin HCl 1 gm/ Sodium 250 mls @ 166 mls/hr 12/19/18 10:39 12/19/18 11: 20 Chloride IV 12/19/18 12:09 166 mls/hr ONETIME ONE Administration Sodium Chloride Confirm 12/19/18 11:06 12/19/18 11:20 Normal Saline Administered 12/19/18 11:07 Not Given Dose 250 mls @ as directed .ROUTE .STK-MED ONE Vancomycin HCl Confirm 12/19/18 11:05 12/19/18 11:20 Vancomycin Administered 12/19/18 11:06 Not Given Dose 1 gm .ROUTE .STK-MED ONE Departure - Departure Time of Disposition: 13:30 Disposition: Admitted As Inpatient 65 Clinical Impression: Renal function test abnormal, Lung fibrosis Osteomyelitis Qualifiers: Osteomyelitis type: unspecified type Osteomyelitis location: ankle Laterality: right Qualified Code(s): M86.9 - Osteomyelitis, unspecified Anemia Qualifiers: Anemia type: unspecified type Qualified Code(s): D64.9 - Anemia, unspecified - Discharge Information - My Orders Last 24 Hours: My Active Orders 12/19/18 10:35 EKG Documentation Completion [RC] STAT Sodium Chloride 0.9% [Normal Saline] 1,000 ml IV BOLUS 12/19/18 10:36 Blood Culture x2 Reflex Set [OM.PC] Stat 12/19/18 10:53 CULTURE BLOOD [BC] Stat 12/19/18 11:03 CULTURE BLOOD [BC] Stat 12/19/18 13:20 Admission Status [Patient Status] [ADT] Stat - Assessment/Plan Last 24 Hours: My Active Orders 12/19/18 10:35 EKG Documentation Completion [RC] STAT Sodium Chloride 0.9% [Normal Saline] 1,000 ml IV BOLUS 12/19/18 10:36 Blood Culture x2 Reflex Set [OM.PC] Stat 12/19/18 10:53 CULTURE BLOOD [BC] Stat 12/19/18 11:03 CULTURE BLOOD [BC] Stat 12/19/18 13:20 Admission Status [Patient Status] [ADT] Stat
[2018-12-19] MEDS ORDERED: Vancomycin 1 GM SDV ONE (11:05)
[2018-12-19] MEDS ORDERED: Sodium Chloride 0.9% 250 ML ONE (11:06)
[2018-12-19 11:40] LABS: CHLORIDE,CL 105 mmol/L (98-107); SODIUM,NA 139 mmol/L (136-145)
--- NOTE | 2018-12-19 12:43 | CR ---
INDICATION: Pain with an open wound. COMPARISON: None available. FINDINGS: AP, lateral and oblique views of the left ankle were obtained for a total of three views. There is moderate medial soft tissue swelling with a defect in the soft tissues inferior to the medial malleolus consistent with an ulcer. There is no sign of any gas within the soft tissue itself and no sign of any foreign body. There is demineralization of the adjacent medial aspect of the talus, with a suggestion of fragmentation, suggesting early osteomyelitis. There has been fixation of the talonavicular joint in anatomic alignment with a medium caliber screw placed longitudinally. The talonavicular joint is completely fused. There may be fusion of the tarsal navicular with the cuneiforms, with narrowing of joint spaces. There is some deformity of the hindfoot, best seen on the AP view, with an appearance of lateral shifting of the calcaneus. The articulation of the distal fibula and the talus is also not clearly seen on the AP view. IMPRESSION: Ulceration of a moderate area of soft tissue swelling in the medial ankle inferior to the medial malleolus, with early changes of osteomyelitis involving the medial talus. Additional changes of fusion and degenerative disease as described above. Dictated by Mono Kraft MD @ Dec 19 2018 12:35PM Signed by Dr. Mono Kraft @ Dec 19 2018 12:43PM
--- NOTE | 2018-12-19 12:58 | CR ---
INDICATION: Lethargy COMPARISON: none TECHNIQUE: Two view chest. FINDINGS: The heart is mildly enlarged. There is atherosclerotic calcification and tortuosity of the thoracic aorta. The pulmonary vessels appear within normal range in size. Interstitial fibrotic changes are noted within both lungs particularly in a peripheral distribution. No focal masses or infiltrates are identified. IMPRESSION: Interstitial fibrotic changes noted within both lungs. Cardiomegaly but no evidence of CHF or pneumonia. Dictated by Ben Vera MD @ Dec 19 2018 12:55PM Signed by Dr. Ben Vera @ Dec 19 2018 12:56PM
[2018-12-19] MEDS ORDERED: cefTRIAXone 1 GM in Premix Bag 1 BAG IV SCH (14:30)
[2018-12-19 15:13] VITALS: BP 118/58
--- NOTE | 2018-12-19 15:34 | PCM.HP.2 ---
<Gwendolyn Whitfield M - Last Filed: 12/19/18 15:25> H&P History of Present Illness - General Date of Service: 12/19/18 Admit Problem/Dx: Admission Diagnosis/Problem Admission Diagnosis/Problem Osteomyelitis Source of Information: Patient History Limitations: Reports: No Limitations - History of Present Illness Initial Comments - Free Text/Narative: This 88 year old female with pmh of HTN, DM type 2, dyslipidemia, anemia and dementia presented today to the ED from [facility] with complaints of increasing confusion from baseline and draining R ankle wound. Per [facility] nursing report Grzegorz had a fever this morning and provider extrusion die template maker requested her to be evaluated in the ED. Un sure how long wound has been present, but wound has been draining for approximately 2 days. Grzegorz is unable to provide information and sister Carol at bedside is unsure of concerns. In the ED no leukocytosis noted, Hgb, 9.1 which is near baseline. BUN 24 Cr 1.2 which is also near baseline. BC obtained as well as wound culture of R ankle wound. Ankle Xray reveals ulceration with moderate are of soft tissue swelling in the medial ankle inferior to the medial malleolus with early changes of osteomyelitis involving the medial talus. Hospitalist consulted for admission. No Orthopedics available. I spoke with podiatry, Dr Denny, who is leaving [facility]. With description of wound and Xray, he felt debridement and buttermaker antibiotics were necessary. I spoke with Cintia Couch, daughter and KIMBERLEY, regarding findings in the ED. I discussed in detail with her the inability for surgical debridement in our facility, after discussion with her they would like her transferred to [place] for further evaluation. - Related Data Allergies/Adverse Reactions: Allergies Allergy/AdvReac Type Severity Reaction Status Date / Time Penicillins Allergy Mild Hives Verified 11/28/18 18:13 codeine Allergy Hives Verified 11/28/18 18:13 Home Medications: Home Meds Levothyroxine Sodium [Synthroid] 75 mcg PO ACBREAKFAST 02/15/14 [History] Losartan [Cozaar] 25 mg PO DAILY 12/23/15 [History] Aspirin 81 mg PO DAILY 12/05/16 [History] Cyanocobalamin (Vitamin B-12) [B-12] 1,000 mcg PO DAILY 12/05/16 [History] Meclizine HCl 25 mg PO BID 12/05/16 [History] Lutein/Minerals/Vit A,C & E [Ocuvite] 1 tab PO BID 01/21/17 [History] Multivit-Min/FA/Lycopene/Lut [Sentry Senior Tablet] 1 each PO DAILY 09/11/17 [ History] Calcium Carbonate [Calcium] 600 mg PO DAILY 12/03/17 [History] Diclofenac Sodium 1 appful TP .EVERY SHIFT 12/03/17 [History] Polyethylene Glycol 3350 [MiraLAX] 17 gm PO BID 12/03/17 [History] Famotidine 40 mg PO BEDTIME 06/03/18 [History] Bisacodyl 10 mg RC DAILY PRN 09/23/18 [History] Docusate Sodium 100 mg PO BID 09/23/18 [History] Ibuprofen [Advil] 400 mg PO Q6H PRN 09/23/18 [History] Magnesium Hydroxide [Milk of Magnesia] 30 ml PO Q24H PRN 09/23/18 [History] Nystatin 1 applic TOP Q8H PRN 09/23/18 [History] Acetaminophen [Tylenol] 650 mg PO Q4H PRN #30 tablet 09/27/18 [Rx] Insulin Detemir [Levemir Flextouch] 10 units SQ DAILY #0 09/27/18 [Rx] Cholecalciferol (Vitamin D3) [Vitamin D3] 2,000 unit PO DAILY 12/19/18 [History] traMADol HCl [Tramadol HCl] 50 mg PO Q8H 12/19/18 [History] Past Medical History HEENT History: Reports: Allergic Rhinitis, Impaired Vision Other HEENT History: WEARS GLASSES Cardiovascular History: Reports: High Cholesterol, Hypertension Other Cardiovascular History: orthostatic hypotension Respiratory History: Reports: Pulmonary Fibrosis Gastrointestinal History: Reports: Chronic Constipation, Colon Polyp, GERD, Irritable Bowel Syndrome, Other (See Below) Genitourinary History: Reports: Urinary Incontinence, Other (See Below) RETREAD OPERATOR History: Reports: Musculoskeletal History: Reports: Arthritis, Back Pain, Chronic Neurological History: Reports: Migraines, Vertigo, Other (See Below) Other Neuro History: no migranes since hysterectomy Psychiatric History: Reports: Dementia, Depression Endocrine/Metabolic History: Reports: Diabetes, Type II, Hypothyroidism Hematologic History: Reports: Anemia Immunologic History: Reports: None Oncologic (Cancer) History: Reports: None Dermatologic History: Reports: Eczema - Infectious Disease History Infectious Disease History: Reports: Measles - Past Surgical History Head Surgeries/Procedures: Reports: None HEENT Surgical History: Reports: None Cardiovascular Surgical History: Reports: None Respiratory Surgical History: Reports: None GI Surgical History: Reports: Appendectomy, Colonoscopy, EGD Female Surgical History: Reports: Breast Biopsy, Section, Hysterectomy, Oophorectomy, Salpingo-Oophorectomy Musculoskeletal Surgical History: Reports: Other (See Below) Other Musculoskeletal Surgeries/Procedures:: 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, 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 Oncologic Surgical History: Reports: Lumpectomy Social & Family History - Family History Family Medical History: Noncontributory - Tobacco Use Smoking Status *Q: Never Smoker Second Hand Smoke Exposure: No - Caffeine Use Caffeine Use: Reports: None - Recreational Drug Use Recreational Drug Use: No - Living Situation & Occupation Living situation: Reports: Extended Care Facility, Other (Sister is nearby in town) Occupation: Retired H&P Review of Systems - Review of Systems: Review Of Systems: Unable To Obtain (patient unrelieable with answers, Per HPI) Exam - Exam Exam: See Below - Vital Signs Vital Signs: Last Vital Signs Temp 97.2 F 12/19/18 15:12 Pulse 80 12/19/18 15:12 Resp 18 12/19/18 11:17 BP 118/58 L 12/19/18 15:12 Pulse Ox 95 12/19/18 15:12 - Exam General: Alert, Cooperative, Lethargic, Other (pallor). No: Oriented HEENT: Conjunctiva Clear, Mucosa Moist & Johnson, Posterior Pharynx Clear Neck: Supple Lungs: Clear to Auscultation, Normal Respiratory Effort Cardiovascular: Regular Rate, Regular Rhythm GI/Abdominal Exam: Normal Bowel Sounds, Soft, Non-Tender Extremities: Limited Range of Motion (R ankle) Skin: Wound (R ankle with multiple open sores, with active purulent drainage. Extensive erythema, warm and tenderness to palpation. Mild fluctuance noted just anterior to large open on medial malleolus. Erythema extends to midfoot, excluding metatarsals.) Neuro Extensive - Mental Status: No: Oriented x3, Normal Mood/Affect Psychiatric: Other (more lethargic and obtunded than usual, per sister at bedside.). No: Normal Affect, Normal Mood - Patient Data Lab Results Last 24 hrs: Laboratory Results - last 24 hr 12/19/18 12/19/18 12/19/18 Range/Units 10:38 11:03 11:03 WBC 9.66 (4.0-11.0) K/uL RBC 2.81 L (4.30-5.90) M/uL Hgb 9.1 L (12.0-16.0) g/dL Hct 27.1 L (36.0-46.0) % MCV 96.4 (80.0-98.0) fL MCH 32.4 H (27.0-32.0) pg MCHC 33.6 (31.0-37.0) g/dL RDW Std Deviation 66.5 H (28.0-62.0) fl RDW Coeff of Joelle 19 H (11.0-15.0) % Plt Count 223 (150-400) K/uL MPV 9.40 (7.40-12.00) fL Neut % (Auto) 79.1 (48.0-80.0) % Lymph % (Auto) 15.7 L (16.0-40.0) % Young % (Auto) 4.7 (0.0-15.0) % Eos % (Auto) 0.4 (0.0-7.0) % Baso % (Auto) 0.1 (0.0-1.5) % Neut # (Auto) 7.6 H (1.4-5.7) K/uL Lymph # (Auto) 1.5 (0.6-2.4) K/uL Young # (Auto) 0.5 (0.0-0.8) K/uL Eos # (Auto) 0.0 (0.0-0.7) K/uL Baso # (Auto) 0.0 (0.0-0.1) K/uL Nucleated RBC % 0.0 /100WBC Nucleated RBCs # 0 K/uL Lactate (0.20-2.00) mmol/L Sodium 139 (136-145) mmol/L Potassium 3.9 (3.5-5.1) mmol/L Chloride 105 (98-107) mmol/L Carbon Dioxide 25.7 (21.0-32.0) mmol/L BUN 24 H (7.0-18.0) mg/dL Creatinine 1.2 H (0.6-1.0) mg/dL Est Cr Clr Drug Dosing TNP Estimated GFR (MDRD) 42.3 ml/min Glucose 126 H (74-106) mg/dL POC Glucose 151 H (60-110) mg/dL Calcium 9.1 (8.5-10.1) mg/dL Total Bilirubin 1.2 H (0.2-1.0) mg/dL AST 16 (15-37) IU/L ALT 10 L (14-63) IU/L Alkaline Phosphatase 60 (46-116) U/L Total Protein 6.2 L (6.4-8.2) g/dL Albumin 2.6 L (3.4-5.0) g/dL Globulin 3.6 (2.6-4.0) g/dL Albumin/Globulin Ratio 0.7 L (0.9-1.6) Urine Color Urine Appearance Urine pH (5.0-8.0) Ur Specific [place] (1.001-1.035) Urine Protein (NEGATIVE) mg/dL Urine Glucose (UA) (NEGATIVE) mg/dL Urine Ketones (NEGATIVE) mg/dL Urine Occult Blood (NEGATIVE) Urine Nitrite (NEGATIVE) Urine Bilirubin (NEGATIVE) Urine Ictotest Urine Urobilinogen (<2.0) EU/dL Ur Leukocyte Esterase (NEGATIVE) Blood Type Antibody Screen 12/19/18 12/19/18 12/19/18 Range/Units 11:03 11:03 13:00 WBC (4.0-11.0) K/uL RBC (4.30-5.90) M/uL Hgb (12.0-16.0) g/dL Hct (36.0-46.0) % MCV (80.0-98.0) fL MCH (27.0-32.0) pg MCHC (31.0-37.0) g/dL RDW Std Deviation (28.0-62.0) fl RDW Coeff of Joelle (11.0-15.0) % Plt Count (150-400) K/uL MPV (7.40-12.00) fL Neut % (Auto) (48.0-80.0) % Lymph % (Auto) (16.0-40.0) % Young % (Auto) (0.0-15.0) % Eos % (Auto) (0.0-7.0) % Baso % (Auto) (0.0-1.5) % Neut # (Auto) (1.4-5.7) K/uL Lymph # (Auto) (0.6-2.4) K/uL Young # (Auto) (0.0-0.8) K/uL Eos # (Auto) (0.0-0.7) K/uL Baso # (Auto) (0.0-0.1) K/uL Nucleated RBC % /100WBC Nucleated RBCs # K/uL Lactate 1.1 (0.20-2.00) mmol/L Sodium (136-145) mmol/L Potassium (3.5-5.1) mmol/L Chloride (98-107) mmol/L Carbon Dioxide (21.0-32.0) mmol/L BUN (7.0-18.0) mg/dL Creatinine (0.6-1.0) mg/dL Est Cr Clr Drug Dosing Estimated GFR (MDRD) ml/min Glucose (74-106) mg/dL POC Glucose (60-110) mg/dL Calcium (8.5-10.1) mg/dL Total Bilirubin (0.2-1.0) mg/dL AST (15-37) IU/L ALT (14-63) IU/L Alkaline Phosphatase (46-116) U/L Total Protein (6.4-8.2) g/dL Albumin (3.4-5.0) g/dL Globulin (2.6-4.0) g/dL Albumin/Globulin Ratio (0.9-1.6) Urine Color DARK YELLOW Urine Appearance CLEAR Urine pH 6.0 (5.0-8.0) Ur Specific [place] 1.025 (1.001-1.035) Urine Protein NEGATIVE (NEGATIVE) mg/dL Urine Glucose (UA) NEGATIVE (NEGATIVE) mg/dL Urine Ketones NEGATIVE (NEGATIVE) mg/dL Urine Occult Blood NEGATIVE (NEGATIVE) Urine Nitrite NEGATIVE (NEGATIVE) Urine Bilirubin SMALL H (NEGATIVE) Urine Ictotest NEGATIVE Urine Urobilinogen 1.0 (<2.0) EU/dL Ur Leukocyte Esterase NEGATIVE (NEGATIVE) Blood Type A NEGATIVE Antibody Screen NEGATIVE Result Diagrams: 12/19/18 11:03 12/19/18 11:03 Elton Results Last 24 hrs: Microbiology 12/19/18 11:03 Anaerobic Blood Culture - Final Blood - Venous - Lab Draw 12/19/18 10:53 Anaerobic Blood Culture - Final Blood - Venous EKG INTERPRETATION Rhythm: NSR P-Wave: Present QRS: Normal ST-T: Normal QT: Normal - Problem List (1) Osteomyelitis SNOMED Code(s): 97398689 ICD Code: M86.9 - OSTEOMYELITIS, UNSPECIFIED Status: Acute Current Visit : Yes Qualifiers: Osteomyelitis type: unspecified type Osteomyelitis location: ankle Laterality: right Qualified Code(s): M86.9 - Osteomyelitis, unspecified (2) Cellulitis SNOMED Code(s): 335171833 ICD Code: L03.90 - CELLULITIS, UNSPECIFIED Status: Acute Current Visit: No (3) Altered mental status SNOMED Code(s): 765731191 ICD Code: R41.82 - ALTERED MENTAL STATUS, UNSPECIFIED Status: Acute Current Visit: No (4) Diabetes mellitus type 2 in obese SNOMED Code(s): 41758568 ICD Code: E11.9 - TYPE 2 DIABETES MELLITUS WITHOUT COMPLICATIONS; E66.9 - OBESITY, UNSPECIFIED Status: Chronic Priority: Medium Current Visit: No (5) Hypertensive heart disease SNOMED Code(s): 42878250 ICD Code: I11.9 - HYPERTENSIVE HEART DISEASE WITHOUT HEART FAILURE Status: Chronic Priority: Medium Current Visit: No (6) Physical deconditioning SNOMED Code(s): 19271472963049 ICD Code: R53.81 - OTHER MALAISE Status: Chronic Current Visit: No (7) Dementia SNOMED Code(s): 70399685 ICD Code: F03.90 - UNSPECIFIED DEMENTIA WITHOUT BEHAVIORAL DISTURBANCE Status: Chronic Current Visit: No (8) Dyslipidemia SNOMED Code(s): 442647020 ICD Code: E78.5 - HYPERLIPIDEMIA, UNSPECIFIED Status: Chronic Current Visit: No Problem List Initiated/Reviewed/Updated: Yes Orders Last 24hrs: Active Orders 24 hr Category Date Time Status Admission Status [Patient Status] [ADT] Stat ADT 12/19/18 13:20 Active EKG Documentation Completion [RC] STAT Care 12/19/18 10:35 Active CULTURE BLOOD [BC] Stat Lab 12/19/18 10:53 Results CULTURE BLOOD [BC] Stat Lab 12/19/18 11:03 Results CULTURE WOUND [RM] Stat Lab 12/19/18 14:26 Ordered Sodium Chloride 0.9% [Normal Saline] 1,000 ml Med 12/19/18 10:35 Active IV BOLUS cefTRIAXone [Rocephin in Dextrose,Iso-Osm 1 GM/50 ML] 1 Med 12/19/18 14:30 Ordered gm Premix Bag 1 bag IV Q24H Blood Culture x2 Reflex Set [OM.PC] Stat Oth 12/19/18 10:36 Ordered Medication Orders Sodium Chloride (Normal Saline) 1,000 mls @ 100 mls/hr IV BOLUS ONE Stop: 12/19/18 20:34 Last Admin: 12/19/18 11:17 Dose: 100 mls/hr Ceftriaxone Sodium/Dextrose 1 (gm/ Premix) 50 mls @ 100 mls/hr IV Q24H ANAMIKA Last Admin: 12/19/18 14:59 Dose: 100 mls/hr Assessment/Plan Comment:: This 88 year old female was consulted for admission, due to inability for surgical intervention with Orthopedics or Podiatry she will be transferred to [facility]. After confirming treatment plan with Daughter, Cintia, I spoke with Dr Renteria in the ED on [place]. He has kindly accepted patient for transfer. She will be transferred via EMS. She has received Vancomycin 1 gm and Rocephin at this time and will remain with gentle IVFs NA 100 and NPO for transfer. I spoke with Dr Sena regarding transfer plans. He is in agreement. <Holden Sena - Last Filed: 12/19/18 17:16> H&P History of Present Illness - General Admit Problem/Dx: Admission Diagnosis/Problem Admission Diagnosis/Problem Osteomyelitis I have examined the patient independently of Gwendolyn Whitfield CNP. I have discussed the case with her. I have reviewed and agree with the examination and plan as outlined by her. Please see orders. Exam - Vital Signs Vital Signs: Last Vital Signs Temp 36.2 C 12/19/18 15:12 Pulse 80 12/19/18 15:12 Resp 18 12/19/18 11:17 BP 118/58 L 12/19/18 15:12 Pulse Ox 95 12/19/18 15:12 - Patient Data Lab Results Last 24 hrs: Laboratory Results - last 24 hr 12/19/18 12/19/18 12/19/18 Range/Units 10:38 11:03 11:03 WBC 9.66 (4.0-11.0) K/uL RBC 2.81 L (4.30-5.90) M/uL Hgb 9.1 L (12.0-16.0) g/dL Hct 27.1 L (36.0-46.0) % MCV 96.4 (80.0-98.0) fL MCH 32.4 H (27.0-32.0) pg MCHC 33.6 (31.0-37.0) g/dL RDW Std Deviation 66.5 H (28.0-62.0) fl RDW Coeff of Joelle 19 H (11.0-15.0) % Plt Count 223 (150-400) K/uL MPV 9.40 (7.40-12.00) fL Neut % (Auto) 79.1 (48.0-80.0) % Lymph % (Auto) 15.7 L (16.0-40.0) % Young % (Auto) 4.7 (0.0-15.0) % Eos % (Auto) 0.4 (0.0-7.0) % Baso % (Auto) 0.1 (0.0-1.5) % Neut # (Auto) 7.6 H (1.4-5.7) K/uL Lymph # (Auto) 1.5 (0.6-2.4) K/uL Young # (Auto) 0.5 (0.0-0.8) K/uL Eos # (Auto) 0.0 (0.0-0.7) K/uL Baso # (Auto) 0.0 (0.0-0.1) K/uL Nucleated RBC % 0.0 /100WBC Nucleated RBCs # 0 K/uL Lactate (0.20-2.00) mmol/L Sodium 139 (136-145) mmol/L Potassium 3.9 (3.5-5.1) mmol/L Chloride 105 (98-107) mmol/L Carbon Dioxide 25.7 (21.0-32.0) mmol/L BUN 24 H (7.0-18.0) mg/dL Creatinine 1.2 H (0.6-1.0) mg/dL Est Cr Clr Drug Dosing TNP Estimated GFR (MDRD) 42.3 ml/min Glucose 126 H (74-106) mg/dL POC Glucose 151 H (60-110) mg/dL Calcium 9.1 (8.5-10.1) mg/dL Total Bilirubin 1.2 H (0.2-1.0) mg/dL AST 16 (15-37) IU/L ALT 10 L (14-63) IU/L Alkaline Phosphatase 60 (46-116) U/L Total Protein 6.2 L (6.4-8.2) g/dL Albumin 2.6 L (3.4-5.0) g/dL Globulin 3.6 (2.6-4.0) g/dL Albumin/Globulin Ratio 0.7 L (0.9-1.6) Urine Color Urine Appearance Urine pH (5.0-8.0) Ur Specific [place] (1.001-1.035) Urine Protein (NEGATIVE) mg/dL Urine Glucose (UA) (NEGATIVE) mg/dL Urine Ketones (NEGATIVE) mg/dL Urine Occult Blood (NEGATIVE) Urine Nitrite (NEGATIVE) Urine Bilirubin (NEGATIVE) Urine Ictotest Urine Urobilinogen (<2.0) EU/dL Ur Leukocyte Esterase (NEGATIVE) Blood Type Antibody Screen 12/19/18 12/19/18 12/19/18 Range/Units 11:03 11:03 13:00 WBC (4.0-11.0) K/uL RBC (4.30-5.90) M/uL Hgb (12.0-16.0) g/dL Hct (36.0-46.0) % MCV (80.0-98.0) fL MCH (27.0-32.0) pg MCHC (31.0-37.0) g/dL RDW Std Deviation (28.0-62.0) fl RDW Coeff of Joelle (11.0-15.0) % Plt Count (150-400) K/uL MPV (7.40-12.00) fL Neut % (Auto) (48.0-80.0) % Lymph % (Auto) (16.0-40.0) % Young % (Auto) (0.0-15.0) % Eos % (Auto) (0.0-7.0) % Baso % (Auto) (0.0-1.5) % Neut # (Auto) (1.4-5.7) K/uL Lymph # (Auto) (0.6-2.4) K/uL Young # (Auto) (0.0-0.8) K/uL Eos # (Auto) (0.0-0.7) K/uL Baso # (Auto) (0.0-0.1) K/uL Nucleated RBC % /100WBC Nucleated RBCs # K/uL Lactate 1.1 (0.20-2.00) mmol/L Sodium (136-145) mmol/L Potassium (3.5-5.1) mmol/L Chloride (98-107) mmol/L Carbon Dioxide (21.0-32.0) mmol/L BUN (7.0-18.0) mg/dL Creatinine (0.6-1.0) mg/dL Est Cr Clr Drug Dosing Estimated GFR (MDRD) ml/min Glucose (74-106) mg/dL POC Glucose (60-110) mg/dL Calcium (8.5-10.1) mg/dL Total Bilirubin (0.2-1.0) mg/dL AST (15-37) IU/L ALT (14-63) IU/L Alkaline Phosphatase (46-116) U/L Total Protein (6.4-8.2) g/dL Albumin (3.4-5.0) g/dL Globulin (2.6-4.0) g/dL Albumin/Globulin Ratio (0.9-1.6) Urine Color DARK YELLOW Urine Appearance CLEAR Urine pH 6.0 (5.0-8.0) Ur Specific [place] 1.025 (1.001-1.035) Urine Protein NEGATIVE (NEGATIVE) mg/dL Urine Glucose (UA) NEGATIVE (NEGATIVE) mg/dL Urine Ketones NEGATIVE (NEGATIVE) mg/dL Urine Occult Blood NEGATIVE (NEGATIVE) Urine Nitrite NEGATIVE (NEGATIVE) Urine Bilirubin SMALL H (NEGATIVE) Urine Ictotest NEGATIVE Urine Urobilinogen 1.0 (<2.0) EU/dL Ur Leukocyte Esterase NEGATIVE (NEGATIVE) Blood Type A NEGATIVE Antibody Screen NEGATIVE Result Diagrams: 12/19/18 11:03 12/19/18 11:03 Elton Results Last 24 hrs: Microbiology 12/19/18 11:03 Anaerobic Blood Culture - Final Blood - Venous - Lab Draw 12/19/18 10:53 Anaerobic Blood Culture - Final Blood - Venous Orders Last 24hrs: Active Orders 24 hr Category Date Time Status Admission Status [Patient Status] [ADT] Stat ADT 12/19/18 13:20 Active EKG Documentation Completion [RC] STAT Care 12/19/18 10:35 Active NPO [Nothing Per Oral Diet] [DIET] Diet 12/19/18 Dinner Active CULTURE BLOOD [BC] Stat Lab 12/19/18 10:53 Results CULTURE BLOOD [BC] Stat Lab 12/19/18 11:03 Results CULTURE WOUND [RM] Stat Lab 12/19/18 14:00 Received Sodium Chloride 0.9% [Normal Saline] 1,000 ml Med 12/19/18 15:45 Active IV ASDIRECTED Sodium Chloride 0.9% [Normal Saline] 1,000 ml Med 12/19/18 10:35 Active IV BOLUS cefTRIAXone [Rocephin in Dextrose,Iso-Osm 1 GM/50 ML] 1 Med 12/19/18 14:30 Active gm Premix Bag 1 bag IV Q24H Blood Culture x2 Reflex Set [OM.PC] Stat Oth 12/19/18 10:36 Ordered Medication Orders Sodium Chloride (Normal Saline) 1,000 mls @ 100 mls/hr IV BOLUS ONE Stop: 12/19/18 20:34 Last Admin: 12/19/18 11:17 Dose: 100 mls/hr Ceftriaxone Sodium/Dextrose 1 (gm/ Premix) 50 mls @ 100 mls/hr IV Q24H ANAMIKA Last Admin: 12/19/18 14:59 Dose: 100 mls/hr Sodium Chloride (Normal Saline) 1,000 mls @ 100 mls/hr IV ASDIRECTED ANAMIKA
[2018-12-19] MEDS ORDERED: Sodium Chloride 0.9% 1,000 ML IV SCH (15:45)
== END 2018-12-19 16:43 ==
LOC: MW.ED 09:55
DX: M86.9 Osteomyelitis, unspecified (principal); J84.10 Pulmonary fibrosis, unspecified; D64.9 Anemia, unspecified; R94.4 Abnormal results of kidney function studies; I10 Essential (primary) hypertension; E78.00 Pure hypercholesterolemia, unspecified; F32.9 Major depressive disorder, single episode, unspecified; Z88.0 Allergy status to penicillin; Z88.5 Allergy status to narcotic agent; Z79.82 Long term (current) use of aspirin; Z79.4 Long term (current) use of insulin; Z79.899 Other long term (current) drug therapy; E11.9 Type 2 diabetes mellitus without complications; E03.9 Hypothyroidism, unspecified
CPT/HCPCS: 36415; 71045; 73610; 80053; 81003; 82962; 83605; 85025; 86850; 86900; 86901; 87040; 87070; 87077; 87186; 93005; 96361; 96365; 96366; 96367; 99284; J0696; J3370; J7040; J7050